=== PATIENT | male | born 1940 | race Caucasian/White ===

== ENCOUNTER 2017-03-25 01:46 | Emergency (ER) | payer MEDICARE, BC ==
[2017-03-25 02:05] VITALS: BP 114/69; PULSE 90; RESP 18; TEMP 96.9
[2017-03-25] MEDS ORDERED: valACYclovir 500 MG TAB PO STA (02:42)
--- NOTE | 2017-03-25 02:43 | ED ---
Skin/Abscess/FB HPI - General Chief complaint: Skin/Abscess/Foreign Body Stated complaint: abscess/bite Time Seen by Provider: 03/25/17 02:28 Source: patient Mode of arrival: ambulatory Limitations: no limitations - Related Data Previous Rx's Medication Instructions Recorded valACYclovir HCL [Valtrex] 1,000 mg PO TID #21 tablet 03/25/17 Allergies Allergy/AdvReac Type Severity Reaction Status Date / Time No Known Allergies Allergy Verified 03/25/17 02:06 Review of Systems ROS Statement: Those systems with pertinent positive or pertinent negative responses have been documented in the HPI. ROS Other: All systems not noted in ROS Statement are negative. Past Medical History Past Medical History: COPD, Diabetes Mellitus History of Any Multi-Drug Resistant Organisms: None Reported Past Surgical History: No Surgical Hx Reported Past Psychological History: No Psychological Hx Reported Smoking Status: Current every day smoker Past Alcohol Use History: Occasional Past Drug Use History: None Reported General Exam Limitations: no limitations Course Vital Signs 03/25/17 02:02 Temperature 96.9 F L Pulse Rate 90 Respiratory 18 Rate Blood Pressure 114/69 O2 Sat by Pulse 95 Oximetry Disposition Clinical Impression: Shingles rash Disposition: HOME SELF-CARE Condition: Good Instructions: Shingles (ED) Additional Instructions: Patient is to take antibiotic therapy. Follow-up with your primary care provider in regards to concern for further pain management. Patient advised to take Motrin Tylenol for pain. Wear loose fitting clothing. Prescriptions: valACYclovir HCL [Valtrex] 1,000 mg PO TID #21 tablet Referrals: Barrett Tierney DO [Primary Care Provider] - 1-2 days Time of Disposition: 02:42
== END 2017-03-25 02:55 | disposition home or self-care (01) ==
LOC: EC 01:46
DX: B02.9 Zoster without complications (principal); F17.200 Nicotine dependence, unspecified, uncomplicated
CPT/HCPCS: 99282

== ENCOUNTER → 2017-06-13 | Outpatient (CLI) | payer MEDICARE, BC ==
[2017-06-13 12:57] LABS: Basophils # (A) 0.1 k/uL (0-0.2); Basophils % (A) 1 %; CHCM 34.6; Eosinophils # (A) 0.2 k/uL (0-0.7); Eosinophils % (A) 2 %; HCT 48.2 % (39.0-53.0); HDW 2.43; HGB 15.9 gm/dL (13.0-17.5); Luc # (Auto) 0.06; Luc % (Auto) 1; Lymphocytes # (A) 1.3 k/uL (1.0-4.8); Lymphocytes % (A) 17 %; MCH 30.6 pg (25.0-35.0); MCHC 32.9 g/dL (31.0-37.0); Mean Platelet Volume 7.6; Monocytes # (A) 0.4 k/uL (0-1.0); Monocytes % (A) 6 %; Neutrophils # (A) 5.4 k/uL (1.3-7.7); Neutrophils % (A) 74 %; RBC 5.18 m/uL (4.30-5.90); RDW 14.8 % (11.5-15.5); WBC 7.4 k/uL (3.8-10.6)
[2017-06-13 13:14] LABS: ALT 92 U/L (21-72); AST 41 U/L (17-59); Alkaline Phosphatase 92 U/L (38-126); Anion Gap 10 mmol/L; Blood Urea Nitrogen 15 mg/dL (9-20); Calcium 9.3 mg/dL (8.4-10.2); Carbon Dioxide 27 mmol/L (22-30); Chloride 100 mmol/L (98-107); Glucose 222 mg/dL (74-99); Non-African American GFR(MDRD) >60 (>60 ml/min/1.73 sqM); Potassium 4.7 mmol/L (3.5-5.1); Sodium 137 mmol/L (137-145); Total Bilirubin 0.9 mg/dL (0.2-1.3); Total Protein 6.6 g/dL (6.3-8.2)
[2017-06-13 20:42] LABS: Hemoglobin A1C 9.1 % (4.2-6.1)
== END | disposition home or self-care (01) ==
LOC: LABWHC1 11:46
PROVIDERS: ATTEND Internal Medicine
DX: E11.9 Type 2 diabetes mellitus without complications (principal); I50.9 Heart failure, unspecified
CPT/HCPCS: 36415; 80053; 83036; 83880; 84439; 84443; 85025

== ENCOUNTER 2017-12-18 18:10 | Emergency (ER) | payer MEDICARE, BC ==
[2017-12-18 18:18] VITALS: TEMP 97.9
[2017-12-18] MEDS ORDERED: IPRATROPIUM-ALBUTEROL 3 ML NEB INHALATION STA (18:36)
--- NOTE | 2017-12-18 18:40 | ED ---
General Adult HPI - General Chief complaint: Shortness of Breath Stated complaint: Sob/cough Time Seen by Provider: 12/18/17 18:20 Source: patient, RN notes reviewed Mode of arrival: ambulatory Limitations: no limitations - History of Present Illness Initial comments: 77-year-old presents with dyspnea and cough. Patient states he is scheduled to have a pacemaker placed tomorrow morning at [facility] in [facility], he wanted to get his cough checked out prior to this procedure. He states he has congestive heart failure as well as long-time history of tobacco use. Denies fever or chills. Denies rhinorrhea or sore throat. Denies vomiting. Patient does have some left upper chest pain. No central or typical chest pain. Denies abdominal pain. Denies lower extremity swelling or calf tenderness. - Related Data Home Medications Medication Instructions Recorded Confirmed Albuterol Inhaler [Ventolin Hfa 1 - 2 puff INHALATION RT-Q6H PRN 12/18/17 Inhaler] Aspirin 81 mg PO DAILY 12/18/17 12/18/17 Atorvastatin [Lipitor] 40 mg PO HS 12/18/17 12/18/17 B Complex-Vit C-Vit E-Zinc [Z-Bec] 1 tab PO DAILY 12/18/17 12/18/17 Carvedilol [Coreg] 25 mg PO BID 12/18/17 12/18/17 Citalopram Hydrobromide [CeleXA] 10 mg PO DAILY 12/18/17 12/18/17 Famotidine [Pepcid] 20 mg PO DAILY 12/18/17 12/18/17 Fluticasone/Salmeterol [Advair 1 inhalation PO RT-BID 12/18/17 12/18/17 250-50 Diskus] Furosemide [Lasix] 20 mg PO DAILY 12/18/17 12/18/17 Losartan Potassium 50 mg PO DAILY 12/18/17 12/18/17 metFORMIN HCL [Glucophage] 1,000 mg PO BID 12/18/17 12/18/17 sitaGLIPtin [Januvia] 100 mg PO DAILY 12/18/17 12/18/17 Allergies Allergy/AdvReac Type Severity Reaction Status Date / Time No Known Allergies Allergy Verified 12/18/17 18:57 Review of Systems ROS Statement: Those systems with pertinent positive or pertinent negative responses have been documented in the HPI. ROS Other: All systems not noted in ROS Statement are negative. Past Medical History Past Medical History: COPD, Diabetes Mellitus Additional Past Medical History / Comment(s): Congestive Heart Failure History of Any Multi-Drug Resistant Organisms: None Reported Past Surgical History: No Surgical Hx Reported Past Psychological History: No Psychological Hx Reported Smoking Status: Current every day smoker Past Alcohol Use History: Occasional Past Drug Use History: None Reported General Exam Limitations: no limitations General appearance: alert, in no apparent distress Head exam: Present: atraumatic, normocephalic Eye exam: Present: normal appearance, PERRL, EOMI ENT exam: Present: normal exam, mucous membranes dry Neck exam: Present: normal inspection, tenderness, meningismus Respiratory exam: Present: rales, decreased breath sounds, prolonged expiratory Cardiovascular Exam: Present: regular rate, normal rhythm GI/Abdominal exam: Present: soft. Absent: distended, tenderness Extremities exam: Present: normal inspection, normal capillary refill. Absent: pedal edema, calf tenderness Neurological exam: Present: alert, oriented X3, CN II-XII intact. Absent: motor sensory deficit Skin exam: Present: warm, dry, intact. Absent: cyanosis, diaphoretic Course Vital Signs 12/18/17 12/18/17 12/18/17 18:16 18:33 18:50 Temperature 97.9 F Pulse Rate 79 74 76 Respiratory 18 16 Rate Blood Pressure 120/56 110/55 O2 Sat by Pulse 98 Oximetry 12/18/17 12/18/17 18:59 19:41 Temperature Pulse Rate 71 68 Respiratory 14 Rate Blood Pressure 113/59 O2 Sat by Pulse 95 Oximetry - Reevaluation(s) Reevaluation #1: 12/18/17 19:00 Records being obtained from Lanre Jimenez. Reevaluation #2: 12/18/17 20:33 I did discuss x-ray findings with the patient's next of kin, Ana. She is planning on taking the patient for his pacemaker defibrillator tomorrow morning. EKG Findings - EKG Comments: EKG Findings:: EKG shows sinus rhythm with occasional PVC, there is T-wave abnormality in the lateral precordium. Rate of 72, KS interval 190, QRS duration 98, QTC 459, no old EKG for comparison. Medical Decision Making - Medical Decision Making 69-year-old male presenting with cough and dyspnea. Patient is scheduled for pacemaker defibrillator procedure abnormal 1 hospital tomorrow morning. He is concerned he had a developing pneumonia and wanted to be checked out. Patient does have history of dilated cardiomyopathy with poor EF. No records available for review. I did confirm with the patient's next of kin that he is scheduled for this procedure tomorrow morning. Laboratory studies reveal normal white blood cell count, stable hemoglobin, normal electrolytes and troponin is 0.015, BNP is elevated at 4600, chest x-ray is negative for focal pneumonia, there is clearing of previous primary congestion, no overt failure. EKG shows some ischemic changes with T-wave abnormality in the lateral precordium. No ST segment elevation. Patient has no central chest pain. There is no old EKG for comparison. I did offer both admission to this hospital and transferred to [facility], patient declines both. He would prefer to be discharged knowing does not have a pneumonia and will maintain his appointment tomorrow morning. - Lab Data Result diagrams: 12/18/17 18:50 12/18/17 18:50 Lab Results 12/18/17 12/18/17 12/18/17 Range/Units 18:50 18:50 18:50 WBC 6.0 (3.8-10.6) k/uL RBC 4.44 (4.30-5.90) m/uL Hgb 13.4 (13.0-17.5) gm/dL Hct 40.9 (39.0-53.0) % MCV 92.2 (80.0-100.0) fL MCH 30.2 (25.0-35.0) pg MCHC 32.8 (31.0-37.0) g/dL RDW 12.6 (11.5-15.5) % Plt Count 215 (150-450) k/uL Neutrophils % 59 % Lymphocytes % 25 % Monocytes % 7 % Eosinophils % 6 % Basophils % 1 % Neutrophils # 3.6 (1.3-7.7) k/uL Lymphocytes # 1.5 (1.0-4.8) k/uL Monocytes # 0.4 (0-1.0) k/uL Eosinophils # 0.4 (0-0.7) k/uL Basophils # 0.0 (0-0.2) k/uL PT (9.0-12.0) sec INR (<1.2) APTT (22.0-30.0) sec Sodium 142 (137-145) mmol/L Potassium 4.2 (3.5-5.1) mmol/L Chloride 101 (98-107) mmol/L Carbon Dioxide 28 (22-30) mmol/L Anion Gap 13 mmol/L BUN 19 (9-20) mg/dL Creatinine 1.04 (0.66-1.25) mg/dL Est GFR (CKD-EPI)AfAm 80 (>60 ml/min/1.73 sqM) Est GFR (CKD-EPI)NonAf 69 (>60 ml/min/1.73 sqM) Glucose 140 H (74-99) mg/dL Calcium 9.1 (8.4-10.2) mg/dL Magnesium 2.0 (1.6-2.3) mg/dL Total Bilirubin 0.4 (0.2-1.3) mg/dL AST 17 (17-59) U/L ALT 29 (21-72) U/L Alkaline Phosphatase 63 (38-126) U/L Total Creatine Kinase 72 (55-170) U/L CK-MB (CK-2) 2.0 (0.0-2.4) ng/mL CK-MB (CK-2) Rel Index 2.8 Troponin I 0.015 (0.000-0.034) ng/mL NT-Pro-B Natriuret Pep pg/mL Total Protein 6.7 (6.3-8.2) g/dL Albumin 4.1 (3.5-5.0) g/dL 12/18/17 12/18/17 Range/Units 18:50 18:50 WBC (3.8-10.6) k/uL RBC (4.30-5.90) m/uL Hgb (13.0-17.5) gm/dL Hct (39.0-53.0) % MCV (80.0-100.0) fL MCH (25.0-35.0) pg MCHC (31.0-37.0) g/dL RDW (11.5-15.5) % Plt Count (150-450) k/uL Neutrophils % % Lymphocytes % % Monocytes % % Eosinophils % % Basophils % % Neutrophils # (1.3-7.7) k/uL Lymphocytes # (1.0-4.8) k/uL Monocytes # (0-1.0) k/uL Eosinophils # (0-0.7) k/uL Basophils # (0-0.2) k/uL PT 10.3 (9.0-12.0) sec INR 1.1 (<1.2) APTT 24.8 (22.0-30.0) sec Sodium (137-145) mmol/L Potassium (3.5-5.1) mmol/L Chloride (98-107) mmol/L Carbon Dioxide (22-30) mmol/L Anion Gap mmol/L BUN (9-20) mg/dL Creatinine (0.66-1.25) mg/dL Est GFR (CKD-EPI)AfAm (>60 ml/min/1.73 sqM) Est GFR (CKD-EPI)NonAf (>60 ml/min/1.73 sqM) Glucose (74-99) mg/dL Calcium (8.4-10.2) mg/dL Magnesium (1.6-2.3) mg/dL Total Bilirubin (0.2-1.3) mg/dL AST (17-59) U/L ALT (21-72) U/L Alkaline Phosphatase (38-126) U/L Total Creatine Kinase (55-170) U/L CK-MB (CK-2) (0.0-2.4) ng/mL CK-MB (CK-2) Rel Index Troponin I (0.000-0.034) ng/mL NT-Pro-B Natriuret Pep 4600 pg/mL Total Protein (6.3-8.2) g/dL Albumin (3.5-5.0) g/dL Disposition Clinical Impression: Congestive heart failure Disposition: HOME SELF-CARE Condition: Fair Instructions: Heart Failure (ED), Chronic Bronchitis (ED) Referrals: Kvng Escoto MD [Primary Care Provider] - 1-2 days Time of Disposition: 20:35
[2017-12-18 19:04] LABS: Basophils % (A) 1 %; Eosinophils # (A) 0.4 k/uL (0-0.7); Eosinophils % (A) 6 %; HCT 40.9 % (39.0-53.0); HGB 13.4 gm/dL (13.0-17.5); Lymphocytes # (A) 1.5 k/uL (1.0-4.8); Lymphocytes % (A) 25 %; MCH 30.2 pg (25.0-35.0); MCHC 32.8 g/dL (31.0-37.0); MCV 92.2 fL (80.0-100.0); Mean Platelet Volume 7.5; Monocytes # (A) 0.4 k/uL (0-1.0); Monocytes % (A) 7 %; Neutrophils # (A) 3.6 k/uL (1.3-7.7); Neutrophils % (A) 59 %; Platelet Count 215 k/uL (150-450); RBC 4.44 m/uL (4.30-5.90); RDW 12.6 % (11.5-15.5)
[2017-12-18 19:10] LABS: INR 1.1 (<1.2); Partial Thromboplastin Time 24.8 sec (22.0-30.0); Prothrombin Time 10.3 sec (9.0-12.0)
[2017-12-18 19:19] LABS: Albumin 4.1 g/dL (3.5-5.0); Calcium 9.1 mg/dL (8.4-10.2); Potassium 4.2 mmol/L (3.5-5.1); Total Bilirubin 0.4 mg/dL (0.2-1.3); Total Protein 6.7 g/dL (6.3-8.2)
[2017-12-18 19:34] LABS: Troponin I 0.015 ng/mL (0.000-0.034)
--- NOTE | 2017-12-18 19:42 | XR ---
EXAMINATION TYPE: XR chest 2V DATE OF EXAM: 12/18/2017 COMPARISON: 06/13/2017 HISTORY: Chest pain TECHNIQUE: Frontal and lateral views of the chest are obtained. FINDINGS: There is some coarsening of interstitial pulmonary markings. There is no heart failure. He art size is normal. There are chest leads. IMPRESSION: Pulmonary mild fibrotic changes. No heart failure. There is clearing of pulmonary conges tion and pleural fluid compared to old exam.
[2017-12-18 21:33] VITALS: BP 137/89; PULSE 64; RESP 19
== END 2017-12-18 21:33 | disposition home or self-care (01) ==
LOC: EC 18:10
DX: I50.9 Heart failure, unspecified (principal); J44.9 Chronic obstructive pulmonary disease, unspecified; E11.9 Type 2 diabetes mellitus without complications; F17.200 Nicotine dependence, unspecified, uncomplicated; Z79.51 Long term (current) use of inhaled steroids; Z79.82 Long term (current) use of aspirin; Z79.899 Other long term (current) drug therapy
CPT/HCPCS: 36415; 71046; 80053; 82550; 82553; 83735; 83880; 84484; 85025; 85610; 85730; 87040; 93005; 94640; 99285

== ENCOUNTER → 2018-03-03 | Outpatient (CLI) | payer MEDICARE, BC ==
[2018-03-03 10:07] LABS: ALT 43 U/L (21-72); AST 20 U/L (17-59); Albumin 4.2 g/dL (3.5-5.0); Alkaline Phosphatase 57 U/L (38-126); Anion Gap 13 mmol/L; Blood Urea Nitrogen 20 mg/dL (9-20); Carbon Dioxide 26 mmol/L (22-30); Chloride 105 mmol/L (98-107); Glucose 166 mg/dL (74-99); Potassium 4.4 mmol/L (3.5-5.1); Sodium 144 mmol/L (137-145); Total Bilirubin 0.4 mg/dL (0.2-1.3); Total Protein 6.5 g/dL (6.3-8.2)
[2018-03-03 19:26] LABS: Hemoglobin A1C 7.3 % (4.0-6.0)
== END | disposition home or self-care (01) ==
LOC: LABWHC1 09:25
PROVIDERS: ATTEND Internal Medicine
DX: E11.9 Type 2 diabetes mellitus without complications (principal)
CPT/HCPCS: 36415; 80053; 83036

== ENCOUNTER → 2018-05-09 | Outpatient (CLI) | payer MEDICARE, BC ==
--- NOTE | 2018-05-09 14:51 | XR ---
EXAMINATION TYPE: XR chest 2V DATE OF EXAM: 05/09/2018 COMPARISON: 01/13/2018 TECHNIQUE: PA and lateral views submitted. HISTORY: Shortness of breath FINDINGS: Cardiac device noted in the heart size is stable. Hyperinflation suggests COPD. No pneumothorax or ov ert failure. No focal pneumonia. Hypertrophic and degenerative change the spine noted. Nodular densit y overlying the lateral margin of the right lower lung field. IMPRESSION: 1. COPD 2. Stable appearing nodular density overlying the right lower lobe. Recommend CT chest.
== END | disposition home or self-care (01) ==
LOC: RADXRMAIN 14:31
PROVIDERS: ATTEND Internal Medicine
DX: J44.9 Chronic obstructive pulmonary disease, unspecified (principal); R91.1 Solitary pulmonary nodule
CPT/HCPCS: 71046

== ENCOUNTER 2020-05-30 14:49 | Emergency (ER) | payer MEDICARE ==
[2020-05-30 15:05] VITALS: TEMP 99
[2020-05-30 16:28] LABS: Appearance,Urine Clear (Clear); Bilirubin,Urine Negative (Negative); Blood,Urine Negative (Negative); Color,Urine Light Yellow; Glucose,Urine (UA) 3+ (Negative); Ketones,Urine Negative (Negative); Leukocyte Esterase,Urine Negative (Negative); Nitrite,Urine Negative (Negative); Protein,Urine Negative (Negative); Specific Gravity,Urine 1.009 (1.001-1.035); Urobilinogen,Urine <2.0 mg/dL (<2.0)
[2020-05-30 16:41] VITALS: RESP 16
--- NOTE | 2020-05-30 17:39 | ED ---
General Adult HPI - General Chief complaint: Urogenital Stated complaint: Urogenital Time Seen by Provider: 05/30/20 15:06 Source: patient, RN notes reviewed, old records reviewed Mode of arrival: ambulatory Limitations: no limitations - History of Present Illness Initial comments: 79-year-old male patient past medical history of benign prostate hypertrophy presents to ED for evaluation of acute urinary retention. Patient was that he last had a good urination yesterday during the day. Patient was that he is having lots of fever fullness and discomfort. Reports that he has a sensation that he needs to urinate but he cannot. Denies any other complaints. Systemic: Pt denies fatigue, fever/chills, rash. Pt denies weakness, night sweats, weight loss. Neuro: Pt denies headache, visual disturbances, syncope or pre-syncope. HEENT: Pt denies ocular discharge or irritation, otalgia, rhinorrhea, pharyngitis or notable lymphadenopathy. Cardiopulmonary: Pt denies chest pain, SOB, heart palpitations, dyspnea on exertion. Abdominal/GI: Pt denies abdominal pain, n/v/d. : Pt denies dysuria. Denies new onset urinary or bowel incontinence. MSK: Pt denies myalgia, loss of strength or function in extremities. Neuro: Pt denies new onset weakness, paresthesias. - Related Data Home Medications Medication Instructions Recorded Confirmed Albuterol Inhaler (Mhu) [Ventolin 1 - 2 puff INHALATION RT-Q6H PRN 12/18/17 12/18/17 Hfa Inhaler] Aspirin 81 mg PO DAILY 12/18/17 12/18/17 Atorvastatin [Lipitor] 40 mg PO HS 12/18/17 12/18/17 B Complex-Vit C-Vit E-Zinc [Z-Bec] 1 tab PO DAILY 12/18/17 12/18/17 Carvedilol [Coreg] 25 mg PO BID 12/18/17 12/18/17 Citalopram Hydrobromide [CeleXA] 10 mg PO DAILY 12/18/17 12/18/17 Famotidine [Pepcid] 20 mg PO DAILY 12/18/17 12/18/17 Fluticasone/Salmeterol [Advair 1 inhalation PO RT-BID 12/18/17 12/18/17 250-50 Diskus] Furosemide [Lasix] 20 mg PO DAILY 12/18/17 12/18/17 Losartan Potassium 50 mg PO DAILY 12/18/17 12/18/17 metFORMIN HCL [Glucophage] 1,000 mg PO BID 12/18/17 12/18/17 sitaGLIPtin [Januvia] 100 mg PO DAILY 12/18/17 12/18/17 Allergies Allergy/AdvReac Type Severity Reaction Status Date / Time No Known Allergies Allergy Verified 05/30/20 15:05 Review of Systems ROS Statement: Those systems with pertinent positive or pertinent negative responses have been documented in the HPI. ROS Other: All systems not noted in ROS Statement are negative. Past Medical History Past Medical History: COPD, Diabetes Mellitus Additional Past Medical History / Comment(s): Congestive Heart Failure History of Any Multi-Drug Resistant Organisms: None Reported Past Surgical History: No Surgical Hx Reported Past Psychological History: No Psychological Hx Reported Smoking Status: Current every day smoker Past Alcohol Use History: Occasional Past Drug Use History: None Reported General Exam - General Exam Comments Initial Comments: Constitutional: NAD, AOX3, Pt has pleasant affect. HEENT: NC/AT, trachea midline, neck supple, no lymphadenopathy. External ears appear normal, without discharge. Mucous membranes moist. Eyes PERRLA, EOM intact. There is no scleral icterus. No pallor noted. Cardiopulmonary: RRR, no murmurs, rubs or gallops, no JVD noted. Lungs CTAB in anterior and posterior serna. No peripheral edema. Abdominal exam: Abdomen soft and non-distended. Abdomen non-tender to palpation in all 4 quadrants. Bowel sounds active in LLQ. No hepatosplenomegaly. No ecchymosis Neuro: CN II-XII grossly intact. No nuchal rigidity. No raccon eyes, no johns sign, no hemotympanum. No cervical spinal tenderness. MSK: Sensation intact in upper and lower extremities. Full active ROM in upper and lower extremities. Limitations: no limitations Course Vital Signs 05/30/20 05/30/20 15:00 16:40 Temperature 99.0 F Pulse Rate 101 H 89 Respiratory 18 16 Rate Blood Pressure 180/80 135/78 O2 Sat by Pulse 94 L 100 Oximetry Medical Decision Making - Medical Decision Making 79-year-old male patient presented to ED for evaluation of urinary retention. Patient has a history of prostate hypertrophy. Denies any recent falls or trauma. Full catheter is placed patient had over 2 L of drainage. Feeling much improved. Discharged outpatient urology follow-up and return precautions. Urinalysis displayed any signs of infection. Case discussed with Dr. Frank. - Lab Data Lab Results 05/30/20 Range/Units 16:18 Urine Color Light Yellow Urine Appearance Clear (Clear) Urine pH 5.0 (5.0-8.0) Ur Specific [place] 1.009 (1.001-1.035) Urine Protein Negative (Negative) Urine Glucose (UA) 3+ H (Negative) Urine Ketones Negative (Negative) Urine Blood Negative (Negative) Urine Nitrite Negative (Negative) Urine Bilirubin Negative (Negative) Urine Urobilinogen <2.0 (<2.0) mg/dL Ur Leukocyte Esterase Negative (Negative) Disposition Clinical Impression: Urinary retention Disposition: HOME SELF-CARE Condition: Stable Instructions (If sedation given, give patient instructions): Urinary Retention in Men (ED), Enlarged Prostate (BPH) (ED), De [place] Santos Catheter Placement and Care (ED) Additional Instructions: Follow-up with urologist tomorrow. Return to ER if any worsening symptoms. Is patient prescribed a controlled substance at d/c from ED?: No Referrals: None,Stated [Primary Care Provider] - 1-2 days Otto Wright MD [STAFF PHYSICIAN] - 1-2 days
[2020-05-30 18:05] VITALS: BP 160/70; PULSE 88
== END 2020-05-30 17:45 | disposition home or self-care (01) ==
LOC: EC 14:49
DX: N40.1 Benign prostatic hyperplasia with lower urinary tract symptoms (principal); R33.8 Other retention of urine; F17.200 Nicotine dependence, unspecified, uncomplicated; J44.9 Chronic obstructive pulmonary disease, unspecified; E11.9 Type 2 diabetes mellitus without complications; I50.9 Heart failure, unspecified; Z79.51 Long term (current) use of inhaled steroids; Z79.84 Long term (current) use of oral hypoglycemic drugs; Z79.82 Long term (current) use of aspirin; Z79.899 Other long term (current) drug therapy
CPT/HCPCS: 51702; 81003; 99284

== ENCOUNTER 2020-05-31 01:08 | Emergency (ER) | payer MEDICARE ==
[2020-05-31 01:21] VITALS: RESP 18
[2020-05-31] MEDS ORDERED: TAMSULOSIN 0.4 MG CAP.ER.24H PO STA (01:35)
--- NOTE | 2020-05-31 01:37 | ED ---
General Adult HPI - General Chief complaint: Urogenital Stated complaint: Catheter issues Time Seen by Provider: 05/31/20 01:24 Source: patient Mode of arrival: ambulatory Limitations: no limitations - History of Present Illness Initial comments: 79-year-old male patient presents to the emergency department today for evaluation of blood in his urine. The patient was seen and evaluated on 05/30 around 4 PM for urinary retention. He did have a [place] catheter placed and did have some mild hematuria at that time but was discharged with good flow. Patiben t states that the blood in the urine has continued and he is also experiencing a burning sensation at the catheter insertion site so he represents for further evaluation. States the catheter is still flowing. Patient does not take any blood thinning medications. His initial urinalysis did not show any sign of infection. He denies abdominal pain, fever, or chills. Patient does have a history of BPH generally exacerbated by alcohol consumption. States that he did have several beers 2 days ago which she believes is a contributing factor to his current condition. Patient denies any recent rash, fever, chills, cough, shortness of breath, chest pain, abdominal pain, nausea, vomiting, diarrhea, constipation, back pain, numbness, tingling, dizziness, weakness, hematuria, dysuria, urinary urgency, urinary frequency, headache, visual changes, or any other complaints. - Related Data Home Medications Medication Instructions Recorded Confirmed Albuterol Inhaler (Mhu) [Ventolin 1 - 2 puff INHALATION RT-Q6H PRN 12/18/17 12/18/17 Hfa Inhaler] Aspirin 81 mg PO DAILY 12/18/17 12/18/17 Atorvastatin [Lipitor] 40 mg PO HS 12/18/17 12/18/17 B Complex-Vit C-Vit E-Zinc [Z-Bec] 1 tab PO DAILY 12/18/17 12/18/17 Carvedilol [Coreg] 25 mg PO BID 12/18/17 12/18/17 Citalopram Hydrobromide [CeleXA] 10 mg PO DAILY 12/18/17 12/18/17 Famotidine [Pepcid] 20 mg PO DAILY 12/18/17 12/18/17 Fluticasone/Salmeterol [Advair 1 inhalation PO RT-BID 03/28/18 03/28/18 250-50 Diskus] Furosemide [Lasix] 20 mg PO DAILY 12/18/17 12/18/17 Losartan Potassium 50 mg PO DAILY 12/18/17 12/18/17 metFORMIN HCL [Glucophage] 1,000 mg PO BID 12/18/17 12/18/17 sitaGLIPtin [Januvia] 100 mg PO DAILY 12/18/17 12/18/17 Previous Rx's Medication Instructions Recorded Tamsulosin HCl [Flomax] 0.4 mg PO DAILY #7 cap 05/31/20 Allergies Allergy/AdvReac Type Severity Reaction Status Date / Time No Known Allergies Allergy Verified 05/31/20 01:22 Review of Systems ROS Statement: Those systems with pertinent positive or pertinent negative responses have been documented in the HPI. ROS Other: All systems not noted in ROS Statement are negative. Past Medical History Past Medical History: COPD, Diabetes Mellitus Additional Past Medical History / Comment(s): Congestive Heart Failure History of Any Multi-Drug Resistant Organisms: None Reported Past Surgical History: No Surgical Hx Reported Past Psychological History: No Psychological Hx Reported Smoking Status: Current every day smoker Past Alcohol Use History: Occasional Past Drug Use History: None Reported General Exam Limitations: no limitations General appearance: alert, in no apparent distress, other (This is a well- developed, well-nourished elderly male patient in no acute distress. Vital signs upon presentation are temperature 97.9F, pulse 51, respirations 18, blood pressure 146/76, pulse ox 95% on room air.) ENT exam: Present: normal exam, normal oropharynx, mucous membranes moist Respiratory exam: Present: normal lung sounds bilaterally. Absent: respiratory distress, wheezes, rales, rhonchi, stridor Cardiovascular Exam: Present: regular rate, normal rhythm, normal heart sounds. Absent: systolic murmur, diastolic murmur, rubs, gallop, clicks exam: Present: other (Patient has a De [place] Santos catheter placed. No bleeding from the insertion site. There is pink urine in the bag. ) Neurological exam: Present: alert, oriented X3, CN II-XII intact Psychiatric exam: Present: normal affect, normal mood Skin exam: Present: warm, dry, intact, normal color. Absent: rash Course Vital Signs 05/31/20 05/31/20 01:19 02:53 Temperature 97.9 F 97.8 F Pulse Rate 51 L 57 L Respiratory 18 18 Rate Blood Pressure 146/76 148/76 O2 Sat by Pulse 95 96 Oximetry Medical Decision Making - Medical Decision Making 79-year-old male patient presented to the emergency department today for evaluation of hematuria and a burning sensation in his De [place] Santos catheter insertion site. Patient had had the catheter placed earlier in the day for urinary retention and had 2 L drained. Patient is requesting to have the [place] Santos catheter removed. States he feels that his prostate is no longer swollen and he would like to attempt urinating on his own. His initial urinalysis showed no evidence for infection. We will discontinue the catheter per his request. We will start flomax. He is given urogel lidocaine while here for discomfort. He is instructed that he must return to have De [place] Santos catheter replaced if he has not urinated after 6 hours. We did discuss signs or symptoms of infection. He is instructed to follow up with his urologist for further evaluation. Return parameters were discussed in detail. He verbalizes understanding and agrees with this plan. Disposition Clinical Impression: Hematuria Disposition: HOME SELF-CARE Condition: Good Instructions (If sedation given, give patient instructions): Urinary Retention in Men (ED), Hematuria (ED) Additional Instructions: Increase fluids. Take medication as directed. Return or see a urologist if you have not urinated in 6 hours. Follow up with urologist for further evaluation as soon as possible. Follow-up with your primary care physician for recheck in 1- 2 days. Return to the emergency department immediately for any new, worsening, or concerning symptoms. Prescriptions: Tamsulosin HCl [Flomax] 0.4 mg PO DAILY #7 cap Is patient prescribed a controlled substance at d/c from ED?: No Referrals: Otto Wright MD [STAFF PHYSICIAN] - 1-2 days Time of Disposition: 01:37
[2020-05-31] MEDS ORDERED: LIDOCAINE URO-JET JELLY 2% 5 ML KIT URETHRAL ONE (02:42)
[2020-05-31 02:54] VITALS: BP 148/76; PULSE 57; TEMP 97.8
== END 2020-05-31 02:53 | disposition home or self-care (01) ==
LOC: EC 01:08
DX: R31.9 Hematuria, unspecified (principal); J44.9 Chronic obstructive pulmonary disease, unspecified; E11.9 Type 2 diabetes mellitus without complications; I50.9 Heart failure, unspecified; F17.200 Nicotine dependence, unspecified, uncomplicated; Z79.82 Long term (current) use of aspirin; Z79.02 Long term (current) use of antithrombotics/antiplatelets; Z79.84 Long term (current) use of oral hypoglycemic drugs; Z79.51 Long term (current) use of inhaled steroids; Z79.899 Other long term (current) drug therapy
CPT/HCPCS: 99283

== ENCOUNTER → 2021-08-25 | Outpatient (CLI) | payer MEDICARE ==
--- NOTE | 2021-08-25 12:08 | CT ---
EXAMINATION TYPE: CT brain wo con DATE OF EXAM: 08/25/2021 COMPARISON: None INDICATION: Weakness and history of lung cancer DLP: 1253.3 mGycm, Automated exposure control for dose reduction was used. CONTRAST: None CT of the brain is performed utilizing 3 mm thick sections through the posterior fossa and 3 mm thick sections through the remaining calvarium. Study is performed within 24 hours of arrival to the hosp ital. No abnormal hyperdensity is present to suggest an acute intracranial hemorrhage. No mass lesion is evident. No obvious changes to suggest metastatic disease. Small metastases may no t be visualized on this exam. No acute infarcts are evident. Ventricles and sulci are prominent for the patient age. There is mild mucosal thickening within mid left ethmoid air cells. Remaining paranasal sinuses and m astoid air cells are clear IMPRESSIONS: 1. Atrophy. 2. No obvious changes to suggest metastatic disease.
== END | disposition home or self-care (01) ==
LOC: RADCTMAIN 11:05
PROVIDERS: ATTEND Internal Medicine Hematology & Oncology
DX: C34.90 Malignant neoplasm of unspecified part of unspecified bronchus or lung (principal); G31.9 Degenerative disease of nervous system, unspecified
CPT/HCPCS: 70450

== ENCOUNTER 2021-11-10 15:08 | Emergency (ER) | payer MEDICARE ==
[2021-11-10 15:35] VITALS: RESP 20; TEMP 97.9
[2021-11-10] MEDS ORDERED: SODIUM CHLORIDE 0.9% 500 ML 500 ML IV STA (16:51)
[2021-11-10 16:59] LABS: Basophils % (A) 1 %; Eosinophils # (A) 0.2 k/uL (0-0.7); Eosinophils % (A) 2 %; HCT 31.7 % (39.0-53.0); HGB 10.3 gm/dL (13.0-17.5); Lymphocytes # (A) 0.8 k/uL (1.0-4.8); Lymphocytes % (A) 11 %; MCH 27.3 pg (25.0-35.0); MCHC 32.5 g/dL (31.0-37.0); MCV 83.9 fL (80.0-100.0); Mean Platelet Volume 6.9; Monocytes # (A) 0.4 k/uL (0-1.0); Monocytes % (A) 6 %; Neutrophils # (A) 5.5 k/uL (1.3-7.7); Neutrophils % (A) 78 %; Platelet Count 391 k/uL (150-450); RBC 3.78 m/uL (4.30-5.90); RDW 15.1 % (11.5-15.5)
[2021-11-10 17:12] LABS: ALT 9 U/L (4-49); AST 17 U/L (17-59); African American GFR (CKD) >90 (>60 ml/min/1.73 sqM); Albumin 3.3 g/dL (3.5-5.0); Alkaline Phosphatase 94 U/L (38-126); Anion Gap 8 mmol/L; Blood Urea Nitrogen 19 mg/dL (9-20); Calcium 9.2 mg/dL (8.4-10.2); Carbon Dioxide 28 mmol/L (22-30); Chloride 93 mmol/L (98-107); Glucose 281 mg/dL (74-99); Lipase 196 U/L (23-300); Non-African American GFR(CKD) 82 (>60 ml/min/1.73 sqM); Potassium 4.6 mmol/L (3.5-5.1); Sodium 129 mmol/L (137-145); Total Bilirubin 0.4 mg/dL (0.2-1.3); Total Protein 6.6 g/dL (6.3-8.2)
--- NOTE | 2021-11-10 18:01 | ED ---
Recheck HPI - General Chief Complaint: Recheck/Abnormal Lab/Rx Stated Complaint: Irregular labs Time Seen by Provider: 11/10/21 16:28 Source: patient Mode of arrival: ambulatory Limitations: no limitations - History of Present Illness Initial Comments: 81-year-old male patient presents to the emergency department for evaluation after being sent by Florentin for abnormal labs. He was instructed to come in due to high amylase and lipase levels. Patient states he is having some mild abdominal discomfort today. He is currently receiving immunotherapy for lung cancer. Has had some nausea with eating. Denies any other symptoms. He does wear oxygen. Denies fever or chills. Denies constipation or diarrhea. Denies any difficulty with urination. Patient denies any recent rash, cough, back pain, numbness, tingling, dizziness, weakness, hematuria, dysuria, urinary urgency, urinary frequency, headache, visual changes, or any other complaints. - Related Data Home Medications Medication Instructions Recorded Confirmed Aspirin 81 mg PO DAILY 12/18/17 04/16/21 Atorvastatin [Lipitor] 40 mg PO HS 12/18/17 04/16/21 Carvedilol [Coreg] 25 mg PO BID 12/18/17 04/16/21 Famotidine [Pepcid] 20 mg PO DAILY 12/18/17 04/16/21 Fluticasone/Salmeterol [Advair 1 puff INHALATION RT-BID 12/18/17 04/16/21 250-50 Diskus] Furosemide [Lasix] 20 mg PO DAILY 12/18/17 04/16/21 Albuterol Inhaler [Ventolin Hfa 2 puff INHALATION RT-QID PRN 04/16/21 04/16/21 Inhaler] Nitroglycerin Sl Tabs [Nitrostat] 0.4 mg SUBLINGUAL Q5M PRN 04/16/21 04/16/21 Potassium Chloride ER [K-Dur 10] 10 meq PO BID 04/16/21 04/16/21 Repaglinide 1 mg PO AC-TID 04/16/21 04/16/21 metFORMIN HCL [Glucophage] 1,000 mg PO BID 04/16/21 04/16/21 Previous Rx's Medication Instructions Recorded Tamsulosin HCl [Flomax] 0.4 mg PO DAILY #7 cap 05/31/20 Amoxicillin/Potassium Clav 1 tab PO Q12HR 7 Days #14 tab 04/20/21 [Augmentin 500-125 Tablet] Citalopram Hydrobromide [CeleXA] 10 mg PO DAILY #30 tab 04/20/21 Losartan [Cozaar] 50 mg PO DAILY #30 tab 04/20/21 predniSONE 10 mg PO DIRECTED #9 tab 04/20/21 Metoclopramide [Reglan] 10 mg PO Q8H PRN #30 tab 11/10/21 Allergies Allergy/AdvReac Type Severity Reaction Status Date / Time COVID-19 (SARS-CoV-2) Allergy Unknown Verified 11/10/21 15:29 vaccine, mj Influenza Virus Vaccines Allergy Unknown Verified 11/10/21 15:29 Review of Systems ROS Statement: Those systems with pertinent positive or pertinent negative responses have been documented in the HPI. ROS Other: All systems not noted in ROS Statement are negative. Past Medical History Past Medical History: Cancer, COPD, Diabetes Mellitus, Hyperlipidemia, Hypertension, Prostate Disorder Additional Past Medical History / Comment(s): Congestive Heart Failure, hypertension, hyperlipidemia, BPH, COPD, diabetes mellitus, lung cancer History of Any Multi-Drug Resistant Organisms: None Reported Past Surgical History: No Surgical Hx Reported Past Psychological History: No Psychological Hx Reported Smoking Status: Former smoker Past Alcohol Use History: Occasional Past Drug Use History: None Reported General Exam Limitations: no limitations General appearance: alert, in no apparent distress, other (This is a well developed, well nourished adult male in no acute distress. ) ENT exam: Present: normal exam, normal oropharynx, mucous membranes moist Respiratory exam: Present: normal lung sounds bilaterally. Absent: respiratory distress, wheezes, rales, rhonchi, stridor Cardiovascular Exam: Present: regular rate, normal rhythm, normal heart sounds. Absent: systolic murmur, diastolic murmur, rubs, gallop, clicks GI/Abdominal exam: Present: soft, tenderness (midepigastric ), normal bowel sounds. Absent: distended, guarding, rebound, rigid Neurological exam: Present: alert, oriented X3, CN II-XII intact Psychiatric exam: Present: normal affect, normal mood Skin exam: Present: warm, dry, intact, normal color. Absent: rash Course Vital Signs 11/10/21 15:30 Temperature 97.9 F Pulse Rate 64 Respiratory 20 Rate Blood Pressure 127/54 O2 Sat by Pulse 95 Oximetry Medical Decision Making - Medical Decision Making 81-year-old male patient presenting for abnormal labs. Physical examination did reveal mild midepigastric tenderness. Today hemoglobin is 10.3, lipase is 196. Patient does report some intermittent nausea especially with eating. He is currently being treated for lung cancer. We will give prescription for Reglan discharged to follow-up with his doctor for further evaluation as soon as possible. Return parameters were discussed in detail. He verbalizes understanding and agrees with this plan. My attending is Dr. Pires. - Lab Data Result diagrams: 11/10/21 16:10 11/10/21 16:10 Lab Results 11/10/21 11/10/21 Range/Units 16:10 16:10 WBC 7.0 (3.8-10.6) k/uL RBC 3.78 L (4.30-5.90) m/uL Hgb 10.3 L (13.0-17.5) gm/dL Hct 31.7 L (39.0-53.0) % MCV 83.9 (80.0-100.0) fL MCH 27.3 (25.0-35.0) pg MCHC 32.5 (31.0-37.0) g/dL RDW 15.1 (11.5-15.5) % Plt Count 391 (150-450) k/uL MPV 6.9 Neutrophils % 78 % Lymphocytes % 11 % Monocytes % 6 % Eosinophils % 2 % Basophils % 1 % Neutrophils # 5.5 (1.3-7.7) k/uL Lymphocytes # 0.8 L (1.0-4.8) k/uL Monocytes # 0.4 (0-1.0) k/uL Eosinophils # 0.2 (0-0.7) k/uL Basophils # 0.0 (0-0.2) k/uL Sodium 129 L (137-145) mmol/L Potassium 4.6 (3.5-5.1) mmol/L Chloride 93 L (98-107) mmol/L Carbon Dioxide 28 (22-30) mmol/L Anion Gap 8 mmol/L BUN 19 (9-20) mg/dL Creatinine 0.83 (0.66-1.25) mg/dL Est GFR (CKD-EPI)AfAm >90 (>60 ml/min/1.73 sqM) Est GFR (CKD-EPI)NonAf 82 (>60 ml/min/1.73 sqM) Glucose 281 H (74-99) mg/dL Calcium 9.2 (8.4-10.2) mg/dL Total Bilirubin 0.4 (0.2-1.3) mg/dL AST 17 (17-59) U/L ALT 9 (4-49) U/L Alkaline Phosphatase 94 (38-126) U/L Total Protein 6.6 (6.3-8.2) g/dL Albumin 3.3 L (3.5-5.0) g/dL Lipase 196 (23-300) U/L Disposition Clinical Impression: Nausea, Anemia Disposition: HOME SELF-CARE Condition: Good Instructions (If sedation given, give patient instructions): Acute Nausea and Vomiting (ED), Anemia (ED) Additional Instructions: Follow up with your primary care physician for recheck in 1-2 days. Return for any new, worsening, or concerning symptoms. Prescriptions: Metoclopramide [Reglan] 10 mg PO Q8H PRN #30 tab PRN Reason: Vomiting Is patient prescribed a controlled substance at d/c from ED?: No Referrals: None,Stated [Primary Care Provider] - 1-2 days Time of Disposition: 18:01
[2021-11-10 18:59] VITALS: BP 132/67; PULSE 88
== END 2021-11-10 18:59 | disposition home or self-care (01) ==
LOC: EC 15:08
DX: R11.0 Nausea (principal); D64.9 Anemia, unspecified; J44.9 Chronic obstructive pulmonary disease, unspecified; E11.9 Type 2 diabetes mellitus without complications; E78.5 Hyperlipidemia, unspecified; I10 Essential (primary) hypertension; Z79.82 Long term (current) use of aspirin; Z79.84 Long term (current) use of oral hypoglycemic drugs; Z88.7 Allergy status to serum and vaccine; Z87.891 Personal history of nicotine dependence
CPT/HCPCS: 36415; 80053; 83690; 85025; 96360; 99284

== ENCOUNTER 2022-07-18 01:17 | Inpatient (IN) | payer MEDICARE ==
--- NOTE | 2022-07-18 02:12 | XR ---
EXAMINATION TYPE: XR chest 2V DATE OF EXAM: 07/18/2022 COMPARISON: 04/19/2021 HISTORY: Short of breath TECHNIQUE: FINDINGS: There is some airspace consolidation in the superior segment right lower lobe extending pos teriorly. There is a mild patchy infiltrate in the left lower lobe. Heart size is normal. No heart fa ilure. There is left axillary pacemaker. There is slight blunting right costophrenic angle. IMPRESSION: Compared to old exam there is not a significant change in the chronic infiltrate in the r ight posterior mid lung field. There is some new infiltrate left lower lobe and new small right pleur al effusion compared to old exam.
[2022-07-18 03:02] LABS: Partial Thromboplastin Time 25.5 sec (22.0-30.0); Prothrombin Time 10.5 sec (9.0-12.0)
[2022-07-18 03:04] LABS: ALT 22 U/L (4-49); AST 32 U/L (17-59); African American GFR (CKD) >90 (>60 ml/min/1.73 sqM); Albumin 3.9 g/dL (3.5-5.0); Alkaline Phosphatase 118 U/L (38-126); Anion Gap 11 mmol/L; Blood Urea Nitrogen 15 mg/dL (9-20); Calcium 8.6 mg/dL (8.4-10.2); Carbon Dioxide 27 mmol/L (22-30); Chloride 93 mmol/L (98-107); Glucose 223 mg/dL (74-99); Non-African American GFR(CKD) 82 (>60 ml/min/1.73 sqM); Potassium 4.6 mmol/L (3.5-5.1); Sodium 131 mmol/L (137-145); Total Bilirubin 0.5 mg/dL (0.2-1.3); Total Protein 7.2 g/dL (6.3-8.2)
[2022-07-18 03:05] LABS: Basophils % (A) 1 %; Eosinophils # (A) 0.2 k/uL (0-0.7); Eosinophils % (A) 3 %; HCT 34.3 % (39.0-53.0); Lymphocytes # (A) 0.7 k/uL (1.0-4.8); Lymphocytes % (A) 12 %; MCH 29.6 pg (25.0-35.0); MCHC 34.9 g/dL (31.0-37.0); MCV 84.7 fL (80.0-100.0); Mean Platelet Volume 7.9; Monocytes # (A) 0.3 k/uL (0-1.0); Monocytes % (A) 6 %; Neutrophils # (A) 4.5 k/uL (1.3-7.7); Neutrophils % (A) 77 %; Platelet Count 203 k/uL (150-450); RBC 4.05 m/uL (4.30-5.90); RDW 13.4 % (11.5-15.5); WBC 5.9 k/uL (3.8-10.6)
[2022-07-18] MEDS ORDERED: IPRATROPIUM-ALBUTEROL 3 ML NEB INHALATION STA (03:09)
[2022-07-18] MEDS ORDERED: AZITHROMYCIN 500 MG in SODIUM CHLORIDE 0.9% 250 ML IVPB STA (03:10)
[2022-07-18] MEDS ORDERED: ACETAMINOPHEN TAB 500 MG TAB PO STA (03:10)
[2022-07-18] MEDS ORDERED: PNEUMONIA PROTOCOL UTILIZED 1 EACH MISC PO PRN (03:10)
--- NOTE | 2022-07-18 03:43 | ED ---
SOB HPI - General Chief Complaint: Shortness of Breath Stated Complaint: SOB Time Seen by Provider: 07/18/22 01:35 Source: EMS Mode of arrival: EMS Limitations: no limitations - History of Present Illness Initial Comments: 81-year-old male with past medical history of lung cancer, heart failure who presents to the emergency room with shortness of breath. Reports that he normally wears 2 L of oxygen. He recently had increase his oxygen up to 4 L as he has had increased worker breathing. Admits to a very thick productive cough. No fevers. No chest pain. Denies any lower extremity swelling. Has been taking his Lasix as directed. No recent antibiotic use. He follows with Dr. Interiano from oncology. Denies seeing a medical office technology instructor. Has been using his nebulizer without improvement in his symptoms. No other alleviating, precipitating or modifying factors MD Complaint: shortness of breath - Related Data Home Medications Medication Instructions Recorded Confirmed Furosemide [Lasix] 20 mg PO DAILY 12/18/17 07/18/22 carvediloL [Coreg] 25 mg PO BID 12/18/17 07/18/22 Potassium Chloride ER [K-Dur 10] 10 meq PO DAILY 04/16/21 07/18/22 Insulin Aspart [NovoLOG Flexpen] 6 units SQ PC-TID 07/18/22 07/18/22 Insulin Glargine,Hum.rec.anlog 20 units SQ HS 07/18/22 07/18/22 [Lantus Solostar Pen] Prednisolone Acetate/Pf 1 drop BOTH EYES QID 07/18/22 07/18/22 [Prednisolone Acet 1% Eye Drop] Previous Rx's Medication Instructions Recorded Tamsulosin HCl [Flomax] 0.4 mg PO DAILY #7 cap 05/31/20 Losartan [Cozaar] 50 mg PO DAILY #30 tab 04/20/21 Acetaminophen Tab [Tylenol] 650 mg PO Q4HR PRN tab 07/21/22 Albuterol Inhaler [Ventolin Hfa 2 puff INHALATION RT-QID #1 each 07/21/22 Inhaler] Ascorbic Acid [Vitamin C] 1,000 mg PO DAILY #60 tab 07/21/22 Budesonide-Formot 160-4.5 Mcg 2 puff INHALATION RT-BID #1 each 07/21/22 [Symbicort 160-4.5 Mcg Inhaler] Cholecalciferol [Vitamin D3 (125 125 mcg PO DAILY #30 tab 07/21/22 Mcg = 5000 Iu)] Zinc Sulfate [Orazinc] 220 mg PO DAILY #30 cap 07/21/22 dexAMETHasone [Decadron] 6 mg PO DAILY #6 tablet 07/21/22 Allergies Allergy/AdvReac Type Severity Reaction Status Date / Time Influenza Virus Vaccines Allergy Unknown Verified 07/18/22 09:53 Review of Systems ROS Statement: Those systems with pertinent positive or pertinent negative responses have been documented in the HPI. ROS Other: All systems not noted in ROS Statement are negative. Past Medical History Past Medical History: Cancer, COPD, Diabetes Mellitus, Hyperlipidemia, Hypertension, Prostate Disorder Additional Past Medical History / Comment(s): Congestive Heart Failure, hypertension, hyperlipidemia, BPH, COPD, diabetes mellitus, lung cancer History of Any Multi-Drug Resistant Organisms: None Reported Past Surgical History: No Surgical Hx Reported Past Psychological History: No Psychological Hx Reported Smoking Status: Former smoker Past Alcohol Use History: Occasional Past Drug Use History: None Reported - Past Family History Mother Family Medical History: Hyperlipidemia General Exam Limitations: no limitations General appearance: alert, in no apparent distress Head exam: Present: atraumatic, normocephalic, normal inspection Eye exam: Present: normal appearance, PERRL, EOMI. Absent: scleral icterus, conjunctival injection, periorbital swelling ENT exam: Present: normal exam, mucous membranes moist Neck exam: Present: normal inspection. Absent: tenderness, meningismus, lymphadenopathy Respiratory exam: Present: respiratory distress, wheezes, decreased breath sounds, other (tachynpnia). Absent: rales, rhonchi, stridor Cardiovascular Exam: Present: regular rate, normal rhythm, normal heart sounds. Absent: systolic murmur, diastolic murmur, rubs, gallop, clicks GI/Abdominal exam: Present: soft, normal bowel sounds. Absent: distended, tenderness, guarding, rebound, rigid Extremities exam: Present: normal inspection, full ROM, normal capillary refill. Absent: tenderness, pedal edema, joint swelling, calf tenderness Back exam: Present: normal inspection Neurological exam: Present: alert, oriented X3, CN II-XII intact Psychiatric exam: Present: normal affect, normal mood Skin exam: Present: warm, dry, intact, normal color. Absent: rash Course Vital Signs 07/18/22 07/18/22 07/18/22 01:30 05:00 06:51 Temperature 97.9 F Pulse Rate 76 88 84 Pulse Rate [ Pulse Oximetery ] Respiratory 22 17 17 Rate Blood Pressure 176/101 155/74 149/77 Blood Pressure [Left Arm] O2 Sat by Pulse 96 97 97 Oximetry 07/18/22 07/18/22 07/18/22 07:58 09:03 12:23 Temperature Pulse Rate 70 89 Pulse Rate [ Pulse Oximetery ] Respiratory 18 20 Rate Blood Pressure 123/62 138/62 Blood Pressure [Left Arm] O2 Sat by Pulse 97 95 95 Oximetry 07/18/22 07/18/22 17:17 18:29 Temperature 97.6 F Pulse Rate 78 Pulse Rate [ 89 Pulse Oximetery ] Respiratory 16 18 Rate Blood Pressure 123/73 Blood Pressure 140/68 [Left Arm] O2 Sat by Pulse 98 94 L Oximetry Medical Decision Making - Medical Decision Making Upon arrival patient was placed into room 6. History and physical exam is performed. IV access is established laboratory studies are conducted. Patient swabbed for Covid which is positive. Patient does have a fever on the emergency department. Tylenol administered. Due to his history of congestive heart failure with pleural effusions fluids are held. Patient given Decadron and antibiotics. Sputum and blood cultures obtained. Patient will be admitted to [facility]. Spoke with Dr. Wild who was agreedable to admission - Lab Data Result diagrams: 07/20/22 08:14 07/20/22 08:14 Lab Results 07/18/22 07/18/22 07/18/22 Range/Units 02:23 02:23 02:23 WBC 5.9 (3.8-10.6) k/uL RBC 4.05 L (4.30-5.90) m/uL Hgb 12.0 L (13.0-17.5) gm/dL Hct 34.3 L (39.0-53.0) % MCV 84.7 (80.0-100.0) fL MCH 29.6 (25.0-35.0) pg MCHC 34.9 (31.0-37.0) g/dL RDW 13.4 (11.5-15.5) % Plt Count 203 (150-450) k/uL MPV 7.9 Neutrophils % 77 % Lymphocytes % 12 % Monocytes % 6 % Eosinophils % 3 % Basophils % 1 % Neutrophils # 4.5 (1.3-7.7) k/uL Lymphocytes # 0.7 L (1.0-4.8) k/uL Monocytes # 0.3 (0-1.0) k/uL Eosinophils # 0.2 (0-0.7) k/uL Basophils # 0.0 (0-0.2) k/uL PT 10.5 (9.0-12.0) sec INR 1.0 (<1.2) APTT 25.5 (22.0-30.0) sec Sodium 131 L (137-145) mmol/L Potassium 4.6 (3.5-5.1) mmol/L Chloride 93 L (98-107) mmol/L Carbon Dioxide 27 (22-30) mmol/L Anion Gap 11 mmol/L BUN 15 (9-20) mg/dL Creatinine 0.84 (0.66-1.25) mg/dL Est GFR (CKD-EPI)AfAm >90 (>60 ml/min/1.73 sqM) Est GFR (CKD-EPI)NonAf 82 (>60 ml/min/1.73 sqM) Glucose 223 H (74-99) mg/dL Calcium 8.6 (8.4-10.2) mg/dL Total Bilirubin 0.5 (0.2-1.3) mg/dL AST 32 (17-59) U/L ALT 22 (4-49) U/L Alkaline Phosphatase 118 (38-126) U/L Troponin I (0.000-0.034) ng/mL NT-Pro-B Natriuret Pep pg/mL Total Protein 7.2 (6.3-8.2) g/dL Albumin 3.9 (3.5-5.0) g/dL Procalcitonin (0.02-0.09) ng/mL Coronavirus (PCR) (Not Detectd) Influenza Type A RNA (Not Detectd) Influenza Type B (PCR) (Not Detectd) 07/18/22 07/18/22 07/18/22 Range/Units 02:23 02:23 02:26 WBC (3.8-10.6) k/uL RBC (4.30-5.90) m/uL Hgb (13.0-17.5) gm/dL Hct (39.0-53.0) % MCV (80.0-100.0) fL MCH (25.0-35.0) pg MCHC (31.0-37.0) g/dL RDW (11.5-15.5) % Plt Count (150-450) k/uL MPV Neutrophils % % Lymphocytes % % Monocytes % % Eosinophils % % Basophils % % Neutrophils # (1.3-7.7) k/uL Lymphocytes # (1.0-4.8) k/uL Monocytes # (0-1.0) k/uL Eosinophils # (0-0.7) k/uL Basophils # (0-0.2) k/uL PT (9.0-12.0) sec INR (<1.2) APTT (22.0-30.0) sec Sodium (137-145) mmol/L Potassium (3.5-5.1) mmol/L Chloride (98-107) mmol/L Carbon Dioxide (22-30) mmol/L Anion Gap mmol/L BUN (9-20) mg/dL Creatinine (0.66-1.25) mg/dL Est GFR (CKD-EPI)AfAm (>60 ml/min/1.73 sqM) Est GFR (CKD-EPI)NonAf (>60 ml/min/1.73 sqM) Glucose (74-99) mg/dL Calcium (8.4-10.2) mg/dL Total Bilirubin (0.2-1.3) mg/dL AST (17-59) U/L ALT (4-49) U/L Alkaline Phosphatase (38-126) U/L Troponin I 0.013 (0.000-0.034) ng/mL NT-Pro-B Natriuret Pep 2640 pg/mL Total Protein (6.3-8.2) g/dL Albumin (3.5-5.0) g/dL Procalcitonin (0.02-0.09) ng/mL Coronavirus (PCR) (Not Detectd) Influenza Type A RNA Not Detected (Not Detectd) Influenza Type B (PCR) Not Detected (Not Detectd) 07/18/22 07/18/22 Range/Units 02:26 02:56 WBC (3.8-10.6) k/uL RBC (4.30-5.90) m/uL Hgb (13.0-17.5) gm/dL Hct (39.0-53.0) % MCV (80.0-100.0) fL MCH (25.0-35.0) pg MCHC (31.0-37.0) g/dL RDW (11.5-15.5) % Plt Count (150-450) k/uL MPV Neutrophils % % Lymphocytes % % Monocytes % % Eosinophils % % Basophils % % Neutrophils # (1.3-7.7) k/uL Lymphocytes # (1.0-4.8) k/uL Monocytes # (0-1.0) k/uL Eosinophils # (0-0.7) k/uL Basophils # (0-0.2) k/uL PT (9.0-12.0) sec INR (<1.2) APTT (22.0-30.0) sec Sodium (137-145) mmol/L Potassium (3.5-5.1) mmol/L Chloride (98-107) mmol/L Carbon Dioxide (22-30) mmol/L Anion Gap mmol/L BUN (9-20) mg/dL Creatinine (0.66-1.25) mg/dL Est GFR (CKD-EPI)AfAm (>60 ml/min/1.73 sqM) Est GFR (CKD-EPI)NonAf (>60 ml/min/1.73 sqM) Glucose (74-99) mg/dL Calcium (8.4-10.2) mg/dL Total Bilirubin (0.2-1.3) mg/dL AST (17-59) U/L ALT (4-49) U/L Alkaline Phosphatase (38-126) U/L Troponin I (0.000-0.034) ng/mL NT-Pro-B Natriuret Pep pg/mL Total Protein (6.3-8.2) g/dL Albumin (3.5-5.0) g/dL Procalcitonin 0.17 H (0.02-0.09) ng/mL Coronavirus (PCR) Detected A (Not Detectd) Influenza Type A RNA (Not Detectd) Influenza Type B (PCR) (Not Detectd) - EKG Data EKG Comments: EKG demonstrates sinus tachycardia with a rate of 108. AL interval 139. QRS 100. QTC of 401. There are some PACs. No ST segment elevation. Baseline artifact Disposition Clinical Impression: Community acquired pneumonia, Acute respiratory insufficiency, COVID-19, Lung cancer Disposition: ADMITTED IP TO THIS HOSP Condition: Stable Is patient prescribed a controlled substance at d/c from ED?: No Time of Disposition: 03:48 Decision to Admit Reason: Admit from EC Decision Date: 07/18/22 Decision Time: 03:48
[2022-07-18] MEDS ORDERED: DEXAMETHASONE SOD PHOSPHATE 10 MG/ML 1 ML VIAL IVP STA (03:51)
--- NOTE | 2022-07-18 04:49 | P.HPIM ---
History of Present Illness H&P Date: 07/18/22 The patient is a 7-year-old male with an extensive PMH including lung cancer (unknown stage, currently in treatment with Dr. Interiano), systolic CHF EF 35- 40%, COPD, hypertension, hyperlipidemia, and type II DM who presents to the emergency room with complaints of gradually worsening shortness of breath and cough. The patient reports that although he has been suffering with COPD for most of his life, that his symptoms recently worsened 3-4 days ago. He reports cough productive of greenish brown phlegm, increased in severity, along with subjective fever and chills. Reports that his exercise tolerance is severely diminished and he now gets winded when ambulating in his house. Chest x-ray in the emergency room was consistent with pneumonia with laboratory evaluation remarkable for coronavirus PCR positive. Review of systems: Pertinent positives and negatives as discussed in HPI, a complete review of systems was performed and all other systems are negative. Physical examination: General: non toxic, no distress, appears at stated age, normal weight Derm: no unusual rashes/lesions, warm Head: atraumatic, normocephalic, symmetric Eyes: EOMI, no lid lag, anicteric sclera, pupils equal round reactive to light ENT: Nose and ears atraumatic Neck: No cervical lymphadenopathy, trachea midline, supple Mouth: no lip lesion, mucus membranes moist Cardiovascular: S1S2 reg, no murmur, positive dorsalis pedis pulse bilateral, no edema Lungs: Diffuse rhonchi, no accessory muscle use Abdominal: soft, nontender to palpation, no guarding Ext: muscle strength 5 out of 5 in all 4 extremities grossly, no gross muscle atrophy, no contractures, Neuro: CN II-XI grossly intact, no gross focal neuro deficits Psych: Alert, oriented, appropriate affect Assessment/plan Acute hypoxic respiratory failure secondary to COVID-19 pneumonia -Continue with Decadron -Supplemental oxygen -Zinc, vitamin C, vitamin D, melatonin -Pulmonary consult -Obtain pro-calcitonin -Continue azithromycin and ceftriaxone Chronic conditions: Hypertension, HLD, type II DM, CHF -Continue with all meds DVT prophylaxis -Lovenox The patient is admitted with an anticipated greater than 2 midnight stay for evaluation of COVID CODE STATUS: Full Code Discussed with: Patient Anticipated discharge date: 3-[address]: Home Past Medical History Past Medical History: Cancer, COPD, Diabetes Mellitus, Hyperlipidemia, Hypertension, Prostate Disorder Additional Past Medical History / Comment(s): Congestive Heart Failure, hypertension, hyperlipidemia, BPH, COPD, diabetes mellitus, lung cancer History of Any Multi-Drug Resistant Organisms: None Reported Past Surgical History: No Surgical Hx Reported Past Psychological History: No Psychological Hx Reported Smoking Status: Former smoker Past Alcohol Use History: Occasional Past Drug Use History: None Reported - Past Family History Mother Family Medical History: Hyperlipidemia Medications and Allergies Home Medications Medication Instructions Recorded Confirmed Type Aspirin 81 mg PO DAILY 12/18/17 04/16/21 History Atorvastatin [Lipitor] 40 mg PO HS 12/18/17 04/16/21 History Famotidine [Pepcid] 20 mg PO DAILY 12/18/17 04/16/21 History Fluticasone Propion/Salmeterol 1 puff INHALATION RT-BID 12/18/17 04/16/21 History [Advair 250-50 Diskus] Furosemide [Lasix] 20 mg PO DAILY 12/18/17 04/16/21 History carvediloL [Coreg] 25 mg PO BID 12/18/17 04/16/21 History Tamsulosin HCl [Flomax] 0.4 mg PO DAILY #7 cap 05/31/20 04/16/21 Rx Albuterol Inhaler [Ventolin Hfa 2 puff INHALATION RT-QID PRN 04/16/21 04/16/21 History Inhaler] Nitroglycerin Sl Tabs [Nitrostat] 0.4 mg SUBLINGUAL Q5M PRN 04/16/21 04/16/21 History Potassium Chloride ER [K-Dur 10] 10 meq PO BID 04/16/21 04/16/21 History Repaglinide 1 mg PO AC-TID 04/16/21 04/16/21 History metFORMIN HCL [Glucophage] 1,000 mg PO BID 04/16/21 04/16/21 History Amoxicillin/Potassium Clav 1 tab PO Q12HR 7 Days #14 tab 04/20/21 Rx [Augmentin 500-125 Tablet] Citalopram Hydrobromide [CeleXA] 10 mg PO DAILY #30 tab 04/20/21 Rx Losartan [Cozaar] 50 mg PO DAILY #30 tab 04/20/21 Rx predniSONE 10 mg PO DIRECTED #9 tab 04/20/21 Rx Metoclopramide [Reglan] 10 mg PO Q8H PRN #30 tab 11/10/21 Rx Allergies Allergy/AdvReac Type Severity Reaction Status Date / Time COVID-19 (SARS-CoV-2) Allergy Unknown Verified 07/18/22 01:30 vaccine, mj Influenza Virus Vaccines Allergy Unknown Verified 07/18/22 01:30 Physical Exam Vitals: Vital Signs Temp Pulse Resp BP Pulse Ox 07/18/22 01:30 97.9 F 76 22 176/101 96 Intake and Output 07/17/22 07/17/22 07/18/22 14:59 22:59 06:59 Other: Weight 83.915 kg Results CBC & Chem 7: 07/18/22 02:23 07/18/22 02:23 Labs: Abnormal Lab Results - Last 24 Hours (Table) 07/18/22 07/18/22 07/18/22 Range/Units 02:23 02:23 02:26 RBC 4.05 L (4.30-5.90) m/uL Hgb 12.0 L (13.0-17.5) gm/dL Hct 34.3 L (39.0-53.0) % Lymphocytes # 0.7 L (1.0-4.8) k/uL Sodium 131 L (137-145) mmol/L Chloride 93 L (98-107) mmol/L Glucose 223 H (74-99) mg/dL Coronavirus (PCR) Detected A (Not Detectd)
[2022-07-18] MEDS ORDERED: MELATONIN 5 MG TABLET PO PRN (04:50)
[2022-07-18] MEDS ORDERED: PANTOPRAZOLE 40 MG/10 ML VIAL IVP STA (04:54)
[2022-07-18] MEDS ORDERED: FAMOTIDINE 20 MG/2 ML VIAL IV STA (04:54)
[2022-07-18 07:57] LABS: Glucose,Whole Blood 205 mg/dL (70-110)
[2022-07-18] MEDS ORDERED: ALBUTEROL NEBULIZED 2.5 MG/3 ML INHALATION SCH (08:00)
[2022-07-18] MEDS: ASCORBIC ACID 500 MG TAB PO SCH (08:29)
[2022-07-18] MEDS: INSULIN ASPART (NovoLOG) 100 UNIT/ML VIAL SQ SCH ×6 (08:30→21:20)
[2022-07-18] MEDS: ZINC SULFATE 220 MG CAP PO SCH (08:30)
[2022-07-18] MEDS: ENOXAPARIN 40 MG/0.4 ML SYRINGE SQ SCH (08:30)
[2022-07-18] MEDS: dexAMETHasone 2 MG TAB PO SCH (08:30)
[2022-07-18] MEDS: CHOLECALCIFEROL 125 MCG (5000 IU) TABLET PO SCH (08:30)
[2022-07-18] MEDS: ALBUTEROL HFA INHALER INHALATION SCH ×4 (09:03→19:42)
[2022-07-18 12:04] LABS: Glucose,Whole Blood 342 mg/dL (70-110)
[2022-07-18] MEDS: prednisoLONE ACETATE 1% OPHTH DROPS 5 ML BTL BOTH EYES SCH ×3 (13:36→21:21)
--- NOTE | 2022-07-18 15:41 | P.CNPUL ---
History of Present Illness Consult date: 07/18/22 Requesting physician: Anusha Wild Reason for consult: dyspnea, cough, hypoxemia, pneumonia, abnormal CXR/CT Chief complaint: Shortness of breath. History of present illness: Pulmonary consult dated 07/18/2022. 81-year-old male who was seen in the emergency department, on July 18, complaining of shortness of breath. The patient apparently wears oxygen at home at 2 L, but had to increase it up to 4 L, because of increasing shortness of breath. He also admits to cough, and thick yellow phlegm. No fever or chills. No chest pain or chest discomfort. He also denies any lower extremity swelling or edema. The patient does see a medical oncologist, for his lung cancer, but apparently does not see any pulmonary physicians. He was using his nebulizer machine at home, without improvement. Currently, he is on 5 L nasal cannula. He did test positive for coronavirus. He's not a particularly good historian. The patient has had one coronavirus vaccination. He seen today in room 6, in the emergency department. His medical problem list includes COPD, diabetes, hyperlipidemia, hypertension, congestive heart failure, lung cancer, and BPH. He is a former smoker. The patient was seen by my partner back in March 2021. The patient has very severe COPD, with an FEV1 percent is 35. At that time, the patient was found to have a significant lesion, and the right upper lobe, extending into the hilum. A bronchoscopy was recommended. White count 5.9, hemoglobin 12, hematocrit 34.3, and platelet count 203,000. Sodium 131, potassium 4.6, chloride 93, CO2 27, BUN 15, creatinine 0.84. N-terminal proBNP was 2640. Pro-calcitonin level is 0.17. Testing for coronavirus was positive. Chest x-ray shows airspace consolidation in the superior segment right lower lobe, extending posteriorly. There is also mild patchy infiltrate in the left lower lobe. No evidence of heart failure. There is a pacemaker present. Review of Systems REVIEW OF SYSTEMS: CONSTITUTIONAL: [Negative.] NEUROLOGIC: [ Negative.] HEENT: [ Negative.] CARDIAC: [Negative.] PULMONARY: Shortness of breath, cough, and phlegm production. GI: [Negative.] : [Negative.] RHEUMATOLOGIC: [ Negative.] IMMUNOLOGIC: [ Negative.] ENDOCRINE: [Negative. ] DERMATOLOGIC: [Negative.] Past Medical History Past Medical History: Cancer, COPD, Diabetes Mellitus, Hyperlipidemia, Hypertension, Prostate Disorder Additional Past Medical History / Comment(s): Congestive Heart Failure, hypertension, hyperlipidemia, BPH, COPD, diabetes mellitus, lung cancer History of Any Multi-Drug Resistant Organisms: None Reported Past Surgical History: No Surgical Hx Reported Past Psychological History: No Psychological Hx Reported Smoking Status: Former smoker Past Alcohol Use History: Occasional Past Drug Use History: None Reported - Past Family History Mother Family Medical History: Hyperlipidemia Medications and Allergies Home Medications Medication Instructions Recorded Confirmed Type Furosemide [Lasix] 20 mg PO DAILY 12/18/17 07/18/22 History carvediloL [Coreg] 25 mg PO BID 12/18/17 07/18/22 History Tamsulosin HCl [Flomax] 0.4 mg PO DAILY #7 cap 05/31/20 07/18/22 Rx Potassium Chloride ER [K-Dur 10] 10 meq PO DAILY 04/16/21 07/18/22 History Losartan [Cozaar] 50 mg PO DAILY #30 tab 04/20/21 07/18/22 Rx Insulin Aspart [NovoLOG Flexpen] 6 units SQ PC-TID 07/18/22 07/18/22 History Insulin Glargine,Hum.rec.anlog 20 units SQ HS 07/18/22 07/18/22 History [Lantus Solostar Pen] Prednisolone Acetate/Pf 1 drop BOTH EYES QID 07/18/22 07/18/22 History [Prednisolone Acet 1% Eye Drop] predniSONE 5 mg PO DIRECTED 07/18/22 07/18/22 History Allergies Allergy/AdvReac Type Severity Reaction Status Date / Time COVID-19 (SARS-CoV-2) Allergy Unknown Verified 07/18/22 09:53 vaccine, mj Influenza Virus Vaccines Allergy Unknown Verified 07/18/22 09:53 Physical Exam Osteopathic Statement: *. No significant issues noted on an osteopathic structural exam other than those noted in the History and Physical/Consult. Vitals: Vital Signs Temp Pulse Resp BP Pulse Ox 07/18/22 12:23 89 20 138/62 95 07/18/22 09:03 95 07/18/22 07:58 70 18 123/62 97 07/18/22 06:51 84 17 149/77 97 07/18/22 05:00 88 17 155/74 97 07/18/22 01:30 97.9 F 76 22 176/101 96 Intake and Output 07/18/22 07/18/22 07/18/22 06:59 14:59 22:59 Other: Weight 83.915 kg No acute distress, oriented 3. HEENT examination is grossly unremarkable. Neck supple. Full range of motion. No adenopathy thyromegaly or neck vein distention. Cardiovascular examination reveals regular rhythm rate. S1-S2 normal. No S3 or S4. No discernible murmur noted. Heart sounds are distant. Heart rate 89 bpm. Lungs reveal coarse bilateral rhonchi. Minimal basilar crackles. No wheezes. Breath sounds equal bilaterally but diminished throughout. Saturation is 95%. Abdomen obese, with bowel sounds. No masses or tenderness. Extremities are intact. No cyanosis or clubbing. Trace edema appreciated. Skin is without rash or lesion. Neurologic examination is brief but nonfocal. Results - Laboratory Findings CBC and BMP: 07/18/22 02:23 07/18/22 02:23 PT/INR, D-dimer PT 10.5 sec (9.0-12.0) 07/18/22 02:23 INR 1.0 (<1.2) 07/18/22 02:23 Abnormal lab findings: Abnormal Labs 07/18/22 07/18/22 07/18/22 02:23 02:23 02:26 RBC 4.05 L Hgb 12.0 L Hct 34.3 L Lymphocytes # 0.7 L Sodium 131 L Chloride 93 L Glucose 223 H POC Glucose (mg/dL) Procalcitonin Coronavirus (PCR) Detected A 07/18/22 07/18/22 07/18/22 02:56 07:54 12:03 RBC Hgb Hct Lymphocytes # Sodium Chloride Glucose POC Glucose (mg/dL) 205 H 342 H Procalcitonin 0.17 H Coronavirus (PCR) - Diagnostic Findings Chest x-ray: image reviewed Assessment and Plan Assessment: Acute hypoxemic respiratory failure, multifactorial, in part related to mild CHF, pleural effusion, possible coronavirus associated pneumonia, COPD exacerb ation, and lung cancer. Vague history of lung cancer, not sure biopsy was actually performed. History of congestive heart failure. History of diabetes mellitus. Severe COPD (FEV1 35%) from previous heavy tobacco use. History of hyperlipidemia. History of hypertension. History of BPH. Plan: Plan dated 07/18/2022. The patient was placed on Rocephin and azithromycin. We'll make sure that he is getting appropriate breathing treatments. In addition, he is on Decadron. We will add some Symbicort. Additional recommendations and suggestions are fort hcoming. Prognosis is guarded. The patient's surgery on Lasix 20 mg a day. He should get vitamin C, vitamin D3, and zinc. We will follow along make recommendations along the way. Time with Patient: Greater than 30
[2022-07-18 17:11] LABS: Glucose,Whole Blood 278 mg/dL (70-110)
[2022-07-18] MEDS: carvediloL 12.5 MG TAB PO SCH (17:38)
[2022-07-18] MEDS: SYMBICORT 160-4.5 MCG INHALER INHALATION SCH (19:42)
[2022-07-18 20:46] LABS: Glucose,Whole Blood 375 mg/dL (70-110)
[2022-07-18] MEDS: INSULIN DETEMIR (LEVEMIR) 100 UNIT/ML SYR SQ SCH (21:20)
[2022-07-19 01:22] LABS: Glucose,Whole Blood 344 mg/dL (70-110)
[2022-07-19] MEDS: INSULIN ASPART (NovoLOG) 100 UNIT/ML VIAL SQ SCH ×8 (01:33→20:38)
[2022-07-19 04:31] LABS: Glucose,Whole Blood 278 mg/dL (70-110)
[2022-07-19] MEDS: AZITHROMYCIN 500 MG TAB PO SCH (05:21)
[2022-07-19] MEDS: dexAMETHasone 2 MG TAB PO SCH (07:27)
[2022-07-19] MEDS: ENOXAPARIN 40 MG/0.4 ML SYRINGE SQ SCH (07:27)
[2022-07-19] MEDS: ASCORBIC ACID 500 MG TAB PO SCH (07:28)
[2022-07-19] MEDS: ZINC SULFATE 220 MG CAP PO SCH (07:28)
[2022-07-19] MEDS: prednisoLONE ACETATE 1% OPHTH DROPS 5 ML BTL BOTH EYES SCH ×4 (07:28→20:37)
[2022-07-19] MEDS: FUROSEMIDE 20 MG TAB PO SCH (07:28)
[2022-07-19] MEDS: TAMSULOSIN 0.4 MG CAP.ER.24H PO SCH (07:28)
[2022-07-19] MEDS: CHOLECALCIFEROL 125 MCG (5000 IU) TABLET PO SCH (07:29)
[2022-07-19] MEDS: LOSARTAN 50 MG TAB PO SCH (07:32)
[2022-07-19] MEDS: carvediloL 12.5 MG TAB PO SCH ×2 (07:32→17:51)
[2022-07-19] MEDS: ALBUTEROL HFA INHALER INHALATION SCH ×4 (08:34→21:56)
[2022-07-19] MEDS: SYMBICORT 160-4.5 MCG INHALER INHALATION SCH ×2 (08:34→21:57)
--- NOTE | 2022-07-19 09:30 | XR ---
EXAMINATION TYPE: XR chest 1V portable DATE OF EXAM: 07/19/2022 COMPARISON: Chest x-ray 07/18/2022, chest CT 04/17/2021 HISTORY: Pneumonia TECHNIQUE: Single frontal view of the chest is obtained. FINDINGS: Pleural-parenchymal changes are stable. Heart is likely enlarged although patient is rotat ed. Pacemaker is stable. No evident pneumothorax or sizable pleural effusion. Probable scarring again noted in the right midlung, there is underlying emphysema. Patient's previously identified lung nodu les not seen. IMPRESSION: Correlate for pneumonia. Difficult to exclude underlying mass, consider follow-up chest CT.
[2022-07-19 11:59] LABS: Glucose,Whole Blood 186 mg/dL (70-110)
--- NOTE | 2022-07-19 15:02 | P.PN ---
Subjective Progress Note Date: 07/19/22 The patient is a 81-year-old male with an extensive PMH including lung cancer (unknown stage, currently in treatment with Dr. Interiano), systolic CHF EF 35- 40%, COPD, hypertension, hyperlipidemia, and type II DM who presents to the emergency room with complaints of gradually worsening shortness of breath and cough. Chest x-ray in the emergency room was consistent with pneumonia with laboratory evaluation remarkable for coronavirus PCR positive. Patient was started on Rocephin and azithromycin for concerns of mucoid pneumonia. He was started on Decadron. Pro-calcitonin was elevated at 0.17. He was given supplemental O2 to maintain O2 saturation greater than 92%. Patient was seen and examined this morning. No acute events overnight. Currently on 4 L nasal cannula. He is on 2L NC at home. He reports improvement in his breathing since admission. He denies any cough. Denies any chest pain or palpitations. No nausea or vomiting. No fever or chills. Concerned about the ability to take care of himself at home given his recent diagnoses of COVID- 19. General: non toxic, no distress, appears at stated age Derm: warm, dry Head: atraumatic, normocephalic, symmetric Eyes: EOMI, no lid lag, anicteric sclera Mouth: no lip lesion, mucus membranes moist Cardiovascular: S1S2 reg, no murmur Lungs: Decreased breath sounds bilateral, no rhonchi, no rales , no accessory muscle use Abdominal: soft, nontender to palpation, no guarding, no appreciable organomegaly Ext: no gross muscle atrophy, no edema, no contractures Neuro: no focal neuro deficits Psych: Alert, oriented, appropriate affect #Acute on chronic hypoxic respiratory failure #COVID-19 pneumonia #Positive blood culture #Diabetes mellitus with hyperglycemia #Normocytic anemia #Hypochloremic hyponatremia Continue Rocephin and azithromycin. Continue Decadron. Continue zinc supplement. Albuterol inhaler as needed for shortness of breath and wheezing. Continue Symbicort. Telemetry monitoring. Pulmonology on board. Blood culture grew S. epidermidis. Likely contaminant. On antibiotics as above. No further workup. Continue home dose of Levemir and NovoLog. Patient started on medium dose sliding scale. Accu-Cheks before meals at bedtime along with hypoglycemic precautions. No signs of active bleeding. Continue to monitor. Likely related to dehydration and use of Lasix. Patient encouraged hydration by mouth. Continue to monitor. DVT prophylaxis: Lovenox Discussed with: Patient Anticipated discharge: 1-[address]: Home A total of 25 minutes was spent on the care of this complex patient more than 50% of the time was spent in counseling and care coordination. Objective - Vital Signs Vital signs: Vital Signs Temp 97.6 F 07/19/22 10:32 Pulse 60 07/19/22 10:32 Resp 17 07/19/22 10:32 BP 113/47 07/19/22 10:32 Pulse Ox 94 L 07/19/22 10:32 FiO2 Intake & Output 07/18/22 07/19/22 07/19/22 18:59 06:59 18:59 Intake Total 50 50 Balance 50 50 Weight 83.915 kg Intake: Intake, IV Titration 50 50 Amount cefTRIAXone 1 gm In 50 50 Sodium Chloride 0.9% 50 ml @ 100 mls/hr IVPB Q24HR [facility] Rx#:[id number] Other: # Voids 2 - Labs CBC & Chem 7: 07/18/22 02:23 07/18/22 02:23 Labs: Abnormal Lab Results - Last 24 Hours (Table) 07/18/22 07/18/22 07/18/22 Range/Units 15:04 17:09 20:45 POC Glucose (mg/dL) 278 H 375 H (70-110) mg/dL Plasma Lactic Acid Sergio 2.8 H* (0.7-2.0) mmol/L Procalcitonin (0.02-0.09) ng/mL 07/19/22 07/19/22 07/19/22 Range/Units 01:20 04:28 06:28 POC Glucose (mg/dL) 344 H 278 H (70-110) mg/dL Plasma Lactic Acid Sergio (0.7-2.0) mmol/L Procalcitonin 0.17 H (0.02-0.09) ng/mL 07/19/22 Range/Units 11:58 POC Glucose (mg/dL) 186 H (70-110) mg/dL Plasma Lactic Acid Sergio (0.7-2.0) mmol/L Procalcitonin (0.02-0.09) ng/mL Microbiology - Last 24 Hours (Table) 07/18/22 03:07 Gram Stain - Preliminary Sputum Sputum Culture - Preliminary 07/18/22 04:05 Blood Culture Gram Stain - Preliminary Blood Blood Culture - Preliminary Staphylococcus epidermidis 07/18/22 03:55 Blood Culture - Preliminary Blood No Growth after 24 hours 07/18/22 04:05 Blood Culture - Final Blood
--- NOTE | 2022-07-19 15:46 | P.PN ---
Subjective Progress Note Date: 07/19/22 Principal diagnosis: Respiratory distress. Pulmonary consult dated 07/18/2022. 81-year-old male who was seen in the emergency department, on July 18, complaining of shortness of breath. The patient apparently wears oxygen at home at 2 L, but had to increase it up to 4 L, because of increasing shortness of breath. He also admits to cough, and thick yellow phlegm. No fever or chills. No chest pain or chest discomfort. He also denies any lower extremity swelling or edema. The patient does see a medical oncologist, for his lung cancer, but apparently does not see any pulmonary physicians. He was using his nebulizer machine at home, without improvement. Currently, he is on 5 L nasal cannula. He did test positive for coronavirus. He's not a particularly good historian. The patient has had one coronavirus vaccination. He seen today in room 6, in the emergency department. His medical problem list includes COPD, diabetes, hyperlipidemia, hypertension, congestive heart failure, lung cancer, and BPH. He is a former smoker. The patient was seen by my partner back in March 2021. The patient has very severe COPD, with an FEV1 percent is 35. At that time, the patient was found to have a significant lesion, and the right upper lobe, extending into the hilum. A bronchoscopy was recommended. White count 5.9, hemoglobin 12, hematocrit 34.3, and platelet count 203,000. Sodium 131, potassium 4.6, chloride 93, CO2 27, BUN 15, creatinine 0.84. N-terminal proBNP was 2640. Pro-calcitonin level is 0.17. Testing for coronavirus was positive. Chest x-ray shows airspace consolidation in the superior segment right lower lobe, extending posteriorly. There is also mild patchy infiltrate in the left lower lobe. No evidence of heart failure. There is a pacemaker present. Progress note dated 07/19/2022. The patient is seen in room 473. He is resting comfortably. He was initially seen in the emergency department. Currently, the patient is on 4 L of oxygen. His saturations are 94%. He's not receiving any IV fluids. The patient is not manifesting any signs or symptoms of rona respiratory distress. There is no audible wheezing, use of accessory muscles, or conversational dyspnea. The patient does have a history of multiple medical problems including COPD, diabetes, hyperlipidemia, hypertension, congestive heart failure, lung cancer, a nd BPH. He is a former smoker. No new lab data today other than a glucose of 186, and a pro-calcitonin level 0.17. Chest x-ray on admission and follow-up chest x-ray today are reviewed. Objective - Vital Signs Vital signs: Vital Signs Temp 97.6 F 07/19/22 10:32 Pulse 60 07/19/22 10:32 Resp 17 07/19/22 10:32 BP 113/47 07/19/22 10:32 Pulse Ox 94 L 07/19/22 10:32 FiO2 Intake & Output 07/18/22 07/19/22 07/19/22 18:59 06:59 18:59 Intake Total 50 50 Balance 50 50 Weight 83.915 kg Intake: Intake, IV Titration 50 50 Amount cefTRIAXone 1 gm In 50 50 Sodium Chloride 0.9% 50 ml @ 100 mls/hr IVPB Q24HR [facility] Rx#:[id number] Other: # Voids 2 - Exam No acute distress, oriented 3. Currently, the patient's on 4 L of oxygen. HEENT examination is grossly unremarkable. Neck supple. Full range of motion. No adenopathy thyromegaly or neck vein distention. Cardiovascular examination reveals regular rhythm rate. S1-S2 normal. No S3 or S4. No discernible murmur noted. Heart sounds are distant. Heart rate 60 bpm. Lungs reveal coarse bilateral rhonchi. Minimal basilar crackles. No wheezes. Breath sounds equal bilaterally but diminished throughout. Saturation on 4 L is 94 %. Abdomen obese, with bowel sounds. No masses or tenderness. Extremities are intact. No cyanosis or clubbing. Trace edema appreciated. Skin is without rash or lesion. Neurologic examination is brief but nonfocal. - Labs CBC & Chem 7: 07/18/22 02:23 07/18/22 02:23 Labs: Abnormal Lab Results - Last 24 Hours (Table) 07/18/22 07/18/22 07/18/22 Range/Units 15:04 17:09 20:45 POC Glucose (mg/dL) 278 H 375 H (70-110) mg/dL Plasma Lactic Acid Sergio 2.8 H* (0.7-2.0) mmol/L Procalcitonin (0.02-0.09) ng/mL 07/19/22 07/19/22 07/19/22 Range/Units 01:20 04:28 06:28 POC Glucose (mg/dL) 344 H 278 H (70-110) mg/dL Plasma Lactic Acid Sergio (0.7-2.0) mmol/L Procalcitonin 0.17 H (0.02-0.09) ng/mL 07/19/22 Range/Units 11:58 POC Glucose (mg/dL) 186 H (70-110) mg/dL Plasma Lactic Acid Sergio (0.7-2.0) mmol/L Procalcitonin (0.02-0.09) ng/mL Microbiology - Last 24 Hours (Table) 07/18/22 03:07 Gram Stain - Preliminary Sputum Sputum Culture - Preliminary 07/18/22 04:05 Blood Culture Gram Stain - Preliminary Blood Blood Culture - Preliminary Staphylococcus epidermidis 07/18/22 03:55 Blood Culture - Preliminary Blood No Growth after 24 hours 07/18/22 04:05 Blood Culture - Final Blood Assessment and Plan Assessment: Acute hypoxemic respiratory failure, multifactorial, in part related to mild CHF, pleural effusion, possible coronavirus associated pneumonia, COPD exacerbation, and lung cancer. Vague history of lung cancer, not sure biopsy was actually performed. History of congestive heart failure. History of diabetes mellitus. Severe COPD (FEV1 35%) from previous heavy tobacco use. History of hyperlipidemia. History of hypertension. History of BPH. Plan: Plan dated 07/18/2022. The patient was placed on Rocephin and azithromycin. We'll make sure that he is getting appropriate breathing treatments. In addition, he is on Decadron. We will add some Symbicort. Additional recommendations and suggestions are forthcoming. Prognosis is guarded. The patient's surgery on Lasix 20 mg a day. He should get vitamin C, vitamin D3, and zinc. We will follow along make recommendations along the way. Plan dated 07/19/2022. The patient is reevaluated today in room 473. He remains on 4 L of oxygen. Saturations are 94%. There is no conversational dyspnea, or use of accessory muscles. Labs, x-rays, and medications are reviewed. The patient is on vitamin C, vitamin D3, and zinc. The patient is also getting Rocephin, and azithromycin. The patient continues on Decadron, as well as an albuterol inhaler. The patient is also getting Symbicort 160/4.5, 2 puffs twice a day. We will continue to follow and make recommendations along the way. Time with Patient: Less than 30
[2022-07-19 17:12] LABS: Glucose,Whole Blood 275 mg/dL (70-110)
[2022-07-19 20:31] LABS: Glucose,Whole Blood 305 mg/dL (70-110)
[2022-07-19] MEDS: INSULIN DETEMIR (LEVEMIR) 100 UNIT/ML SYR SQ SCH (20:38)
[2022-07-20 06:05] LABS: Glucose,Whole Blood 161 mg/dL (70-110)
[2022-07-20] MEDS: carvediloL 12.5 MG TAB PO SCH ×2 (06:33→17:45)
[2022-07-20] MEDS: INSULIN ASPART (NovoLOG) 100 UNIT/ML VIAL SQ SCH ×7 (06:33→20:59)
[2022-07-20] MEDS: AZITHROMYCIN 500 MG TAB PO SCH (07:00)
[2022-07-20] MEDS: ALBUTEROL HFA INHALER INHALATION SCH ×4 (08:47→19:51)
[2022-07-20] MEDS: SYMBICORT 160-4.5 MCG INHALER INHALATION SCH ×2 (08:47→19:51)
[2022-07-20] MEDS: LOSARTAN 50 MG TAB PO SCH (09:09)
[2022-07-20] MEDS: FUROSEMIDE 20 MG TAB PO SCH (09:09)
[2022-07-20] MEDS: dexAMETHasone 2 MG TAB PO SCH (09:09)
[2022-07-20] MEDS: ENOXAPARIN 40 MG/0.4 ML SYRINGE SQ SCH (09:09)
[2022-07-20] MEDS: ZINC SULFATE 220 MG CAP PO SCH (09:09)
[2022-07-20] MEDS: CHOLECALCIFEROL 125 MCG (5000 IU) TABLET PO SCH (09:09)
[2022-07-20] MEDS: TAMSULOSIN 0.4 MG CAP.ER.24H PO SCH (09:09)
[2022-07-20] MEDS: ASCORBIC ACID 500 MG TAB PO SCH (09:09)
[2022-07-20] MEDS: prednisoLONE ACETATE 1% OPHTH DROPS 5 ML BTL BOTH EYES SCH ×4 (09:14→21:03)
[2022-07-20 09:21] LABS: Glucose,Whole Blood 225 mg/dL (70-110)
[2022-07-20] MEDS: ACETAMINOPHEN TAB 325 MG TAB PO PRN ×2 (09:34→22:02)
[2022-07-20 10:45] LABS: HCT 33.6 % (39.6-50.0); HGB 10.8 g/dL (13.0-17.0); MCH 27.1 pg (27.0-32.0); MCHC 32.1 g/dL (32.0-37.0); MCV 84.4 fL (80.0-97.0); Mean Platelet Volume 9.6 fL (9.5-12.2); NRBC Per 100 WBC 0 /100 WBCS (0.0-0.0); Platelet Count 274 X 10*3/uL (140-440); RBC 3.98 X 10*6/uL (4.40-5.60); RDW 13.7 % (11.5-14.5); WBC 13.24 X 10*3/uL (4.50-10.00)
[2022-07-20 10:47] LABS: African American GFR (CKD) 81.4 (60.0-200.0); Anion Gap 10.3 mmol/L (10.00-18.00); BUN/Creat Ratio 18.39 Ratio (12.00-20.00); Blood Urea Nitrogen 18.3 mg/dL (9.0-27.0); Calcium 8.8 mg/dL (8.7-10.3); Carbon Dioxide 27.1 mmol/L (20.0-27.5); Non-African American GFR(CKD) 70.2 (60.0-200.0); Potassium 4.1 mmol/L (3.5-5.5)
[2022-07-20 11:37] LABS: Glucose,Whole Blood 195 mg/dL (70-110)
--- NOTE | 2022-07-20 14:29 | P.PN ---
Subjective Progress Note Date: 07/20/22 The patient is a 81-year-old male with an extensive PMH including lung cancer (unknown stage, currently in treatment with Dr. Interiano), systolic CHF EF 35- 40%, COPD, hypertension, hyperlipidemia, and type II DM who presents to the emergency room with complaints of gradually worsening shortness of breath and cough. Chest x-ray in the emergency room was consistent with pneumonia with laboratory evaluation remarkable for coronavirus PCR positive. Patient was started on Rocephin and azithromycin for concerns of mucoid pneumonia. He was started on Decadron. Pro-calcitonin was elevated at 0.17. He was given supplemental O2 to maintain O2 saturation greater than 92%. Patient was seen and examined this morning. No acute events overnight. Currently on 4 L nasal cannula. He is on 2L NC at home. He reports improvement in his breathing since admission. Concerned about the ability to take care of himself at home given his recent diagnoses of COVID-19. Patient reports burning sensation in both of his eyes that make it difficult to see, attributes this to Keytruda. General: non toxic, no distress, appears at stated age Derm: warm, dry Head: atraumatic, normocephalic, symmetric Eyes: EOMI, no lid lag, anicteric sclera Mouth: no lip lesion, mucus membranes moist Cardiovascular: S1S2 reg, no murmur Lungs: Decreased breath sounds bilateral, no rhonchi, no rales , no accessory muscle use Abdominal: soft, nontender to palpation, no guarding, no appreciable organomegaly Ext: no gross muscle atrophy, no edema, no contractures Neuro: no focal neuro deficits Psych: Alert, oriented, appropriate affect #Acute on chronic hypoxic respiratory failure #COVID-19 pneumonia #Positive blood culture #Diabetes mellitus with hyperglycemia #Normocytic anemia #Hypochloremic hyponatremia Continue Rocephin and azithromycin. Continue Decadron. Continue zinc supplement. Albuterol inhaler as needed for shortness of breath and wheezing. Continue Symbicort. Telemetry monitoring. Pulmonology on board. Blood culture grew S. epidermidis. Likely contaminant. On antibiotics as above. No further workup. Continue home dose of Levemir and NovoLog. Patient started on medium dose sliding scale. Accu-Cheks before meals at bedtime along with hypoglycemic precautions. No signs of active bleeding. Continue to monitor. Likely related to dehydration and use of Lasix. Patient encouraged hydration by mouth. Continue to monitor. DVT prophylaxis: Lovenox Discussed with: Patient Anticipated discharge: 1-[address]: Home A total of 25 minutes was spent on the care of this complex patient more than 50% of the time was spent in counseling and care coordination. PT and OT consulted. Discussed with case management, patient would like to go to [facility] if possible. He is pending clinical improvement. Anticipate DC in 1-2 days. Objective - Vital Signs Vital signs: Vital Signs Temp 97.1 F L 07/20/22 10:00 Pulse 70 07/20/22 10:00 Resp 17 07/20/22 10:00 BP 127/65 07/20/22 10:00 Pulse Ox 94 L 07/20/22 10:00 FiO2 Intake & Output 07/19/22 07/20/22 07/20/22 18:59 06:59 18:59 Intake Total 50 Balance 50 Intake: Intake, IV Titration 50 Amount cefTRIAXone 1 gm In 50 Sodium Chloride 0.9% 50 ml @ 100 mls/hr IVPB Q24HR [facility] Rx#:[id number] Other: # Voids 4 - Labs CBC & Chem 7: 07/20/22 08:14 07/20/22 08:14 Labs: Abnormal Lab Results - Last 24 Hours (Table) 07/19/22 07/19/22 07/20/22 Range/Units 17:10 20:29 06:02 WBC (4.50-10.00) X 10*3/uL RBC (4.40-5.60) X 10*6/uL Hgb (13.0-17.0) g/dL Hct (39.6-50.0) % Sodium (135-145) mmol/L Chloride (96-109) mmol/L Glucose (70-110) mg/dL POC Glucose (mg/dL) 275 H 305 H 161 H (70-110) mg/dL 07/20/22 07/20/22 07/20/22 Range/Units 08:14 08:14 09:12 WBC 13.24 H (4.50-10.00) X 10*3/uL RBC 3.98 L (4.40-5.60) X 10*6/uL Hgb 10.8 L (13.0-17.0) g/dL Hct 33.6 L (39.6-50.0) % Sodium 133 L (135-145) mmol/L Chloride 95 L (96-109) mmol/L Glucose 140 H (70-110) mg/dL POC Glucose (mg/dL) 225 H (70-110) mg/dL 07/20/22 Range/Units 11:30 WBC (4.50-10.00) X 10*3/uL RBC (4.40-5.60) X 10*6/uL Hgb (13.0-17.0) g/dL Hct (39.6-50.0) % Sodium (135-145) mmol/L Chloride (96-109) mmol/L Glucose (70-110) mg/dL POC Glucose (mg/dL) 195 H (70-110) mg/dL Microbiology - Last 24 Hours (Table) 07/18/22 03:07 Gram Stain - Final Sputum Sputum Culture - Final 07/18/22 03:55 Blood Culture - Preliminary Blood No Growth after 48 hours 07/19/22 00:25 Blood Culture - Preliminary Blood No Growth after 24 hours
--- NOTE | 2022-07-20 14:45 | P.PN ---
Subjective Progress Note Date: 07/20/22 81-year-old male who was seen in the emergency department, on July 18, complaining of shortness of breath. The patient apparently wears oxygen at home at 2 L, but had to increase it up to 4 L, because of increasing shortness of breath. He also admits to cough, and thick yellow phlegm. No fever or chills. No chest pain or chest discomfort. He also denies any lower extremity swelling or edema. The patient does see a medical oncologist, for his lung cancer, but apparently does not see any pulmonary physicians. He was using his nebulizer machine at home, without improvement. Currently, he is on 5 L nasal cannula. He did test positive for coronavirus. He's not a particularly good historian. The patient has had one coronavirus vaccination. He seen today in room 6, in the emergency department. His medical problem list includes COPD, diabetes, hyperlipidemia, hypertension, congestive heart failure, lung cancer, and BPH. He is a former smoker. The patient was seen by my partner back in March 2021. The patient has very severe COPD, with an FEV1 percent is 35. At that time, the patient was found to have a significant lesion, and the right upper lobe, extending into the hilum. A bronchoscopy was recommended. White count 5.9, hemoglobin 12, hematocrit 34.3, and platelet count 203,000. Sodium 131, potassium 4.6, chloride 93, CO2 27, BUN 15, creatinine 0.84. N-terminal proBNP was 2640. Pro-calcitonin level is 0.17. Testing for coronavirus was positive. Chest x-ray shows airspace consolidation in the superior segment right lower lobe, extending posteriorly. There is also mild patchy infiltrate in the left lower lobe. No evidence of heart failure. There is a pacemaker present. Progress note dated 07/19/2022. The patient is seen in room 473. He is resting comfortably. He was initially seen in the emergency department. Currently, the patient is on 4 L of oxygen. His saturations are 94%. He's not receiving any IV fluids. The patient is not manifesting any signs or symptoms of rona respiratory distress. There is no audible wheezing, use of accessory muscles, or conversational dyspnea. The patient does have a history of multiple medical problems including COPD, diabetes, hyperlipidemia, hypertension, congestive heart failure, lung cancer, and BPH. He is a former smoker. No new lab data today other than a glucose of 186, and a pro-calcitonin level 0.17. Chest x-ray on admission and follow-up chest x-ray today are reviewed. The patient is seen today 07/20/2022 in follow-up on the regular medical floor. He is currently sitting up in a chair at the bedside. Awake and alert in no acute distress. He is maintaining good O2 saturations in the 90s on 3 L/m per nasal cannula. Afebrile. Hemodynamically stable. One blood culture positive f or Staphylococcus epidermidis. Follow-up blood culture reveals no growth. White count 13.2. Hemoglobin 10.8. Sodium 133. Potassium 4.1. BUN 18. Creatinine 1.0. Glucose 140. He is continued on Symbicort, albuterol, Decadron. Lovenox for DVT prophylaxis. Vitamin supplements. Antibiotics in the form of ceftriaxone. Pro-calcitonin 0.17. Objective - Vital Signs Vital signs: Vital Signs Temp 97.1 F L 07/20/22 10:00 Pulse 70 07/20/22 10:00 Resp 17 07/20/22 10:00 BP 127/65 07/20/22 10:00 Pulse Ox 94 L 07/20/22 10:00 FiO2 Intake & Output 07/19/22 07/20/22 07/20/22 18:59 06:59 18:59 Intake Total 50 Balance 50 Intake: Intake, IV Titration 50 Amount cefTRIAXone 1 gm In 50 Sodium Chloride 0.9% 50 ml @ 100 mls/hr IVPB Q24HR [facility] Rx#:[id number] Other: # Voids 4 - Exam GENERAL EXAM: Alert, 81-year-old male patient, up in a chair at the bedside, on 3 L nasal cannula, comfortable in no apparent distress. HEAD: Normocephalic. EYES: Normal reaction of pupils, equal size. NOSE: Clear with pink turbinates. THROAT: No erythema or exudates. NECK: No masses, no JVD. CHEST: No chest wall deformity. LUNGS: Equal air entry with faint basilar crackles. CVS: S1 and S2 normal with no audible murmur, regular rhythm. ABDOMEN: No hepatosplenomegaly, normal bowel sounds, no guarding or rigidity. SPINE: No scoliosis or deformity SKIN: No rashes CENTRAL NERVOUS SYSTEM: No focal deficits, tone is normal in all 4 extremities. EXTREMITIES: There is trace peripheral edema. No clubbing, no cyanosis. Peripheral pulses are intact. - Labs CBC & Chem 7: 07/20/22 08:14 07/20/22 08:14 Labs: Abnormal Lab Results - Last 24 Hours (Table) 07/19/22 07/19/22 07/20/22 Range/Units 17:10 20:29 06:02 WBC (4.50-10.00) X 10*3/uL RBC (4.40-5.60) X 10*6/uL Hgb (13.0-17.0) g/dL Hct (39.6-50.0) % Sodium (135-145) mmol/L Chloride (96-109) mmol/L Glucose (70-110) mg/dL POC Glucose (mg/dL) 275 H 305 H 161 H (70-110) mg/dL 07/20/22 07/20/22 07/20/22 Range/Units 08:14 08:14 09:12 WBC 13.24 H (4.50-10.00) X 10*3/uL RBC 3.98 L (4.40-5.60) X 10*6/uL Hgb 10.8 L (13.0-17.0) g/dL Hct 33.6 L (39.6-50.0) % Sodium 133 L (135-145) mmol/L Chloride 95 L (96-109) mmol/L Glucose 140 H (70-110) mg/dL POC Glucose (mg/dL) 225 H (70-110) mg/dL 07/20/22 Range/Units 11:30 WBC (4.50-10.00) X 10*3/uL RBC (4.40-5.60) X 10*6/uL Hgb (13.0-17.0) g/dL Hct (39.6-50.0) % Sodium (135-145) mmol/L Chloride (96-109) mmol/L Glucose (70-110) mg/dL POC Glucose (mg/dL) 195 H (70-110) mg/dL Microbiology - Last 24 Hours (Table) 07/18/22 03:07 Gram Stain - Final Sputum Sputum Culture - Final 07/18/22 03:55 Blood Culture - Preliminary Blood No Growth after 48 hours 07/19/22 00:25 Blood Culture - Preliminary Blood No Growth after 24 hours Assessment and Plan Assessment: Acute hypoxemic respiratory failure, multifactorial, in part related to mild CHF, pleural effusion, possible coronavirus associated pneumonia, COPD exacerbation, and lung cancer. Vague history of lung cancer, not sure biopsy was actually performed. History of congestive heart failure. History of diabetes mellitus. Severe COPD (FEV1 35%) from previous heavy tobacco use. History of hyperlipidemia. History of hypertension. History of BPH. Plan: The patient was seen and evaluated Medications and labs reviewed Cleared for discharge from the pulmonary standpoint Complete ten-day course of Decadron Continue vitamin supplements Follow-up in the office in 1 week I have personally seen and examined the patient, performed the documentation and the assessment and plan as written. Number of minutes spent on the visit: 10.
[2022-07-20 16:53] LABS: Glucose,Whole Blood 235 mg/dL (70-110)
[2022-07-20 20:13] LABS: Glucose,Whole Blood 345 mg/dL (70-110)
[2022-07-20] MEDS: INSULIN DETEMIR (LEVEMIR) 100 UNIT/ML SYR SQ SCH (21:00)
[2022-07-21 06:27] LABS: Glucose,Whole Blood 149 mg/dL (70-110)
[2022-07-21] MEDS: INSULIN ASPART (NovoLOG) 100 UNIT/ML VIAL SQ SCH ×4 (06:27→12:53)
[2022-07-21] MEDS: ALBUTEROL HFA INHALER INHALATION SCH ×2 (08:08→11:34)
[2022-07-21] MEDS: SYMBICORT 160-4.5 MCG INHALER INHALATION SCH (08:08)
[2022-07-21] MEDS: dexAMETHasone 2 MG TAB PO SCH (08:18)
[2022-07-21] MEDS: ENOXAPARIN 40 MG/0.4 ML SYRINGE SQ SCH (08:18)
[2022-07-21] MEDS: ASCORBIC ACID 500 MG TAB PO SCH (08:19)
[2022-07-21] MEDS: carvediloL 12.5 MG TAB PO SCH (08:19)
[2022-07-21] MEDS: CHOLECALCIFEROL 125 MCG (5000 IU) TABLET PO SCH (08:19)
[2022-07-21] MEDS: FUROSEMIDE 20 MG TAB PO SCH (08:19)
[2022-07-21] MEDS: ZINC SULFATE 220 MG CAP PO SCH (08:19)
[2022-07-21] MEDS: TAMSULOSIN 0.4 MG CAP.ER.24H PO SCH (08:19)
[2022-07-21] MEDS: LOSARTAN 50 MG TAB PO SCH (08:19)
[2022-07-21] MEDS: prednisoLONE ACETATE 1% OPHTH DROPS 5 ML BTL BOTH EYES SCH ×2 (08:20→12:51)
--- NOTE | 2022-07-21 10:22 | P.DS ---
Providers Date of admission: 07/18/22 03:48 Expected date of discharge: 07/21/22 Attending physician: Anusha Wild MD Consults: 07/18/22 03:48 Consult Physician Routine Consulting Provider: Luis Antonio Rausch Consult Reason/Comments: acute/chronic resp insuff, covid-19 Do you want consulting provider notified?: Yes 07/18/22 04:50 Consult Physician Urgent Consulting Provider: Luis Antonio Rausch Consult Reason/Comments: COVID Do you want consulting provider notified?: Yes Primary care physician: Stated None Hospital Course: The patient is a 81-year-old male with an extensive PMH including lung cancer (unknown stage, currently in treatment with Dr. Interiano), systolic CHF EF 35- 40%, COPD, hypertension, hyperlipidemia, and type II DM who presents to the emergency room with complaints of gradually worsening shortness of breath and cough. Chest x-ray in the emergency room was consistent with pneumonia with laboratory evaluation remarkable for coronavirus PCR positive. Patient was started on Rocephin and azithromycin for concerns of mucoid pneumonia. He was started on Decadron. Pro-calcitonin was elevated at 0.17. He was given supplemental O2 to maintain O2 saturation greater than 92%. He completed a course of antibiotics during his hospitalization. He was able to be weaned down to 2 L nasal cannula which he also used at home. Pulmonology followed the patient during his hospitalization. Initially, patient wanted to go to [facility] for rehab. Today he changes his mind and would like to go home. Patient was seen and examined. No acute events overnight. Patient reports considerable improvement in his breathing since admission. States that he is at baseline. His vision has also improved. He denies any chest pain, shortness breath or palpitations. No nausea or vomiting. No fever or chills. He'll be discharged home on albuterol inhaler, Symbicort inhaler, echo drawn for 6 more days, zinc/ascorbic acid/vitamin D3. He is advised to follow-up with his PCP within 1-2 days of discharge. He is advised to follow-up with oncology within 1 week of discharge with regard to his vague history of lung cancer. He is advised to follow-up with pulmonology within 1 week of discharge. He is advised to restart his home medications. Patient verbalized understanding of the plan. Pertinent studies include chest x-ray. General: non toxic, no distress, appears at stated age Derm: warm, dry Head: atraumatic, normocephalic, symmetric Eyes: EOMI, no lid lag, anicteric sclera Mouth: no lip lesion, mucus membranes moist Cardiovascular: S1S2 reg, no murmur Lungs: Decreased breath sounds bilateral, no rhonchi, no rales , no accessory muscle use Abdominal: soft, nontender to palpation, no guarding, no appreciable organomegaly Ext: no gross muscle atrophy, no edema, no contractures Neuro: no focal neuro deficits Psych: Alert, oriented, appropriate affect Discharge diagnosis: #Acute on chronic hypoxic respiratory failure #COVID-19 pneumonia #Positive blood culture #Diabetes mellitus with hyperglycemia #Normocytic anemia #Hypochloremic hyponatremia This complex discharge took about 35 minutes to complete. Patient Condition at Discharge: Stable Plan - Discharge Summary Discharge Rx Participant: No New Discharge Prescriptions: New Budesonide-Formot 160-4.5 Mcg [Symbicort 160-4.5 Mcg Inhaler] 2 puff INHALATION RT-BID #1 each Acetaminophen Tab [Tylenol] 650 mg PO Q4HR PRN tab PRN Reason: Fever And/ Or Pain Albuterol Inhaler [Ventolin Hfa Inhaler] 2 puff INHALATION RT-QID #1 each dexAMETHasone [Decadron] 6 mg PO DAILY #6 tablet Zinc Sulfate [Orazinc] 220 mg PO DAILY #30 cap Ascorbic Acid [Vitamin C] 1,000 mg PO DAILY #60 tab Cholecalciferol [Vitamin D3 (125 Mcg = 5000 Iu)] 125 mcg PO DAILY #30 tab Continue Furosemide [Lasix] 20 mg PO DAILY carvediloL [Coreg] 25 mg PO BID Tamsulosin HCl [Flomax] 0.4 mg PO DAILY #7 cap Potassium Chloride ER [K-Dur 10] 10 meq PO DAILY Prednisolone Acetate/Pf [Prednisolone Acet 1% Eye Drop] 1 drop BOTH EYES QID Losartan [Cozaar] 50 mg PO DAILY #30 tab Insulin Aspart [NovoLOG Flexpen] 6 units SQ PC-TID Insulin Glargine,Hum.rec.anlog [Lantus Solostar Pen] 20 units SQ HS Discontinued predniSONE 5 mg PO DIRECTED Discharge Medication List Furosemide [Lasix] 20 mg PO DAILY 12/18/17 [History] carvediloL [Coreg] 25 mg PO BID 12/18/17 [History] Tamsulosin HCl [Flomax] 0.4 mg PO DAILY #7 cap 05/31/20 [Rx] Potassium Chloride ER [K-Dur 10] 10 meq PO DAILY 04/16/21 [History] Losartan [Cozaar] 50 mg PO DAILY #30 tab 04/20/21 [Rx] Insulin Aspart [NovoLOG Flexpen] 6 units SQ PC-TID 07/18/22 [History] Insulin Glargine,Hum.rec.anlog [Lantus Solostar Pen] 20 units SQ HS 07/18/22 [History] Prednisolone Acetate/Pf [Prednisolone Acet 1% Eye Drop] 1 drop BOTH EYES QID 07/18/22 [History] Acetaminophen Tab [Tylenol] 650 mg PO Q4HR PRN tab 07/21/22 [Rx] Albuterol Inhaler [Ventolin Hfa Inhaler] 2 puff INHALATION RT-QID #1 each 07/21/22 [Rx] Ascorbic Acid [Vitamin C] 1,000 mg PO DAILY #60 tab 07/21/22 [Rx] Budesonide-Formot 160-4.5 Mcg [Symbicort 160-4.5 Mcg Inhaler] 2 puff INHALATION RT-BID #1 each 07/21/22 [Rx] Cholecalciferol [Vitamin D3 (125 Mcg = 5000 Iu)] 125 mcg PO DAILY #30 tab 07/21/22 [Rx] Zinc Sulfate [Orazinc] 220 mg PO DAILY #30 cap 07/21/22 [Rx] dexAMETHasone [Decadron] 6 mg PO DAILY #6 tablet 07/21/22 [Rx] Follow up Appointment(s)/Referral(s): Emily La, [NON-STAFF] - As Needed Luis Antonio Rausch DO [Doctor of Osteopathic Medicine] - 1 Week None,Stated [Primary Care Provider] - 1-2 days Chaitanya Interiano MD [STAFF PHYSICIAN] - 1 Week Activity/Diet/Wound Care/Special Instructions: Diet: Diabetic FU PCP within 1-2 days of DC. FU with Pulmonology within 1 week of DC. FU with Oncology within 1 week of DC. Take all medications as advised. Come back to the ED for worsening CP, SOB, palpitations or lightheadedness. Discharge Disposition: HOME SELF-CARE
[2022-07-21 11:53] VITALS: BP 132/67; PULSE 67; RESP 17; TEMP 97.6
--- NOTE | 2022-07-21 13:26 | P.PN ---
Subjective Progress Note Date: 07/21/22 81-year-old male who was seen in the emergency department, on July 18, complaining of shortness of breath. The patient apparently wears oxygen at home at 2 L, but had to increase it up to 4 L, because of increasing shortness of breath. He also admits to cough, and thick yellow phlegm. No fever or chills. No chest pain or chest discomfort. He also denies any lower extremity swelling or edema. The patient does see a medical oncologist, for his lung cancer, but apparently does not see any pulmonary physicians. He was using his nebulizer machine at home, without improvement. Currently, he is on 5 L nasal cannula. He did test positive for coronavirus. He's not a particularly good historian. The patient has had one coronavirus vaccination. He seen today in room 6, in the emergency department. His medical problem list includes COPD, diabetes, hyperlipidemia, hypertension, congestive heart failure, lung cancer, and BPH. He is a former smoker. The patient was seen by my partner back in March 2021. The patient has very severe COPD, with an FEV1 percent is 35. At that time, the patient was found to have a significant lesion, and the right upper lobe, extending into the hilum. A bronchoscopy was recommended. White count 5.9, hemoglobin 12, hematocrit 34.3, and platelet count 203,000. Sodium 131, potassium 4.6, chloride 93, CO2 27, BUN 15, creatinine 0.84. N-terminal proBNP was 2640. Pro-calcitonin level is 0.17. Testing for coronavirus was positive. Chest x-ray shows airspace consolidation in the superior segment right lower lobe, extending posteriorly. There is also mild patchy infiltrate in the left lower lobe. No evidence of heart failure. There is a pacemaker present. Progress note dated 07/19/2022. The patient is seen in room 473. He is resting comfortably. He was initially seen in the emergency department. Currently, the patient is on 4 L of oxygen. His saturations are 94%. He's not receiving any IV fluids. The patient is not manifesting any signs or symptoms of rona respiratory distress. There is no audible wheezing, use of accessory muscles, or conversational dyspnea. The patient does have a history of multiple medical problems including COPD, diabetes, hyperlipidemia, hypertension, congestive heart failure, lung cancer, and BPH. He is a former smoker. No new lab data today other than a glucose of 186, and a pro-calcitonin level 0.17. Chest x-ray on admission and follow-up chest x-ray today are reviewed. The patient is seen today 07/20/2022 in follow-up on the regular medical floor. He is currently sitting up in a chair at the bedside. Awake and alert in no acute distress. He is maintaining good O2 saturations in the 90s on 3 L/m per nasal cannula. Afebrile. Hemodynamically stable. One blood culture positive f or Staphylococcus epidermidis. Follow-up blood culture reveals no growth. White count 13.2. Hemoglobin 10.8. Sodium 133. Potassium 4.1. BUN 18. Creatinine 1.0. Glucose 140. He is continued on Symbicort, albuterol, Decadron. Lovenox for DVT prophylaxis. Vitamin supplements. Antibiotics in the form of ceftriaxone. Pro-calcitonin 0.17. The patient is seen today 07/21/2022 in follow-up on the regular medical floor. He is up ambulating in his room. Awake and alert in no acute distress. He is maintaining O2 saturations in the upper 90s on 2 L/m per nasal cannula. Afebrile. Hemodynamically stable. Follow-up blood culture revealed no growth. Blood glucose 149. He is continued on Symbicort, albuterol, Decadron, Lovenox, vitamin supplements. Antibiotics in the form of ceftriaxone. Objective - Vital Signs Vital signs: Vital Signs Temp 97.6 F 07/21/22 10:00 Pulse 67 07/21/22 10:00 Resp 17 07/21/22 10:00 BP 132/67 07/21/22 10:00 Pulse Ox 97 07/21/22 10:00 FiO2 Intake & Output 07/20/22 07/21/22 07/21/22 18:59 06:59 18:59 Other: # Voids 4 4 # Bowel Movements 1 - Exam GENERAL EXAM: Alert, 81-year-old male patient, up ambulating in his room, on 2 L nasal cannula, comfortable in no apparent distress. HEAD: Normocephalic. EYES: Normal reaction of pupils, equal size. NOSE: Clear with pink turbinates. THROAT: No erythema or exudates. NECK: No masses, no JVD. CHEST: No chest wall deformity. LUNGS: Equal air entry with faint basilar crackles. CVS: S1 and S2 normal with no audible murmur, regular rhythm. ABDOMEN: No hepatosplenomegaly, normal bowel sounds, no guarding or rigidity. SPINE: No scoliosis or deformity SKIN: No rashes CENTRAL NERVOUS SYSTEM: No focal deficits, tone is normal in all 4 extremities. EXTREMITIES: There is trace peripheral edema. No clubbing, no cyanosis. Peripheral pulses are intact. - Labs CBC & Chem 7: 07/20/22 08:14 07/20/22 08:14 Labs: Abnormal Lab Results - Last 24 Hours (Table) 07/20/22 07/20/22 07/21/22 Range/Units 16:49 20:12 06:25 POC Glucose (mg/dL) 235 H 345 H 149 H (70-110) mg/dL Microbiology - Last 24 Hours (Table) 07/18/22 03:55 Blood Culture - Preliminary Blood No Growth after 72 hours 07/19/22 00:25 Blood Culture - Preliminary Blood No Growth after 48 hours 07/18/22 03:07 Gram Stain - Final Sputum Sputum Culture - Final Assessment and Plan Assessment: Acute hypoxemic respiratory failure, multifactorial, in part related to mild CHF, pleural effusion, possible coronavirus associated pneumonia, COPD exacerbation, and lung cancer. Vague history of lung cancer, not sure biopsy was actually performed. History of congestive heart failure. History of diabetes mellitus. Severe COPD (FEV1 35%) from previous heavy tobacco use. History of hyperlipidemia. History of hypertension. History of BPH. Plan: The patient was seen and evaluated Cleared for discharge from the pulmonary standpoint Complete ten-day course of Decadron Continue vitamin supplements Follow-up in the office in 1 week I have personally seen and examined the patient, performed the documentation and the assessment and plan as written. Number of minutes spent on the visit: 10.
[2022-07-23 08:58] LABS: Glucose,Whole Blood 221 mg/dL (70-110)
== END 2022-07-21 14:40 | disposition home or self-care (01) | DRG 177 ==
LOC: EC 01:17 → 4SSUR 03:48
PROVIDERS: ADMIT Internal Medicine; ATTEND Internal Medicine
DX: U07.1 COVID-19 (principal); J12.82 Pneumonia due to coronavirus disease 2019; J96.21 Acute and chronic respiratory failure with hypoxia; J44.0 Chronic obstructive pulmonary disease with (acute) lower respiratory infection; J44.1 Chronic obstructive pulmonary disease with (acute) exacerbation; C34.11 Malignant neoplasm of upper lobe, right bronchus or lung; E87.1 Hypo-osmolality and hyponatremia; I50.20 Unspecified systolic (congestive) heart failure; N40.0 Benign prostatic hyperplasia without lower urinary tract symptoms; Z87.891 Personal history of nicotine dependence; D64.9 Anemia, unspecified; E11.65 Type 2 diabetes mellitus with hyperglycemia; E78.5 Hyperlipidemia, unspecified; E86.0 Dehydration; E87.8 Other disorders of electrolyte and fluid balance, not elsewhere classified; I11.0 Hypertensive heart disease with heart failure; Z99.81 Dependence on supplemental oxygen; Z28.311 Partially vaccinated for COVID-19; Z88.7 Allergy status to serum and vaccine; Z79.4 Long term (current) use of insulin; Z79.52 Long term (current) use of systemic steroids; Z79.899 Other long term (current) drug therapy
CPT/HCPCS: 36415; 71045; 71046; 80048; 80053; 83605; 83880; 84145; 84484; 85025; 85027; 85610; 85730; 87040; 87070; 87205; 87502; 87635; 93005; 94640

== ENCOUNTER 2023-08-22 16:45 | Emergency (ER) | payer MEDICARE ==
[2023-08-22 17:02] LABS: Glucose,Whole Blood 140 mg/dL (70-110)
[2023-08-22 17:11] VITALS: RESP 18; TEMP 98.1
--- NOTE | 2023-08-22 18:06 | ED ---
General Adult HPI - General Source: patient, EMS, RN notes reviewed, old records reviewed Mode of arrival: EMS <Luis Antonio Frank - Last Filed: 08/22/23 20:30> - General Source: patient, RN notes reviewed, old records reviewed <Manoj Pires - Last Filed: 08/23/23 04:15> - General Chief complaint: Recheck/Abnormal Lab/Rx Stated complaint: Abd Pain Time Seen by Provider: 08/22/23 17:44 - History of Present Illness Initial comments: 82-year-old male presents for evaluation of hypoglycemia. Patient is a diabetic. He states he has not been eating well because of abdominal discomfort and increased gas. He denies significant vomiting. Denies chest pain or dyspnea. He was apparently found by paramedics hypoglycemic en route required IV dextrose. (Luis Antonio Frank) - Related Data Home Medications Medication Instructions Recorded Confirmed Furosemide [Lasix] 20 mg PO DAILY 12/18/17 08/22/23 Potassium Chloride ER [K-Dur 10] 10 meq PO DAILY 04/16/21 08/22/23 Insulin Aspart [NovoLOG Flexpen] 1 - 20 units SQ TID-W/MEALS 07/18/22 08/22/23 Albuterol Inhaler [Ventolin Hfa 2 puff INHALATION RT-QID PRN 08/22/23 08/22/23 Inhaler] Calcium Carbonate [Calcium] 1,200 mg PO DAILY 08/22/23 08/22/23 Carboxymethylcellulose Sodium 1 drop BOTH EYES QID PRN 08/22/23 08/22/23 [Refresh Tears] Multivitamins, Thera [Multivitamin 1 tab PO DAILY 08/22/23 08/22/23 (formulary)] Previous Rx's Medication Instructions Recorded Tamsulosin HCl [Flomax] 0.4 mg PO DAILY #7 cap 05/31/20 Dicyclomine [Bentyl] 10 mg PO TID PRN 7 Days #21 capsule 08/22/23 Ondansetron Odt [Zofran Odt] 4 mg PO Q8HR PRN 3 Days #9 tab 08/22/23 Pantoprazole [Protonix] 40 mg PO DAILY 7 Days #7 tab 08/22/23 Allergies Allergy/AdvReac Type Severity Reaction Status Date / Time Influenza Virus Vaccines Allergy Unknown Verified 08/22/23 21:13 Review of Systems ROS Other: All systems not noted in ROS Statement are negative. <Luis Antonio Frank - Last Filed: 08/22/23 20:30> ROS Other: All systems not noted in ROS Statement are negative. <Manoj Pires - Last Filed: 08/23/23 04:15> ROS Statement: Those systems with pertinent positive or pertinent negative responses have been documented in the HPI. Past Medical History Past Medical History: Cancer, COPD, Diabetes Mellitus, Hyperlipidemia, Hypertension, Prostate Disorder Additional Past Medical History / Comment(s): Congestive Heart Failure, hypertension, hyperlipidemia, BPH, COPD, diabetes mellitus, lung cancer History of Any Multi-Drug Resistant Organisms: None Reported Past Surgical History: No Surgical Hx Reported Past Anesthesia/Blood Transfusion Reactions: No Reported Reaction Type of Cardiac Device: AICD Device Placement Date:: 2016 Past Psychological History: No Psychological Hx Reported Smoking Status: Former smoker Past Alcohol Use History: Occasional Past Drug Use History: None Reported - Past Family History Mother Family Medical History: Hyperlipidemia <Luis Antonio Frank - Last Filed: 08/22/23 20:30> General Exam General appearance: alert, in no apparent distress Head exam: Present: atraumatic, normocephalic Eye exam: Present: normal appearance, PERRL ENT exam: Present: normal exam Neck exam: Present: normal inspection Respiratory exam: Present: normal lung sounds bilaterally. Absent: respiratory distress, wheezes Cardiovascular Exam: Present: regular rate, normal rhythm GI/Abdominal exam: Present: soft. Absent: distended, tenderness, guarding, rebound Neurological exam: Present: alert, oriented X3 Psychiatric exam: Present: normal affect, normal mood Skin exam: Present: warm, dry, intact <Luis Antonio Frank - Last Filed: 08/22/23 20:30> Course Vital Signs 08/22/23 08/22/23 08/23/23 16:51 22:05 00:40 Temperature 98.1 F 98.1 F Pulse Rate 89 69 65 Respiratory 18 18 18 Rate Blood Pressure 107/54 113/50 117/74 O2 Sat by Pulse 97 94 L 95 Oximetry Medical Decision Making - Lab Data Result diagrams: 08/22/23 18:36 08/22/23 18:36 <Luis Antonio Frank - Last Filed: 08/22/23 20:30> - Lab Data Result diagrams: 08/22/23 18:36 08/22/23 18:36 <PranayManoj - Last Filed: 08/23/23 04:15> - Medical Decision Making Was pt. sent in by a medical professional or institution (, [facility], OUTSIDE INDUSTRIAL SALES REPRESENTATIVE, urgent care, hospital, or halfway...) When possible be specific @ -[No] Did you speak to anyone other than the patient for history (EMS, parent, family, police, friend...)? What history was obtained from this source @ -[No] Did you review nursing and triage notes (agree or disagree)? Why? @ -[I reviewed and agree with nursing and triage notes] Were old charts reviewed (outside hosp., previous admission, EMS record, old EKG, old radiological studies, urgent care reports/EKG's, halfway records)? Report findings @ -[No old charts were reviewed] Differential Diagnosis (chest pain, altered mental status, abdominal pain women, abdominal pain men, vaginal bleeding, weakness, fever, dyspnea, syncope, heada marimar, dizziness, GI bleed, back pain, seizure, CVA, palpatations, mental health, musculoskeletal)? @ -Differential Abdominal Pain Men: Appendicitis, cholecystitis, diverticulosis, ischemic bowel, pancreatitis, hepatitis, UTI, gastroenteritis, AAA, incarcerated hernia, bowel obstruction, constipation, inflammatory bowel, hepatitis, peptic ulcer disease, splenic infarction, perforated viscus, testicular torsion, this is not meant to be an all-inclusive list EKG interpreted by me (3pts min.). @ -[As above] X-rays interpreted by me (1pt min.). @ -[None done] CT interpreted by me (1pt min.). @ -[None done] U/S interpreted by me (1pt. min.). @ -[None done] What testing was considered but not performed or refused? (CT, X-rays, U/S, labs)? Why? @ -[None] What meds were considered but not given or refused? Why? @ -[None] Did you discuss the management of the patient with other professionals (professionals i.e. , [facility], OUTSIDE INDUSTRIAL SALES REPRESENTATIVE, lab, RT, psych nurse, social service agency director, pantry goods worker, teacher, community cultural development officer, case management director)? Give summary @ -[No] Was smoking cessation discussed for >3mins.? @ -[No] Was critical care preformed (if so, how long)? @ -[No] Were there social determinants of health that impacted care today? How? (Homel essness, low income, unemployed, alcoholism, drug addiction, transportation, low edu. Level, literacy, decrease access to med. care, skilled nursing, rehab)? @ -[No] Was there de-escalation of care discussed even if they declined (Discuss DNR or withdrawal of care, Hospice)? DNR status @ -[No] What co-morbidities impacted this encounter? (DM, HTN, Smoking, COPD, CAD, Cancer, CVA, ARF, Chemo, Hep., AIDS, mental health diagnosis, sleep apnea, morbid obesity)? @Diabetic Was patient admitted / discharged? Hospital course, mention meds given and route, prescriptions, significant lab abnormalities, going to OR and other pertinent info. @82-year-old male presenting for evaluation of hypoglycemia and generalized abdominal pain. Patient's workup is pending, care is signed out at shift change to Dr. Pires awaiting results and reevaluation. (Luis Antonio Frank) Patient signed out to me pending results of workup. Patient presented with hypoglycemia which has since resolved and has not required any additional glucose administration. He is insulin-dependent. Is also complaining of a two- week history of abdominal discomfort that is generalized and what he describes as gaseous. Symptoms are relatively unchanged but he decided to come the emerg ency department for further evaluation. His PCP is working it up outpatient. Abdominal ultrasound today revealed renal cyst but was otherwise unremarkable. Abdominal laboratory studies ordered today in the department revealed no obvious abnormality that is significant. CT abdomen and pelvis is interpreted by myself reveals prostate cancer which is normal for the patient as well as the renal cysts but no other obvious findings. KUB is interpreted by myself is unremarkable. No Obvious findings. On reevaluation, patient still mildly uncomfortable. We discussed his workup. No obvious surgical intervention or emergent intervention found at this time. He will be discharged home with further workup by his PCP. He will be discharged home with Protonix, Bentyl, ODT Zofran. He was in agreement this plan. I recommended he obtain a colonoscopy which he has never had before. I will provide the patient with a prescription for Protonix, ODT Zofran, Bentyl. I instructed the patient to follow up with their PCP in the next 1-3 days. I provided contact information for follow up with gastroenterology. I explained that the patient should return to the emergency department if they experience any worsening symptoms. Strict return precautions were discussed with the patient. The patient expressed understanding of these instructions. I answered all questions that the patient had. The patient was discharged home in fair condition with their prescriptions and follow up information. Diagnosis/symptom? @ -Abdominal pain of unknown etiology Acute, or Chronic, or Acute on Chronic? @ -Acute Uncomplicated (without systemic symptoms) or Complicated (systemic symptoms)? @ -Complicated Side effects of treatment? @ -none Exacerbation, Progression, or Severe Exacerbation] @ -no Poses a threat to life or bodily function? @ -Unlikely (Manoj Pires) - Lab Data Lab Results 08/22/23 08/22/23 08/22/23 Range/Units 16:59 18:36 18:36 WBC 7.5 (3.8-10.6) k/uL RBC 4.31 (4.30-5.90) m/uL Hgb 12.0 L (13.0-17.5) gm/dL Hct 36.2 L (39.0-53.0) % MCV 83.9 (80.0-100.0) fL MCH 27.8 (25.0-35.0) pg MCHC 33.2 (31.0-37.0) g/dL RDW 14.5 (11.5-15.5) % Plt Count 306 (150-450) k/uL MPV 7.9 Neutrophils % 70 % Lymphocytes % 15 % Monocytes % 7 % Eosinophils % 5 % Basophils % 0 % Neutrophils # 5.2 (1.3-7.7) k/uL Lymphocytes # 1.1 (1.0-4.8) k/uL Monocytes # 0.5 (0-1.0) k/uL Eosinophils # 0.3 (0-0.7) k/uL Basophils # 0.0 (0-0.2) k/uL Sodium 134 L (137-145) mmol/L Potassium 4.2 (3.5-5.1) mmol/L Chloride 94 L (98-107) mmol/L Carbon Dioxide 31 H (22-30) mmol/L Anion Gap 9 mmol/L BUN 22 H (9-20) mg/dL Creatinine 1.11 (0.66-1.25) mg/dL Est GFR (CKD-EPI)AfAm 71 (>60 ml/min/1.73 sqM) Est GFR (CKD-EPI)NonAf 61 (>60 ml/min/1.73 sqM) Glucose 99 (74-99) mg/dL POC Glucose (mg/dL) 140 H (70-110) mg/dL POC Glu Safety And Security Manager ID Cici Escoto Plasma Lactic Acid Sergio (0.7-2.0) mmol/L Calcium 9.0 (8.4-10.2) mg/dL Magnesium 2.2 (1.6-2.3) mg/dL Total Bilirubin 0.5 (0.2-1.3) mg/dL AST 19 (17-59) U/L ALT 13 (4-49) U/L Alkaline Phosphatase 83 (38-126) U/L Total Protein 6.8 (6.3-8.2) g/dL Albumin 3.7 (3.5-5.0) g/dL Urine Color Urine Appearance (Clear) Urine pH (5.0-8.0) Ur Specific [place] (1.001-1.035) Urine Protein (Negative) Urine Glucose (UA) (Negative) Urine Ketones (Negative) Urine Blood (Negative) Urine Nitrite (Negative) Urine Bilirubin (Negative) Urine Urobilinogen (<2.0) mg/dL Ur Leukocyte Esterase (Negative) 08/22/23 08/22/23 08/22/23 Range/Units 18:36 19:28 20:37 WBC (3.8-10.6) k/uL RBC (4.30-5.90) m/uL Hgb (13.0-17.5) gm/dL Hct (39.0-53.0) % MCV (80.0-100.0) fL MCH (25.0-35.0) pg MCHC (31.0-37.0) g/dL RDW (11.5-15.5) % Plt Count (150-450) k/uL MPV Neutrophils % % Lymphocytes % % Monocytes % % Eosinophils % % Basophils % % Neutrophils # (1.3-7.7) k/uL Lymphocytes # (1.0-4.8) k/uL Monocytes # (0-1.0) k/uL Eosinophils # (0-0.7) k/uL Basophils # (0-0.2) k/uL Sodium (137-145) mmol/L Potassium (3.5-5.1) mmol/L Chloride (98-107) mmol/L Carbon Dioxide (22-30) mmol/L Anion Gap mmol/L BUN (9-20) mg/dL Creatinine (0.66-1.25) mg/dL Est GFR (CKD-EPI)AfAm (>60 ml/min/1.73 sqM) Est GFR (CKD-EPI)NonAf (>60 ml/min/1.73 sqM) Glucose (74-99) mg/dL POC Glucose (mg/dL) 133 H (70-110) mg/dL POC Glu Safety And Security Manager ID Cici Escoto Plasma Lactic Acid Sergio 1.3 (0.7-2.0) mmol/L Calcium (8.4-10.2) mg/dL Magnesium (1.6-2.3) mg/dL Total Bilirubin (0.2-1.3) mg/dL AST (17-59) U/L ALT (4-49) U/L Alkaline Phosphatase (38-126) U/L Total Protein (6.3-8.2) g/dL Albumin (3.5-5.0) g/dL Urine Color Yellow Urine Appearance Clear (Clear) Urine pH 8.0 (5.0-8.0) Ur Specific [place] 1.020 (1.001-1.035) Urine Protein Trace H (Negative) Urine Glucose (UA) 4+ H (Negative) Urine Ketones Trace H (Negative) Urine Blood Negative (Negative) Urine Nitrite Negative (Negative) Urine Bilirubin Negative (Negative) Urine Urobilinogen <2.0 (<2.0) mg/dL Ur Leukocyte Esterase Negative (Negative) Disposition <Luis Antonio Frank - Last Filed: 08/22/23 20:30> Is patient prescribed a controlled substance at d/c from ED?: No Time of Disposition: 23:36 <Manoj Pires - Last Filed: 08/23/23 04:15> Clinical Impression: Abdominal pain of unknown etiology Disposition: HOME SELF-CARE Condition: Fair Instructions (If sedation given, give patient instructions): Abdominal Pain (ED) Prescriptions: Dicyclomine [Bentyl] 10 mg PO TID PRN 7 Days #21 capsule PRN Reason: Pain Pantoprazole [Protonix] 40 mg PO DAILY 7 Days #7 tab Ondansetron Odt [Zofran Odt] 4 mg PO Q8HR PRN 3 Days #9 tab PRN Reason: Nausea Referrals: Linus Hernandez DO [Primary Care Provider] - 1-2 days Madeleine Tovar MD [STAFF PHYSICIAN] - 1-2 days
--- NOTE | 2023-08-22 18:16 | XR ---
EXAMINATION TYPE: XR KUB DATE OF EXAM: 08/22/2023 6:08 PM CLINICAL HISTORY: abd pain TECHNIQUE: Single supine KUB image of the abdomen is obtained. COMPARISON: None. FINDINGS: Scattered gas is seen in non-distended small bowel loops. Gas and fecal material is seen in non-distended colon. Colonic stool volume appears within normal lanier its. There is no visceromegaly or abnormal calcification appreciated. The lung bases are clear and the osseous structures are intact. Limitation of the study: Supine radiography cannot exclude pneumoperitoneum. IMPRESSION: No acute radiographic process.
[2023-08-22 18:48] LABS: Basophils % (A) 0 %; Eosinophils # (A) 0.3 k/uL (0-0.7); Eosinophils % (A) 5 %; HCT 36.2 % (39.0-53.0); Lymphocytes # (A) 1.1 k/uL (1.0-4.8); Lymphocytes % (A) 15 %; MCH 27.8 pg (25.0-35.0); MCHC 33.2 g/dL (31.0-37.0); MCV 83.9 fL (80.0-100.0); Mean Platelet Volume 7.9; Monocytes # (A) 0.5 k/uL (0-1.0); Monocytes % (A) 7 %; Neutrophils # (A) 5.2 k/uL (1.3-7.7); Neutrophils % (A) 70 %; Platelet Count 306 k/uL (150-450); RBC 4.31 m/uL (4.30-5.90); RDW 14.5 % (11.5-15.5); WBC 7.5 k/uL (3.8-10.6)
[2023-08-22 18:57] LABS: ALT 13 U/L (4-49); AST 19 U/L (17-59); African American GFR (CKD) 71 (>60 ml/min/1.73 sqM); Albumin 3.7 g/dL (3.5-5.0); Alkaline Phosphatase 83 U/L (38-126); Anion Gap 9 mmol/L; Blood Urea Nitrogen 22 mg/dL (9-20); Carbon Dioxide 31 mmol/L (22-30); Chloride 94 mmol/L (98-107); Glucose 99 mg/dL (74-99); Magnesium 2.2 mg/dL (1.6-2.3); Non-African American GFR(CKD) 61 (>60 ml/min/1.73 sqM); Potassium 4.2 mmol/L (3.5-5.1); Sodium 134 mmol/L (137-145); Total Bilirubin 0.5 mg/dL (0.2-1.3); Total Protein 6.8 g/dL (6.3-8.2)
[2023-08-22 19:30] LABS: Glucose,Whole Blood 133 mg/dL (70-110)
[2023-08-22] MEDS ORDERED: ACETAMINOPHEN TAB 500 MG TAB PO STA (19:43)
[2023-08-22 20:52] LABS: Appearance,Urine Clear (Clear); Bilirubin,Urine Negative (Negative); Blood,Urine Negative (Negative); Color,Urine Yellow; Glucose,Urine (UA) 4+ (Negative); Ketones,Urine Trace (Negative); Leukocyte Esterase,Urine Negative (Negative); Nitrite,Urine Negative (Negative); Protein,Urine Trace (Negative); Urobilinogen,Urine <2.0 mg/dL (<2.0)
--- NOTE | 2023-08-22 22:50 | CT ---
EXAMINATION TYPE: CT abdomen pelvis w con DATE OF EXAM: 08/22/2023 COMPARISON: None HISTORY: ED patient; comes in today due to low blood sugar. Pt states he is unable to eat because he has terrible gas pains. CT DLP: 1426.8 mGycm, Automated Exposure Control for Dose Reduction was Utilized. CONTRAST: CT scan of the abdomen and pelvis is performed with oral and with IV Contrast, patient inje cted with 100 ml mL of Isovue 300. FINDINGS: LUNG BASES: No significant abnormality is appreciated. Prominent left and right coronary calcificati ons noted. LIVER/GB: No significant abnormality is appreciated. PANCREAS: No significant abnormality is seen. SPLEEN: No significant abnormality is seen. ADRENALS: No significant abnormality is seen. KIDNEYS: Multifocal numerous renal cysts, the largest cysts being within the right lower pole. The mo st caudal right lower pole exophytic cyst measures 5.7 cm and shows prominent calcifications at its p arameter. There are no comparison CT or MR examinations on PACS. If outside CT or MRI exist for [facility] t comparison and addendum can be made to this report. BOWEL: No significant abnormality is seen. PROSTATE/SEMINAL VESICLES: Prostate is markedly enlarged measuring approximately 7.5 x 7.5 x 6.0 cm. There is suspicious prominent adenopathy in the right common femoral, right obturator, and right exte rnal iliac positions. LYMPH NODES: No greater than 1cm abdominal or pelvic lymph nodes are appreciated. OSSEOUS STRUCTURES: No aggressive focal lesion. VASCULATURE: Infrarenal abdominal aortic aneurysm measuring 3.9 cm. IMPRESSION: No bowel obstruction. Incidental marked prostatomegaly with prominent right hemipelvic adenopathy; suspicious for prostate carcinoma. Incidental right renal lower pole complex renal cystic mass.
[2023-08-23 00:41] VITALS: BP 117/74; PULSE 65
== END 2023-08-23 00:40 | disposition home or self-care (01) ==
LOC: EC 16:45
DX: R10.9 Unspecified abdominal pain (principal); E11.649 Type 2 diabetes mellitus with hypoglycemia without coma; I11.0 Hypertensive heart disease with heart failure; J44.9 Chronic obstructive pulmonary disease, unspecified; I50.9 Heart failure, unspecified; Z79.4 Long term (current) use of insulin; Z79.899 Other long term (current) drug therapy; Z87.891 Personal history of nicotine dependence; Z88.7 Allergy status to serum and vaccine
CPT/HCPCS: 36415; 80053; 83605; 83735; 85025; 81003; 74018; 74177; 99285; Q9967

== ENCOUNTER → 2023-08-22 | Outpatient (CLI) | payer MEDICARE ==
--- NOTE | 2023-08-22 08:29 | US ---
EXAMINATION TYPE: US abdomen complete DATE OF EXAM: 08/22/2023 COMPARISON: NONE CLINICAL INDICATION: Male, 82 years old with history of R10.9 UNSPECIFIED ABDOMINAL PAIN, nausea, and bloating post pranidol x 2 weeks, K81.9; Hx DM TECHNIQUE: Multiple sonographic images of the abdomen are obtained. FINDINGS: EXAM MEASUREMENTS: Liver Length: 12.4 cm Gallbladder Wall: 0.1 cm CBD: 0.5 cm Spleen: 11.4 cm Right Kidney: 13.1 x 5.8 x 5.8 cm multiple cysts, largest = 7.4 x 5.0 x 4.9 cm Left Kidney: 12.3 x 7.1 x 6.3 cm multiple cysts, largest = 4.1 x 3.4 x 3.6 cm FLYING INSTRUCTOR NOTES: Patient not able to lay supine due to being on O2 - difficulty breathing Pancreas: wnl Liver: wnl Gallbladder: ? 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 The intrahepatic portion of the IVC and proximal abdominal aorta are within normal limits, ecstatic and dilated distally. There is evidence of cholelithiasis. Common bile sommer t is dilated. The visualized portions of the pancreas are homogenous. The spleen is unremarkable. Kidneys are symmetric and free of hydronephrosis. Renal cysts seen bilaterally. IMPRESSION: 1. Multiple renal cysts noted. 2. Gallbladder polyp versus stone.
== END | disposition home or self-care (01) ==
LOC: RADUSWWP 06:52
PROVIDERS: ATTEND Family Medicine
DX: K81.9 Cholecystitis, unspecified (principal); N28.1 Cyst of kidney, acquired
CPT/HCPCS: 76700

== ENCOUNTER 2023-10-01 09:50 | Inpatient (IN) | payer MEDICARE ==
--- NOTE | 2023-10-01 10:07 | ED ---
General Adult HPI - General Chief complaint: Altered Mental Status Stated complaint: Altered Mental Status Time Seen by Provider: 10/01/23 09:55 Source: EMS Mode of arrival: EMS Limitations: no limitations - History of Present Illness Initial comments: Dictation was produced using [employer] dictation software. please excuse any grammatical, word or spelling errors. Chief Complaint: 83-year-old male presents emergency department for chest pain and altered mental status History of Present Illness: Patient is a 83-year-old male he is a poor historian. He is out in by EMS. EMS provides entirety of history of present illness. He is currently resident at [facility]. According tomorrow with staff he had complained of some chest pain today. Given 2 nitroglycerin with allegedly no reported symptoms change. EMS did report that he did complaint of chest pain that was reproducible with palpation. Patient denies any chest pain at the bedside currently. Patient however has been confused for the last week. He has no known history of dementia. EMS states that [facility] explains he was been having hallucinations for the last 7 days. The ROS documented in this emergency department record has been reviewed and confirmed by me. Those systems with pertinent positive or negative responses have been documented in the HPI. All other systems are other negative and/or noncontributory. - Related Data Home Medications Medication Instructions Recorded Confirmed Acetaminophen Tab [Tylenol] 650 mg PO Q6H PRN 10/01/23 10/01/23 Albuterol Nebulized [Ventolin 2.5 mg INHALATION RT-Q6H PRN 10/01/23 10/01/23 Nebulized] Atorvastatin Calcium [Lipitor] 40 mg PO HS@209910/01/23 10/01/23 Budesonide [Pulmicort] 0.5 mg INHALATION RT-BID@0800,209910/01/23 10/01/23 Calcium Carbonate [Tums] 500 mg PO TID PRN 10/01/23 10/01/23 Mauuclub-Mefiuuofuhro-Ifz 400 1 drop BOTH EYES QID PRN 10/01/23 10/01/23 Ophthalmic Solution 0.2-0.2-1% HYDROcodone/APAP 5-325MG [Flora 1 tab PO Q6H PRN 10/01/23 10/01/23 5-325] INSULIN LISPRO (HumaLOG) [humaLOG] See Protocol SQ ACHS 10/01/23 10/01/23 Insulin Glargine [Lantus Vial] 25 unit SQ HS@2100 10/01/23 10/01/23 Losartan [Cozaar] 50 mg PO DAILY@0800 10/01/23 10/01/23 Magnesium Hydroxide [Milk of 7,200 mg PO Q48H PRN 10/01/23 10/01/23 Magnesia Concentrate] Na Phos,M-B/Na Phos,Di-Ba [Fleet 133 ml RECTAL DAILY PRN 10/01/23 10/01/23 Adult] Nitroglycerin Sl Tabs [Nitrostat] 0.4 mg SUBLINGUAL Q5M PRN 10/01/23 10/01/23 Pantoprazole [Protonix] 40 mg PO DAILY@0600 10/01/23 10/01/23 Sennosides-Docusate Sodium 1 tab PO BID@0800,1700 10/01/23 10/01/23 [Senokot-S] Tamsulosin HCl [Flomax] 0.4 mg PO DAILY@0800 10/01/23 10/01/23 bisacodyL [Dulcolax] 10 mg RECTAL DAILY PRN 10/01/23 10/01/23 carvediloL [Coreg] 12.5 mg PO BID@0800,1700 10/01/23 10/01/23 sitaGLIPtin [Januvia] 100 mg PO DAILY@0800 10/01/23 10/01/23 Previous Rx's Medication Instructions Recorded Dicyclomine [Bentyl] 10 mg PO TID PRN 7 Days #21 capsule 08/22/23 Allergies Allergy/AdvReac Type Severity Reaction Status Date / Time Influenza Virus Vaccines Allergy Unknown Verified 10/01/23 11:34 Review of Systems ROS Statement: Those systems with pertinent positive or pertinent negative responses have been documented in the HPI. ROS Other: All systems not noted in ROS Statement are negative. Past Medical History Past Medical History: Cancer, COPD, Diabetes Mellitus, Hyperlipidemia, Hypertension, Prostate Disorder Additional Past Medical History / Comment(s): Congestive Heart Failure, hypertension, hyperlipidemia, BPH, COPD, diabetes mellitus, lung cancer History of Any Multi-Drug Resistant Organisms: None Reported Past Surgical History: No Surgical Hx Reported Past Anesthesia/Blood Transfusion Reactions: No Reported Reaction Type of Cardiac Device: AICD Device Placement Date:: 2016 Past Psychological History: No Psychological Hx Reported Smoking Status: Former smoker Past Alcohol Use History: Occasional Past Drug Use History: None Reported - Past Family History Mother Family Medical History: Hyperlipidemia General Exam - General Exam Comments Initial Comments: PHYSICAL EXAM: General Impression: Alert and oriented x2/4, not in acute distress HEENT: Normocephalic atraumatic, extra-ocular movements intact, pupils equal and reactive to light bilaterally, Gen. mucous membranes. Cardiovascular: Heart regular rate and rhythm Chest: Able to complete full sentences, no retractions, no tachypnea Abdomen: abdomen soft, non-tender, non-distended, no organomegaly Musculoskeletal: Pulses present and equal in all extremities, no peripheral edema Motor: no focal deficits noted Neurological: CN II-XII grossly intact, no focal motor or sensory deficits noted Skin: Intact with no visualized rashes Psych: Confused, hallucinating Limitations: no limitations Course Vital Signs 10/01/23 10/01/23 09:56 12:07 Temperature 99.5 F Pulse Rate 82 83 Respiratory 16 18 Rate Blood Pressure 102/57 124/64 O2 Sat by Pulse 98 95 Oximetry - Reevaluation(s) Reevaluation #1: 10/01/23 14:[address] and possible NPH was reviewed with neurologist. Neurology is agreeable with patient being admitted to our hospital for altered mental status workup. EKG Findings - EKG Comments: EKG Findings:: My EKG interpretation: Ventricular rate 79, sinus rhythm,. 09/23/1992, QRS 154, QTC 459) block. No RI prolongation, no QTC prolongation, no ST or T-wave changes noted. EKG compared to 09/17/2022 showing no changes. Overall, this EKG is unremarkable Medical Decision Making - Medical Decision Making Was pt. sent in by a medical professional or institution (, PA, LEGAL OFFICE ADMINISTRATOR, urgent ca re, hospital, or long term...) When possible be specific @ -No Did you speak to anyone other than the patient for history (EMS, parent, family, police, friend...)? What history was obtained from this source @ -No Did you review nursing and triage notes (agree or disagree)? Why? @ -I reviewed and agree with nursing and triage notes Were old charts reviewed (outside hosp., previous admission, EMS record, old EKG, old radiological studies, urgent care reports/EKG's, long term records)? Report findings @ -No old charts were reviewed Differential Diagnosis (chest pain, altered mental status, abdominal pain women, abdominal pain men, vaginal bleeding, musculoskeletal, weakness, fever, dyspnea, syncope, headache, dizziness, GI bleed, back pain, seizure, CVA, palpatations, mental health)? @ -Differential Chest Pain: Stable Angina, Unstable Angina, STEMI, NSTEMI Aortic Dissection, Pneumothorax, Musculoskeletal, Esophageal Spasm GERD, Cholecystitis, Pancreatitis, Zoster, this is not meant to be an all-inclusive list. Differential Altered Mental Status: Hypoglycemia, DKA, hypercapnia, ETOH, overdose, CO poisoning, trauma, myxedema coma, HTN encephalopathy, infection, encephalitis, psychosis, intercranial hemorrhage, hepatic encephalopathy, meningitis, CVA, this is not meant to be an all-inclusive list EKG interpreted by me (3pts min.). @ -As above X-rays interpreted by me (1pt min.). @ -no Acute processes seen on chest x-ray CT interpreted by me (1pt min.). @ -Computed tomography scan of the brain shows possible NPH U/S interpreted by me (1pt. min.). @ -None done What testing was considered but not performed or refused? (CT, X-rays, U/S, labs)? Why? @ -None What meds were considered but not given or refused? Why? @ -None Did you discuss the management of the patient with other professionals (professionals i.e. , PA, LEGAL OFFICE ADMINISTRATOR, lab, RT, psych nurse, social media intern, jig grinder set up operator, teacher, medical information officer, upper caser)? Give summary @ -see above Was smoking cessation discussed for >3mins.? @ -No Was critical care preformed (if so, how long)? @ -No Were there social determinants of health that impacted care today? How? (Homelessness, low income, unemployed, alcoholism, drug addiction, transportation, low edu. Level, literacy, decrease access to med. care, [facility], rehab)? @ -No Was there de-escalation of care discussed even if they declined (Discuss DNR or withdrawal of care, Hospice)? DNR status @ -No What co-morbidities impacted this encounter? (DM, HTN, Smoking, COPD, CAD, Cancer, CVA, ARF, Chemo, Hep., AIDS, mental health diagnosis, sleep apnea, morbid obesity)? @ -None Was patient admitted / discharged? Hospital course, mention meds given and route, prescriptions, significant lab abnormalities, going to OR and other pertinent info. @ -83 Year-old male presents emergency department for chest pain and altered mental status. Vital signs upon arrival are within acceptable limits. EKG is unremarkable. Laboratory evaluation obtained. CBC, coag panel metabolic panel within acceptable limits. Abdominal as negative. Urinalysis and viral testing negative. Chest x-ray nonacute. CT shows questionable normal pressure hydrocephalus. Case discussed with neurology states that patient is okay to be admitted to our facility despite no neurosurgery. Patient admitted to [facility]. Undiagnosed new problem with uncertain prognosis? @ -No Drug Therapy requiring intensive monitoring for toxicity (Heparin, Nitro, Insulin, Cardizem)? @ -No Were any procedures done? @ -No Diagnosis/symptom? Acute, or Chronic, or Acute on Chronic? Uncomplicated (without systemic symptoms) or Complicated (systemic symptoms)? @ -1. Chest pain, 2. Mental status Side effects of treatment? @ -No Exacerbation, Progression, or Severe Exacerbation? @ -No Poses a threat to life or bodily function? How? (Chest pain, [place], [place], pneumonia, PE, COPD, DKA, ARF, appy, cholecystitis, CVA, Diverticulitis, Homicidal, Suicidal, threat to staff... and all critical care pts) @ -yes - Lab Data Result diagrams: 10/01/23 10:22 10/01/23 10:22 Lab Results 10/01/23 10/01/23 10/01/23 Range/Units 10:22 10:22 10:22 WBC 8.9 (3.8-10.6) k/uL RBC 3.75 L (4.30-5.90) m/uL Hgb 10.5 L (13.0-17.5) gm/dL Hct 31.0 L (39.0-53.0) % MCV 82.6 (80.0-100.0) fL MCH 27.9 (25.0-35.0) pg MCHC 33.8 (31.0-37.0) g/dL RDW 14.3 (11.5-15.5) % Plt Count 313 (150-450) k/uL MPV 7.4 Neutrophils % 78 % Lymphocytes % 11 % Monocytes % 6 % Eosinophils % 3 % Basophils % 0 % Neutrophils # 6.9 (1.3-7.7) k/uL Lymphocytes # 1.0 (1.0-4.8) k/uL Monocytes # 0.5 (0-1.0) k/uL Eosinophils # 0.3 (0-0.7) k/uL Basophils # 0.0 (0-0.2) k/uL PT 11.3 (10.0-12.5) sec INR 1.0 (<1.2) APTT 31.8 H (22.0-30.0) sec Sodium (137-145) mmol/L Potassium (3.5-5.1) mmol/L Chloride (98-107) mmol/L Carbon Dioxide (22-30) mmol/L Anion Gap mmol/L BUN (9-20) mg/dL Creatinine (0.66-1.25) mg/dL Est GFR (CKD-EPI)AfAm (>60 ml/min/1.73 sqM) Est GFR (CKD-EPI)NonAf (>60 ml/min/1.73 sqM) Glucose (74-99) mg/dL Plasma Lactic Acid Sergio (0.7-2.0) mmol/L Calcium (8.4-10.2) mg/dL Magnesium (1.6-2.3) mg/dL Total Bilirubin (0.2-1.3) mg/dL AST (17-59) U/L ALT (4-49) U/L Alkaline Phosphatase (38-126) U/L Ammonia (<30) umol/L Troponin I (0.000-0.034) ng/mL Total Protein (6.3-8.2) g/dL Albumin (3.5-5.0) g/dL Urine Color Yellow Urine Appearance Clear (Clear) Urine pH 5.5 (5.0-8.0) Ur Specific [place] 1.012 (1.001-1.035) Urine Protein Negative (Negative) Urine Glucose (UA) Negative (Negative) Urine Ketones Negative (Negative) Urine Blood Negative (Negative) Urine Nitrite Negative (Negative) Urine Bilirubin Negative (Negative) Urine Urobilinogen <2.0 (<2.0) mg/dL Ur Leukocyte Esterase Negative (Negative) Influenza Type A (PCR) (Not Detectd) Influenza Type B (PCR) (Not Detectd) RSV (PCR) (Not Detectd) SARS-CoV-2 (PCR) (Not Detectd) 10/01/23 10/01/23 10/01/23 Range/Units 10:22 10:22 10:22 WBC (3.8-10.6) k/uL RBC (4.30-5.90) m/uL Hgb (13.0-17.5) gm/dL Hct (39.0-53.0) % MCV (80.0-100.0) fL MCH (25.0-35.0) pg MCHC (31.0-37.0) g/dL RDW (11.5-15.5) % Plt Count (150-450) k/uL MPV Neutrophils % % Lymphocytes % % Monocytes % % Eosinophils % % Basophils % % Neutrophils # (1.3-7.7) k/uL Lymphocytes # (1.0-4.8) k/uL Monocytes # (0-1.0) k/uL Eosinophils # (0-0.7) k/uL Basophils # (0-0.2) k/uL PT (10.0-12.5) sec INR (<1.2) APTT (22.0-30.0) sec Sodium 130 L (137-145) mmol/L Potassium 5.6 H (3.5-5.1) mmol/L Chloride 91 L (98-107) mmol/L Carbon Dioxide 25 (22-30) mmol/L Anion Gap 14 mmol/L BUN 24 H (9-20) mg/dL Creatinine 1.39 H (0.66-1.25) mg/dL Est GFR (CKD-EPI)AfAm 54 (>60 ml/min/1.73 sqM) Est GFR (CKD-EPI)NonAf 46 (>60 ml/min/1.73 sqM) Glucose 143 H (74-99) mg/dL Plasma Lactic Acid Sergio 1.0 (0.7-2.0) mmol/L Calcium 9.6 (8.4-10.2) mg/dL Magnesium 1.9 (1.6-2.3) mg/dL Total Bilirubin 0.8 (0.2-1.3) mg/dL AST 23 (17-59) U/L ALT 11 (4-49) U/L Alkaline Phosphatase 93 (38-126) U/L Ammonia <9 (<30) umol/L Troponin I <0.012 (0.000-0.034) ng/mL Total Protein 7.4 (6.3-8.2) g/dL Albumin 3.9 (3.5-5.0) g/dL Urine Color Urine Appearance (Clear) Urine pH (5.0-8.0) Ur Specific [place] (1.001-1.035) Urine Protein (Negative) Urine Glucose (UA) (Negative) Urine Ketones (Negative) Urine Blood (Negative) Urine Nitrite (Negative) Urine Bilirubin (Negative) Urine Urobilinogen (<2.0) mg/dL Ur Leukocyte Esterase (Negative) Influenza Type A (PCR) (Not Detectd) Influenza Type B (PCR) (Not Detectd) RSV (PCR) (Not Detectd) SARS-CoV-2 (PCR) (Not Detectd) 10/01/23 Range/Units 10:22 WBC (3.8-10.6) k/uL RBC (4.30-5.90) m/uL Hgb (13.0-17.5) gm/dL Hct (39.0-53.0) % MCV (80.0-100.0) fL MCH (25.0-35.0) pg MCHC (31.0-37.0) g/dL RDW (11.5-15.5) % Plt Count (150-450) k/uL MPV Neutrophils % % Lymphocytes % % Monocytes % % Eosinophils % % Basophils % % Neutrophils # (1.3-7.7) k/uL Lymphocytes # (1.0-4.8) k/uL Monocytes # (0-1.0) k/uL Eosinophils # (0-0.7) k/uL Basophils # (0-0.2) k/uL PT (10.0-12.5) sec INR (<1.2) APTT (22.0-30.0) sec Sodium (137-145) mmol/L Potassium (3.5-5.1) mmol/L Chloride (98-107) mmol/L Carbon Dioxide (22-30) mmol/L Anion Gap mmol/L BUN (9-20) mg/dL Creatinine (0.66-1.25) mg/dL Est GFR (CKD-EPI)AfAm (>60 ml/min/1.73 sqM) Est GFR (CKD-EPI)NonAf (>60 ml/min/1.73 sqM) Glucose (74-99) mg/dL Plasma Lactic Acid Sergio (0.7-2.0) mmol/L Calcium (8.4-10.2) mg/dL Magnesium (1.6-2.3) mg/dL Total Bilirubin (0.2-1.3) mg/dL AST (17-59) U/L ALT (4-49) U/L Alkaline Phosphatase (38-126) U/L Ammonia (<30) umol/L Troponin I (0.000-0.034) ng/mL Total Protein (6.3-8.2) g/dL Albumin (3.5-5.0) g/dL Urine Color Urine Appearance (Clear) Urine pH (5.0-8.0) Ur Specific [place] (1.001-1.035) Urine Protein (Negative) Urine Glucose (UA) (Negative) Urine Ketones (Negative) Urine Blood (Negative) Urine Nitrite (Negative) Urine Bilirubin (Negative) Urine Urobilinogen (<2.0) mg/dL Ur Leukocyte Esterase (Negative) Influenza Type A (PCR) Not Detected (Not Detectd) Influenza Type B (PCR) Not Detected (Not Detectd) RSV (PCR) Not Detected (Not Detectd) SARS-CoV-2 (PCR) Not Detected (Not Detectd) Disposition Clinical Impression: Chest pain, AMS (altered mental status) Disposition: ADMITTED IP TO THIS [facility] Condition: Fair Referrals: Parag Gee MD [Primary Care Provider] - 1-2 days Decision Time: 14:43
[2023-10-01 10:45] LABS: Basophils % (A) 0 %; Eosinophils # (A) 0.3 k/uL (0-0.7); Eosinophils % (A) 3 %; HGB 10.5 gm/dL (13.0-17.5); Lymphocytes % (A) 11 %; MCH 27.9 pg (25.0-35.0); MCHC 33.8 g/dL (31.0-37.0); MCV 82.6 fL (80.0-100.0); Mean Platelet Volume 7.4; Monocytes # (A) 0.5 k/uL (0-1.0); Monocytes % (A) 6 %; Neutrophils # (A) 6.9 k/uL (1.3-7.7); Neutrophils % (A) 78 %; Platelet Count 313 k/uL (150-450); RBC 3.75 m/uL (4.30-5.90); RDW 14.3 % (11.5-15.5); WBC 8.9 k/uL (3.8-10.6)
[2023-10-01 10:55] LABS: Partial Thromboplastin Time 31.8 sec (22.0-30.0); Prothrombin Time 11.3 sec (10.0-12.5)
[2023-10-01 11:02] LABS: ALT 11 U/L (4-49); AST 23 U/L (17-59); African American GFR (CKD) 54 (>60 ml/min/1.73 sqM); Albumin 3.9 g/dL (3.5-5.0); Alkaline Phosphatase 93 U/L (38-126); Anion Gap 14 mmol/L; Blood Urea Nitrogen 24 mg/dL (9-20); Calcium 9.6 mg/dL (8.4-10.2); Carbon Dioxide 25 mmol/L (22-30); Chloride 91 mmol/L (98-107); Glucose 143 mg/dL (74-99); Magnesium 1.9 mg/dL (1.6-2.3); Non-African American GFR(CKD) 46 (>60 ml/min/1.73 sqM); Potassium 5.6 mmol/L (3.5-5.1); Sodium 130 mmol/L (137-145); Total Bilirubin 0.8 mg/dL (0.2-1.3); Total Protein 7.4 g/dL (6.3-8.2)
--- NOTE | 2023-10-01 11:07 | XR ---
EXAMINATION TYPE: XR chest 2V DATE OF EXAM: 10/01/2023 10:42 AM CLINICAL INDICATION:Male, 83 years old with history of ams; [facility] COMPARISON: Portable chest 07/19/[address] chest 04/17/2021 TECHNIQUE: XR chest 2V. Frontal PA and lateral views of the chest. FINDINGS: Lines/Tubes: EKG leads and other extrinsic densities overlie the chest. No indwelling lines are seen. Heart/mediastinum: Heart size upper normal. Tortuous aorta suggested, the appearance likely exaggerat ed by patient rotation.Single-lead cardiac conduction device overlying the left hemithorax with lead projecting over the right ventricle. Pulmonary vascularity: Not increased, Lungs/Pleura: Similar appearance of COPD changes, with bandlike and linear opacities presumably scarr ing and architectural distortion in the right mid to upper lung zone. There had at one time been a ma sslike paramediastinal density which is no longer appreciated, and other pulmonary nodules seen on pr ior CT are not clearly depicted; CT may be considered for better evaluation of these findings as clin ically indicated. No acute consolidation, sizable effusion, or pneumothorax. Musculoskeletal: No acute osseous abnormality demonstrated in the limits of the exam. Moderate degen erative changes of the spine and shoulders. Other findings: None. IMPRESSION: 1. No acute cardiopulmonary abnormality. 2. COPD changes with presumed scarring in the right mid to upper lung.
[2023-10-01 12:05] LABS: Appearance,Urine Clear (Clear); Bilirubin,Urine Negative (Negative); Blood,Urine Negative (Negative); Color,Urine Yellow; Glucose,Urine (UA) Negative (Negative); Ketones,Urine Negative (Negative); Leukocyte Esterase,Urine Negative (Negative); Nitrite,Urine Negative (Negative); PH, Urine 5.5 (5.0-8.0); Protein,Urine Negative (Negative); Specific Gravity,Urine 1.012 (1.001-1.035); Urobilinogen,Urine <2.0 mg/dL (<2.0)
--- NOTE | 2023-10-01 12:19 | CT ---
EXAMINATION TYPE: CT brain wo con CT DLP: 1199 mGycm, Automated exposure control for dose reduction was used. DATE OF EXAM: 10/01/2023 11:34 AM COMPARISON: CT head 08/25/2021. CLINICAL INDICATION:Male, 83 years old with history of ams, AMS and dementia TECHNIQUE: Brain: Axial CT images of the brain were obtained with coronal and sagittal reformats created and rev iewed. Contrast used: None. Oral contrast used: None. FINDINGS: Extra-axial spaces: No abnormal extra-axial fluid collections. Ventricular system: Appear dilated out of proportion to the degree of atrophy/sulcal prominence, this can be seen with superimposed NPH. Cerebral parenchyma: No increased attenuation to suggest acute intraparenchymal hemorrhage. The gra y-white matter interface appears maintained. Mild generalized brain atrophy. White matter unremarka ble by CT. Cerebellum: No acute abnormality. Mass effect: No evidence of mass effect or midline shift. Intracranial vasculature: Atherosclerotic calcifications of the larger arteries near the skull base. Soft tissues: Normal. Visualized orbits: Orbital contents appear grossly intact. Radiodensities along the globes likely s equela of previous ophthalmologic surgery. Calvarium/osseous structures: No evidence of calvarial fracture. Paranasal sinuses and mastoid air cells: Clear. Mild S-shaped nasal septal deviation. MRI is more sensitive for detecting acute processes such as infarct, and may be considered if clinica lly warranted. IMPRESSION: 1. No acute intracranial CT abnormality. 2. Dilated ventricles may be partially related to atrophy-related brain volume loss, but correlate c linically for superimposed NPH.
[2023-10-01] MEDS ORDERED: ASPIRIN 81 MG PO STA (14:38)
[2023-10-01] MEDS ORDERED: NITROGLYCERIN SL TABS 0.4 MG TAB SUBLINGUAL PRN (14:38)
[2023-10-01] MEDS ORDERED: CALCIUM CARBONATE 500 MG CHEWABLE PO PRN (15:16)
[2023-10-01] MEDS ORDERED: NA PHOS,M-B/NA PHOS,DI-BA 133 ML ENEMA RECTAL PRN (15:16)
[2023-10-01] MEDS ORDERED: bisacodyL 10 MG SUPP RECTAL PRN (15:16)
[2023-10-01] MEDS ORDERED: MAG HYDROX/AL HYDROX/SIMETH 30 ML CUP PO PRN (15:16)
[2023-10-01] MEDS ORDERED: IPRATROPIUM-ALBUTEROL 3 ML NEB INHALATION PRN (15:23)
[2023-10-01] MEDS ORDERED: MAGNESIUM HYDROXIDE 2,400 MG/30 ML CUP PO PRN (15:29)
[2023-10-01] MEDS: IPRATROPIUM-ALBUTEROL 3 ML NEB INHALATION SCH ×2 (16:37→20:10)
--- NOTE | 2023-10-01 16:43 | CT ---
EXAMINATION TYPE: CT chest wo con CT DLP: 455.5 mGycm, Automated exposure control for dose reduction was used. DATE OF EXAM: 10/01/2023 4:31 PM COMPARISON: 04/17/2021 CLINICAL INDICATION:Male, 83 years old with history of rt pneumonia; Pneumonia. TECHNIQUE: Multiple axial images were obtained through the chest. Sagittal and coronal reformats were created for review. Contrast used: mL of (None if empty) Oral contrast used: (None if empty) FINDINGS: LUNGS/ PLEURA: Moderate emphysema changes in the right lung apex. Right upper lung pulmonary nodule m easuring 19 x 17 mm series series 201 image 59 this was previously 14 x 11 mm on 04/17/2021. Consolida tion changes in the right lower lung apex to the right hilar region with increased projects is compar ed to prior on 04/17/2021. Centrilobular emphysema changes. AIRWAY: Large atelectasis within the right lung superior segment. HEART: The heart is mildly enlarged for size. Moderate atherosclerosis of the arterial vasculature. MEDIASTINUM: Right epicardial fat enlarged lymph node measuring 14 mm in short axis not seen on prior ET. VASCULATURE: No aortic aneurysm. MUSCULOSKELETAL: Moderate disc degeneration changes are present throughout the thoracolumbar spine. SOFT TISSUES/LYMPH NODES: Left chest wall cardiac conduction device with leads terminating in right v entricle and atrium. LOWER NECK: No significant findings. UPPER ABDOMEN: Bilateral renal cysts and IMPRESSION: 1. Consolidation changes in the right lower lung with bronchiectasis and bronchovascular crowding. F indings could represent chronic scarring an atelectasis with superimposed infection not entirely excl uded. Findings were present back on 04/17/2021 with less bronchiectasis. 2. Enlarging right upper lobe with enlarged pulmonary nodule with a enlarged right epicardial fat ly mph node , further evaluation with PET/CT is recommended given its size. Correlate for history of mal ignancy. 3. 2. Moderate emphysema changes. Follow up recommendations for incidental pulmonary nodules, if there are any, are per [employer] or [employer]. [email or web address].org/[email or web address]?lang=us
[2023-10-01] MEDS: carvediloL 12.5 MG TAB PO SCH (16:44)
[2023-10-01] MEDS: THIAMINE 100 MG TAB PO SCH (16:44)
[2023-10-01] MEDS: SENNOSIDES-DOCUSATE SODIUM 1 EACH TAB PO SCH (16:44)
[2023-10-01 19:38] LABS: Glucose,Whole Blood 183 mg/dL (70-110)
[2023-10-01] MEDS ORDERED: SODIUM ZIRCONIUM CYCLOSILICATE 10 GM PACKET PO ONE (20:03)
[2023-10-01] MEDS: BUDESONIDE 0.5 MG/2 ML NEBU INHALATION SCH (20:10)
[2023-10-01] MEDS: QUEtiapine 25 MG TAB PO PRN (20:33)
[2023-10-01] MEDS: INSULIN ASPART (NovoLOG) 100 UNIT/ML VIAL SQ SCH (22:13)
[2023-10-01 22:14] LABS: Glucose,Whole Blood 149 mg/dL (70-110)
[2023-10-01] MEDS: HEPARIN SODIUM,PORCINE 5,000 UNIT/ML 1 ML VIAL SQ SCH (22:17)
[2023-10-01] MEDS: ATORVASTATIN 40 MG TAB PO SCH (22:17)
[2023-10-01] MEDS: INSULIN DETEMIR (LEVEMIR) 100 UNIT/ML SYR SQ SCH (22:17)
--- NOTE | 2023-10-02 02:19 | HP ---
HISTORY AND PHYSICAL CHIEF COMPLAINT: Change in mental status. HISTORY OF PRESENT ILLNESS: This is an 83-year-old gentleman with a past medical history of multiple medical problems including diabetes mellitus, COPD, was previously very functional, but currently the patient is confused. The patient had some chest pains and was given some nitroglycerin and the patient is admitted for further evaluation and treatment. CT scan of brain showed possible dementia versus NPH. Currently, the patient is unable to give a coherent history. Most of my discussion with staff, ER physician, reviewed the chart and discussion with the family at the bedside. PAST MEDICAL HISTORY: Reviewed include COPD, diabetes, hyperlipidemia, rest of the history and rest of the chart is also reviewed. HOME MEDICATIONS: Reviewed include nitroglycerin, dose and rest of medications reviewed. ALLERGIES: Influenza vaccine. FAMILY HISTORY: Hyperlipidemia. SOCIAL HISTORY: Previous history of smoking. REVIEW OF SYSTEMS: Could not be taken because of change in mental status. PHYSICAL EXAMINATION: VITAL SIGNS: Pulse 83, blood pressure 110/60, respirations 18. HEENT: Conjunctivae normal. Oral mucosa dry. NECK: No jugular venous distention. CARDIOVASCULAR: S1, S2 muffled. RESPIRATIONS: Few scattered rhonchi and crackles. ABDOMEN: Soft, nontender. LEGS: No edema, no swelling. NERVOUS SYSTEM: Higher functions as mentioned , otherwise diffusely weak. LYMPHATICS: No focal skin no rash joints no active. LABORATORY DATA: Reviewed, WBC 10.3, and creatinine is 1.39. ASSESSMENT: 1. Severe dehydration with acute renal failure present on admission, rule out NPH. 2. Change in mental status, acute metabolic encephalopathy. 3. Hyponatremia. 4. Hyperkalemia, possibly 2nd renal failure. 5. Chronic obstructive pulmonary disease. 6. Diabetes mellitus type 2. 7. Hypertension. 8. Hyperlipidemia. 9. History of CHF. 10.Multiple complex medical issues. 11.AICD. 12.Atelectasis and scarring on chest x-ray. 13.Chest pain for evaluation, rule out myocardial infarction. RECOMMENDATIONS: This 83-year-old gentleman presented with multiple complex medical issues. At this time, I recommend to continue current medications. Cautious IV hydration for the renal failure. Monitor creatinine closely. The chest x-ray showed some atelectasis. I would also recommend a CT scan of the chest and brain and continue to monitor, otherwise Cardiology and Neurology consultations. The patient has significant dilated ventricles which could be due to NPH or simply because of severe dementia, but the patient is previously functional. We will continue to monitor. Overall prognosis extremely guarded because of the above-mentioned multiple complex medical issues and further recommendations to follow. See orders for details. MMODL / IJN: [id number] / NOA
[2023-10-02 06:50] LABS: Glucose,Whole Blood 55 mg/dL (70-110)
[2023-10-02] MEDS: DEXTROSE 50% SYRINGE 50 ML IVP PRN ×3 (07:06→17:12)
[2023-10-02] MEDS ORDERED: PANTOPRAZOLE 40 MG TABLET PO SCH (07:30)
[2023-10-02] MEDS: INSULIN ASPART (NovoLOG) 100 UNIT/ML VIAL SQ SCH ×4 (07:55→20:25)
[2023-10-02] MEDS ORDERED: LOSARTAN 50 MG TAB PO SCH (08:00)
[2023-10-02] MEDS: BUDESONIDE 0.5 MG/2 ML NEBU INHALATION SCH (08:36)
[2023-10-02] MEDS: IPRATROPIUM-ALBUTEROL 3 ML NEB INHALATION SCH ×4 (08:36→19:46)
[2023-10-02 08:50] LABS: Glucose,Whole Blood 63 mg/dL (70-110)
[2023-10-02] MEDS ORDERED: ASPIRIN 325 MG TAB PO SCH (09:00)
[2023-10-02] MEDS: LINAGLIPTIN 5 MG TABLET PO SCH (09:06)
[2023-10-02] MEDS: ASPIRIN 81 MG PO SCH (09:06)
[2023-10-02] MEDS: TAMSULOSIN 0.4 MG CAP.ER.24H PO SCH (09:06)
[2023-10-02] MEDS: SENNOSIDES-DOCUSATE SODIUM 1 EACH TAB PO SCH ×2 (09:07→17:11)
[2023-10-02] MEDS: HEPARIN SODIUM,PORCINE 5,000 UNIT/ML 1 ML VIAL SQ SCH ×2 (09:07→20:33)
[2023-10-02] MEDS: THIAMINE 100 MG TAB PO SCH ×2 (09:07→17:11)
[2023-10-02] MEDS: carvediloL 12.5 MG TAB PO SCH ×2 (09:07→17:11)
[2023-10-02 10:19] LABS: Glucose,Whole Blood 122 mg/dL (70-110)
[2023-10-02 10:52] LABS: Basophils # (A) 0.04 X 10*3/uL (0.00-0.10); Basophils % (A) 0.5 %; Eosinophils # (A) 0.18 X 10*3/uL (0.04-0.35); Eosinophils % (A) 2.1 %; HCT 30.3 % (39.6-50.0); HGB 9.9 g/dL (13.0-17.0); Lymphocytes # (A) 1.11 X 10*3/uL (0.90-5.00); Lymphocytes % (A) 13.2 %; MCH 26.8 pg (27.0-32.0); MCHC 32.7 g/dL (32.0-37.0); MCV 81.9 FL (80.0-97.0); Mean Platelet Volume 9.8 FL (9.5-12.2); Monocytes # (A) 0.85 X 10*3/uL (0.20-1.00); Monocytes % (A) 10.1 %; NRBC Per 100 WBC 0 X 10*3/uL (0.00-0.01); Neutrophils % (A) 73.7 %; Platelet Count 312 X 10*3/uL (140-440); RDW 14.3 % (11.5-14.5); WBC 8.41 X 10*3/uL (4.50-10.00)
[2023-10-02 11:11] LABS: BUN/Creat Ratio 16.81 Ratio (12.00-20.00); Blood Urea Nitrogen 26.9 mg/dL (9.0-27.0); Calcium 9.8 mg/dL (8.7-10.3); Carbon Dioxide 27.1 mmol/L (21.6-31.8); Chloride 93 mmol/L (96-109); Chol/HDL Ratio 3.56 Ratio; Glucose 80 mg/dL (70-110); LDL Cholesterol,Calculated 58.8 mg/dL (0.0-131.0); Sodium 132 mmol/L (135-145); VLDL Calculation 16.74 mg/dL (5.00-40.00)
[2023-10-02 12:07] LABS: Glucose,Whole Blood 83 mg/dL (70-110)
--- NOTE | 2023-10-02 12:14 | CA ---
Transthoracic Echo Report Name: Jabier Olmos Age: 83 Gender: M : 1940 Exam Date: 10/02/2023 11:54 Exam Location: [facility] Ht (in): 70 Wt (lb): 185 Ordering Physician: Moni Ramos Attending/Referring Phys: [id number], Rachel Staff Editor Smith Robbins Procedure CPT: Indications: LVF Cardiac Hx: Technical Quality: Technically difficult study Contrast 1: Total Dose (mL): Contrast 2: Total Dose (mL): MEASUREMENTS (Male / Female) Normal Values 2D ECHO LV Diastolic Diameter PLAX 5.3 cm 4.2 - 5.9 / 3.9 - 5.3 cm LV Systolic Diameter PLAX 4.4 cm IVS Diastolic Thickness 1.0 cm 0.6 - 1.0 / 0.6 - 0.9 cm LVPW Diastolic Thickness 1.2 cm 0.6 - 1.0 / 0.6 - 0.9 cm LV Relative Wall Thickness 0.4 RV Internal Dim ED PLAX 2.6 cm LVOT Diameter 2.4 cm Aortic Root Diameter 3.7 cm LA Systolic Diameter LX 2.0 cm 3.0 - 4.0 / 2.7 - 3.8 cm DOPPLER TR Peak Velocity 119.8 cm/s TR Peak Gradient 5.7 mmHg Right Ventricular Systolic Press 10.7 mmHg FINDINGS Left Ventricle Normal LV size and wall thickness. Left ventricular ejection fraction is estimated at 25-30 %. Right Ventricle Normal right ventricular size. Catheter/pacemaker wire in the right ventricular cavity. Right Atrium Left Atrium Mitral Valve Aortic Valve Aortic valve not well visualized. AV arrears mildly calcified. Tricuspid Valve Tricuspid valve not well visualized. Trace TR. Pulmonic Valve Pulmonic valve not well visualized. No pulmonic regurgitation. Pericardium Aorta AO root mary= 3.7cm CONCLUSIONS Limited views. Study was ended prematurely secondary to patient request. Severe LV systolic dysfunction Previewed by: Dr. Vincenzo Tovar MD (Electronically Signed) Final Date: 02 October 2023 12:13
[2023-10-02] MEDS: FOLIC ACID 1 MG TAB PO SCH (12:38)
[2023-10-02] MEDS: MULTIVITAMINS, THERA 1 EACH TAB PO SCH (12:38)
--- NOTE | 2023-10-02 12:52 | P.CRDCN ---
History of Present Illness Consult date: 10/02/23 Consult reason: chest pain History of present illness: History of present illness: This is an 83 year old male patient last seen in the office in March [address] Salguero. He has a past medical history of cardiomyopathy status post ICD, coronary artery disease with chronic occlusion on one of his vessels with collaterals, diabetes, hyperlipidemia, remote history of tobacco use. We have been asked to evaluate the patient for chest pain. Patient presented to the emergency center due to change in mental status and chest pain. Patient resides at [facility] and staff noted he was complaining of chest pain yesterday. Patient was given 2 nitroglycerin with no change in symptoms. Chest pain was reproducible with palpation. Patient has had confusion and hallucinations for the past week with underlying history of dementia. Patient is seen today in the emergency center waiting for a bed on the observation unit. Patient is status post 1 dose of Lokelma EKG sinus rhythm with no acute ST-T wave changes Chest x-ray: No acute process. COPD changes. CT chest consolidation changes on the right lower lung with bronchiectasis and bronchovascular crowding. Findings could represent chronic scarring in atelectasis with superimposed infection not entirely excluded. Findings were present 03/2021. Enlarging right upper lobe pulmonary nodule with right epicardial fat lymph node. Moderate emphysema changes. CAT scan of the brain: No acute abnormality. Atrophy related brain volume loss. WBC 8.9, hemoglobin 10.5, platelet count 313. INR 1. Sodium 130, potassium 5.6, BUN 24 creatinine 1.39. Liver function tests are normal. Magnesium 1.9. Troponin negative 3. Pro-calcitonin 0.1. Urinalysis negative. Influenza A, influenza B, RSV, COVID-19 not detected. blood sugar 149. Home cardiac medications: Atorvastatin 40 mg at bedtime, Coreg 12.5 mg twice daily, losartan 50 mg daily. Echocardiogram performed 04/18/2021 revealed EF of 35-40%, moderate concentric left hypertrophy, mild mitral regurgitation, mild tricuspid regurgitation. Echocardiogram performed on 10/02/2023 revealed EF 25-30%. Review Of Systems: At the time of my exam: CONSTITUTIONAL: Denies fever or chills. CARDIOVASCULAR: Denies chest pain, Denies shortness of breath, no orthopnea, PND or palpitations. RESPIRATORY: Denies cough. GASTROINTESTINAL: Denies abdominal pain, diarrhea, constipation, nausea or vomiting. MUSCULOSKELETAL: Denies myalgias. NEUROLOGIC: Denies numbness, tingling or weakness. ENDOCRINE: Denies fatigue, weight change, polydipsia or polyurina. GENITOURINARY: Denies burning, hematuria or urgency with micturation. HEMATOLOGIC: Denies history of anemia or bleeding. Physical examination: Gen: This is an 83-year-old male in no acute distress VS: reviewed HEENT: Head is atraumatic, normocephalic. Pupils equal, round. Sclerae is anicteric. NECK: Supple. No JVD. LUNGS: Clear to auscultation. No wheezes or rhonchi. No intercostal retractions. HEART: Regular rate and rhythm. CAMILO. ABDOMEN: Soft No tenderness. EXTREMITIES: No pedal edema. No calf tenderness. NEUROLOGICAL: Patient is awake, alert and oriented to person. Assessment: Atypical chest pain, acute coronary syndrome ruled out, chest pain most likely due to musculoskeletal etiology Mental status changes Acute kidney injury History of coronary artery disease Cardiomyopathy status post ICD Hypertension Hyperlipidemia Diabetes Dementia Remote history of tobacco use Pulmonary nodule on CT Plan: Resume patient's home cardiac medicationsnote losartan has been held due to hypotension and renal failure No further cardiac workup at this time Cardiology will sign off this case and follow on an as-needed basis. Please reconsult for any new concerns. Patient may follow-up in the office in 2 weeks. Thank you kindly for this consultation. Nurse practitioner note has been reviewed, I agree with documented findings and plan of care. Patient was seen and examined. Past Medical History Past Medical History: Cancer, COPD, Diabetes Mellitus, Hyperlipidemia, Hypertension, Prostate Disorder Additional Past Medical History / Comment(s): Congestive Heart Failure, hypertension, hyperlipidemia, BPH, COPD, diabetes mellitus, lung cancer History of Any Multi-Drug Resistant Organisms: None Reported Past Surgical History: No Surgical Hx Reported Past Anesthesia/Blood Transfusion Reactions: No Reported Reaction Type of Cardiac Device: AICD Device Placement Date:: 2016 Past Psychological History: No Psychological Hx Reported Smoking Status: Former smoker Past Alcohol Use History: Occasional Past Drug Use History: None Reported - Past Family History Mother Family Medical History: Hyperlipidemia Medications and Allergies Home Medications Medication Instructions Recorded Confirmed Type Dicyclomine [Bentyl] 10 mg PO TID PRN 7 Days #21 capsule 08/22/23 10/01/23 Rx Acetaminophen Tab [Tylenol] 650 mg PO Q6H PRN 10/01/23 10/01/23 History Albuterol Nebulized [Ventolin 2.5 mg INHALATION RT-Q6H PRN 10/01/23 10/01/23 History Nebulized] Atorvastatin Calcium [Lipitor] 40 mg PO HS@209910/01/23 10/01/23 History Budesonide [Pulmicort] 0.5 mg INHALATION RT-BID@0800,209910/01/23 10/01/23 History Calcium Carbonate [Tums] 500 mg PO TID PRN 10/01/23 10/01/23 History Ilmphgsg-Acfgtciqlttt-Lgd 400 1 drop BOTH EYES QID PRN 10/01/23 10/01/23 History Ophthalmic Solution 0.2-0.2-1% HYDROcodone/APAP 5-325MG [[place] 1 tab PO Q6H PRN 10/01/23 10/01/23 History 5-325] INSULIN LISPRO (HumaLOG) [humaLOG] See Protocol SQ ACHS 10/01/23 10/01/23 History Insulin Glargine [Lantus Vial] 25 unit SQ HS@209910/01/23 10/01/23 History Losartan [Cozaar] 50 mg PO DAILY@0810/01/23 10/01/23 History Magnesium Hydroxide [Milk of 7,200 mg PO Q48H PRN 10/01/23 10/01/23 History Magnesia Concentrate] Na Phos,M-B/Na Phos,Di-Ba [Fleet 133 ml RECTAL DAILY PRN 10/01/23 10/01/23 History Adult] Nitroglycerin Sl Tabs [Nitrostat] 0.4 mg SUBLINGUAL Q5M PRN 10/01/23 10/01/23 History Pantoprazole [Protonix] 40 mg PO DAILY@0600 10/01/23 10/01/23 History Sennosides-Docusate Sodium 1 tab PO BID@0800,1700 10/01/23 10/01/23 History [Senokot-S] Tamsulosin HCl [Flomax] 0.4 mg PO DAILY@0800 10/01/23 10/01/23 History bisacodyL [Dulcolax] 10 mg RECTAL DAILY PRN 10/01/23 10/01/23 History carvediloL [Coreg] 12.5 mg PO BID@0800,1700 10/01/23 10/01/23 History sitaGLIPtin [Januvia] 100 mg PO DAILY@0800 10/01/23 10/01/23 History Allergies Allergy/AdvReac Type Severity Reaction Status Date / Time Influenza Virus Vaccines Allergy Unknown Verified 10/01/23 11:34 Physical Exam Vitals: Vital Signs Temp Pulse Resp BP Pulse Ox 10/02/23 05:00 96 23 112/65 94 L 10/02/23 01:45 104 H 23 114/91 96 10/01/23 22:18 101 H 18 98/46 95 10/01/23 20:27 76 10/01/23 20:10 72 10/01/23 20:01 88 20 117/74 94 L 10/01/23 16:50 92 18 109/84 95 10/01/23 16:45 83 18 10/01/23 16:37 98 16 98 10/01/23 12:07 83 18 124/64 95 10/01/23 09:56 99.5 F 82 16 102/57 98 Results 10/02/23 07:41 10/02/23 07:41 Cardiac Enzymes 10/01/23 10/01/23 10/01/23 Range/Units 10:22 10:22 15:10 AST 23 (17-59) U/L Troponin I <0.012 <0.012 (0.000-0.034) ng/mL 10/01/23 Range/Units 17:33 AST (17-59) U/L Troponin I <0.012 (0.000-0.034) ng/mL Coagulation 10/01/23 Range/Units 10:22 PT 11.3 (10.0-12.5) sec APTT 31.8 H (22.0-30.0) sec CBC 10/01/23 Range/Units 10:22 WBC 8.9 (3.8-10.6) k/uL RBC 3.75 L (4.30-5.90) m/uL Hgb 10.5 L (13.0-17.5) gm/dL Hct 31.0 L (39.0-53.0) % Plt Count 313 (150-450) k/uL Comprehensive Metabolic Panel 10/01/23 Range/Units 10:22 Sodium 130 L (137-145) mmol/L Potassium 5.6 H (3.5-5.1) mmol/L Chloride 91 L (98-107) mmol/L Carbon Dioxide 25 (22-30) mmol/L BUN 24 H (9-20) mg/dL Creatinine 1.39 H (0.66-1.25) mg/dL Glucose 143 H (74-99) mg/dL Calcium 9.6 (8.4-10.2) mg/dL AST 23 (17-59) U/L ALT 11 (4-49) U/L Alkaline Phosphatase 93 (38-126) U/L Total Protein 7.4 (6.3-8.2) g/dL Albumin 3.9 (3.5-5.0) g/dL Current Medications Generic Name Dose Route Start Last Admin Trade Name Freq PRN Reason Stop Dose Admin Acetaminophen 650 mg 10/01/23 15:16 Acetaminophen Tab 325 Mg Tab PO Q6H PRN Fever and/ or Pain Hydrocodone Bitart/Acetaminophen 1 each 10/01/23 15:16 Hydrocodone/Apap 5-325mg 1 Each Tab PO Q6H PRN Pain Albuterol/Ipratropium 3 ml 10/01/23 16:00 10/01/23 20:10 Ipratropium-Albuterol 3 Ml Neb INHALATION 3 ml RT-QID GRAHAM Administration Albuterol/Ipratropium 3 ml 10/01/23 15:23 Ipratropium-Albuterol 3 Ml Neb INHALATION RT-QID PRN Shortness Of Breath Or Wheezing Aspirin 325 mg 10/02/23 09:00 Aspirin 325 Mg Tab PO DAILY GRAHAM Atorvastatin Calcium 40 mg 10/01/23 21:00 10/01/23 22:17 Atorvastatin 40 Mg Tab PO 40 mg HS@2100 GRAHAM Administration Bisacodyl 10 mg 10/01/23 15:16 Bisacodyl 10 Mg Supp RECTAL DAILY PRN Constipation Budesonide 0.5 mg 10/01/23 21:00 10/01/23 20:10 Budesonide 0.5 Mg/2 Ml Nebu INHALATION 0.5 mg RT-BID@0800,2100 GRAHAM Administration Calcium Carbonate/Glycine 500 mg 10/01/23 15:16 Calcium Carbonate 500 Mg Chewable PO TID PRN Heartburn Carvedilol 12.5 mg 10/01/23 17:00 10/01/23 16:44 Carvedilol 12.5 Mg Tab PO 12.5 mg BID@0800,1700 COUNT INCLUDES THE [facility] Administration Dextrose/Water 25 ml 10/01/23 20:01 10/02/23 07:06 Dextrose 50% Syringe 50 Ml IVP 25 ml PER PROTOCOL PRN Administration Hypoglycemia Protocol Dextrose/Water 50 ml 10/01/23 20:01 Dextrose 50% Syringe 50 Ml IVP PER PROTOCOL PRN Hypoglycemia Protocol Folic Acid 1 mg 10/02/23 12:00 Folic Acid 1 Mg Tab PO DAILY@1200 COUNT INCLUDES THE [facility] Haloperidol Lactate 1 mg 10/01/23 20:04 Haloperidol Lactate 5 Mg/Ml 1 Ml Vial IM Q4HR PRN Agitation or Acute Psychosis Heparin Sodium (Porcine) 5,000 unit 10/01/23 21:00 10/01/23 22:17 Heparin Sodium,Porcine 5,000 Unit/Ml 1 Ml Vial SQ 5,000 unit Q12HR GRAHAM Administration Insulin Aspart 0 unit 10/01/23 21:00 10/01/23 22:13 Insulin Aspart (Novolog) 100 Unit/Ml Vial SQ Not Given ACHS COUNT INCLUDES THE [facility] Protocol Insulin Detemir 25 unit 10/01/23 21:00 10/01/23 22:17 Insulin Detemir (Levemir) 100 Unit/Ml Syr SQ 25 unit HS@2100 COUNT INCLUDES THE [facility] Administration Linagliptin 5 mg 10/02/23 08:00 Linagliptin 5 Mg Tablet PO DAILY@0800 COUNT INCLUDES THE [facility] Magnesium Hydroxide 2,400 mg 10/01/23 15:29 Magnesium Hydroxide 2,400 Mg/30 Ml Cup PO Q48H PRN Constipation Multivitamins 1 each 10/02/23 12:00 Multivitamins, Thera 1 Each Tab PO DAILY@1200 COUNT INCLUDES THE [facility] Nitroglycerin 0.4 mg 10/01/23 14:38 Nitroglycerin Sl Tabs 0.4 Mg Tab SUBLINGUAL Q5M PRN Chest Pain Pantoprazole Sodium 40 mg 10/02/23 07:30 Pantoprazole 40 [place] 0730 COUNT INCLUDES THE [facility] Quetiapine Fumarate 25 mg 10/01/23 20:00 10/01/23 20:33 Quetiapine 25 Mg Tab PO 25 mg HS PRN Administration Agitation Senna/Docusate Sodium 1 each 10/01/23 17:00 10/01/23 16:44 Sennosides-Docusate Sodium 1 Each Tab PO 1 each BID@0800,1700 COUNT INCLUDES THE [facility] Administration Sodium Biphosphate/Sodium Phosphate 133 ml 10/01/23 15:16 Na Phos,M-B/Na Phos,Di-Ba 133 Ml Enema RECTAL DAILY PRN Constipation Tamsulosin HCl 0.4 mg 10/02/23 08:00 Tamsulosin 0.4 Mg Cap.Er.24h PO DAILY@0800 COUNT INCLUDES THE [facility] Thiamine HCl 100 mg 10/01/23 17:30 10/01/23 16:44 Thiamine 100 Mg Tab PO 100 mg BID-W/MEALS GRAHAM Administration 10/01/23 10:22 10/01/23 10:22
--- NOTE | 2023-10-02 13:28 | P.CNNES ---
History of Present Illness Consult date: 10/02/23 Requesting physician: Alessandro Paulson Reason for Consult: AMS History of Present Illness: Patient is a 83-year-old male came to the hospital by ambulance yesterday at 9:50 AM for altered mental status. Patient not able to provide any history, as he is delirious, confused, sometimes talks completely out of context, and is noncooperative. He appears to be in whole body pain. Patient intermittently yells in pain. On asking where the pain is, patient says "my feet, my feet". As per EMS flow sheet, when they arrived, patient was alert but altered per nursing staff. Patient was noted to have complained about chest pain and has been given aspirin and was given 2 nitro sublingually prior to EMS arrival. Patient was noted to have progressive confusion over the past week. Patient was noticed to be hallucinating and unable to follow simple commands. Patient was warm to touch with dry skin. EKG shows right bundle branch block. Patient has reproducible pain of mid sternum with exacerbation during palpation. Vitals at the scene was blood pressure 138/65, pulse rate 88, respiration 24 saturation 96%. Blood test shows normal WBC hemoglobin 10.5, platelets are normal. PT/PTT normal, sodium 130 potassium 5.6, BUN 24, creatinine 1.39, hepatic panel, ammonia, troponin is negative. UA negative, influenza, RSV and marie virus PCR negative. EKG shows sinus rhythm. Chest x-ray showed no acute cardiopulmonary abnormality. COPD changes with presumed scarring in the right mid to upper lung. CT head revealed no acute intracranial abnormality. Dilated ventricles may be partially related to atrophy related brain volume loss, but correlate clinically for superimposed NPH. I personally reviewed CT head, agree with the findings. Visualized paranasal sinuses are clear. CT of the chest revealed co nsolidation changes in the right lower lung with bronchiectasis and bronchovascular crowding. Findings could represent chronic scarring, and atelectasis with superimposed infection not entirely excluded. Enlarging right upper lobe with enlarged pulmonary nodules with a enlarged right epicardial fat lymph node. Further evaluation with PET/CT is recommended. Moderate emphysematous change. Home medications include Bentyl, insulin, Coreg, Januvia, [place] 5/325 mg every 6 hours when necessary, Lipitor 40 mg, Flomax and Protonix. Patient not on any antiplatelet medication. Patient at present appears delirious. He gets agitated at times. Review of Systems Patient's whole body hurts. Patient not able to answer to the review of systems. ROS unobtainable: due to mental status Past Medical History Past Medical History: Cancer, COPD, Diabetes Mellitus, Hyperlipidemia, Hyper tension, Prostate Disorder Additional Past Medical History / Comment(s): Congestive Heart Failure, hypertension, hyperlipidemia, BPH, COPD, diabetes mellitus, lung cancer History of Any Multi-Drug Resistant Organisms: None Reported Past Surgical History: No Surgical Hx Reported Past Anesthesia/Blood Transfusion Reactions: No Reported Reaction Type of Cardiac Device: AICD Device Placement Date:: 2016 Past Psychological History: No Psychological Hx Reported Smoking Status: Former smoker Past Alcohol Use History: Occasional Past Drug Use History: None Reported - Past Family History Mother Family Medical History: Hyperlipidemia Medications and Allergies Home Medications Medication Instructions Recorded Confirmed Type Dicyclomine [Bentyl] 10 mg PO TID PRN 7 Days #21 capsule 08/22/23 10/01/23 Rx Acetaminophen Tab [Tylenol] 650 mg PO Q6H PRN 10/01/23 10/01/23 History Albuterol Nebulized [Ventolin 2.5 mg INHALATION RT-Q6H PRN 10/01/23 10/01/23 History Nebulized] Atorvastatin Calcium [Lipitor] 40 mg PO HS@209910/01/23 10/01/23 History Budesonide [Pulmicort] 0.5 mg INHALATION RT-BID@0800,209910/01/23 10/01/23 History Calcium Carbonate [Tums] 500 mg PO TID PRN 10/01/23 10/01/23 History Ddqglkfh-Epcayzsrapan-Ido 400 1 drop BOTH EYES QID PRN 10/01/23 10/01/23 History Ophthalmic Solution 0.2-0.2-1% HYDROcodone/APAP 5-325MG [[place] 1 tab PO Q6H PRN 10/01/23 10/01/23 History 5-325] INSULIN LISPRO (HumaLOG) [humaLOG] See Protocol SQ ACHS 10/01/23 10/01/23 History Insulin Glargine [Lantus Vial] 25 unit SQ HS@209910/01/23 10/01/23 History Losartan [Cozaar] 50 mg PO DAILY@0800 10/01/23 10/01/23 History Magnesium Hydroxide [Milk of 7,200 mg PO Q48H PRN 10/01/23 10/01/23 History Magnesia Concentrate] Na Phos,M-B/Na Phos,Di-Ba [Fleet 133 ml RECTAL DAILY PRN 10/01/23 10/01/23 History Adult] Nitroglycerin Sl Tabs [Nitrostat] 0.4 mg SUBLINGUAL Q5M PRN 10/01/23 10/01/23 History Pantoprazole [Protonix] 40 mg PO DAILY@0600 10/01/23 10/01/23 History Sennosides-Docusate Sodium 1 tab PO BID@0800,1700 10/01/23 10/01/23 History [Senokot-S] Tamsulosin HCl [Flomax] 0.4 mg PO DAILY@0800 10/01/23 10/01/23 History bisacodyL [Dulcolax] 10 mg RECTAL DAILY PRN 10/01/23 10/01/23 History carvediloL [Coreg] 12.5 mg PO BID@0800,1700 10/01/23 10/01/23 History sitaGLIPtin [Januvia] 100 mg PO DAILY@0800 10/01/23 10/01/23 History Allergies Allergy/AdvReac Type Severity Reaction Status Date / Time Influenza Virus Vaccines Allergy Unknown Verified 10/01/23 11:34 Physical Examination - Vital Signs Vital Signs: Vital Signs Pulse Resp BP Pulse Ox 10/02/23 08:43 96 16 10/02/23 08:37 96 18 98 10/02/23 05:00 96 23 112/65 94 L 10/02/23 01:45 104 H 23 114/91 96 10/01/23 22:18 101 H 18 98/46 95 10/01/23 20:27 76 10/01/23 20:10 72 10/01/23 20:01 88 20 117/74 94 L 10/01/23 16:50 92 18 109/84 95 10/01/23 16:45 83 18 10/01/23 16:37 98 16 98 10/01/23 12:07 83 18 124/64 95 Patient is an elderly male, who appears to be somewhat delirious, restless, hallucinating, sometimes talking to himself. Patient is alert, but keeps his eyes closed. Patient knows that he is in [place] in [place]. He states is the month is February, and the year is 55. Speech and language functions are normal. Patient sometimes speaks out of context and does not make sense. Patient can name and repeat very well. No aphasia or dysarthria. Attention, concentration is significantly impaired and fund of knowledge is also very limited. On cranial nerve examination, pupils are equal, round and reacting to light, although he complains of eyes hurting when pupils were checked. He keeps his eyes closed. Visual serna could not be tested. His gaze is conjugate. He did not cooperate with extraocular muscles testing. Face is symmetric, tongue protrudes to the midline. Palatal elevation and sensation normal, hearing appears normal and shoulder shrug normal, facial sensation did not cooperate. 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 He then stopped cooperating for the examination. He moves both lower extremity is equally. He didn't cooperate with lower extremity testing. Deep tendon reflexes are symmetric and hypoactive, and plantars are flat. Sensory to touch is equal, but he did not cooperate. Cerebellar function not able to be tested, because of lack of cooperation. However he did not appear obviously ataxic while routine movement in conversation. Tone and bulk of muscles normal. Gait deferred.. On general examination, there is no carotid bruit or murmur, S1-S2 audible. Chest is clear on consultation. Abdomen appears slightly tender to deep testing. No organomegaly, bowel sounds present. Peripheral pulses are present. No peripheral edema. Results - Laboratory Findings CBC and BMP: 10/03/23 07:50 10/03/23 07:50 Abnormal Lab Findings: Abnormal Labs 10/01/23 10/01/23 10/01/23 10:22 10:22 10:22 RBC 3.75 L Hgb 10.5 L Hct 31.0 L MCH APTT 31.8 H Sodium 130 L Potassium 5.6 H Chloride 91 L BUN 24 H Creatinine 1.39 H Glucose 143 H POC Glucose (mg/dL) Procalcitonin 10/01/23 10/01/23 10/01/23 15:10 19:32 22:12 RBC Hgb Hct MCH APTT Sodium Potassium Chloride BUN Creatinine Glucose POC Glucose (mg/dL) 183 H 149 H Procalcitonin 0.10 H 10/02/23 10/02/23 10/02/23 06:49 07:41 08:49 RBC 3.70 L Hgb 9.9 L Hct 30.3 L MCH 26.8 L APTT Sodium Potassium Chloride BUN Creatinine Glucose POC Glucose (mg/dL) 55 L 63 L Procalcitonin 10/02/23 10:17 RBC Hgb Hct MCH APTT Sodium Potassium Chloride BUN Creatinine Glucose POC Glucose (mg/dL) 122 H Procalcitonin Assessment and Plan Assessment: * Altered mental status, unclear cause. Probable delirium. Patient is hallucinating. 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 * Possible pneumonia/bronchiectasis. * Abdominal pain, rule out cholecystitis. * Hyponatremia * Hyperkalemia * Mild renal insufficiency * Anemia Plan: * MRI of the brain with and without contrast, if able to be performed, for further evolution of possible NPH. * EEG evaluate for encephalopathy, rule out any seizure activity. * B12, folate, TSH, RPR * Patient was afebrile as per vital signs. He appeared feverish. On asking the nurse to check temperature, his oral temperature was 101.4F. We will consult ID for fever, altered mental status, and temperature. Patient has possible bronchiectasis and rule out cholecystitis. * Hemoglobin A1c 10.2 on 09/20/2023, indicating poorly controlled diabetes. Recommend optimize control of diabetes to target A1c < 7.0 * Lipid panel with cholesterol 105, LDL 58, HDL 29, triglycerides 83. Continue Lipitor 40 mg daily. * DVT prophylaxis:, Patient on heparin 5000 units subcu every 12 hours * Neurology will follow. Thank you for the consult. Time with Patient: Greater than 30
[2023-10-02] MEDS: ACETAMINOPHEN TAB 325 MG TAB PO PRN (13:41)
--- NOTE | 2023-10-02 13:45 | PN ---
PROGRESS NOTE DATE OF SERVICE: 10/02/2023 SUBJECTIVE: This 83-year-old gentleman admitted with change in mental status and confusion, also had significant family history of gallbladder disease according to the son. The patient is on a strict low-fat diet. The dietary indiscretion could be one of the reasons at this time. The patient also has severe dehydration, present on admission. The patient is afebrile, but the patient is tachycardic. The white count is also normal at 8.41. LFTs also normal. Procalcitonin elevated at 0.1. The ultrasound of the abdomen is not available. PAST MEDICAL HISTORY: Reviewed. REVIEW OF SYSTEMS: Could not be taken as the patient is confused. CURRENT MEDICATIONS: Reviewed include DuoNeb, rest of medications noted. OBJECTIVE: GENERAL: The patient is confused, slightly agitated. VITAL SIGNS: Pulse 90, blood pressure 110/51, and respirations 18. CHEST: Few scattered rhonchi. ABDOMEN: Soft, nontender. NERVOUS SYSTEM: Diffusely weak. Full exam could not be performed. LABORATORY DATA: Sodium 132, rest of the labs are noted. ASSESSMENT: 1. Severe dehydration, acute renal failure present on admission. Rule out NPH. 2. Change in mental status, acute metabolic encephalopathy. 3. Possible rule out cholelithiasis and cholecystitis, possible right lung pneumonia. 4. Hyponatremia. 5. Elevated procalcitonin. 6. Hyperkalemia, possibly secondary to renal failure. 7. Chronic obstructive pulmonary disease. 8. Diabetes mellitus type 2. 9. Hypertension. 10.Hyperlipidemia. 11.History of CHF. 12.Multiple complex medical issues. 13.AICD. 14.Atelectasis scarring in the chest x-ray. 15.Chest pain for evaluation, rule out myocardial infarction. 16.Enlarging right upper lobe pulmonary nodule on the CAT scan. RECOMMENDATIONS: Recommended to continue current management, continue symptomatic treatment, otherwise at this time, I would also add empiric antibiotics, infectious surgery evaluations, and would also recommend the chest x-ray showed consolidative change in the right lung, possibility of pneumonia was also considered. I would also recommend pulmonary consultation as well to complete the workup. Overall prognosis is extremely guarded because of above-mentioned multiple complex medical issues as listed above and had a detailed discussion with the son who was an highway engineer, at the bedside and further recommendations to follow. See orders for further details. MMODL / IJN: [id number] /
[2023-10-02] MEDS: PANTOPRAZOLE 40 MG/10 ML VIAL IVP SCH ×2 (14:01→20:32)
[2023-10-02] MEDS: HALOPERIDOL LACTATE 5 MG/ML 1 ML VIAL IM PRN (14:23)
--- NOTE | 2023-10-02 15:45 | P.GSCN ---
History of Present Illness Consult date: 10/02/23 History of present illness: CHIEF COMPLAINT: Chest pain and altered mental status HISTORY OF PRESENT ILLNESS: This is an 83-year-old male who presented to the hospital with complaints of chest pain and altered mental status. He is a resident [facility]. Also history of dementia. Per nurse son had reported to her that patient has been having nausea and poor appetite after eating greasy food. Patient did have ultrasound in July 2023 that had shown possible gallstone versus a gallbladder polyp. Patient has no prior abdominal surgeries. He does have a history of lung cancer and cardiomyopathy with AICD. Patient's white count is normal but he did have a fever of 101.4 and his been mildly tachycardic. He is on antibiotics. Patient is very confused and difficult to obtain history. PAST MEDICAL HISTORY: Lung cancer, diabetes mellitus, hyperlipidemia, hypertension, BPH, COPD, cardiomyopathy status post AICD PAST SURGICAL HISTORY: See below MEDICATIONS: See below ALLERGIES: See below SOCIAL HISTORY: No illicit drug use. REVIEW OF SYSTEMS: CONSTITUTIONAL: Denies fever or chills. HEENT: Denies blurred vision, vision changes, or eye pain. Denies hemoptysis CARDIOVASCULAR: Denies chest pain or pressure. RESPIRATORY: No shortness of breath. GASTROINTESTINAL: See HPI for pertinent findings HEMATOLOGIC: Denies bleeding disorders. GENITOURINARY: Denies any blood in urine or increased urinary frequency. SKIN: Denies pruitis. Denies rash. PHYSICAL EXAM: VITAL SIGNS: Reviewed GENERAL: no acute distress. Difficult to examine ABDOMEN: Soft. Nondistended. Tenderness RUQ NEUROLOGIC: Awake very Confused LABORATORY DATA: WBC 8.41 HGB 9.9 Plt 312 Na 132 K 5.0 Cr 1.6 Lactic acid 1.0 LFTs normal ammonia less than 9 Troponins are negative Urinalysis negative influenza RSV and COVID-19 detected IMAGING: Computed tomography scan of chest reports consolidation changes of the right lower lung with bronchiectasis and bronchovascular crowding. Findings could represent chronic scarring atelectasis with superimposed infection not entirely excluded. Enlarging right upper lobe with enlarged pulmonary nodule. Emphysema Computed tomography scan of the brain reports no acute intracranial abnormality. Dilated ventricles may partially related to atrophy related to weight loss but correlate for superimposed NPH Echo EF 25-30% ASSESSMENT: 1. Nausea, poor appetite and right upper quadrant abdominal pain 2. History of gallstones versus gallbladder polyp on prior US from July 26. Altered mental status PLAN: -Patient tentatively scheduled for laparoscopic cholecystectomy tomorrow, 10/03/[address] Ruvalcaba -Low fat diet tonight -Nothing by mouth after midnight -Continue antibiotics -Continue IV fluids -Continue supportive care -Patient being evaluated by cardiology and neurology services Physician Refining Machine Operator note has been reviewed by physician. Signing provider agrees with the documented findings, assessment, and plan of care. Past Medical History Past Medical History: Cancer, COPD, Diabetes Mellitus, Hyperlipidemia, Hypertension, Prostate Disorder Additional Past Medical History / Comment(s): Congestive Heart Failure, hyper tension, hyperlipidemia, BPH, COPD, diabetes mellitus, lung cancer History of Any Multi-Drug Resistant Organisms: None Reported Past Surgical History: No Surgical Hx Reported Past Anesthesia/Blood Transfusion Reactions: No Reported Reaction Type of Cardiac Device: AICD Device Placement Date:: 2016 Past Psychological History: No Psychological Hx Reported Smoking Status: Former smoker Past Alcohol Use History: Occasional Past Drug Use History: None Reported - Past Family History Mother Family Medical History: Hyperlipidemia Medications and Allergies Home Medications Medication Instructions Recorded Confirmed Type Dicyclomine [Bentyl] 10 mg PO TID PRN 7 Days #21 capsule 08/22/23 10/01/23 Rx Acetaminophen Tab [Tylenol] 650 mg PO Q6H PRN 10/01/23 10/01/23 History Albuterol Nebulized [Ventolin 2.5 mg INHALATION RT-Q6H PRN 10/01/23 10/01/23 History Nebulized] Atorvastatin Calcium [Lipitor] 40 mg PO HS@209910/01/23 10/01/23 History Budesonide [Pulmicort] 0.5 mg INHALATION RT-BID@0800,209910/01/23 10/01/23 History Calcium Carbonate [Tums] 500 mg PO TID PRN 10/01/23 10/01/23 History Cdnrqjwh-Kvvvyuzugtwr-Gli 400 1 drop BOTH EYES QID PRN 10/01/23 10/01/23 History Ophthalmic Solution 0.2-0.2-1% HYDROcodone/APAP 5-325MG [[place] 1 tab PO Q6H PRN 10/01/23 10/01/23 History 5-325] INSULIN LISPRO (HumaLOG) [humaLOG] See Protocol SQ ACHS 10/01/23 10/01/23 History Insulin Glargine [Lantus Vial] 25 unit SQ HS@2100 10/01/23 10/01/23 History Losartan [Cozaar] 50 mg PO DAILY@0800 10/01/23 10/01/23 History Magnesium Hydroxide [Milk of 7,200 mg PO Q48H PRN 10/01/23 10/01/23 History Magnesia Concentrate] Na Phos,M-B/Na Phos,Di-Ba [Fleet 133 ml RECTAL DAILY PRN 10/01/23 10/01/23 History Adult] Nitroglycerin Sl Tabs [Nitrostat] 0.4 mg SUBLINGUAL Q5M PRN 10/01/23 10/01/23 History Pantoprazole [Protonix] 40 mg PO DAILY@0600 10/01/23 10/01/23 History Sennosides-Docusate Sodium 1 tab PO BID@0800,1700 10/01/23 10/01/23 History [Senokot-S] Tamsulosin HCl [Flomax] 0.4 mg PO DAILY@0800 10/01/23 10/01/23 History bisacodyL [Dulcolax] 10 mg RECTAL DAILY PRN 10/01/23 10/01/23 History carvediloL [Coreg] 12.5 mg PO BID@0800,1700 10/01/23 10/01/23 History sitaGLIPtin [Januvia] 100 mg PO DAILY@0800 10/01/23 10/01/23 History Allergies Allergy/AdvReac Type Severity Reaction Status Date / Time Influenza Virus Vaccines Allergy Unknown Verified 10/01/23 11:34 Surgical - Exam Vital Signs Temp Pulse Resp BP Pulse Ox 99.5 F 82 16 102/57 98 10/01/23 09:56 10/01/23 09:56 10/01/23 09:56 10/01/23 09:56 10/01/23 09:56 Results - Labs 10/02/23 07:41 10/02/23 07:41 Abnormal Lab Results - Last 24 Hours (Table) 10/01/23 10/01/23 10/01/23 Range/Units 15:10 19:32 22:12 RBC (4.40-5.60) X 10*6/uL Hgb (13.0-17.0) g/dL Hct (39.6-50.0) % MCH (27.0-32.0) pg Sodium (135-145) mmol/L Chloride (96-109) mmol/L Creatinine (0.6-1.5) mg/dL Est GFR (CKD-EPI) (>=60) POC Glucose (mg/dL) 183 H 149 H (70-110) mg/dL Hemoglobin A1c (<=6.0) % HDL Cholesterol (40.00-60.00) mg/dL Procalcitonin 0.10 H (0.02-0.09) ng/mL 10/02/23 10/02/23 10/02/23 Range/Units 06:49 07:41 07:41 RBC (4.40-5.60) X 10*6/uL Hgb (13.0-17.0) g/dL Hct (39.6-50.0) % MCH (27.0-32.0) pg Sodium 132 L (135-145) mmol/L Chloride 93 L (96-109) mmol/L Creatinine 1.6 H (0.6-1.5) mg/dL Est GFR (CKD-EPI) 42 L (>=60) POC Glucose (mg/dL) 55 L (70-110) mg/dL Hemoglobin A1c 9.4 H (<=6.0) % HDL Cholesterol 29.50 L (40.00-60.00) mg/dL Procalcitonin (0.02-0.09) ng/mL 10/02/23 10/02/23 10/02/23 Range/Units 07:41 08:49 10:17 RBC 3.70 L (4.40-5.60) X 10*6/uL Hgb 9.9 L (13.0-17.0) g/dL Hct 30.3 L (39.6-50.0) % MCH 26.8 L (27.0-32.0) pg Sodium (135-145) mmol/L Chloride (96-109) mmol/L Creatinine (0.6-1.5) mg/dL Est GFR (CKD-EPI) (>=60) POC Glucose (mg/dL) 63 L 122 H (70-110) mg/dL Hemoglobin A1c (<=6.0) % HDL Cholesterol (40.00-60.00) mg/dL Procalcitonin (0.02-0.09) ng/mL Diabetes panel 10/02/23 10/02/23 Range/Units 07:41 07:41 Sodium 132 L (135-145) mmol/L Potassium 5.0 (3.5-5.5) mmol/L Chloride 93 L (96-109) mmol/L Carbon Dioxide 27.1 (21.6-31.8) mmol/L BUN 26.9 (9.0-27.0) mg/dL Creatinine 1.6 H (0.6-1.5) mg/dL Glucose 80 (70-110) mg/dL Hemoglobin A1c 9.4 H (<=6.0) % Calcium 9.8 (8.7-10.3) mg/dL Triglycerides 83.70 (0.00-149.00) mg/dL HDL Cholesterol 29.50 L (40.00-60.00) mg/dL Calcium panel 10/02/23 Range/Units 07:41 Calcium 9.8 (8.7-10.3) mg/dL Pituitary panel 10/02/23 Range/Units 07:41 Sodium 132 L (135-145) mmol/L Potassium 5.0 (3.5-5.5) mmol/L Chloride 93 L (96-109) mmol/L Carbon Dioxide 27.1 (21.6-31.8) mmol/L BUN 26.9 (9.0-27.0) mg/dL Creatinine 1.6 H (0.6-1.5) mg/dL Glucose 80 (70-110) mg/dL Calcium 9.8 (8.7-10.3) mg/dL Adrenal panel 10/02/23 Range/Units 07:41 Sodium 132 L (135-145) mmol/L Potassium 5.0 (3.5-5.5) mmol/L Chloride 93 L (96-109) mmol/L Carbon Dioxide 27.1 (21.6-31.8) mmol/L BUN 26.9 (9.0-27.0) mg/dL Creatinine 1.6 H (0.6-1.5) mg/dL Glucose 80 (70-110) mg/dL Calcium 9.8 (8.7-10.3) mg/dL
[2023-10-02] MEDS: SODIUM CHLORIDE 0.9% 1,000 ML IV SCH (15:52)
[2023-10-02] MEDS ORDERED: AZITHROMYCIN 500 MG TAB PO SCH (16:00)
--- NOTE | 2023-10-02 16:00 | P.CNPUL ---
History of Present Illness Consult date: 10/02/23 Requesting physician: Parag Gee Reason for consult: dyspnea, COPD, abnormal CXR/CT Chief complaint: COPD exacerbation, possible pneumonia. History of present illness: Pulmonary consult dated 10/02/2023. 83-year-old male, evaluated in the emergency department, on October 01. He was brought in to the emergency department, by EMS, for apparent mental status changes. He apparently is a resident at [facility]. He apparently was complaining of some chest pain, he received 2 nitroglycerin, with no benefit. He is seen today, in the emergency department, room 20. Very poor historian. At the time of the evaluation, he was receiving an echocardiogram. He apparently has a history of COPD, and a vague history of lung cancer. I am not sure who his primary care physician is. He apparently has been acting in a strange fashion, at [facility], for the last 7 days, and apparently was having hallucinations. Laboratory data includes a white count of 8.4, hemoglobin 9.9, hematocrit 30, and a platelet count that was normal. Sodium 132, potassium 5, chlorides 93, CO2 27, anion gap normal, BUN 27, and creatinine 1.6. The patient's pro-calcitonin level is minimally elevated at 0.10. Urine is negative. Viral screen was negative. Chest x-ray showed no acute abnormality, which changes of COPD, and scarring, particularly in the right lung. Brain CT showed nothing acute. Computed tomography scan of the chest reveals some consolidation, and the right lower lung zone, consistent with possible pneumonia, or bronchiectasis. In addition, the patient has an enlarging right upper lobe nodule, which could relate to a vague history of lung cancer. Review of Systems REVIEW OF SYSTEMS: Patient is a very poor historian. Was only complaining of gas pains. CONSTITUTIONAL: [Negative.] NEUROLOGIC: [ Negative.] HEENT: [ Negative.] CARDIAC: [Negative.] PULMONARY: [Negative.] GI: [Negative.] : [Negative.] RHEUMATOLOGIC: [ Negative.] IMMUNOLOGIC: [ Negative.] ENDOCRINE: [Negative. ] DERMATOLOGIC: [Negative.] Past Medical History Past Medical History: Cancer, COPD, Diabetes Mellitus, Hyperlipidemia, Hy pertension, Prostate Disorder Additional Past Medical History / Comment(s): Congestive Heart Failure, hypertension, hyperlipidemia, BPH, COPD, diabetes mellitus, lung cancer History of Any Multi-Drug Resistant Organisms: None Reported Past Surgical History: No Surgical Hx Reported Past Anesthesia/Blood Transfusion Reactions: No Reported Reaction Type of Cardiac Device: AICD Device Placement Date:: 2016 Past Psychological History: No Psychological Hx Reported Smoking Status: Former smoker Past Alcohol Use History: Occasional Past Drug Use History: None Reported - Past Family History Mother Family Medical History: Hyperlipidemia Medications and Allergies Home Medications Medication Instructions Recorded Confirmed Type Dicyclomine [Bentyl] 10 mg PO TID PRN 7 Days #21 capsule 08/22/23 10/01/23 Rx Acetaminophen Tab [Tylenol] 650 mg PO Q6H PRN 10/01/23 10/01/23 History Albuterol Nebulized [Ventolin 2.5 mg INHALATION RT-Q6H PRN 10/01/23 10/01/23 History Nebulized] Atorvastatin Calcium [Lipitor] 40 mg PO HS@209910/01/23 10/01/23 History Budesonide [Pulmicort] 0.5 mg INHALATION RT-BID@799,209910/01/23 10/01/23 History Calcium Carbonate [Tums] 500 mg PO TID PRN 10/01/23 10/01/23 History Xbeanaji-Ylxkzqloxtdt-Jso 400 1 drop BOTH EYES QID PRN 10/01/23 10/01/23 History Ophthalmic Solution 0.2-0.2-1% HYDROcodone/APAP 5-325MG [[place] 1 tab PO Q6H PRN 10/01/23 10/01/23 History 5-325] INSULIN LISPRO (HumaLOG) [humaLOG] See Protocol SQ ACHS 10/01/23 10/01/23 History Insulin Glargine [Lantus Vial] 25 unit SQ HS@209910/01/23 10/01/23 History Losartan [Cozaar] 50 mg PO DAILY@0800 10/01/23 10/01/23 History Magnesium Hydroxide [Milk of 7,200 mg PO Q48H PRN 10/01/23 10/01/23 History Magnesia Concentrate] Na Phos,M-B/Na Phos,Di-Ba [Fleet 133 ml RECTAL DAILY PRN 10/01/23 10/01/23 History Adult] Nitroglycerin Sl Tabs [Nitrostat] 0.4 mg SUBLINGUAL Q5M PRN 10/01/23 10/01/23 History Pantoprazole [Protonix] 40 mg PO DAILY@0600 10/01/23 10/01/23 History Sennosides-Docusate Sodium 1 tab PO BID@0800,1700 10/01/23 10/01/23 History [Senokot-S] Tamsulosin HCl [Flomax] 0.4 mg PO DAILY@0800 10/01/23 10/01/23 History bisacodyL [Dulcolax] 10 mg RECTAL DAILY PRN 10/01/23 10/01/23 History carvediloL [Coreg] 12.5 mg PO BID@0800,1700 10/01/23 10/01/23 History sitaGLIPtin [Januvia] 100 mg PO DAILY@0800 10/01/23 10/01/23 History Allergies Allergy/AdvReac Type Severity Reaction Status Date / Time Influenza Virus Vaccines Allergy Unknown Verified 10/01/23 11:34 Physical Exam Osteopathic Statement: *. No significant issues noted on an osteopathic structural exam other than those noted in the History and Physical/Consult. Vitals: Vital Signs Temp Pulse Pulse Resp BP BP Pulse Ox 10/02/23 15:17 98.7 F 95 20 108/58 97 10/02/23 13:36 101.4 F H 10/02/23 11:46 107 H 18 10/02/23 11:34 109 H 18 10/02/23 09:05 98.9 F 90 18 110/51 98 10/02/23 08:43 96 16 10/02/23 08:37 96 18 98 10/02/23 05:00 96 23 112/65 94 L 10/02/23 01:45 104 H 23 114/91 96 10/01/23 22:18 101 H 18 98/46 95 10/01/23 20:27 76 10/01/23 20:10 72 10/01/23 20:01 88 20 117/74 94 L 10/01/23 16:50 92 18 109/84 95 10/01/23 16:45 83 18 10/01/23 16:37 98 16 98 Intake and Output 10/02/23 10/02/23 10/02/23 06:59 14:59 22:59 Intake Total 150 Balance 150 Intake: Oral 150 Other: Voiding Method Diaper External Catheter # Voids 1 # Bowel Movements 0 No acute distress, oriented 3. No respiratory distress, and currently on room air. 3 L saturation documented at 98%. HEENT examination is grossly unremarkable. Neck supple. Full range of motion. No adenopathy thyromegaly or neck vein distention. Cardiovascular examination reveals regular rhythm rate. S1-S2 normal. No S3 or S4. No discernible murmur noted. Heart rate 95 bpm. Lungs reveal clear breath sounds. Breath sounds are equal bilaterally. No adventitious lung sounds including wheezes rhonchi or crackles. Abdomen soft bowel sounds are heard. No masses or tenderness. Extremities are intact. No cyanosis clubbing or edema. Skin is without rash or lesion. Neurologic examination is brief but nonfocal. Results - Laboratory Findings CBC and BMP: 10/02/23 07:41 10/02/23 07:41 PT/INR, D-dimer PT 11.3 sec (10.0-12.5) 10/01/23 10:22 INR 1.0 (<1.2) 10/01/23 10:22 Abnormal lab findings: Abnormal Labs 10/01/23 10/01/23 10/01/23 10:22 10:22 10:22 RBC 3.75 L Hgb 10.5 L Hct 31.0 L MCH APTT 31.8 H Sodium 130 L Potassium 5.6 H Chloride 91 L BUN 24 H Creatinine 1.39 H Est GFR (CKD-EPI) Glucose 143 H POC Glucose (mg/dL) Hemoglobin A1c HDL Cholesterol Procalcitonin 10/01/23 10/01/23 10/01/23 15:10 19:32 22:12 RBC Hgb Hct MCH APTT Sodium Potassium Chloride BUN Creatinine Est GFR (CKD-EPI) Glucose POC Glucose (mg/dL) 183 H 149 H Hemoglobin A1c HDL Cholesterol Procalcitonin 0.10 H 10/02/23 10/02/23 10/02/23 06:49 07:41 07:41 RBC Hgb Hct MCH APTT Sodium 132 L Potassium Chloride 93 L BUN Creatinine 1.6 H Est GFR (CKD-EPI) 42 L Glucose POC Glucose (mg/dL) 55 L Hemoglobin A1c 9.4 H HDL Cholesterol 29.50 L Procalcitonin 10/02/23 10/02/23 10/02/23 07:41 08:49 10:17 RBC 3.70 L Hgb 9.9 L Hct 30.3 L MCH 26.8 L APTT Sodium Potassium Chloride BUN Creatinine Est GFR (CKD-EPI) Glucose POC Glucose (mg/dL) 63 L 122 H Hemoglobin A1c HDL Cholesterol Procalcitonin - Diagnostic Findings Chest x-ray: image reviewed CT scan - chest: image reviewed Assessment and Plan Assessment: Probable pneumonia, right lower lung zone. History of COPD, from previous heavy tobacco use. Pulmonary nodule, right lung, enlarging, may relate to underlying lung cancer. History of diabetes mellitus. History of hyperlipidemia. History of hypertension. History of congestive heart failure. History of BPH. S/P AICD placement, 2017. Prior history of tobacco use. Plan: Plan dated 10/02/2023. The patient is seen today in the emergency department, room 20. He is a very poor historian. He came into the emergency room, on October 01. Not sure exactly why he was sent into the ER, other than the fact that he apparently was complaining of pain all over, and apparently having hallucinations. The patient has a history of COPD from previous heavy tobacco use, and has a vague history of lung cancer. I saw him last in June 2022. He resides at [facility]. Currently on no supplemental oxygen, although, in the chart, it states that he's on 3 L, with saturations of 97%. He is currently having an echocardiogram. C hest x-ray suggests a possible pneumonia in the right lower lobe. Pro- calcitonin level is mildly elevated. I will review the medications, and make some recommendations. Prognosis is guarded. Time with Patient: Greater than 30
--- NOTE | 2023-10-02 16:07 | US ---
EXAMINATION TYPE: US gallbladder DATE OF EXAM: 10/02/2023 COMPARISON: CT, US CLINICAL INDICATION: Male, 83 years old with history of cholecystitis; Cholecystitis. TECHNIQUE: Multiple sonographic images of the right upper quadrant are obtained. FINDINGS: EXAM MEASUREMENTS: Liver Length: 16.3 cm Gallbladder Wall: 0.24 cm CBD: Obscured Right Kidney: 13.1 x 5.8 x 6.7 cm SKILLED NURSING FACILITY COUNSELOR NOTES: Limited due to gas and patient movement. Pancreas: Not well seen. Liver: Appears coarse in echotexture. Gallbladder: Hyperechoic material seen within: 4.9 x 2.3 x 0.9 cm. Evidence for sonographic Leyva's sign: Patient was in pain throughout entire exam. CBD: Obscured Right Kidney: Enlarged. *Complex, septated area seen mid-lower: 10.2 x 9.6 x 6.0 cm. IMPRESSION: 1. Complex cyst right kidney. Follow-up is recommended. 2. Some gravel and sludge may be within the gallbladder.
[2023-10-02 17:06] LABS: Glucose,Whole Blood 49 mg/dL (70-110)
[2023-10-02 17:43] LABS: Glucose,Whole Blood 151 mg/dL (70-110)
[2023-10-02] MEDS ORDERED: PIPERACILLIN-TAZOBACTAM 3.375 GM in SODIUM CHLORIDE 0.9% 100 ML IVPB SCH (17:45)
[2023-10-02] MEDS: BUDESONIDE 1 MG/2 ML NEBU INHALATION SCH (19:46)
[2023-10-02] MEDS: FORMOTEROL FUMARATE 20 MCG/2 ML NEBU INHALATION SCH (19:46)
[2023-10-02 20:25] LABS: Glucose,Whole Blood 142 mg/dL (70-110)
[2023-10-02] MEDS: ATORVASTATIN 40 MG TAB PO SCH (20:32)
[2023-10-02] MEDS: INSULIN DETEMIR (LEVEMIR) 100 UNIT/ML SYR SQ SCH (21:17)
[2023-10-02] MEDS: HYDROmorphone 0.5 MG/0.5 ML SYRINGE IVP PRN (21:28)
--- NOTE | 2023-10-02 22:53 | P.CONS ---
History of Present Illness - Reason for Consult Consult date: 10/02/23 AMS, hydrocephalus, fever Requesting physician: Cory Lawrence - Chief Complaint Chest pain and confusion x 1 day - History of Present Illness Patient is a 83-year-old male with a past medical history significant for diabetes mellitus hypertension hyperlipidemia COPD history of prostate disorder patient apparently was recently admitted at [facility] with sepsis secondary to gallstone patient was stabilized subsequently discharged to the [facility] rehab and the patient was supposed to undergo cholecystectomy in the outpatient setting tomorrow however the patient has been sent to [facility] ER yesterday morning for evaluation of chest pain and apparently the patient has been more confused over the last 1 week and did have some episodes of hallucination patient on presentation to the hospital did have a low-grade fever of 99.5 and he did spike a fever of 101.4 F this afternoon prompting this infectious disease consultation patient was tachycardic but not hypotensive mild hypoxia currently on 3 L nasal cannula oxygen patient did have a white count of 8.9 creatinine is mildly elevated liver exams are normal procalcitonin 0.10 urine has been negative influenza RSV COVID testing was negative patient did have a chest x-ray no acute cardiopulmonary abnormality COPD changes with presumed scarring in the right mid to lower lung patient did have a gallbladder ultrasound complex cyst right kidney some gravel and sludge may be within the gallbladder patient was started on Rocephin and Zithromax infectious disease was consulted for further management of antibiotic therapy Review of Systems Positive point and negatives has been mentioned in the HPI, complete review of systems was performed and all other systems are negative Past Medical History Past Medical History: Cancer, COPD, Diabetes Mellitus, Hyperlipidemia, Hypertension, Prostate Disorder Additional Past Medical History / Comment(s): Congestive Heart Failure, hypertension, hyperlipidemia, BPH, COPD, diabetes mellitus, lung cancer History of Any Multi-Drug Resistant Organisms: None Reported Past Surgical History: No Surgical Hx Reported Past Anesthesia/Blood Transfusion Reactions: No Reported Reaction Type of Cardiac Device: AICD Device Placement Date:: 2016 Past Psychological History: No Psychological Hx Reported Smoking Status: Former smoker Past Alcohol Use History: Occasional Past Drug Use History: None Reported - Past Family History Mother Family Medical History: Hyperlipidemia Medications and Allergies Home Medications Medication Instructions Recorded Confirmed Type Acetaminophen Tab [Tylenol] 650 mg PO Q6H PRN 10/01/23 10/01/23 History Albuterol Nebulized [Ventolin 2.5 mg INHALATION RT-Q6H PRN 10/01/23 10/01/23 History Nebulized] Atorvastatin Calcium [Lipitor] 40 mg PO HS@2100 10/01/23 10/01/23 History Budesonide [Pulmicort] 0.5 mg INHALATION RT-BID@0800,2100 10/01/23 10/01/23 History Calcium Carbonate [Tums] 500 mg PO TID PRN 10/01/23 10/01/23 History Vjksgnfa-Bnpvvvpfcjxg-Lju 400 1 drop BOTH EYES QID PRN 10/01/23 10/01/23 History Ophthalmic Solution 0.2-0.2-1% INSULIN LISPRO (HumaLOG) [humaLOG] See Protocol SQ ACHS 10/01/23 10/01/23 History Magnesium Hydroxide [Milk of 7,200 mg PO Q48H PRN 10/01/23 10/01/23 History Magnesia Concentrate] Na Phos,M-B/Na Phos,Di-Ba [Fleet 133 ml RECTAL DAILY PRN 10/01/23 10/01/23 History Adult] Nitroglycerin Sl Tabs [Nitrostat] 0.4 mg SUBLINGUAL Q5M PRN 10/01/23 10/01/23 History Pantoprazole [Protonix] 40 mg PO DAILY@0600 10/01/23 10/01/23 History Sennosides-Docusate Sodium 1 tab PO BID@0800,1700 10/01/23 10/01/23 History [Senokot-S] Tamsulosin HCl [Flomax] 0.4 mg PO DAILY@0800 10/01/23 10/01/23 History bisacodyL [Dulcolax] 10 mg RECTAL DAILY PRN 10/01/23 10/01/23 History carvediloL [Coreg] 12.5 mg PO BID@0800,1700 10/01/23 10/01/23 History sitaGLIPtin [Januvia] 100 mg PO DAILY@0800 10/01/23 10/01/23 History Amoxic-Pot Clav 600-42.9MG/5Ml 5 ml PO Q12H 5 Days #50 ml 10/07/23 Rx [Augmentin 600-42.9 mg/5 ml Liquid] Aspirin 81 mg PO DAILY tab 10/07/23 Rx Folic Acid 1 mg PO DAILY@1200 tab 10/07/23 Rx HYDROcodone/APAP 5-325MG [[place] 1 tab PO Q6H PRN #4 tab 10/07/23 Rx 5-325] Heparin Sodium,Porcine (1 ml) 5,000 unit SQ Q12HR each 10/07/23 Rx [Heparin Sodium] Insulin Detemir (Levemir) [Levemir] 15 unit SQ HS@2100 each 10/07/23 Rx Multivitamins, Thera [Multivitamin 1 each PO DAILY@1200 tab 10/07/23 Rx (formulary)] QUEtiapine [SEROquel] 25 mg PO HS PRN tab 10/07/23 Rx Thiamine [Vitamin B-1] 100 mg PO BID-W/MEALS tab 10/07/23 Rx Allergies Allergy/AdvReac Type Severity Reaction Status Date / Time Influenza Virus Vaccines Allergy Unknown Verified 10/03/23 12:15 Physical Exam Vitals: Vital Signs Temp Pulse Pulse Resp BP BP Pulse Ox 10/02/23 15:17 98.7 F 95 20 108/58 97 10/02/23 13:36 101.4 F H 10/02/23 11:46 107 H 18 10/02/23 11:34 109 H 18 10/02/23 09:05 98.9 F 90 18 110/51 98 10/02/23 08:43 96 16 10/02/23 08:37 96 18 98 10/02/23 05:00 96 23 112/65 94 L 10/02/23 01:45 104 H 23 114/91 96 10/01/23 22:18 101 H 18 98/46 95 10/01/23 20:27 76 10/01/23 20:10 72 10/01/23 20:01 88 20 117/74 94 L Intake and Output 10/02/23 10/02/23 10/02/23 06:59 14:59 22:59 Intake Total 150 Balance 150 Intake: Oral 150 Other: Voiding Method Diaper External Catheter # Voids 1 # Bowel Movements 0 GENERAL DESCRIPTION: Elderly male lying in bed, no distress. No tachypnea or accessory muscle of respiration use. HEENT: Shows Pallor , no scleral icterus. Oral mucous membrane is dry. No pharyngeal erythema or thrush NECK: Trachea central, no thyromegaly. LUNGS: Unlabored breathing. Decreased breath sound the base HEART: S1, S2, regular rate and rhythm. No loud murmur ABDOMEN: Soft, right upper quadrant tenderness , EXTREMITIES: No edema of feet. SKIN: No rash, no masses palpable. NEUROLOGICAL: The patient is lethargic but arousable, mood and affect normal. Results CBC & Chem 7: 10/07/23 06:54 10/07/23 06:54 Labs: Abnormal Lab Results - Last 24 Hours (Table) 10/01/23 10/01/23 10/01/23 Range/Units 15:10 19:32 22:12 RBC (4.40-5.60) X 10*6/uL Hgb (13.0-17.0) g/dL Hct (39.6-50.0) % MCH (27.0-32.0) pg Sodium (135-145) mmol/L Chloride (96-109) mmol/L Creatinine (0.6-1.5) mg/dL Est GFR (CKD-EPI) (>=60) POC Glucose (mg/dL) 183 H 149 H (70-110) mg/dL Hemoglobin A1c (<=6.0) % HDL Cholesterol (40.00-60.00) mg/dL Procalcitonin 0.10 H (0.02-0.09) ng/mL 10/02/23 10/02/23 10/02/23 Range/Units 06:49 07:41 07:41 RBC (4.40-5.60) X 10*6/uL Hgb (13.0-17.0) g/dL Hct (39.6-50.0) % MCH (27.0-32.0) pg Sodium 132 L (135-145) mmol/L Chloride 93 L (96-109) mmol/L Creatinine 1.6 H (0.6-1.5) mg/dL Est GFR (CKD-EPI) 42 L (>=60) POC Glucose (mg/dL) 55 L (70-110) mg/dL Hemoglobin A1c 9.4 H (<=6.0) % HDL Cholesterol 29.50 L (40.00-60.00) mg/dL Procalcitonin (0.02-0.09) ng/mL 10/02/23 10/02/23 10/02/23 Range/Units 07:41 08:49 10:17 RBC 3.70 L (4.40-5.60) X 10*6/uL Hgb 9.9 L (13.0-17.0) g/dL Hct 30.3 L (39.6-50.0) % MCH 26.8 L (27.0-32.0) pg Sodium (135-145) mmol/L Chloride (96-109) mmol/L Creatinine (0.6-1.5) mg/dL Est GFR (CKD-EPI) (>=60) POC Glucose (mg/dL) 63 L 122 H (70-110) mg/dL Hemoglobin A1c (<=6.0) % HDL Cholesterol (40.00-60.00) mg/dL Procalcitonin (0.02-0.09) ng/mL Assessment and Plan (1) Cholecystitis Status: Acute Code(s): K81.9 - CHOLECYSTITIS, UNSPECIFIED SNOMED Code(s): 05762261 (2) Sepsis Status: Acute Code(s): A41.9 - SEPSIS, UNSPECIFIED ORGANISM SNOMED Code(s): 41960749 Plan: 1patient with sepsis in this patient who did have a fever tachycardia source likely gallbladder disease in this patient who recently did have a similar presentation to the [facility] and apparently was treated for COVID-related sepsis per the son at the bedside keeping in mind being around the hospital will need to cover for more resistant gram-negative pathogen 2-we will start the patient on Zosyn 3.375 g every 8 hours 3-possible cholecystectomy in the morning per the nursing staff We will follow on clinical condition and cultures to further adjust medication if needed Thank you for this consultation we will follow the patient along with you Dictation was produced using [employer]'s dictation software. please excuse any grammatical, word or spelling errors. Time with Patient: Greater than 30
[2023-10-03] MEDS: PIPERACILLIN-TAZOBACTAM 3.375 GM in SODIUM CHLORIDE 0.9% 100 ML IVPB SCH ×3 (03:11→18:14)
[2023-10-03] MEDS: SODIUM CHLORIDE 0.9% 1,000 ML IV SCH (03:56)
--- NOTE | 2023-10-03 04:06 | EEG ---
ELECTROENCEPHALOGRAM REPORT PREAMBLE: This is an 83-year-old male with altered mental status and possible normal- pressure hydrocephalus. This study is performed to evaluate for encephalopathy, rule out any epileptiform activity. EEG FINDINGS: This is a 21-channel digital EEG recorded with video component, utilizing 10/20 international system with referential and bipolar montages. The background consists of moderately developed, and regulated, mixed frequencies of 8 to 9 hertz alpha, intermixed with moderate amplitude, mixed theta and delta slowing in bihemispheric region. Background does not seem to be clearly reactive to eye opening or closing. Different stages of sleep were not clearly seen. EKG channel showed some arrhythmia. No focal or generalized epileptiform activity was seen. IMPRESSION: This is an abnormal EEG due to background slowing of [id number] degree, intermittent. This is suggestive of generalized cerebral dysfunction as can be seen with toxic metabolic encephalopathy or medication effect. Clinical correlation is recommended. No definitive epileptiform activity was seen. MMODL / IJN: [id number] / MTDD
[2023-10-03 07:02] LABS: Glucose,Whole Blood 31 mg/dL (70-110)
[2023-10-03] MEDS: INSULIN ASPART (NovoLOG) 100 UNIT/ML VIAL SQ SCH ×4 (07:04→21:44)
[2023-10-03] MEDS: DEXTROSE 50% SYRINGE 50 ML IVP PRN ×2 (07:04→11:43)
[2023-10-03 07:10] LABS: Glucose,Whole Blood 299 mg/dL (70-110)
[2023-10-03] MEDS: FORMOTEROL FUMARATE 20 MCG/2 ML NEBU INHALATION SCH ×2 (08:01→18:31)
[2023-10-03] MEDS: BUDESONIDE 1 MG/2 ML NEBU INHALATION SCH ×2 (08:01→18:31)
[2023-10-03] MEDS: IPRATROPIUM-ALBUTEROL 3 ML NEB INHALATION SCH ×4 (08:02→18:30)
[2023-10-03 08:06] LABS: Basophils % (A) 0 %; Eosinophils # (A) 0.3 k/uL (0-0.7); Eosinophils % (A) 3 %; HCT 30.6 % (39.0-53.0); Lymphocytes % (A) 9 %; MCH 27.3 pg (25.0-35.0); MCHC 32.5 g/dL (31.0-37.0); Mean Platelet Volume 7.5; Monocytes # (A) 0.5 k/uL (0-1.0); Monocytes % (A) 5 %; Neutrophils # (A) 9.3 k/uL (1.3-7.7); Neutrophils % (A) 82 %; Platelet Count 310 k/uL (150-450); RBC 3.65 m/uL (4.30-5.90); RDW 14.3 % (11.5-15.5); WBC 11.3 k/uL (3.8-10.6)
[2023-10-03 08:11] LABS: Glucose,Whole Blood 155 mg/dL (70-110)
[2023-10-03] MEDS ORDERED: DEXTROSE 5% IN WATER 1,000 ML IV ONE (09:17)
[2023-10-03] MEDS: THIAMINE 100 MG TAB PO SCH ×2 (09:52→18:14)
[2023-10-03] MEDS: HEPARIN SODIUM,PORCINE 5,000 UNIT/ML 1 ML VIAL SQ SCH ×2 (09:52→22:31)
[2023-10-03] MEDS: SENNOSIDES-DOCUSATE SODIUM 1 EACH TAB PO SCH ×2 (09:52→18:14)
[2023-10-03] MEDS: LINAGLIPTIN 5 MG TABLET PO SCH (09:52)
[2023-10-03] MEDS: ASPIRIN 81 MG PO SCH (09:52)
[2023-10-03] MEDS: TAMSULOSIN 0.4 MG CAP.ER.24H PO SCH (09:53)
[2023-10-03] MEDS: HYDROmorphone 0.5 MG/0.5 ML SYRINGE IVP PRN (09:57)
[2023-10-03] MEDS: PANTOPRAZOLE 40 MG/10 ML VIAL IVP SCH ×2 (09:57→22:30)
[2023-10-03 09:58] LABS: Glucose,Whole Blood 86 mg/dL (70-110)
[2023-10-03] MEDS: carvediloL 12.5 MG TAB PO SCH ×2 (09:58→17:21)
[2023-10-03 11:19] LABS: ALT 24 U/L (10-49); AST 61 U/L (14-35); Albumin 3.7 g/dL (3.8-4.9); Albumin/Globulin Ratio 1.16 Ratio (1.60-3.17); Alkaline Phosphatase 87 U/L (41-126); BUN/Creat Ratio 17.38 Ratio (12.00-20.00); Blood Urea Nitrogen 27.8 mg/dL (9.0-27.0); Calcium 9.3 mg/dL (8.7-10.3); Carbon Dioxide 24.9 mmol/L (21.6-31.8); Chloride 96 mmol/L (96-109); Globulin 3.2 g/dL (1.6-3.3); Glucose 174 mg/dL (70-110); Potassium 4.5 mmol/L (3.5-5.5); Sodium 133 mmol/L (135-145); Total Bilirubin 0.6 mg/dL (0.3-1.2); Total Protein 6.9 g/dL (6.2-8.2)
[2023-10-03 11:57] LABS: Glucose,Whole Blood 68 mg/dL (70-110)
[2023-10-03 12:03] LABS: Glucose,Whole Blood 136 mg/dL (70-110)
[2023-10-03 12:09] VITALS: BMI 26.5
--- NOTE | 2023-10-03 12:09 | P.PN ---
Subjective Progress Note Date: 10/03/23 CHIEF COMPLAINT: Altered mental status HISTORY OF PRESENT ILLNESS: Patient complains of right upper quadrant abdominal pain. No nausea at this time. Patient is more awake and alert at this time. He is able answer questions. Gallbladder ultrasound did reveal some gravel and sludge may be within the gallbladder. Patient is afebrile. Vitals are currently stable. He is on 4 L nasal cannula. WBC 11.3 Hgb 9.0 platelets 310 symptoms 133 creatinine 1.6 potassium 4.5 total bilirubin 0.6 AST 61 ALT 24 alk phos 87 PHYSICAL EXAM: VITAL SIGNS: Reviewed. GENERAL: Well-developed in no acute distress. ABDOMEN: Soft. Nondistended. Right upper quadrant tenderness with palpation NEUROLOGIC: Awake and alert and responding to questions appropriately ASSESSMENT: 1. Cholecystitis with Right upper quadrant abdominal pain with nausea. Gallbladder ultrasound revealing gravel and sludge within the gallbladder PLAN: -Patient scheduled for Laparoscopic cholecystectomy today with Dr. Ruvalcaba -Patient has been cleared for surgery by medicine service and pulmonary service. Cardiology evaluated patient and have signed off the case. Physician Radiology Teacher note has been reviewed by physician. Signing provider agrees with the documented findings, assessment, and plan of care. Objective - Vital Signs Vital signs: Vital Signs Temp 98.4 F 10/03/23 08:00 Pulse 56 L 10/03/23 08:00 Resp 18 10/03/23 08:00 BP 167/81 10/03/23 08:00 Pulse Ox 97 10/03/23 10:20 FiO2 Intake & Output 10/02/23 10/03/23 10/03/23 18:59 06:59 18:59 Intake Total 150 Balance 150 Weight 83.915 kg Intake: Oral 150 Other: Voiding Method Diaper External Catheter # Voids 1 # Bowel Movements 0 - Labs CBC & Chem 7: 10/03/23 07:50 10/03/23 07:50 Labs: Abnormal Lab Results - Last 24 Hours (Table) 10/02/23 10/02/23 10/02/23 Range/Units 07:41 07:41 07:41 WBC (3.8-10.6) k/uL RBC 3.70 L (4.40-5.60) X 10*6/uL Hgb 9.9 L (13.0-17.0) g/dL Hct 30.3 L (39.6-50.0) % MCH 26.8 L (27.0-32.0) pg Neutrophils # (1.3-7.7) k/uL ESR (0-20) mm/Hr Sodium 132 L (135-145) mmol/L Chloride 93 L (96-109) mmol/L Creatinine 1.6 H (0.6-1.5) mg/dL Est GFR (CKD-EPI) 42 L (>=60) POC Glucose (mg/dL) (70-110) mg/dL Hemoglobin A1c 9.4 H (<=6.0) % C-Reactive Protein (<1.0) mg/dL HDL Cholesterol 29.50 L (40.00-60.00) mg/dL 10/02/23 10/02/23 10/02/23 Range/Units 15:52 15:52 17:04 WBC (3.8-10.6) k/uL RBC (4.40-5.60) X 10*6/uL Hgb (13.0-17.0) g/dL Hct (39.6-50.0) % MCH (27.0-32.0) pg Neutrophils # (1.3-7.7) k/uL ESR 42 H (0-20) mm/Hr Sodium (135-145) mmol/L Chloride (96-109) mmol/L Creatinine (0.6-1.5) mg/dL Est GFR (CKD-EPI) (>=60) POC Glucose (mg/dL) 49 L (70-110) mg/dL Hemoglobin A1c (<=6.0) % C-Reactive Protein 18.0 H (<1.0) mg/dL HDL Cholesterol (40.00-60.00) mg/dL 10/02/23 10/02/23 10/03/23 Range/Units 17:42 20:23 06:57 WBC (3.8-10.6) k/uL RBC (4.40-5.60) X 10*6/uL Hgb (13.0-17.0) g/dL Hct (39.6-50.0) % MCH (27.0-32.0) pg Neutrophils # (1.3-7.7) k/uL ESR (0-20) mm/Hr Sodium (135-145) mmol/L Chloride (96-109) mmol/L Creatinine (0.6-1.5) mg/dL Est GFR (CKD-EPI) (>=60) POC Glucose (mg/dL) 151 H 142 H 31 L (70-110) mg/dL Hemoglobin A1c (<=6.0) % C-Reactive Protein (<1.0) mg/dL HDL Cholesterol (40.00-60.00) mg/dL 10/03/23 10/03/23 10/03/23 Range/Units 07:09 07:50 08:06 WBC 11.3 H (3.8-10.6) k/uL RBC 3.65 L (4.40-5.60) X 10*6/uL Hgb 10.0 L (13.0-17.0) g/dL Hct 30.6 L (39.6-50.0) % MCH (27.0-32.0) pg Neutrophils # 9.3 H (1.3-7.7) k/uL ESR (0-20) mm/Hr Sodium (135-145) mmol/L Chloride (96-109) mmol/L Creatinine (0.6-1.5) mg/dL Est GFR (CKD-EPI) (>=60) POC Glucose (mg/dL) 299 H 155 H (70-110) mg/dL Hemoglobin A1c (<=6.0) % C-Reactive Protein (<1.0) mg/dL HDL Cholesterol (40.00-60.00) mg/dL Microbiology - Last 24 Hours (Table) 10/01/23 10:10 Blood Culture - Preliminary Blood 10/01/23 10:22 Blood Culture - Preliminary Blood
[2023-10-03] MEDS ORDERED: IV FLUID CONTINUATION 900 ML IV ONE (12:11)
[2023-10-03] MEDS ORDERED: LACTATED RINGERS 1,000 ML IV ONE (12:11)
[2023-10-03] MEDS ORDERED: ONDANSETRON 4 MG/2 ML VIAL ONE (12:15)
[2023-10-03] MEDS ORDERED: DEXAMETHASONE SOD PHOSPHATE 4 MG/ML 1 ML VIAL IVP ONE (12:19)
[2023-10-03] MEDS ORDERED: ONDANSETRON 4 MG/2 ML VIAL IVP ONE (12:19)
[2023-10-03] MEDS ORDERED: HEPARIN SODIUM,PORCINE 5,000 UNIT/ML 1 ML VIAL SQ ONE (12:19)
[2023-10-03] MEDS ORDERED: LIDOCAINE 1% INJ 10MG/ML (20 ML MDV) ONE (12:31)
[2023-10-03] MEDS ORDERED: NEOSTIGMINE 1 MG/ML 10 ML VIAL ONE (12:31)
[2023-10-03] MEDS ORDERED: ROCURONIUM 10 MG/ML (5 ML VIAL) IV ONE (12:31)
[2023-10-03] MEDS ORDERED: ETOMIDATE 2 MG/ML 10 ML VIAL ONE (12:31)
[2023-10-03] MEDS ORDERED: PHENYLEPHRINE-0.9% NACL SYG 1,000 MCG/10 ML SYRINGE ONE (12:31)
[2023-10-03] MEDS ORDERED: GLYCOPYRROLATE 0.2 MG/ML 2 ML VIAL ONE (12:31)
[2023-10-03] MEDS ORDERED: fentaNYL (PF) 50 MCG/ML 2 ML AMP ONE (12:31)
[2023-10-03] MEDS ORDERED: BUPIVACAINE (PF) 0.25% 30 ML VIAL SQ ONE (13:02)
--- NOTE | 2023-10-03 13:21 | P.OP ---
Date of Procedure: 10/03/23 Preoperative Diagnosis: Cholecystitis Postoperative Diagnosis: Cholecystitis Procedure(s) Performed: Laparoscopic cholecystectomy Anesthesia: JAZZMINE Surgeon: West Ruvalcaba Pathology: other (Gallbladder) Condition: stable Disposition: PACU Description of Procedure: The patient's placed on the operative table in the supine position. The patient received general endotracheal anesthesia. His abdomen was prepped with sterile fashion. An infraumbilical skin incision was made. The Veress needles positioned into the peritoneal cavity. Position of the Veress needle was confirmed with a positive drop test. The abdomen was then insufflated. After adequate insufflation a 5 mm trochars placed. Cavity. Next the laparoscope placed. Cavity. A 8 mm robotic trocar was placed in the left mid abdomen. A a 8 mm robotic trochars placed in the right lateral position and then the right mid abdomen position. The patient was then placed in reverse Trendelenburg. Patient with was docked to the robot. There were adhesions to the dome of the gallbladder. These were lysed using the hook cautery. The gallbladder fundus was then grasped with a pro-grasp grasper. And then the gallbladder was retracted cephalad. There were adhesions along the body of the gallbladder. These were lysed with sharp dissection. The fundus of the gallbladder was then grasped in the lateral traction was placed in the fundus. And then using blunt and sharp dissection the cystic duct was identified. Using firing applied the cystic duct was identified. A critical view of safety was achieved. The cystic duct was seen entering the common bile duct the common hepatic duct was seen. The cystic duct had been completely dissected and then the cystic duct was clipped and divided. The cystic artery was then identified and then clipped and divided. The gallbladder was then removed from liver bed using left cautery. The gallbladder was placed in a 5 mm Endo Catch bag. The liver bed was hemostasis. There is no bleeding seen. The abdomen was irrigated. No bleeding was seen. The patient was then undocked from the robot. The gallbladder was extracted through the umbilical port site. The umbilical port site was then closed with 0 Ethibond suture. The trochars withdrawn. Skin was closed interrupted 3-0 Monocryl suture. Dermabond dressing applied. Patient top she will was sent to recovery room in stable condition.
[2023-10-03 13:35] LABS: Glucose,Whole Blood 99 mg/dL (70-110)
--- NOTE | 2023-10-03 13:53 | P.PN ---
Subjective Progress Note Date: 10/03/23 83-year-old male, evaluated in the emergency department, on October 01. He was brought in to the emergency department, by EMS, for apparent mental status changes. He apparently is a resident at [facility]. He apparently was complaining of some chest pain, he received 2 nitroglycerin, with no b enefit. He is seen today, in the emergency department, room 20. Very poor historian. At the time of the evaluation, he was receiving an echocardiogram. He apparently has a history of COPD, and a vague history of lung cancer. I am not sure who his primary care physician is. He apparently has been acting in a strange fashion, at [facility], for the last 7 days, and apparently was having hallucinations. Laboratory data includes a white count of 8.4, hemoglobin 9.9, hematocrit 30, and a platelet count that was normal. Sodium 132, potassium 5, chlorides 93, CO2 27, anion gap normal, BUN 27, and creatinine 1.6. The patient's pro-calcitonin level is minimally elevated at 0.10. Urine is negat fel[place]. Viral screen was negative. Chest x-ray showed no acute abnormality, which changes of COPD, and scarring, particularly in the right lung. Brain CT showed nothing acute. Computed tomography scan of the chest reveals some consolidation, and the right lower lung zone, consistent with possible p neumonia, or bronchiectasis. In addition, the patient has an enlarging right upper lobe nodule, which could relate to a vague history of lung cancer. The patient is seen today 10/03/2023 in follow-up on the regular medical floor. He is currently laying flat in bed. Awake and alert in no acute distress. He is maintaining O2 saturations in the 90s on 4 L/m per nasal cannula. He's been afebrile. Hemodynamically stable. Blood cultures are pending. Blood glucose 99. Ultrasound of the gallbladder revealed some gravel and sludge. The plan is for cholecystectomy today. Count 11.3. Hemoglobin 10.0. Platelets 310. Sodium 133. Potassium 4.5. Bicarb 25. BUN 28. Creatinine 1.6. He is continued on bronchodilators, heparin for DVT prophylaxis, antibiotics in the form of Zosyn. Objective - Vital Signs Vital signs: Vital Signs Temp 97.7 F 10/03/23 13:27 Pulse 90 01/11/24 13:27 Resp 14 10/03/23 13:27 BP 117/56 10/03/23 13:27 Pulse Ox 98 10/03/23 13:27 FiO2 Intake & Output 10/02/23 10/03/23 10/03/23 18:59 06:59 18:59 Intake Total 150 350 Output Total 25 Balance 150 325 Weight 83.915 kg Intake: IV 350 Oral 150 Output: Estimated Blood Loss 25 Other: Voiding Method Diaper Diaper External Catheter External Catheter # Voids 1 # Bowel Movements 0 - Exam GENERAL EXAM: Alert, very hard of hearing 83-year-old male patient, on 4 L high flow nasal cannula, fairly comfortable in no apparent distress. HEAD: Normocephalic. EYES: Normal reaction of pupils, equal size. NOSE: Clear with pink turbinates. THROAT: No erythema or exudates. NECK: No masses, no JVD. CHEST: No chest wall deformity. LUNGS: Equal air entry with no crackles, wheeze, rhonchi or dullness. CVS: S1 and S2 normal with no audible murmur, regular rhythm. ABDOMEN: Tenderness in the right upper quadrant. No hepatosplenomegaly, normal bowel sounds, no guarding or rigidity. SPINE: No scoliosis or deformity SKIN: No rashes CENTRAL NERVOUS SYSTEM: No focal deficits, tone is normal in all 4 extremities. EXTREMITIES: There is no peripheral edema. No clubbing, no cyanosis. Peripheral pulses are intact. - Labs CBC & Chem 7: 10/03/23 07:50 10/03/23 07:50 Labs: Abnormal Lab Results - Last 24 Hours (Table) 10/02/23 10/02/23 10/02/23 Range/Units 07:41 15:52 15:52 WBC (3.8-10.6) k/uL RBC (4.30-5.90) m/uL Hgb (13.0-17.5) gm/dL Hct (39.0-53.0) % Neutrophils # (1.3-7.7) k/uL ESR 42 H (0-20) mm/Hr Sodium (135-145) mmol/L Anion Gap (4.00-12.00) mmol/L BUN (9.0-27.0) mg/dL Creatinine (0.6-1.5) mg/dL Est GFR (CKD-EPI) (>=60) Glucose (70-110) mg/dL POC Glucose (mg/dL) (70-110) mg/dL Hemoglobin A1c 9.4 H (<=6.0) % AST (14-35) U/L C-Reactive Protein 18.0 H (<1.0) mg/dL Albumin (3.8-4.9) g/dL Albumin/Globulin Ratio (1.60-3.17) Ratio 10/02/23 10/02/23 10/02/23 Range/Units 17:04 17:42 20:23 WBC (3.8-10.6) k/uL RBC (4.30-5.90) m/uL Hgb (13.0-17.5) gm/dL Hct (39.0-53.0) % Neutrophils # (1.3-7.7) k/uL ESR (0-20) mm/Hr Sodium (135-145) mmol/L Anion Gap (4.00-12.00) mmol/L BUN (9.0-27.0) mg/dL Creatinine (0.6-1.5) mg/dL Est GFR (CKD-EPI) (>=60) Glucose (70-110) mg/dL POC Glucose (mg/dL) 49 L 151 H 142 H (70-110) mg/dL Hemoglobin A1c (<=6.0) % AST (14-35) U/L C-Reactive Protein (<1.0) mg/dL Albumin (3.8-4.9) g/dL Albumin/Globulin Ratio (1.60-3.17) Ratio 10/03/23 10/03/23 10/03/23 Range/Units 06:57 07:09 07:50 WBC 11.3 H (3.8-10.6) k/uL RBC 3.65 L (4.30-5.90) m/uL Hgb 10.0 L (13.0-17.5) gm/dL Hct 30.6 L (39.0-53.0) % Neutrophils # 9.3 H (1.3-7.7) k/uL ESR (0-20) mm/Hr Sodium (135-145) mmol/L Anion Gap (4.00-12.00) mmol/L BUN (9.0-27.0) mg/dL Creatinine (0.6-1.5) mg/dL Est GFR (CKD-EPI) (>=60) Glucose (70-110) mg/dL POC Glucose (mg/dL) 31 L 299 H (70-110) mg/dL Hemoglobin A1c (<=6.0) % AST (14-35) U/L C-Reactive Protein (<1.0) mg/dL Albumin (3.8-4.9) g/dL Albumin/Globulin Ratio (1.60-3.17) Ratio 10/03/23 10/03/23 10/03/23 Range/Units 07:50 08:06 11:39 WBC (3.8-10.6) k/uL RBC (4.30-5.90) m/uL Hgb (13.0-17.5) gm/dL Hct (39.0-53.0) % Neutrophils # (1.3-7.7) k/uL ESR (0-20) mm/Hr Sodium 133 L (135-145) mmol/L Anion Gap 12.10 H (4.00-12.00) mmol/L BUN 27.8 H (9.0-27.0) mg/dL Creatinine 1.6 H (0.6-1.5) mg/dL Est GFR (CKD-EPI) 42 L (>=60) Glucose 174 H (70-110) mg/dL POC Glucose (mg/dL) 155 H 68 L (70-110) mg/dL Hemoglobin A1c (<=6.0) % AST 61 H (14-35) U/L C-Reactive Protein (<1.0) mg/dL Albumin 3.7 L (3.8-4.9) g/dL Albumin/Globulin Ratio 1.16 L (1.60-3.17) Ratio 10/03/23 Range/Units 12:01 WBC (3.8-10.6) k/uL RBC (4.30-5.90) m/uL Hgb (13.0-17.5) gm/dL Hct (39.0-53.0) % Neutrophils # (1.3-7.7) k/uL ESR (0-20) mm/Hr Sodium (135-145) mmol/L Anion Gap (4.00-12.00) mmol/L BUN (9.0-27.0) mg/dL Creatinine (0.6-1.5) mg/dL Est GFR (CKD-EPI) (>=60) Glucose (70-110) mg/dL POC Glucose (mg/dL) 136 H (70-110) mg/dL Hemoglobin A1c (<=6.0) % AST (14-35) U/L C-Reactive Protein (<1.0) mg/dL Albumin (3.8-4.9) g/dL Albumin/Globulin Ratio (1.60-3.17) Ratio Microbiology - Last 24 Hours (Table) 10/01/23 10:10 Blood Culture - Preliminary Blood 10/01/23 10:22 Blood Culture - Preliminary Blood Assessment and Plan Assessment: Right upper quadrant pain suspect secondary to cholecystitis. Ultrasound rev eals sludge and gravel within the gallbladder plan is for possible cholecystectomy today Probable pneumonia, right lower lung zone. Calcitonin 0.10. Currently on Zosyn. History of COPD, from previous heavy tobacco use. Pulmonary nodule, right lung, enlarging, may relate to underlying lung cancer. History of diabetes mellitus. History of hyperlipidemia. History of hypertension. History of congestive heart failure. History of BPH. S/P AICD placement, 2017. Prior history of tobacco use. Plan: The patient was seen and evaluated Ultrasound of the gallbladder, labs and medications reviewed Plan is for possible cholecystectomy today Titrate the FiO2 as tolerated We'll encourage increased use of the incentive spirometer Continued on bronchodilators Continued on Zosyn We will continue to follow I have personally seen and examined the patient, performed the documentation and the assessment and plan as written. Number of minutes spent on the visit: 10.
[2023-10-03 14:16] LABS: Glucose,Whole Blood 106 mg/dL (70-110)
[2023-10-03] MEDS: MULTIVITAMINS, THERA 1 EACH TAB PO SCH (15:40)
[2023-10-03] MEDS: FOLIC ACID 1 MG TAB PO SCH (15:40)
--- NOTE | 2023-10-03 15:58 | P.PN ---
Subjective Progress Note Date: 10/03/23 Principal diagnosis: Reason for follow-up is fever and sepsis/cholecystitis Patient is a 83-year-old male with a past medical history significant for diabetes mellitus hypertension hyperlipidemia COPD history of prostate disorder patient apparently was recently admitted at [facility] with sepsis secondary to gallstone patient was stabilized subsequently discharged to the [facility] rehab, patient was brought to the [facility] ER for evaluation of weakness confusion hallucination did have a low-fever concerning for sepsis. Patient is s/p laparoscopic ostectomy completed by general surgery on 10/03/2023 On today's evaluation (01/02/2024 patient is afebrile this morning, patient is breathing comfortably on 4 L nasal cannula oxygen slightly more awake but elevated good historian denies any chest pain no vomiting or diarrhea has been reported. Patient did have white count of 11.3 creatinine is 1.6 Objective - Vital Signs Vital signs: Vital Signs Temp 98.9 F 10/03/23 14:45 Pulse 86 10/03/23 15:08 Resp 22 10/03/23 14:45 BP 113/54 10/03/23 14:45 Pulse Ox 95 10/03/23 14:45 FiO2 Intake & Output 10/02/23 10/03/23 10/03/23 18:59 06:59 18:59 Intake Total 150 350 Output Total 25 Balance 150 325 Weight 83.915 kg Intake: IV 350 Oral 150 Output: Estimated Blood Loss 25 Other: Voiding Method Diaper Diaper External Catheter External Catheter # Voids 1 # Bowel Movements 0 - Exam GENERAL DESCRIPTION: An elderly male lying in bed in no distress RESPIRATORY SYSTEM: Unlabored breathing , decreased breath sounds at bases HEART: S1 S2 regular rate and rhythm , ABDOMEN: Soft , no tenderness EXTREMITIES: No edema feet - Labs CBC & Chem 7: 10/03/23 07:50 10/03/23 07:50 Labs: Abnormal Lab Results - Last 24 Hours (Table) 10/02/23 10/02/23 10/02/23 Range/Units 15:52 15:52 17:04 WBC (3.8-10.6) k/uL RBC (4.30-5.90) m/uL Hgb (13.0-17.5) gm/dL Hct (39.0-53.0) % Neutrophils # (1.3-7.7) k/uL ESR 42 H (0-20) mm/Hr Sodium (135-145) mmol/L Anion Gap (4.00-12.00) mmol/L BUN (9.0-27.0) mg/dL Creatinine (0.6-1.5) mg/dL Est GFR (CKD-EPI) (>=60) Glucose (70-110) mg/dL POC Glucose (mg/dL) 49 L (70-110) mg/dL AST (14-35) U/L C-Reactive Protein 18.0 H (<1.0) mg/dL Albumin (3.8-4.9) g/dL Albumin/Globulin Ratio (1.60-3.17) Ratio 10/02/23 10/02/23 10/03/23 Range/Units 17:42 20:23 06:57 WBC (3.8-10.6) k/uL RBC (4.30-5.90) m/uL Hgb (13.0-17.5) gm/dL Hct (39.0-53.0) % Neutrophils # (1.3-7.7) k/uL ESR (0-20) mm/Hr Sodium (135-145) mmol/L Anion Gap (4.00-12.00) mmol/L BUN (9.0-27.0) mg/dL Creatinine (0.6-1.5) mg/dL Est GFR (CKD-EPI) (>=60) Glucose (70-110) mg/dL POC Glucose (mg/dL) 151 H 142 H 31 L (70-110) mg/dL AST (14-35) U/L C-Reactive Protein (<1.0) mg/dL Albumin (3.8-4.9) g/dL Albumin/Globulin Ratio (1.60-3.17) Ratio 10/03/23 10/03/23 10/03/23 Range/Units 07:09 07:50 07:50 WBC 11.3 H (3.8-10.6) k/uL RBC 3.65 L (4.30-5.90) m/uL Hgb 10.0 L (13.0-17.5) gm/dL Hct 30.6 L (39.0-53.0) % Neutrophils # 9.3 H (1.3-7.7) k/uL ESR (0-20) mm/Hr Sodium 133 L (135-145) mmol/L Anion Gap 12.10 H (4.00-12.00) mmol/L BUN 27.8 H (9.0-27.0) mg/dL Creatinine 1.6 H (0.6-1.5) mg/dL Est GFR (CKD-EPI) 42 L (>=60) Glucose 174 H (70-110) mg/dL POC Glucose (mg/dL) 299 H (70-110) mg/dL AST 61 H (14-35) U/L C-Reactive Protein (<1.0) mg/dL Albumin 3.7 L (3.8-4.9) g/dL Albumin/Globulin Ratio 1.16 L (1.60-3.17) Ratio 10/03/23 10/03/23 10/03/23 Range/Units 08:06 11:39 12:01 WBC (3.8-10.6) k/uL RBC (4.30-5.90) m/uL Hgb (13.0-17.5) gm/dL Hct (39.0-53.0) % Neutrophils # (1.3-7.7) k/uL ESR (0-20) mm/Hr Sodium (135-145) mmol/L Anion Gap (4.00-12.00) mmol/L BUN (9.0-27.0) mg/dL Creatinine (0.6-1.5) mg/dL Est GFR (CKD-EPI) (>=60) Glucose (70-110) mg/dL POC Glucose (mg/dL) 155 H 68 L 136 H (70-110) mg/dL AST (14-35) U/L C-Reactive Protein (<1.0) mg/dL Albumin (3.8-4.9) g/dL Albumin/Globulin Ratio (1.60-3.17) Ratio Microbiology - Last 24 Hours (Table) 10/01/23 10:10 Blood Culture - Preliminary Blood 10/01/23 10:22 Blood Culture - Preliminary Blood Assessment and Plan (1) Sepsis Current Visit: Yes Status: Acute Code(s): A41.9 - SEPSIS, UNSPECIFIED ORGANISM SNOMED Code(s): 41413591 (2) Cholecystitis Current Visit: Yes Status: Acute Code(s): K81.9 - CHOLECYSTITIS, UNSPECIFIED SNOMED Code(s): 88789405 Plan: 1patient with sepsis in this patient who did have a fever tachycardia source likely gallbladder disease in this patient who recently did have a similar presentation to the [facility] and apparently was treated for COVID-related sepsis per the son at the bedside keeping in mind being around the hospital will need to cover for more resistant gram-negative pathogen 2-patient is status post cholecystectomy completed by general surgery concerning for cholecystitis 3patient to continue Zosyn 3.375 g every 8 hours while waiting for the culture to finalize Dictation was produced using [employer] dictation software. please excuse any grammatical, word or spelling errors. Time with Patient: Less than 30
[2023-10-03 17:16] LABS: Glucose,Whole Blood 126 mg/dL (70-110)
[2023-10-03 19:30] LABS: Glucose,Whole Blood 172 mg/dL (70-110)
[2023-10-03 22:12] LABS: Glucose,Whole Blood 180 mg/dL (70-110)
[2023-10-03] MEDS: ATORVASTATIN 40 MG TAB PO SCH (22:31)
[2023-10-03] MEDS: INSULIN DETEMIR (LEVEMIR) 100 UNIT/ML SYR SQ SCH (22:31)
[2023-10-04] MEDS: PIPERACILLIN-TAZOBACTAM 3.375 GM in SODIUM CHLORIDE 0.9% 100 ML IVPB SCH ×3 (02:08→17:42)
[2023-10-04 02:26] LABS: Glucose,Whole Blood 249 mg/dL (70-110)
--- NOTE | 2023-10-04 03:04 | PN ---
PROGRESS NOTE DATE OF SERVICE: 10/03/2023 SUBJECTIVE: This is an 83-year-old gentleman who was admitted with severe dehydration, also has features of cholecystitis. The patient underwent laparoscopic cholecystectomy. The patient continues to be mildly confused and multiple consultants are following the patient closely including Infectious Disease and Pulmonary as well. The patient has history of COPD and lung cancer. PAST MEDICAL HISTORY: Could not be taken. REVIEW OF SYSTEMS: Could not be taken. CURRENT MEDICATIONS: Reviewed include [place], dose and rest of medications noted. PHYSICAL EXAMINATION: VITAL SIGNS: Pulse is 85, blood pressure 130/28, respirations 26. CHEST: Few scattered rhonchi. ABDOMEN: Soft. LEGS: No edema, no swelling. LABS: At this time, WBC is 11.3, sodium 133. ASSESSMENT: 1. Acute cholelithiasis and cholecystitis, status post laparoscopic cholecystectomy, present on admission. 2. Possible right-sided pneumonia. 3. Severe dehydration, acute renal failure present on admission. 4. Possible dementia. 5. Change in mental status acute metabolic encephalopathy. 6. Hyponatremia. 7. Elevated procalcitonin. 8. Hyperkalemia secondary to renal failure. 9. Chronic obstructive pulmonary disease. 10.Diabetes mellitus, type 2. 11.Hypertension. 12.Hyperlipidemia. 13.History of CHF. 14.Multiple complex medical issues. 15.AICD. 16.Atelectasis and scarring of the chest x-ray. 17.Enlarging right upper lobe pulmonary nodule per CAT scan. 18.History of lung cancer. 19.Full code. RECOMMENDATIONS: This 83-year-old gentleman presented with multiple complex medical issues. The patient underwent cholecystectomy today. I would recommend to continue the current medication. Monitor closely. I would recommend to continue with bronchodilators and continue with empiric antibiotics. The patient on IV Zosyn. Follow closely with multiple consultants. Repeat labs will be ordered. Incentive spirometry. DVT prophylaxis. ECF rehab, ECF return once the patient is stabilized, but see orders for further details. Further recommendations to follow. MMODL / IJN: [id number] /
[2023-10-04] MEDS: ACETAMINOPHEN TAB 325 MG TAB PO PRN (03:07)
[2023-10-04 06:08] LABS: Glucose,Whole Blood 220 mg/dL (70-110)
--- NOTE | 2023-10-04 06:20 | P.PN ---
Subjective Progress Note Date: 10/03/23 Patient was seen for a follow-up. Patient has returned back from the OR after undergoing laparoscopic cholecystectomy. Patient is very groggy. He offers no new complaints. Objective - Vital Signs Vital signs: Vital Signs Temp 98.9 F 10/03/23 14:45 Pulse 86 10/03/23 15:08 Resp 22 10/03/23 14:45 BP 113/54 10/03/23 14:45 Pulse Ox 95 10/03/23 14:45 FiO2 Intake & Output 10/02/23 10/03/23 10/03/23 18:59 06:59 18:59 Intake Total 150 350 Output Total 25 Balance 150 325 Weight 83.915 kg Intake: IV 350 Oral 150 Output: Estimated Blood Loss 25 Other: Voiding Method Diaper Diaper External Catheter External Catheter # Voids 1 # Bowel Movements 0 - Exam Patient is groggy from recent surgery. Detailed testing could not be performed. He moves all 4 extremity is equally. Face is symmetric. He keeps his eyes closed. He is mumbling sometimes. - Labs CBC & Chem 7: 10/03/23 07:50 10/03/23 07:50 Labs: Abnormal Lab Results - Last 24 Hours (Table) 10/02/23 10/02/23 10/02/23 Range/Units 15:52 15:52 17:04 WBC (3.8-10.6) k/uL RBC (4.30-5.90) m/uL Hgb (13.0-17.5) gm/dL Hct (39.0-53.0) % Neutrophils # (1.3-7.7) k/uL ESR 42 H (0-20) mm/Hr Sodium (135-145) mmol/L Anion Gap (4.00-12.00) mmol/L BUN (9.0-27.0) mg/dL Creatinine (0.6-1.5) mg/dL Est GFR (CKD-EPI) (>=60) Glucose (70-110) mg/dL POC Glucose (mg/dL) 49 L (70-110) mg/dL AST (14-35) U/L C-Reactive Protein 18.0 H (<1.0) mg/dL Albumin (3.8-4.9) g/dL Albumin/Globulin Ratio (1.60-3.17) Ratio 10/02/23 10/02/23 10/03/23 Range/Units 17:42 20:23 06:57 WBC (3.8-10.6) k/uL RBC (4.30-5.90) m/uL Hgb (13.0-17.5) gm/dL Hct (39.0-53.0) % Neutrophils # (1.3-7.7) k/uL ESR (0-20) mm/Hr Sodium (135-145) mmol/L Anion Gap (4.00-12.00) mmol/L BUN (9.0-27.0) mg/dL Creatinine (0.6-1.5) mg/dL Est GFR (CKD-EPI) (>=60) Glucose (70-110) mg/dL POC Glucose (mg/dL) 151 H 142 H 31 L (70-110) mg/dL AST (14-35) U/L C-Reactive Protein (<1.0) mg/dL Albumin (3.8-4.9) g/dL Albumin/Globulin Ratio (1.60-3.17) Ratio 10/03/23 10/03/23 10/03/23 Range/Units 07:09 07:50 07:50 WBC 11.3 H (3.8-10.6) k/uL RBC 3.65 L (4.30-5.90) m/uL Hgb 10.0 L (13.0-17.5) gm/dL Hct 30.6 L (39.0-53.0) % Neutrophils # 9.3 H (1.3-7.7) k/uL ESR (0-20) mm/Hr Sodium 133 L (135-145) mmol/L Anion Gap 12.10 H (4.00-12.00) mmol/L BUN 27.8 H (9.0-27.0) mg/dL Creatinine 1.6 H (0.6-1.5) mg/dL Est GFR (CKD-EPI) 42 L (>=60) Glucose 174 H (70-110) mg/dL POC Glucose (mg/dL) 299 H (70-110) mg/dL AST 61 H (14-35) U/L C-Reactive Protein (<1.0) mg/dL Albumin 3.7 L (3.8-4.9) g/dL Albumin/Globulin Ratio 1.16 L (1.60-3.17) Ratio 10/03/23 10/03/23 10/03/23 Range/Units 08:06 11:39 12:01 WBC (3.8-10.6) k/uL RBC (4.30-5.90) m/uL Hgb (13.0-17.5) gm/dL Hct (39.0-53.0) % Neutrophils # (1.3-7.7) k/uL ESR (0-20) mm/Hr Sodium (135-145) mmol/L Anion Gap (4.00-12.00) mmol/L BUN (9.0-27.0) mg/dL Creatinine (0.6-1.5) mg/dL Est GFR (CKD-EPI) (>=60) Glucose (70-110) mg/dL POC Glucose (mg/dL) 155 H 68 L 136 H (70-110) mg/dL AST (14-35) U/L C-Reactive Protein (<1.0) mg/dL Albumin (3.8-4.9) g/dL Albumin/Globulin Ratio (1.60-3.17) Ratio Microbiology - Last 24 Hours (Table) 10/01/23 10:10 Blood Culture - Preliminary Blood 10/01/23 10:22 Blood Culture - Preliminary Blood Assessment and Plan Assessment: * Altered mental status, unclear cause. Probable delirium. Patient is hallucinating. * Probable sepsis * Abnormal CT head, with evidence of dilated ventricles, suggestive of possible normal pressure hydrocephalus. * Possible pneumonia/bronchiectasis. * Status post laparoscopic cholecystectomy * Hyponatremia * Hyperkalemia * Mild renal insufficiency * Anemia Plan: * Patient is status post laparoscopic cholecystectomy. * Patient has possible sepsis and cholecystitis, currently on Zosyn, ID input appreciated. * Await MRI of the brain with and without contrast, if able to be performed, for further evolution of possible NPH. * EEG was performed, which was abnormal due to background slowing of mild to moderate degree, intermittent, suggestive of mild encephalopathy. No epileptiform activity was seen. * B12 811, folate 12.40, TSH 4.030, RPR nonreactive, all normal * Hemoglobin A1c 10.2 on 09/20/2023, indicating poorly controlled diabetes. Recommend optimize control of diabetes to target A1c < 7.0 * Lipid panel with cholesterol 105, LDL 58, HDL 29, triglycerides 83. Continue Lipitor 40 mg daily. * DVT prophylaxis:, Patient on heparin 5000 units subcu every 12 hours
[2023-10-04] MEDS: BUDESONIDE 1 MG/2 ML NEBU INHALATION SCH (07:38)
[2023-10-04] MEDS: FORMOTEROL FUMARATE 20 MCG/2 ML NEBU INHALATION SCH (07:38)
[2023-10-04] MEDS: IPRATROPIUM-ALBUTEROL 3 ML NEB INHALATION SCH (07:38)
[2023-10-04 07:41] LABS: Glucose,Whole Blood 182 mg/dL (70-110)
[2023-10-04] MEDS: PANTOPRAZOLE 40 MG/10 ML VIAL IVP SCH ×2 (08:41→21:22)
[2023-10-04] MEDS: HEPARIN SODIUM,PORCINE 5,000 UNIT/ML 1 ML VIAL SQ SCH ×2 (08:41→21:22)
[2023-10-04] MEDS: TAMSULOSIN 0.4 MG CAP.ER.24H PO SCH (08:42)
[2023-10-04] MEDS: INSULIN ASPART (NovoLOG) 100 UNIT/ML VIAL SQ SCH ×4 (08:42→21:22)
[2023-10-04] MEDS: THIAMINE 100 MG TAB PO SCH ×2 (08:42→16:28)
[2023-10-04] MEDS: carvediloL 12.5 MG TAB PO SCH ×2 (08:42→16:28)
[2023-10-04] MEDS: ASPIRIN 81 MG PO SCH (08:42)
[2023-10-04] MEDS: SENNOSIDES-DOCUSATE SODIUM 1 EACH TAB PO SCH ×2 (08:42→16:28)
[2023-10-04] MEDS: MULTIVITAMINS, THERA 1 EACH TAB PO SCH (08:42)
[2023-10-04] MEDS: FOLIC ACID 1 MG TAB PO SCH (08:42)
[2023-10-04] MEDS: LINAGLIPTIN 5 MG TABLET PO SCH (08:43)
--- NOTE | 2023-10-04 10:11 | P.PN ---
Subjective Progress Note Date: 10/04/23 CHIEF COMPLAINT: Altered mental status HISTORY OF PRESENT ILLNESS: Patient postop day #1 status post laparoscopic cholecystectomy. Patient's pain is controlled. He is tolerating diet. Afebrile. Labs pending Patient seen and examined with Dr. Ruvalcaba PHYSICAL EXAM: VITAL SIGNS: Reviewed. GENERAL: Well-developed in no acute distress. ABDOMEN: Soft. Nondistended. NEUROLOGIC: Awake. Answering questions. Slightly confused. ASSESSMENT: 1. Cholecystitis status post laparoscopic cholecystectomy PLAN: -Patient can be discharged from surgical standpoint when medically cleared -Continue home pain medication for pain control Physician Medicare Contact Specialist note has been reviewed by physician. Signing provider agrees with the documented findings, assessment, and plan of care. Objective - Vital Signs Vital signs: Vital Signs Temp 97.6 F 10/04/23 07:13 Pulse 70 10/04/23 07:13 Resp 18 10/04/23 07:13 BP 136/55 10/04/23 07:13 Pulse Ox 92 L 10/04/23 07:39 FiO2 Intake & Output 10/03/23 10/04/23 10/04/23 18:59 06:59 18:59 Intake Total 350 Output Total 25 1342 Balance 325 -1342 Weight 83.915 kg Intake: IV 350 Output: Urine 0 600 Straight 600 Post Void Residual 742 Estimated Blood Loss 25 Other: Voiding Method Diaper Diaper External Catheter External Catheter # Voids 2 - Labs CBC & Chem 7: 10/03/23 07:50 10/03/23 07:50 Labs: Abnormal Lab Results - Last 24 Hours (Table) 10/03/23 10/03/23 10/03/23 Range/Units 07:50 11:39 12:01 Sodium 133 L (135-145) mmol/L Anion Gap 12.10 H (4.00-12.00) mmol/L BUN 27.8 H (9.0-27.0) mg/dL Creatinine 1.6 H (0.6-1.5) mg/dL Est GFR (CKD-EPI) 42 L (>=60) Glucose 174 H (70-110) mg/dL POC Glucose (mg/dL) 68 L 136 H (70-110) mg/dL AST 61 H (14-35) U/L Albumin 3.7 L (3.8-4.9) g/dL Albumin/Globulin Ratio 1.16 L (1.60-3.17) Ratio 10/03/23 10/03/23 10/03/23 Range/Units 17:14 19:27 21:52 Sodium (135-145) mmol/L Anion Gap (4.00-12.00) mmol/L BUN (9.0-27.0) mg/dL Creatinine (0.6-1.5) mg/dL Est GFR (CKD-EPI) (>=60) Glucose (70-110) mg/dL POC Glucose (mg/dL) 126 H 172 H 180 H (70-110) mg/dL AST (14-35) U/L Albumin (3.8-4.9) g/dL Albumin/Globulin Ratio (1.60-3.17) Ratio 10/04/23 10/04/23 10/04/23 Range/Units 02:17 06:03 07:39 Sodium (135-145) mmol/L Anion Gap (4.00-12.00) mmol/L BUN (9.0-27.0) mg/dL Creatinine (0.6-1.5) mg/dL Est GFR (CKD-EPI) (>=60) Glucose (70-110) mg/dL POC Glucose (mg/dL) 249 H 220 H 182 H (70-110) mg/dL AST (14-35) U/L Albumin (3.8-4.9) g/dL Albumin/Globulin Ratio (1.60-3.17) Ratio Microbiology - Last 24 Hours (Table) 10/02/23 07:35 Urine Culture - Final Urine,Voided 10/01/23 10:10 Blood Culture - Preliminary Blood 10/01/23 10:22 Blood Culture - Preliminary Blood
[2023-10-04] MEDS: ARTIFICIAL TEARS-HYPROMELLOSE DROPS 15 ML BTL BOTH EYES PRN ×2 (10:32→20:28)
[2023-10-04 11:04] LABS: Basophils # (A) 0.01 X 10*3/uL (0.00-0.10); Basophils % (A) 0.1 %; Eosinophils # (A) 0 X 10*3/uL (0.04-0.35); Eosinophils % (A) 0 %; HCT 26.4 % (39.6-50.0); HGB 8.8 g/dL (13.0-17.0); Lymphocytes # (A) 0.63 X 10*3/uL (0.90-5.00); Lymphocytes % (A) 8.3 %; MCH 27.3 pg (27.0-32.0); MCHC 33.3 g/dL (32.0-37.0); Mean Platelet Volume 9.9 FL (9.5-12.2); Monocytes # (A) 0.38 X 10*3/uL (0.20-1.00); NRBC Per 100 WBC 0 X 10*3/uL (0.00-0.01); Neutrophils # (A) 6.52 X 10*3/uL (1.80-7.70); Neutrophils % (A) 86.3 %; Platelet Count 296 X 10*3/uL (140-440); RBC 3.22 X 10*6/uL (4.40-5.60); RDW 14.5 % (11.5-14.5); WBC 7.56 X 10*3/uL (4.50-10.00)
[2023-10-04 12:04] LABS: Glucose,Whole Blood 148 mg/dL (70-110)
[2023-10-04 12:24] LABS: ALT 38 U/L (10-49); AST 82 U/L (14-35); Albumin 3.3 g/dL (3.8-4.9); Albumin/Globulin Ratio 1.06 Ratio (1.60-3.17); Alkaline Phosphatase 80 U/L (41-126); Blood Urea Nitrogen 30.6 mg/dL (9.0-27.0); Calcium 8.6 mg/dL (8.7-10.3); Chloride 96 mmol/L (96-109); Globulin 3.1 g/dL (1.6-3.3); Glucose 194 mg/dL (70-110); Sodium 132 mmol/L (135-145); Total Bilirubin 0.4 mg/dL (0.3-1.2); Total Protein 6.4 g/dL (6.2-8.2)
--- NOTE | 2023-10-04 13:38 | P.PN ---
Subjective Progress Note Date: 10/04/23 83-year-old male, evaluated in the emergency department, on October 01. He was brought in to the emergency department, by EMS, for apparent mental status changes. He apparently is a resident at [facility]. He apparently was complaining of some chest pain, he received 2 nitroglycerin, with no b enefit. He is seen today, in the emergency department, room 20. Very poor historian. At the time of the evaluation, he was receiving an echocardiogram. He apparently has a history of COPD, and a vague history of lung cancer. I am not sure who his primary care physician is. He apparently has been acting in a strange fashion, at [facility], for the last 7 days, and apparently was having hallucinations. Laboratory data includes a white count of 8.4, hemoglobin 9.9, hematocrit 30, and a platelet count that was normal. Sodium 132, potassium 5, chlorides 93, CO2 27, anion gap normal, BUN 27, and creatinine 1.6. The patient's pro-calcitonin level is minimally elevated at 0.10. Urine is negat [place]. Viral screen was negative. Chest x-ray showed no acute abnormality, which changes of COPD, and scarring, particularly in the right lung. Brain CT showed nothing acute. Computed tomography scan of the chest reveals some consolidation, and the right lower lung zone, consistent with possible p neumonia, or bronchiectasis. In addition, the patient has an enlarging right upper lobe nodule, which could relate to a vague history of lung cancer. The patient is seen today 10/03/2023 in follow-up on the regular medical floor. He is currently laying flat in bed. Awake and alert in no acute distress. He is maintaining O2 saturations in the 90s on 4 L/m per nasal cannula. He's been afebrile. Hemodynamically stable. Blood cultures are pending. Blood glucose 99. Ultrasound of the gallbladder revealed some gravel and sludge. The plan is for cholecystectomy today. Count 11.3. Hemoglobin 10.0. Platelets 310. Sodium 133. Potassium 4.5. Bicarb 25. BUN 28. Creatinine 1.6. He is continued on bronchodilators, heparin for DVT prophylaxis, antibiotics in the form of Zosyn. The patient is seen today 10/04/2023 in follow-up on the regular medical floor. He is awake and alert in no acute distress. Resting comfortably in bed. He did undergo a laparoscopic cholecystectomy yesterday. Blood culture revealing no growth. Urine culture revealed no growth. White count 7.5. Hemoglobin 8.8. Platelets 296. Sodium 132. Potassium 5.0. Bicarb 22. BUN 31. Creatinine 1.5. Glucose 194. He remains on Zosyn. He declined breathing treatments due to palpitations. He will be educated regarding the use of the incentive spirometer. Heparin for DVT prophylaxis. Tolerating a low-fat diet. Objective - Vital Signs Vital signs: Vital Signs Temp 97.4 F L 10/04/23 11:51 Pulse 82 10/04/23 11:51 Resp 16 10/04/23 11:51 BP 106/51 10/04/23 11:51 Pulse Ox 92 L 10/04/23 11:51 FiO2 Intake & Output 10/03/23 10/04/23 10/04/23 18:59 06:59 18:59 Intake Total 350 Output Total 25 1342 600 Balance 325 -1342 -600 Weight 83.915 kg Intake: IV 350 Output: Urine 0 600 600 Straight 600 Post Void Residual 742 Estimated Blood Loss 25 Other: Voiding Method Diaper Diaper Diaper External Catheter External Catheter Indwelling Catheter # Voids 2 - Exam GENERAL EXAM: Alert, 83-year-old male patient, on 4 L high flow nasal cannula, comfortable in no apparent distress. HEAD: Normocephalic. EYES: Normal reaction of pupils, equal size. NOSE: Clear with pink turbinates. THROAT: No erythema or exudates. NECK: No masses, no JVD. CHEST: No chest wall deformity. LUNGS: Equal air entry with no crackles, wheeze, rhonchi or dullness. CVS: S1 and S2 normal with no audible murmur, regular rhythm. ABDOMEN: Surgical incisions clean dry well approximated. No hepatosplenomegaly, normal bowel sounds, no guarding or rigidity. SPINE: No scoliosis or deformity SKIN: No rashes CENTRAL NERVOUS SYSTEM: No focal deficits, tone is normal in all 4 extremities. EXTREMITIES: There is no peripheral edema. No clubbing, no cyanosis. Peripheral pulses are intact. - Labs CBC & Chem 7: 10/04/23 05:43 10/04/23 05:43 Labs: Abnormal Lab Results - Last 24 Hours (Table) 10/03/23 10/03/23 10/03/23 Range/Units 17:14 19:27 21:52 RBC (4.40-5.60) X 10*6/uL Hgb (13.0-17.0) g/dL Hct (39.6-50.0) % Lymphocytes # (0.90-5.00) X 10*3/uL Eosinophils # (0.04-0.35) X 10*3/uL Sodium (135-145) mmol/L Anion Gap (4.00-12.00) mmol/L BUN (9.0-27.0) mg/dL Est GFR (CKD-EPI) (>=60) BUN/Creatinine Ratio (12.00-20.00) Ratio Glucose (70-110) mg/dL POC Glucose (mg/dL) 126 H 172 H 180 H (70-110) mg/dL Calcium (8.7-10.3) mg/dL AST (14-35) U/L Albumin (3.8-4.9) g/dL Albumin/Globulin Ratio (1.60-3.17) Ratio 10/04/23 10/04/23 10/04/23 Range/Units 02:17 05:43 05:43 RBC 3.22 L (4.40-5.60) X 10*6/uL Hgb 8.8 L (13.0-17.0) g/dL Hct 26.4 L (39.6-50.0) % Lymphocytes # 0.63 L (0.90-5.00) X 10*3/uL Eosinophils # 0 L (0.04-0.35) X 10*3/uL Sodium 132 L (135-145) mmol/L Anion Gap 14.00 H (4.00-12.00) mmol/L BUN 30.6 H (9.0-27.0) mg/dL Est GFR (CKD-EPI) 46 L (>=60) BUN/Creatinine Ratio 20.40 H (12.00-20.00) Ratio Glucose 194 H (70-110) mg/dL POC Glucose (mg/dL) 249 H (70-110) mg/dL Calcium 8.6 L (8.7-10.3) mg/dL AST 82 H (14-35) U/L Albumin 3.3 L (3.8-4.9) g/dL Albumin/Globulin Ratio 1.06 L (1.60-3.17) Ratio 10/04/23 10/04/23 10/04/23 Range/Units 06:03 07:39 11:53 RBC (4.40-5.60) X 10*6/uL Hgb (13.0-17.0) g/dL Hct (39.6-50.0) % Lymphocytes # (0.90-5.00) X 10*3/uL Eosinophils # (0.04-0.35) X 10*3/uL Sodium (135-145) mmol/L Anion Gap (4.00-12.00) mmol/L BUN (9.0-27.0) mg/dL Est GFR (CKD-EPI) (>=60) BUN/Creatinine Ratio (12.00-20.00) Ratio Glucose (70-110) mg/dL POC Glucose (mg/dL) 220 H 182 H 148 H (70-110) mg/dL Calcium (8.7-10.3) mg/dL AST (14-35) U/L Albumin (3.8-4.9) g/dL Albumin/Globulin Ratio (1.60-3.17) Ratio Microbiology - Last 24 Hours (Table) 10/02/23 07:35 Urine Culture - Final Urine,Voided 10/01/23 10:10 Blood Culture - Preliminary Blood 10/01/23 10:22 Blood Culture - Preliminary Blood Assessment and Plan Assessment: Right upper quadrant pain suspect secondary to cholecystitis. Status post laparoscopic cholecystectomy on 10/03/2023. Postoperative day #1 Probable pneumonia, right lower lung zone. Calcitonin 0.10. Currently on Zosyn. History of COPD, from previous heavy tobacco use. Pulmonary nodule, right lung, enlarging, may relate to underlying lung cancer. History of diabetes mellitus. History of hyperlipidemia. History of hypertension. History of congestive heart failure. History of BPH. S/P AICD placement, 2017. Prior history of tobacco use. Plan: The patient was seen and evaluated Labs and medications reviewed Titrate the FiO2 as tolerated Discontinue bronchodilators due to tachycardia Antibiotics per ID services Plan is to return to [facility] post discharge This patient was seen independently by the pulmonary nurse practitioner addressing pulmonary issues I have personally seen and examined the patient, performed the documentation and the assessment and plan as written. Number of minutes spent on the visit: 22.
--- NOTE | 2023-10-04 15:22 | P.PN ---
Subjective Progress Note Date: 10/04/23 Principal diagnosis: Reason for follow-up is fever and sepsis/cholecystitis Patient is a 83-year-old male with a past medical history significant for diabetes mellitus hypertension hyperlipidemia COPD history of prostate disorder patient apparently was recently admitted at [facility] with sepsis secondary to gallstone patient was stabilized subsequently discharged to the [facility] rehab, patient was brought to the [facility] ER for evaluation of weakness confusion hallucination did have a low-fever concerning for sepsis. Patient is s/p laparoscopic ostectomy completed by general surgery on 10/03/2023 On today's evaluation 10/04/2023 patient remains to be afebrile, patient is breathing comfortably on 4 L nasal cannula oxygen, the patient is more awake alert today, denies any chest pain shortness of breath or cough no nausea or vomiting no abdominal pain or diarrhea Patient did have white count is down to 7.56, creatinine is 1.5, cultures are currently pending Objective - Vital Signs Vital signs: Vital Signs Temp 97.4 F L 10/04/23 11:51 Pulse 82 10/04/23 11:51 Resp 16 10/04/23 11:51 BP 106/51 10/04/23 11:51 Pulse Ox 92 L 10/04/23 11:51 FiO2 Intake & Output 10/03/23 10/04/23 10/04/23 18:59 06:59 18:59 Intake Total 350 Output Total 25 1342 600 Balance 325 -1342 -600 Weight 83.915 kg Intake: IV 350 Output: Urine 0 600 600 Straight 600 Post Void Residual 742 Estimated Blood Loss 25 Other: Voiding Method Diaper Diaper Diaper External Catheter External Catheter Indwelling Catheter # Voids 2 - Exam GENERAL DESCRIPTION: An elderly male lying in bed in no distress RESPIRATORY SYSTEM: Unlabored breathing , decreased breath sounds at bases HEART: S1 S2 regular rate and rhythm , ABDOMEN: Soft , no tenderness EXTREMITIES: No edema feet - Labs CBC & Chem 7: 10/04/23 05:43 10/04/23 05:43 Labs: Abnormal Lab Results - Last 24 Hours (Table) 10/03/23 10/03/23 10/03/23 Range/Units 17:14 19:27 21:52 RBC (4.40-5.60) X 10*6/uL Hgb (13.0-17.0) g/dL Hct (39.6-50.0) % Lymphocytes # (0.90-5.00) X 10*3/uL Eosinophils # (0.04-0.35) X 10*3/uL Sodium (135-145) mmol/L Anion Gap (4.00-12.00) mmol/L BUN (9.0-27.0) mg/dL Est GFR (CKD-EPI) (>=60) BUN/Creatinine Ratio (12.00-20.00) Ratio Glucose (70-110) mg/dL POC Glucose (mg/dL) 126 H 172 H 180 H (70-110) mg/dL Calcium (8.7-10.3) mg/dL AST (14-35) U/L Albumin (3.8-4.9) g/dL Albumin/Globulin Ratio (1.60-3.17) Ratio 10/04/23 10/04/23 10/04/23 Range/Units 02:17 05:43 05:43 RBC 3.22 L (4.40-5.60) X 10*6/uL Hgb 8.8 L (13.0-17.0) g/dL Hct 26.4 L (39.6-50.0) % Lymphocytes # 0.63 L (0.90-5.00) X 10*3/uL Eosinophils # 0 L (0.04-0.35) X 10*3/uL Sodium 132 L (135-145) mmol/L Anion Gap 14.00 H (4.00-12.00) mmol/L BUN 30.6 H (9.0-27.0) mg/dL Est GFR (CKD-EPI) 46 L (>=60) BUN/Creatinine Ratio 20.40 H (12.00-20.00) Ratio Glucose 194 H (70-110) mg/dL POC Glucose (mg/dL) 249 H (70-110) mg/dL Calcium 8.6 L (8.7-10.3) mg/dL AST 82 H (14-35) U/L Albumin 3.3 L (3.8-4.9) g/dL Albumin/Globulin Ratio 1.06 L (1.60-3.17) Ratio 10/04/23 10/04/23 10/04/23 Range/Units 06:03 07:39 11:53 RBC (4.40-5.60) X 10*6/uL Hgb (13.0-17.0) g/dL Hct (39.6-50.0) % Lymphocytes # (0.90-5.00) X 10*3/uL Eosinophils # (0.04-0.35) X 10*3/uL Sodium (135-145) mmol/L Anion Gap (4.00-12.00) mmol/L BUN (9.0-27.0) mg/dL Est GFR (CKD-EPI) (>=60) BUN/Creatinine Ratio (12.00-20.00) Ratio Glucose (70-110) mg/dL POC Glucose (mg/dL) 220 H 182 H 148 H (70-110) mg/dL Calcium (8.7-10.3) mg/dL AST (14-35) U/L Albumin (3.8-4.9) g/dL Albumin/Globulin Ratio (1.60-3.17) Ratio Microbiology - Last 24 Hours (Table) 10/02/23 07:35 Urine Culture - Final Urine,Voided 10/01/23 10:10 Blood Culture - Preliminary Blood 10/01/23 10:22 Blood Culture - Preliminary Blood Assessment and Plan (1) Sepsis Current Visit: Yes Status: Acute Code(s): A41.9 - SEPSIS, UNSPECIFIED ORGANISM SNOMED Code(s): 53024070 (2) Cholecystitis Current Visit: Yes Status: Acute Code(s): K81.9 - CHOLECYSTITIS, UNSPECIFIED SNOMED Code(s): 90538708 Plan: 1patient with sepsis in this patient who did have a fever tachycardia source likely gallbladder disease in this patient who recently did have a similar presentation to the [facility] and apparently was treated for COVID-related sepsis per the son at the bedside keeping in mind being around the hospital will need to cover for more resistant gram-negative pathogen 2-patient is status post cholecystectomy completed by general surgery concerning for cholecystitis 3patient has shown clinical improvement in the patient white count has normalized, patient to continue Zosyn 3.375 g every 8 hours and monitor his clinical course closely Dictation was produced using [employer] dictation software. please excuse any g rammatical, word or spelling errors. Time with Patient: Less than 30
[2023-10-04 17:01] LABS: Glucose,Whole Blood 290 mg/dL (70-110)
--- NOTE | 2023-10-04 19:21 | P.PN ---
Subjective Progress Note Date: 10/04/23 Patient was seen for a follow-up. Patient has improved significantly. Patient remits to having headache which he rates 4/10. Not very bothersome. Patient says that he has been light sensitive for the last 1 month. He was seen by industrial technology teacher, and was told has to dry eyes. Symptoms started about 2-3 weeks before Deborah. Patient's diffuse pain has much improved. He appears very comfortable. Objective - Vital Signs Vital signs: Vital Signs Temp 97.4 F L 10/04/23 11:51 Pulse 82 10/04/23 11:51 Resp 16 10/04/23 11:51 BP 106/51 10/04/23 11:51 Pulse Ox 92 L 10/04/23 11:51 FiO2 Intake & Output 10/04/23 10/04/23 10/05/23 06:59 18:59 06:59 Output Total 1342 850 Balance -1342 -850 Output: Urine 600 850 Straight 600 Post Void Residual 742 Other: Voiding Method Diaper Diaper External Catheter Indwelling Catheter - Exam Patient is much more alert and awake. He keeps his eyes closed, as he states that he is light sensitive for last 1 month. He knows it is September and the year is 2023 and that he is in [facility] in [place]. He does not remember [place]. Patient's strength is normal in bilateral upper limbs. He is able to wiggle his ankles, and legs equally bilaterally. - Labs CBC & Chem 7: 10/04/23 05:43 10/04/23 05:43 Labs: Abnormal Lab Results - Last 24 Hours (Table) 10/03/23 10/03/23 10/04/23 Range/Units 19:27 21:52 02:17 RBC (4.40-5.60) X 10*6/uL Hgb (13.0-17.0) g/dL Hct (39.6-50.0) % Lymphocytes # (0.90-5.00) X 10*3/uL Eosinophils # (0.04-0.35) X 10*3/uL Sodium (135-145) mmol/L Anion Gap (4.00-12.00) mmol/L BUN (9.0-27.0) mg/dL Est GFR (CKD-EPI) (>=60) BUN/Creatinine Ratio (12.00-20.00) Ratio Glucose (70-110) mg/dL POC Glucose (mg/dL) 172 H 180 H 249 H (70-110) mg/dL Calcium (8.7-10.3) mg/dL AST (14-35) U/L Albumin (3.8-4.9) g/dL Albumin/Globulin Ratio (1.60-3.17) Ratio 10/04/23 10/04/23 10/04/23 Range/Units 05:43 05:43 06:03 RBC 3.22 L (4.40-5.60) X 10*6/uL Hgb 8.8 L (13.0-17.0) g/dL Hct 26.4 L (39.6-50.0) % Lymphocytes # 0.63 L (0.90-5.00) X 10*3/uL Eosinophils # 0 L (0.04-0.35) X 10*3/uL Sodium 132 L (135-145) mmol/L Anion Gap 14.00 H (4.00-12.00) mmol/L BUN 30.6 H (9.0-27.0) mg/dL Est GFR (CKD-EPI) 46 L (>=60) BUN/Creatinine Ratio 20.40 H (12.00-20.00) Ratio Glucose 194 H (70-110) mg/dL POC Glucose (mg/dL) 220 H (70-110) mg/dL Calcium 8.6 L (8.7-10.3) mg/dL AST 82 H (14-35) U/L Albumin 3.3 L (3.8-4.9) g/dL Albumin/Globulin Ratio 1.06 L (1.60-3.17) Ratio 10/04/23 10/04/23 10/04/23 Range/Units 07:39 11:53 17:00 RBC (4.40-5.60) X 10*6/uL Hgb (13.0-17.0) g/dL Hct (39.6-50.0) % Lymphocytes # (0.90-5.00) X 10*3/uL Eosinophils # (0.04-0.35) X 10*3/uL Sodium (135-145) mmol/L Anion Gap (4.00-12.00) mmol/L BUN (9.0-27.0) mg/dL Est GFR (CKD-EPI) (>=60) BUN/Creatinine Ratio (12.00-20.00) Ratio Glucose (70-110) mg/dL POC Glucose (mg/dL) 182 H 148 H 290 H (70-110) mg/dL Calcium (8.7-10.3) mg/dL AST (14-35) U/L Albumin (3.8-4.9) g/dL Albumin/Globulin Ratio (1.60-3.17) Ratio Microbiology - Last 24 Hours (Table) 10/01/23 10:10 Blood Culture - Preliminary Blood 10/01/23 10:22 Blood Culture - Preliminary Blood 10/02/23 07:35 Urine Culture - Final Urine,Voided Assessment and Plan Assessment: * Altered mental status, likely due to delirium, improving. * Probable sepsis * Abnormal CT head, with evidence of dilated ventricles, suggestive of possible normal pressure hydrocephalus. * Possible pneumonia/bronchiectasis. * Status post laparoscopic cholecystectomy, POD #1 * Hyponatremia * Hyperkalemia * Mild renal insufficiency * Anemia Plan: * Patient's mentation has much improved. Patient able to answer many questions appropriately. Still sometimes goes off the target. His orientation is improved. Overall pain has improved. * Patient is status post laparoscopic cholecystectomy, POD #1. * Patient has possible sepsis, currently on Zosyn, ID input appreciated. * Await MRI of the brain with and without contrast, if able to be performed, for further evolution of possible NPH. * EEG was performed, which was abnormal due to background slowing of mild to moderate degree, intermittent, suggestive of mild encephalopathy. No epileptiform activity was seen. * B12 811, folate 12.40, TSH 4.030, RPR nonreactive, all normal * Hemoglobin A1c 10.2 on 09/20/2023, indicating poorly controlled diabetes. Recommend optimize control of diabetes to target A1c < 7.0 * Lipid panel with cholesterol 105, LDL 58, HDL 29, triglycerides 83. Continue Lipitor 40 mg daily. * DVT prophylaxis:, Patient on heparin 5000 units subcu every 12 hours * Tried to call multiple family members including Peña Friedman and Gabi, to obtain collateral history and none of them were available. We'll try to contact again in a.m.
[2023-10-04] MEDS: ONDANSETRON 4 MG/2 ML VIAL IVP PRN (20:23)
[2023-10-04 20:47] LABS: Glucose,Whole Blood 196 mg/dL (70-110)
[2023-10-04] MEDS: INSULIN DETEMIR (LEVEMIR) 100 UNIT/ML SYR SQ SCH (21:22)
[2023-10-04] MEDS: ATORVASTATIN 40 MG TAB PO SCH (21:23)
--- NOTE | 2023-10-05 00:29 | PN ---
PROGRESS NOTE DATE OF SERVICE: 10/04/2023 SUBJECTIVE: This 83-year-old gentleman was admitted with multiple complex medical issues, features of cholecystitis. The patient underwent laparoscopic cholecystectomy. The patient also had multiple medical issues, multiple consultants are following the patient. The patient continues to be confused, hemoglobin 8.8. PAST MEDICAL HISTORY: Reviewed. REVIEW OF SYSTEMS: Could not be taken. MEDICATIONS: Reviewed include [place], rest of the doses and medications reviewed. PHYSICAL EXAMINATION: VITAL SIGNS: Pulse is 82, blood pressure 106/51, respirations 16. HEENT: Conjunctivae normal. NECK: No jugular venous distention. CARDIOVASCULAR: S1, S2. RESPIRATIONS: Diminished at the bases. ABDOMEN: Soft. NERVOUS SYSTEM: Nonfocal. LABORATORIES: Hemoglobin 8.8, sodium 132. ASSESSMENT: 1. Acute cholelithiasis and cholecystitis, status post laparoscopic cholecystectomy, present on admission. 2. Possible right-sided pneumonia. 3. Severe dehydration, acute renal failure present on admission. 4. Possible dementia. 5. Change in mental status, acute metabolic encephalopathy. 6. Hyponatremia. 7. Elevated procalcitonin. 8. Hyperkalemia secondary to renal failure. 9. Chronic obstructive pulmonary disease. 10.Multiple complex medical issues. 11.Full code. RECOMMENDATIONS: Recommended to continue current management, continue symptomatic treatment, otherwise monitor fluid balance closely. Continue the home medications. Closely follow with surgery. The patient is on empiric antibiotics also. Closely follow with Infectious Disease. Cultures are negative. Labs reviewed. I would also recommend a followup chest x-ray due to possibly fluid overload also. Further recommendations to follow, see orders for details. MMODL / IJN: [id number] /
[2023-10-05] MEDS: PIPERACILLIN-TAZOBACTAM 3.375 GM in SODIUM CHLORIDE 0.9% 100 ML IVPB SCH ×3 (02:21→17:54)
[2023-10-05 07:12] LABS: Glucose,Whole Blood 186 mg/dL (70-110)
[2023-10-05 07:45] LABS: Basophils % (A) 0 %; Eosinophils # (A) 0.1 k/uL (0-0.7); Eosinophils % (A) 1 %; HCT 27.5 % (39.0-53.0); HGB 9.1 gm/dL (13.0-17.5); Lymphocytes # (A) 0.9 k/uL (1.0-4.8); Lymphocytes % (A) 10 %; MCH 27.5 pg (25.0-35.0); MCHC 32.9 g/dL (31.0-37.0); MCV 83.7 fL (80.0-100.0); Mean Platelet Volume 7.8; Monocytes # (A) 0.4 k/uL (0-1.0); Monocytes % (A) 5 %; Neutrophils # (A) 6.9 k/uL (1.3-7.7); Neutrophils % (A) 82 %; Platelet Count 329 k/uL (150-450); RBC 3.29 m/uL (4.30-5.90); WBC 8.4 k/uL (3.8-10.6)
[2023-10-05] MEDS: ARTIFICIAL TEARS-HYPROMELLOSE DROPS 15 ML BTL BOTH EYES PRN (08:09)
[2023-10-05] MEDS: LINAGLIPTIN 5 MG TABLET PO SCH (08:11)
[2023-10-05] MEDS: SENNOSIDES-DOCUSATE SODIUM 1 EACH TAB PO SCH ×2 (08:11→17:25)
[2023-10-05] MEDS: carvediloL 12.5 MG TAB PO SCH ×2 (08:11→17:25)
[2023-10-05] MEDS: THIAMINE 100 MG TAB PO SCH ×2 (08:11→17:25)
[2023-10-05] MEDS: HEPARIN SODIUM,PORCINE 5,000 UNIT/ML 1 ML VIAL SQ SCH ×2 (08:11→20:27)
[2023-10-05] MEDS: PANTOPRAZOLE 40 MG/10 ML VIAL IVP SCH ×2 (08:11→20:27)
[2023-10-05] MEDS: ASPIRIN 81 MG PO SCH (08:11)
[2023-10-05] MEDS: TAMSULOSIN 0.4 MG CAP.ER.24H PO SCH (08:11)
[2023-10-05 08:15] LABS: ALT 40 U/L (4-49); AST 57 U/L (17-59); African American GFR (CKD) 68 (>60 ml/min/1.73 sqM); Albumin 3.1 g/dL (3.5-5.0); Alkaline Phosphatase 82 U/L (38-126); Anion Gap 12 mmol/L; Blood Urea Nitrogen 26 mg/dL (9-20); Calcium 8.3 mg/dL (8.4-10.2); Carbon Dioxide 25 mmol/L (22-30); Chloride 97 mmol/L (98-107); Globulin 3.2 g/dL; Glucose 169 mg/dL (74-99); Non-African American GFR(CKD) 59 (>60 ml/min/1.73 sqM); Potassium 4.5 mmol/L (3.5-5.1); Sodium 134 mmol/L (137-145); Total Bilirubin 0.4 mg/dL (0.2-1.3); Total Protein 6.3 g/dL (6.3-8.2)
--- NOTE | 2023-10-05 08:58 | P.PN ---
Subjective Progress Note Date: 10/05/23 83-year-old male, evaluated in the emergency department, on October 01. He was brought in to the emergency department, by EMS, for apparent mental status changes. He apparently is a resident at [facility]. He apparently was complaining of some chest pain, he received 2 nitroglycerin, with no b enefit. He is seen today, in the emergency department, room 20. Very poor historian. At the time of the evaluation, he was receiving an echocardiogram. He apparently has a history of COPD, and a vague history of lung cancer. I am not sure who his primary care physician is. He apparently has been acting in a strange fashion, at [facility], for the last 7 days, and apparently was having hallucinations. Laboratory data includes a white count of 8.4, hemoglobin 9.9, hematocrit 30, and a platelet count that was normal. Sodium 132, potassium 5, chlorides 93, CO2 27, anion gap normal, BUN 27, and creatinine 1.6. The patient's pro-calcitonin level is minimally elevated at 0.10. Urine is negat [place]. Viral screen was negative. Chest x-ray showed no acute abnormality, which changes of COPD, and scarring, particularly in the right lung. Brain CT showed nothing acute. Computed tomography scan of the chest reveals some consolidation, and the right lower lung zone, consistent with possible p neumonia, or bronchiectasis. In addition, the patient has an enlarging right upper lobe nodule, which could relate to a vague history of lung cancer. The patient is seen today 10/03/2023 in follow-up on the regular medical floor. He is currently laying flat in bed. Awake and alert in no acute distress. He is maintaining O2 saturations in the 90s on 4 L/m per nasal cannula. He's been afebrile. Hemodynamically stable. Blood cultures are pending. Blood glucose 99. Ultrasound of the gallbladder revealed some gravel and sludge. The plan is for cholecystectomy today. Count 11.3. Hemoglobin 10.0. Platelets 310. Sodium 133. Potassium 4.5. Bicarb 25. BUN 28. Creatinine 1.6. He is continued on bronchodilators, heparin for DVT prophylaxis, antibiotics in the form of Zosyn. The patient is seen today 10/04/2023 in follow-up on the regular medical floor. He is awake and alert in no acute distress. Resting comfortably in bed. He did undergo a laparoscopic cholecystectomy yesterday. Blood culture revealing no growth. Urine culture revealed no growth. White count 7.5. Hemoglobin 8.8. Platelets 296. Sodium 132. Potassium 5.0. Bicarb 22. BUN 31. Creatinine 1.5. Glucose 194. He remains on Zosyn. He declined breathing treatments due to palpitations. He will be educated regarding the use of the incentive spirometer. Heparin for DVT prophylaxis. Tolerating a low-fat diet. The patient is seen today 10/05/2023 in follow-up on the regular medical floor. He is resting comfortably in bed. Awake and alert in no acute distress. He denies any shortness of breath, cough or congestion. Denies any significant abdominal discomfort. Feeling quite a bit better today compared to yesterday. Blood cultures revealed no growth. Urine culture revealed no growth. White count 8.4. Hemoglobin 9.1. Platelets 329. Sodium 134. Potassium 4.5. Bicarb 25. BUN 26. Creatinine 1.14. Glucose 169. He remains on heparin for DVT prophylaxis. Tolerating a low-fat diet. Heparin for DVT prophylaxis. Antibiotics in the form of Zosyn. Objective - Vital Signs Vital signs: Vital Signs Temp 97.8 F 10/05/23 07:57 Pulse 73 10/05/23 07:57 Resp 18 10/05/23 07:57 BP 123/66 10/05/23 07:57 Pulse Ox 97 10/05/23 07:57 FiO2 Intake & Output 10/04/23 10/05/23 10/05/23 18:59 06:59 18:59 Intake Total 800 Output Total 850 800 Balance -850 0 Intake: Intake, IV Titration 200 Amount Piperacillin-Tazobactam 3 200 .375 gm In Sodium Chloride 0.9% 100 ml @ 25 mls/hr IVPB Q8H [facility] Rx#: [id number] Oral 600 Output: Urine 850 800 Other: Voiding Method Diaper Diaper Indwelling Catheter Indwelling Catheter - Exam GENERAL EXAM: Alert, pleasant 83-year-old male patient, on 3 L nasal cannula, comfortable in no apparent distress. HEAD: Normocephalic. EYES: Normal reaction of pupils, equal size. NOSE: Clear with pink turbinates. THROAT: No erythema or exudates. NECK: No masses, no JVD. CHEST: No chest wall deformity. LUNGS: Equal air entry with no crackles, wheeze, rhonchi or dullness. CVS: S1 and S2 normal with no audible murmur, regular rhythm. ABDOMEN: Surgical incisions clean dry well approximated. No hepatosplenomegaly, normal bowel sounds, no guarding or rigidity. SPINE: No scoliosis or deformity SKIN: No rashes CENTRAL NERVOUS SYSTEM: No focal deficits, tone is normal in all 4 extremities. EXTREMITIES: There is no peripheral edema. No clubbing, no cyanosis. Peripheral pulses are intact. - Labs CBC & Chem 7: 10/05/23 06:50 10/05/23 06:50 Labs: Abnormal Lab Results - Last 24 Hours (Table) 10/04/23 10/04/23 10/04/23 Range/Units 05:43 05:43 11:53 RBC 3.22 L (4.40-5.60) X 10*6/uL Hgb 8.8 L (13.0-17.0) g/dL Hct 26.4 L (39.6-50.0) % Lymphocytes # 0.63 L (0.90-5.00) X 10*3/uL Eosinophils # 0 L (0.04-0.35) X 10*3/uL Sodium 132 L (135-145) mmol/L Chloride (98-107) mmol/L Anion Gap 14.00 H (4.00-12.00) mmol/L BUN 30.6 H (9.0-27.0) mg/dL Est GFR (CKD-EPI) 46 L (>=60) BUN/Creatinine Ratio 20.40 H (12.00-20.00) Ratio Glucose 194 H (70-110) mg/dL POC Glucose (mg/dL) 148 H (70-110) mg/dL Calcium 8.6 L (8.7-10.3) mg/dL AST 82 H (14-35) U/L Albumin 3.3 L (3.8-4.9) g/dL Albumin/Globulin Ratio 1.06 L (1.60-3.17) Ratio 10/04/23 10/04/23 10/05/23 Range/Units 17:00 20:46 06:50 RBC 3.29 L (4.40-5.60) X 10*6/uL Hgb 9.1 L (13.0-17.0) g/dL Hct 27.5 L (39.6-50.0) % Lymphocytes # 0.9 L (0.90-5.00) X 10*3/uL Eosinophils # (0.04-0.35) X 10*3/uL Sodium (135-145) mmol/L Chloride (98-107) mmol/L Anion Gap (4.00-12.00) mmol/L BUN (9.0-27.0) mg/dL Est GFR (CKD-EPI) (>=60) BUN/Creatinine Ratio (12.00-20.00) Ratio Glucose (70-110) mg/dL POC Glucose (mg/dL) 290 H 196 H (70-110) mg/dL Calcium (8.7-10.3) mg/dL AST (14-35) U/L Albumin (3.8-4.9) g/dL Albumin/Globulin Ratio (1.60-3.17) Ratio 10/05/23 10/05/23 Range/Units 06:50 07:03 RBC (4.40-5.60) X 10*6/uL Hgb (13.0-17.0) g/dL Hct (39.6-50.0) % Lymphocytes # (0.90-5.00) X 10*3/uL Eosinophils # (0.04-0.35) X 10*3/uL Sodium 134 L (135-145) mmol/L Chloride 97 L (98-107) mmol/L Anion Gap (4.00-12.00) mmol/L BUN 26 H (9.0-27.0) mg/dL Est GFR (CKD-EPI) (>=60) BUN/Creatinine Ratio (12.00-20.00) Ratio Glucose 169 H (70-110) mg/dL POC Glucose (mg/dL) 186 H (70-110) mg/dL Calcium 8.3 L (8.7-10.3) mg/dL AST (14-35) U/L Albumin 3.1 L (3.8-4.9) g/dL Albumin/Globulin Ratio (1.60-3.17) Ratio Microbiology - Last 24 Hours (Table) 01/09/24 10:10 Blood Culture - Preliminary Blood 10/01/23 10:22 Blood Culture - Preliminary Blood Assessment and Plan Assessment: Right upper quadrant pain suspect secondary to cholecystitis. Status post laparoscopic cholecystectomy on 10/03/2023. Postoperative day #2 Probable pneumonia, right lower lung zone. ProCalcitonin 0.10. Currently on Zosyn. History of COPD, from previous heavy tobacco use. Pulmonary nodule, right lung, enlarging, may relate to underlying lung cancer. History of diabetes mellitus. History of hyperlipidemia. History of hypertension. History of congestive heart failure. History of BPH. S/P AICD placement, 2017. Prior history of tobacco use. Plan: The patient was seen and evaluated Labs and medications reviewed Titrate the FiO2 as tolerated Continue to work with the incentive spirometer Increased his activity as tolerated Antibiotics per ID services Plan is to return to [facility] post discharge This patient was seen independently by the pulmonary nurse practitioner addressing pulmonary issues I have personally seen and examined the patient, performed the documentation and the assessment and plan as written. Number of minutes spent on the visit: 24.
[2023-10-05] MEDS: INSULIN ASPART (NovoLOG) 100 UNIT/ML VIAL SQ SCH ×4 (09:08→20:28)
--- NOTE | 2023-10-05 09:21 | XR ---
EXAMINATION TYPE: XR chest 1V portable DATE OF EXAM: 10/05/2023 COMPARISON: 10/01/2023 INDICATION: Pneumonia TECHNIQUE: Single frontal view of the chest is obtained. FINDINGS: The heart size is normal. The pulmonary vasculature is normal. Right perihilar increased lung markings are present which strand towards the periphery. Findings have worsened over the interval. Continued follow-up is recommended. Small right pleural effusion is pres ent IMPRESSION: 1. Increasing right perihilar lung markings. Continued follow-up is recommended. 2. Small right pleural effusion
[2023-10-05] MEDS: MULTIVITAMINS, THERA 1 EACH TAB PO SCH (11:40)
[2023-10-05] MEDS: FOLIC ACID 1 MG TAB PO SCH (11:40)
[2023-10-05 12:21] LABS: Glucose,Whole Blood 217 mg/dL (70-110)
--- NOTE | 2023-10-05 12:23 | P.PN ---
Subjective Progress Note Date: 10/05/23 Principal diagnosis: Reason for follow-up is fever and sepsis/cholecystitis Patient is a 83-year-old male with a past medical history significant for diabetes mellitus hypertension hyperlipidemia COPD history of prostate disorder patient apparently was recently admitted at [facility] with sepsis secondary to gallstone patient was stabilized subsequently discharged to the [facility] rehab, patient was brought to the [facility] ER for evaluation of weakness confusion hallucination did have a low-fever concerning for sepsis. Patient is s/p laparoscopic ostectomy completed by general surgery on 10/03/2023 On today's evaluation 10/05/2023 patient continues to be afebrile, patient is breathing comfortably and down to 3 L nasal cannula oxygen, the patient denies any chest pain shortness of breath or cough no nausea or vomiting no abdominal pain or diarrhea Patient did have white count is 8.4, creatinine is 1.14, cultures are currently pending Objective - Vital Signs Vital signs: Vital Signs Temp 97.8 F 10/05/23 07:57 Pulse 73 10/05/23 07:57 Resp 16 10/05/23 08:00 BP 123/66 10/05/23 07:57 Pulse Ox 97 10/05/23 07:57 FiO2 Intake & Output 10/04/23 10/05/23 10/05/23 18:59 06:59 18:59 Intake Total 800 Output Total 850 800 Balance -850 0 Intake: Intake, IV Titration 200 Amount Piperacillin-Tazobactam 3 200 .375 gm In Sodium Chloride 0.9% 100 ml @ 25 mls/hr IVPB Q8H [facility] Rx#: [id number] Oral 600 Output: Urine 850 800 Other: Voiding Method Diaper Diaper Diaper Indwelling Catheter Indwelling Catheter Indwelling Catheter - Exam GENERAL DESCRIPTION: An elderly male lying in bed in no distress RESPIRATORY SYSTEM: Unlabored breathing , decreased breath sounds at bases HEART: S1 S2 regular rate and rhythm , ABDOMEN: Soft , no tenderness EXTREMITIES: No edema feet - Labs CBC & Chem 7: 10/05/23 06:50 10/05/23 06:50 Labs: Abnormal Lab Results - Last 24 Hours (Table) 10/04/23 10/04/23 10/04/23 Range/Units 05:43 17:00 20:46 RBC (4.30-5.90) m/uL Hgb (13.0-17.5) gm/dL Hct (39.0-53.0) % Lymphocytes # (1.0-4.8) k/uL Sodium 132 L (135-145) mmol/L Chloride (98-107) mmol/L Anion Gap 14.00 H (4.00-12.00) mmol/L BUN 30.6 H (9.0-27.0) mg/dL Est GFR (CKD-EPI) 46 L (>=60) BUN/Creatinine Ratio 20.40 H (12.00-20.00) Ratio Glucose 194 H (70-110) mg/dL POC Glucose (mg/dL) 290 H 196 H (70-110) mg/dL Calcium 8.6 L (8.7-10.3) mg/dL AST 82 H (14-35) U/L Albumin 3.3 L (3.8-4.9) g/dL Albumin/Globulin Ratio 1.06 L (1.60-3.17) Ratio 10/05/23 10/05/23 10/05/23 Range/Units 06:50 06:50 07:03 RBC 3.29 L (4.30-5.90) m/uL Hgb 9.1 L (13.0-17.5) gm/dL Hct 27.5 L (39.0-53.0) % Lymphocytes # 0.9 L (1.0-4.8) k/uL Sodium 134 L (135-145) mmol/L Chloride 97 L (98-107) mmol/L Anion Gap (4.00-12.00) mmol/L BUN 26 H (9.0-27.0) mg/dL Est GFR (CKD-EPI) (>=60) BUN/Creatinine Ratio (12.00-20.00) Ratio Glucose 169 H (70-110) mg/dL POC Glucose (mg/dL) 186 H (70-110) mg/dL Calcium 8.3 L (8.7-10.3) mg/dL AST (14-35) U/L Albumin 3.1 L (3.8-4.9) g/dL Albumin/Globulin Ratio (1.60-3.17) Ratio 10/05/23 Range/Units 12:10 RBC (4.30-5.90) m/uL Hgb (13.0-17.5) gm/dL Hct (39.0-53.0) % Lymphocytes # (1.0-4.8) k/uL Sodium (135-145) mmol/L Chloride (98-107) mmol/L Anion Gap (4.00-12.00) mmol/L BUN (9.0-27.0) mg/dL Est GFR (CKD-EPI) (>=60) BUN/Creatinine Ratio (12.00-20.00) Ratio Glucose (70-110) mg/dL POC Glucose (mg/dL) 217 H (70-110) mg/dL Calcium (8.7-10.3) mg/dL AST (14-35) U/L Albumin (3.8-4.9) g/dL Albumin/Globulin Ratio (1.60-3.17) Ratio Microbiology - Last 24 Hours (Table) 10/01/23 10:10 Blood Culture - Preliminary Blood 10/01/23 10:22 Blood Culture - Preliminary Blood Assessment and Plan (1) Sepsis Current Visit: Yes Status: Acute Code(s): A41.9 - SEPSIS, UNSPECIFIED ORGANISM SNOMED Code(s): 14717539 (2) Cholecystitis Current Visit: Yes Status: Acute Code(s): K81.9 - CHOLECYSTITIS, UNSPECIFIED SNOMED Code(s): 80096652 Plan: 1patient with sepsis in this patient who did have a fever tachycardia source likely gallbladder disease in this patient who recently did have a similar p resentation to the [facility] and apparently was treated for COVID- related sepsis per the son at the bedside keeping in mind being around the hospital will need to cover for more resistant gram-negative pathogen 2-patient is status post cholecystectomy completed by general surgery concerning for cholecystitis 3patient has shown clinical improvement and the patient white count has nor malized, 4- patient to continue Zosyn 3.375 g every 8 hours and monitor his clinical course closely Dictation was produced using Mip[employer] dictation software. please excuse any grammatical, word or spelling errors. Time with Patient: Less than 30
--- NOTE | 2023-10-05 14:36 | P.PN ---
Subjective Progress Note Date: 10/05/23 YOGIEON. No F/C. No SOB or CP. Well controlled abdominal pain. Admits to flatus, no BM. Tolerating diet. Objective - Vital Signs Vital signs: Vital Signs Temp 98.6 F 10/05/23 13:11 Pulse 74 10/05/23 13:11 Resp 18 10/05/23 13:11 BP 110/52 10/05/23 13:11 Pulse Ox 96 10/05/23 13:11 FiO2 Intake & Output 10/04/23 10/05/23 10/05/23 18:59 06:59 18:59 Intake Total 800 Output Total 850 800 Balance -850 0 Intake: Intake, IV Titration 200 Amount Piperacillin-Tazobactam 3 200 .375 gm In Sodium Chloride 0.9% 100 ml @ 25 mls/hr IVPB Q8H [facility] Rx#: [id number] Oral 600 Output: Urine 850 800 Other: Voiding Method Diaper Diaper Diaper Indwelling Catheter Indwelling Catheter Indwelling Catheter - Exam Gen: AxO, NAD Pulm: non-labored respirations Abd: soft, mildly-tender around incisions, non-distended. No guarding/rebound/rigidity Incisions; C/D/I, no erythema or fluctuence appreciated [place]; intact producing dark yellow UOP Extrem: no edema seen - Labs CBC & Chem 7: 10/05/23 06:50 10/05/23 06:50 Labs: Abnormal Lab Results - Last 24 Hours (Table) 10/04/23 10/04/23 10/05/23 Range/Units 17:00 20:46 06:50 RBC 3.29 L (4.30-5.90) m/uL Hgb 9.1 L (13.0-17.5) gm/dL Hct 27.5 L (39.0-53.0) % Lymphocytes # 0.9 L (1.0-4.8) k/uL Sodium (137-145) mmol/L Chloride (98-107) mmol/L BUN (9-20) mg/dL Glucose (74-99) mg/dL POC Glucose (mg/dL) 290 H 196 H (70-110) mg/dL Calcium (8.4-10.2) mg/dL Albumin (3.5-5.0) g/dL 0110/05/23 10/05/23 Range/Units 06:50 07:03 12:10 RBC (4.30-5.90) m/uL Hgb (13.0-17.5) gm/dL Hct (39.0-53.0) % Lymphocytes # (1.0-4.8) k/uL Sodium 134 L (137-145) mmol/L Chloride 97 L (98-107) mmol/L BUN 26 H (9-20) mg/dL Glucose 169 H (74-99) mg/dL POC Glucose (mg/dL) 186 H 217 H (70-110) mg/dL Calcium 8.3 L (8.4-10.2) mg/dL Albumin 3.1 L (3.5-5.0) g/dL Microbiology - Last 24 Hours (Table) 10/01/23 10:10 Blood Culture - Preliminary Blood 10/01/23 10:22 Blood Culture - Preliminary Blood Assessment and Plan Assessment: Patient is a 83 year old male who is s/p laparoscopic cholecystectomy Plan: -Diet as tolerated -PRN pain and nausea control -Encourage ambulation -DVT/GI PPx -Okay to [place] from surgical standpoint Darrick Scanlon MD General Surgery
[2023-10-05 17:35] LABS: Glucose,Whole Blood 157 mg/dL (70-110)
[2023-10-05 20:08] LABS: Glucose,Whole Blood 195 mg/dL (70-110)
[2023-10-05] MEDS: QUEtiapine 25 MG TAB PO PRN (20:27)
[2023-10-05] MEDS: ATORVASTATIN 40 MG TAB PO SCH (20:28)
[2023-10-05] MEDS: INSULIN DETEMIR (LEVEMIR) 100 UNIT/ML SYR SQ SCH (20:28)
--- NOTE | 2023-10-05 22:25 | PN ---
PROGRESS NOTE DATE OF SERVICE: 10/05/2023 SUBJECTIVE: This 83-year-old gentleman was admitted with multiple medical problems, had features of acute cholelithiasis and cholecystitis. The patient underwent laparoscopic cholecystectomy. Chest x-ray showed enlarging nodule in the right leg. No chest pain, no palpitations. The patient is mildly confused. OBJECTIVE: VITAL SIGNS: Pulse 73, blood pressure 123/66, respirations 18. CHEST: Few scattered rhonchi and crackles. ABDOMEN: Soft. NERVOUS SYSTEM: Nonfocal. LABS: Hemoglobin 9.1, sodium 134, glucose noted. ASSESSMENT: 1. Acute cholelithiasis and cholecystitis, status post laparoscopic cholecystectomy, present on admission. 2. Possible right-sided pneumonia versus right pulmonary nodule, enlarging. 3. Severe dehydration, acute renal failure present on admission. 4. Possible dementia. 5. Change in mental status, acute metabolic encephalopathy. 6. Hyponatremia. 7. Elevated procalcitonin. 8. Hyperkalemia secondary to renal failure. 9. Chronic obstructive pulmonary disease. 10.Multiple complex abnormalities. 11.Full code. RECOMMENDATIONS: Recommended to continue current management, continue symptomatic treatment, otherwise continue with current medications. Continue empiric antibiotics. Follow closely with multiple consultants. Repeat labs. Closely follow with surgery. Possible ECF return to [facility] on Saturday. MMODL / IJN: [id number] /
[2023-10-06] MEDS: PIPERACILLIN-TAZOBACTAM 3.375 GM in SODIUM CHLORIDE 0.9% 100 ML IVPB SCH ×3 (02:27→18:32)
[2023-10-06 07:32] LABS: Glucose,Whole Blood 43 mg/dL (70-110)
[2023-10-06 07:32] LABS: Glucose,Whole Blood 41 mg/dL (70-110)
[2023-10-06 08:01] LABS: Glucose,Whole Blood 76 mg/dL (70-110)
[2023-10-06 08:01] LABS: Glucose,Whole Blood 75 mg/dL (70-110)
[2023-10-06 08:01] LABS: Glucose,Whole Blood 60 mg/dL (70-110)
[2023-10-06 08:05] LABS: ALT 37 U/L (4-49); AST 41 U/L (17-59); African American GFR (CKD) 85 (>60 ml/min/1.73 sqM); Albumin 3.2 g/dL (3.5-5.0); Alkaline Phosphatase 80 U/L (38-126); Anion Gap 11 mmol/L; Blood Urea Nitrogen 17 mg/dL (9-20); Calcium 8.7 mg/dL (8.4-10.2); Carbon Dioxide 26 mmol/L (22-30); Chloride 100 mmol/L (98-107); Globulin 3.3 g/dL; Non-African American GFR(CKD) 74 (>60 ml/min/1.73 sqM); Potassium 4.2 mmol/L (3.5-5.1); Sodium 137 mmol/L (137-145); Total Bilirubin 0.5 mg/dL (0.2-1.3); Total Protein 6.5 g/dL (6.3-8.2)
[2023-10-06 08:17] LABS: Glucose 34 mg/dL (74-99)
[2023-10-06] MEDS: LINAGLIPTIN 5 MG TABLET PO SCH (08:47)
[2023-10-06] MEDS: INSULIN ASPART (NovoLOG) 100 UNIT/ML VIAL SQ SCH ×4 (08:47→21:03)
[2023-10-06] MEDS: HYDROmorphone 0.5 MG/0.5 ML SYRINGE IVP PRN (08:52)
--- NOTE | 2023-10-06 08:53 | P.PN ---
Subjective Progress Note Date: 10/06/23 83-year-old male, evaluated in the emergency department, on October 01. He was brought in to the emergency department, by EMS, for apparent mental status changes. He apparently is a resident at [facility]. He apparently was complaining of some chest pain, he received 2 nitroglycerin, with no b enefit. He is seen today, in the emergency department, room 20. Very poor historian. At the time of the evaluation, he was receiving an echocardiogram. He apparently has a history of COPD, and a vague history of lung cancer. I am not sure who his primary care physician is. He apparently has been acting in a strange fashion, at [facility], for the last 7 days, and apparently was having hallucinations. Laboratory data includes a white count of 8.4, hemoglobin 9.9, hematocrit 30, and a platelet count that was normal. Sodium 132, potassium 5, chlorides 93, CO2 27, anion gap normal, BUN 27, and creatinine 1.6. The patient's pro-calcitonin level is minimally elevated at 0.10. Urine is negat [place]. Viral screen was negative. Chest x-ray showed no acute abnormality, which changes of COPD, and scarring, particularly in the right lung. Brain CT showed nothing acute. Computed tomography scan of the chest reveals some consolidation, and the right lower lung zone, consistent with possible p neumonia, or bronchiectasis. In addition, the patient has an enlarging right upper lobe nodule, which could relate to a vague history of lung cancer. The patient is seen today 10/03/2023 in follow-up on the regular medical floor. He is currently laying flat in bed. Awake and alert in no acute distress. He is maintaining O2 saturations in the 90s on 4 L/m per nasal cannula. He's been afebrile. Hemodynamically stable. Blood cultures are pending. Blood glucose 99. Ultrasound of the gallbladder revealed some gravel and sludge. The plan is for cholecystectomy today. Count 11.3. Hemoglobin 10.0. Platelets 310. Sodium 133. Potassium 4.5. Bicarb 25. BUN 28. Creatinine 1.6. He is continued on bronchodilators, heparin for DVT prophylaxis, antibiotics in the form of Zosyn. The patient is seen today 10/04/2023 in follow-up on the regular medical floor. He is awake and alert in no acute distress. Resting comfortably in bed. He did undergo a laparoscopic cholecystectomy yesterday. Blood culture revealing no growth. Urine culture revealed no growth. White count 7.5. Hemoglobin 8.8. Platelets 296. Sodium 132. Potassium 5.0. Bicarb 22. BUN 31. Creatinine 1.5. Glucose 194. He remains on Zosyn. He declined breathing treatments due to palpitations. He will be educated regarding the use of the incentive spirometer. Heparin for DVT prophylaxis. Tolerating a low-fat diet. The patient is seen today 10/05/2023 in follow-up on the regular medical floor. He is resting comfortably in bed. Awake and alert in no acute distress. He denies any shortness of breath, cough or congestion. Denies any significant abdominal discomfort. Feeling quite a bit better today compared to yesterday. Blood cultures revealed no growth. Urine culture revealed no growth. White count 8.4. Hemoglobin 9.1. Platelets 329. Sodium 134. Potassium 4.5. Bicarb 25. BUN 26. Creatinine 1.14. Glucose 169. He remains on heparin for DVT prophylaxis. Tolerating a low-fat diet. Heparin for DVT prophylaxis. Antibiotics in the form of Zosyn. The patient is seen today 10/06/2023 follow-up on the regular medical floor. He is currently sitting up in bed having breakfast. He did have some periods of confusion earlier this morning. He did have a drop in blood sugar to 41. It's improved now. He is more awake and alert. He is maintaining good O2 saturations in the 90s on 3 L/m per nasal cannula. His chest x-ray reveals right perihilar increased lung markings. Small right pleural effusion. Blood cultures reveal no growth. Urine culture revealed no growth. Sodium 137. Potassium 4.2. Bicarb 26. BUN 17. Creatinine 0.95. Current glucose 76. He remains on Zosyn. Heparin for DVT prophylaxis. Needs increased encouragement regarding the use of the incentive spirometer. Objective - Vital Signs Vital signs: Vital Signs Temp 98 F 10/06/23 08:00 Pulse 71 10/06/23 08:00 Resp 17 10/06/23 08:00 BP 105/59 10/06/23 08:00 Pulse Ox 93 L 10/06/23 08:00 FiO2 Intake & Output 10/05/23 10/06/23 10/06/23 18:59 06:59 18:59 Intake Total 940 800 Output Total 1100 Balance 940 -300 Intake: Intake, IV Titration 200 200 Amount Piperacillin-Tazobactam 3 200 200 .375 gm In Sodium Chloride 0.9% 100 ml @ 25 mls/hr IVPB Q8H [facility] Rx#: [id number] Oral 740 600 Output: Urine 1100 Other: Voiding Method Diaper Diaper Indwelling Catheter Indwelling Catheter - Exam GENERAL EXAM: Alert, confused at times, low blood sugar, 83-year-old male patient, on 3 L nasal cannula, in no apparent distress. HEAD: Normocephalic. EYES: Normal reaction of pupils, equal size. NOSE: Clear with pink turbinates. THROAT: No erythema or exudates. NECK: No masses, no JVD. CHEST: No chest wall deformity. LUNGS: Equal air entry with no crackles, wheeze, rhonchi or dullness. CVS: S1 and S2 normal with no audible murmur, regular rhythm. ABDOMEN: Surgical incisions clean dry well approximated. No hepatosplenomegaly, normal bowel sounds, no guarding or rigidity. SPINE: No scoliosis or deformity SKIN: No rashes CENTRAL NERVOUS SYSTEM: No focal deficits, tone is normal in all 4 extremities. EXTREMITIES: There is no peripheral edema. No clubbing, no cyanosis. Perip heral pulses are intact. - Labs CBC & Chem 7: 10/05/23 06:50 10/06/23 06:36 Labs: Abnormal Lab Results - Last 24 Hours (Table) 10/05/23 10/05/23 10/05/23 Range/Units 12:10 17:23 20:00 Glucose (74-99) mg/dL POC Glucose (mg/dL) 217 H 157 H 195 H (70-110) mg/dL Albumin (3.5-5.0) g/dL 10/06/23 10/06/23 10/06/23 Range/Units 06:36 07:21 07:22 Glucose 34 L* (74-99) mg/dL POC Glucose (mg/dL) 43 L 41 L (70-110) mg/dL Albumin 3.2 L (3.5-5.0) g/dL 10/06/23 Range/Units 07:39 Glucose (74-99) mg/dL POC Glucose (mg/dL) 60 L (70-110) mg/dL Albumin (3.5-5.0) g/dL Assessment and Plan Assessment: Right upper quadrant pain suspect secondary to cholecystitis. Status post laparoscopic cholecystectomy on 10/03/2023. Postoperative day #3 Probable pneumonia, right lower lung zone. ProCalcitonin 0.10. Currently on Zosyn. History of COPD, from previous heavy tobacco use. Pulmonary nodule, right lung, enlarging, may relate to underlying lung cancer. History of diabetes mellitus. History of hyperlipidemia. History of hypertension. History of congestive heart failure. History of BPH. S/P AICD placement, 2017. Prior history of tobacco use. Plan: The patient was seen and evaluated Labs and medications reviewed Levemir needs to be adjusted. Continue Zosyn Titrate the FiO2 as tolerated Continue to work with the incentive spirometer This patient was seen independently by the pulmonary nurse practitioner addressing pulmonary issues I have personally seen and examined the patient, performed the documentation and the assessment and plan as written. Number of minutes spent on the visit: 23.
[2023-10-06] MEDS: PANTOPRAZOLE 40 MG/10 ML VIAL IVP SCH ×2 (08:54→21:08)
[2023-10-06] MEDS: SENNOSIDES-DOCUSATE SODIUM 1 EACH TAB PO SCH ×2 (08:54→17:00)
[2023-10-06] MEDS: THIAMINE 100 MG TAB PO SCH ×2 (08:54→17:00)
[2023-10-06] MEDS: TAMSULOSIN 0.4 MG CAP.ER.24H PO SCH (08:54)
[2023-10-06] MEDS: MULTIVITAMINS, THERA 1 EACH TAB PO SCH (08:54)
[2023-10-06] MEDS: carvediloL 12.5 MG TAB PO SCH ×2 (08:54→17:00)
[2023-10-06] MEDS: HEPARIN SODIUM,PORCINE 5,000 UNIT/ML 1 ML VIAL SQ SCH ×2 (08:54→21:09)
[2023-10-06] MEDS: ASPIRIN 81 MG PO SCH (08:54)
[2023-10-06 10:07] LABS: Basophils # (A) 0.04 X 10*3/uL (0.00-0.10); Basophils % (A) 0.5 %; Eosinophils # (A) 0.33 X 10*3/uL (0.04-0.35); Eosinophils % (A) 3.8 %; HCT 28.4 % (39.6-50.0); HGB 8.9 g/dL (13.0-17.0); Lymphocytes # (A) 1.27 X 10*3/uL (0.90-5.00); Lymphocytes % (A) 14.4 %; MCH 26.1 pg (27.0-32.0); MCHC 31.3 g/dL (32.0-37.0); MCV 83.3 FL (80.0-97.0); Mean Platelet Volume 9.4 FL (9.5-12.2); Monocytes # (A) 0.62 X 10*3/uL (0.20-1.00); Monocytes % (A) 7.1 %; NRBC Per 100 WBC 0 X 10*3/uL (0.00-0.01); Neutrophils # (A) 6.51 X 10*3/uL (1.80-7.70); Platelet Count 351 X 10*3/uL (140-440); RBC 3.41 X 10*6/uL (4.40-5.60); RDW 14.2 % (11.5-14.5); WBC 8.79 X 10*3/uL (4.50-10.00)
--- NOTE | 2023-10-06 10:37 | P.PN ---
Subjective Progress Note Date: 10/05/23 Patient was seen for a follow-up. Patient states that he is "doing great". Patient denies headache. He is slightly hard of hearing. Patient states that he lives by himself. He does have a 4 wheeled walker with seat and has been using it for the last 4 years. Patient states that he could not walk far, would get tired quickly, and used to walk slow, therefore his walker helps, and he can walk faster, and can sit anytime when he wants to. Patient states he has 3 sons and 2 daughters. Patient denies headache, but he has significant light sensitivity/photosensitivity and dry eyes, and his eyes hurt. He believes occurred after he was given Keytruda. Patient states that photosensitivity and dry eyes is the side effect of Keytruda. Patient states that he was diagnosed with lung cancer, and states Keytruda is an investigational medication. Patient states "I don't think I have canceled". Patient does have a pacemaker, defibrillator. Patient has bad left leg and it hurts periodically. Objective - Vital Signs Vital signs: Vital Signs Temp 97.8 F 10/05/23 07:57 Pulse 73 10/05/23 07:57 Resp 16 10/05/23 08:00 BP 123/66 10/05/23 07:57 Pulse Ox 97 10/05/23 07:57 FiO2 Intake & Output 10/04/23 10/05/23 10/05/23 18:59 06:59 18:59 Intake Total 800 Output Total 850 800 Balance -850 0 Intake: Intake, IV Titration 200 Amount Piperacillin-Tazobactam 3 200 .375 gm In Sodium Chloride 0.9% 100 ml @ 25 mls/hr IVPB Q8H [facility] Rx#: [id number] Oral 600 Output: Urine 850 800 Other: Voiding Method Diaper Diaper Diaper Indwelling Catheter Indwelling Catheter Indwelling Catheter - Exam Patient is much more alert and awake. He keeps his eyes closed, as he states that he is light sensitive for last 1 month. He knows it is September and the year is 2023 and that he is in the [facility], in [place] in [place]. Patient is slightly hard of hearing. He can name and repeat very well. No aphasia or dysarthria. Patient's strength is normal in bilateral upper limbs. He is able to wiggle his ankles, and legs equally bilaterally. His left leg hurts periodically. - Labs CBC & Chem 7: 10/06/23 06:36 10/06/23 06:36 Labs: Abnormal Lab Results - Last 24 Hours (Table) 10/04/23 10/04/23 10/04/23 Range/Units 05:43 17:00 20:46 RBC (4.30-5.90) m/uL Hgb (13.0-17.5) gm/dL Hct (39.0-53.0) % Lymphocytes # (1.0-4.8) k/uL Sodium 132 L (135-145) mmol/L Chloride (98-107) mmol/L Anion Gap 14.00 H (4.00-12.00) mmol/L BUN 30.6 H (9.0-27.0) mg/dL Est GFR (CKD-EPI) 46 L (>=60) BUN/Creatinine Ratio 20.40 H (12.00-20.00) Ratio Glucose 194 H (70-110) mg/dL POC Glucose (mg/dL) 290 H 196 H (70-110) mg/dL Calcium 8.6 L (8.7-10.3) mg/dL AST 82 H (14-35) U/L Albumin 3.3 L (3.8-4.9) g/dL Albumin/Globulin Ratio 1.06 L (1.60-3.17) Ratio 10/05/23 10/05/23 10/05/23 Range/Units 06:50 06:50 07:03 RBC 3.29 L (4.30-5.90) m/uL Hgb 9.1 L (13.0-17.5) gm/dL Hct 27.5 L (39.0-53.0) % Lymphocytes # 0.9 L (1.0-4.8) k/uL Sodium 134 L (135-145) mmol/L Chloride 97 L (98-107) mmol/L Anion Gap (4.00-12.00) mmol/L BUN 26 H (9.0-27.0) mg/dL Est GFR (CKD-EPI) (>=60) BUN/Creatinine Ratio (12.00-20.00) Ratio Glucose 169 H (70-110) mg/dL POC Glucose (mg/dL) 186 H (70-110) mg/dL Calcium 8.3 L (8.7-10.3) mg/dL AST (14-35) U/L Albumin 3.1 L (3.8-4.9) g/dL Albumin/Globulin Ratio (1.60-3.17) Ratio Microbiology - Last 24 Hours (Table) 10/01/23 10:10 Blood Culture - Preliminary Blood 10/01/23 10:22 Blood Culture - Preliminary Blood Assessment and Plan Assessment: * Altered mental status, likely due to delirium, independently improving. 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 * Possible pneumonia/bronchiectasis. * Status post laparoscopic cholecystectomy, POD #1 * Hyponatremia * Hyperkalemia * Mild renal insufficiency * Anemia * History of possible lung cancer. * Light sensitivity and dry eyes, which patient believes from side effect of Keytruda. * Presence of pacemaker defibrillator. Plan: * Patient's mentation has much improved. Patient able to provide history much more clearly. He feels much better, and the pain has improved. He is very pleased with the results of cholecystectomy. * Patient is status post laparoscopic cholecystectomy, POD #2. * Patient has possible sepsis, currently on Zosyn, ID input appreciated. * EEG was performed, which was abnormal due to background slowing of mild to moderate degree, intermittent, suggestive of mild encephalopathy. No epileptiform activity was seen. * B12 811, folate 12.40, TSH 4.030, RPR nonreactive, all normal * Hemoglobin A1c 10.2 on 09/20/2023, indicating poorly controlled diabetes. Recommend optimize control of diabetes to target A1c < 7.0 * Lipid panel with cholesterol 105, LDL 58, HDL 29, triglycerides 83. Continue Lipitor 40 mg daily. * DVT prophylaxis:, Patient on heparin 5000 units subcu every 12 hours * Computed tomography scan of the head revealed possibility of normal pressure hydrocephalus. Patient cannot have MRI of the brain because of presence of pacemaker. I informed patient about the symptoms of NPH including memory disturbance, shuffling gait, and bladder issues. He was also informed about the possible workup and treatment for NPH. Discussed about lumbar puncture, but he declined. He wants to think about it, and wants to get better with current illness, which I seem to agree. * Neurology will follow clinically.
[2023-10-06 12:36] LABS: Glucose,Whole Blood 103 mg/dL (70-110)
[2023-10-06] MEDS: FOLIC ACID 1 MG TAB PO SCH (12:51)
[2023-10-06] MEDS: HALOPERIDOL LACTATE 5 MG/ML 1 ML VIAL IM PRN (13:27)
--- NOTE | 2023-10-06 14:35 | P.PN ---
Subjective Progress Note Date: 10/06/23 He is resting comfortably. Lunch still at bedside not completely eaten. Asked regarding abdominal pain, "None of your business." LABS: Hypoglycemia, BSG 34. PLAN: 1. Stable for discharge from surgical standpoint. Objective - Vital Signs Vital signs: Vital Signs Temp 98.7 F 10/06/23 13:20 Pulse 83 10/06/23 13:20 Resp 17 10/06/23 13:20 BP 129/69 10/06/23 13:20 Pulse Ox 92 L 10/06/23 13:20 FiO2 Intake & Output 10/05/23 10/06/23 10/06/23 18:59 06:59 18:59 Intake Total 940 800 Output Total 1100 Balance 940 -300 Intake: Intake, IV Titration 200 200 Amount Piperacillin-Tazobactam 3 200 200 .375 gm In Sodium Chloride 0.9% 100 ml @ 25 mls/hr IVPB Q8H [facility] Rx#: [id number] Oral 740 600 Output: Urine 1100 Other: Voiding Method Diaper Diaper Diaper Indwelling Catheter Indwelling Catheter Indwelling Catheter - Labs CBC & Chem 7: 10/06/23 06:36 10/06/23 06:36 Labs: Abnormal Lab Results - Last 24 Hours (Table) 10/05/23 10/05/23 10/06/23 Range/Units 17:23 20:00 06:36 RBC 3.41 L (4.40-5.60) X 10*6/uL Hgb 8.9 L (13.0-17.0) g/dL Hct 28.4 L (39.6-50.0) % MCH 26.1 L (27.0-32.0) pg MCHC 31.3 L (32.0-37.0) g/dL MPV 9.4 L (9.5-12.2) FL Glucose (74-99) mg/dL POC Glucose (mg/dL) 157 H 195 H (70-110) mg/dL Albumin (3.5-5.0) g/dL 10/06/23 10/06/23 10/06/23 Range/Units 06:36 07:21 07:22 RBC (4.40-5.60) X 10*6/uL Hgb (13.0-17.0) g/dL Hct (39.6-50.0) % MCH (27.0-32.0) pg MCHC (32.0-37.0) g/dL MPV (9.5-12.2) FL Glucose 34 L* (74-99) mg/dL POC Glucose (mg/dL) 43 L 41 L (70-110) mg/dL Albumin 3.2 L (3.5-5.0) g/dL 10/06/23 Range/Units 07:39 RBC (4.40-5.60) X 10*6/uL Hgb (13.0-17.0) g/dL Hct (39.6-50.0) % MCH (27.0-32.0) pg MCHC (32.0-37.0) g/dL MPV (9.5-12.2) FL Glucose (74-99) mg/dL POC Glucose (mg/dL) 60 L (70-110) mg/dL Albumin (3.5-5.0) g/dL
[2023-10-06 17:13] LABS: Glucose,Whole Blood 96 mg/dL (70-110)
[2023-10-06 19:27] LABS: Glucose,Whole Blood 128 mg/dL (70-110)
[2023-10-06] MEDS: INSULIN DETEMIR (LEVEMIR) 100 UNIT/ML SYR SQ SCH (21:03)
[2023-10-06] MEDS: ATORVASTATIN 40 MG TAB PO SCH (21:09)
[2023-10-07 01:48] LABS: Glucose,Whole Blood 191 mg/dL (70-110)
[2023-10-07] MEDS: ONDANSETRON 4 MG/2 ML VIAL IVP PRN (02:04)
[2023-10-07] MEDS: PIPERACILLIN-TAZOBACTAM 3.375 GM in SODIUM CHLORIDE 0.9% 100 ML IVPB SCH ×3 (02:06→17:59)
[2023-10-07] MEDS: HYDROcodone/APAP 5-325MG 1 EACH TAB PO PRN (02:09)
--- NOTE | 2023-10-07 03:22 | PN ---
PROGRESS NOTE DATE OF SERVICE: 10/06/2023 SUBJECTIVE: This is an 83-year-old gentleman who was admitted with acute cholelithiasis and cholecystitis, also had significant confusion. Blood sugar was found to be extremely low. The p.o. intake is apparently erratic. The chest x-ray done yesterday which was reviewed personally by me showed evidence of right-sided pneumonia versus enlarging pulmonary nodule. PAST MEDICAL HISTORY: Reviewed. REVIEW OF SYSTEMS: Could not be taken. CURRENT MEDICATIONS: Reviewed include Foley, rest of the medications noted. PHYSICAL EXAMINATION: VITAL SIGNS: Pulse is 82, blood pressure 110/60, and respirations 17. HEENT: Conjunctivae normal. NECK: No jugular venous distention. CARDIOVASCULAR: S1, S2 muffled. RESPIRATIONS: Few scattered rhonchi. ABDOMEN: Soft. NERVOUS SYSTEM: Nonfocal. LABORATORY DATA: Hemoglobin 8.9, glucose 34, improving at this time with 5% dextrose. ASSESSMENT: 1. Acute cholelithiasis and cholecystitis, status post laparoscopic cholecystectomy, present on admission. 2. Possible right-sided pneumonia versus right pulmonary nodule, enlarging. 3. Severe dehydration with acute renal failure on admission. 4. Severe hypoglycemia. 5. Possible dementia. 6. Change in mental status, acute metabolic encephalopathy, multifactorial. 7. Hyponatremia. 8. Elevated procalcitonin. 9. Hyperkalemia, secondary to renal failure. 10.Chronic obstructive pulmonary disease. 11.Multiple complex medical issues. 12.Full code. RECOMMENDATIONS: Recommended to continue current management, continue symptomatic treatment, otherwise I would stop the linagliptin and I will reduce the dose of Lantus 50 units subcu q.h.s., hold if the Accu-Cheks are less than 120. Otherwise, dextrose drip and 50% dextrose. Monitor hypoglycemia closely. The patient is on broad-spectrum IV antibiotics. The cultures are negative so far, however, the prognosis is extremely guard because of multiple complex medical issues. Further recommendations to follow. See orders for details. MMODL / IJN: [id number] /
[2023-10-07 07:21] LABS: Glucose,Whole Blood 217 mg/dL (70-110)
--- NOTE | 2023-10-07 07:59 | P.PN ---
Subjective Progress Note Date: 10/06/23 Principal diagnosis: Reason for follow-up is fever and sepsis/cholecystitis Patient is a 83-year-old male with a past medical history significant for diabetes mellitus hypertension hyperlipidemia COPD history of prostate disorder patient apparently was recently admitted at [facility] with sepsis secondary to gallstone patient was stabilized subsequently discharged to the [facility] rehab, patient was brought to the [facility] ER for evaluation of weakness confusion hallucination did have a low-fever concerning for sepsis. Patient is s/p laparoscopic ostectomy completed by general surgery on 10/03/2023 On today's evaluation 10/06/2023 patient remains to be afebrile, patient is breathing comfortably on 3 L nasal cannula oxygen patient noticed to have a low blood sugar this morning and subsequently did have some mental status change and agitation patient was able to provide any history Patient did have white count is 8.79, creatinine is 0.95, cultures are currently pending Objective - Vital Signs Vital signs: Vital Signs Temp 98.7 F 10/06/23 13:20 Pulse 83 10/06/23 13:20 Resp 17 10/06/23 13:20 BP 129/69 10/06/23 13:20 Pulse Ox 92 L 10/06/23 13:20 FiO2 Intake & Output 10/05/23 10/06/23 10/06/23 18:59 06:59 18:59 Intake Total 940 800 Output Total 1100 Balance 940 -300 Intake: Intake, IV Titration 200 200 Amount Piperacillin-Tazobactam 3 200 200 .375 gm In Sodium Chloride 0.9% 100 ml @ 25 mls/hr IVPB Q8H [facility] Rx#: [id number] Oral 740 600 Output: Urine 1100 Other: Voiding Method Diaper Diaper Diaper Indwelling Catheter Indwelling Catheter Indwelling Catheter - Exam GENERAL DESCRIPTION: An elderly male lying in bed in no distress RESPIRATORY SYSTEM: Unlabored breathing , decreased breath sounds at bases HEART: S1 S2 regular rate and rhythm , ABDOMEN: Soft , no tenderness EXTREMITIES: No edema feet - Labs CBC & Chem 7: 10/06/23 06:36 10/06/23 06:36 Labs: Abnormal Lab Results - Last 24 Hours (Table) 10/05/23 10/05/23 10/06/23 Range/Units 17:23 20:00 06:36 RBC 3.41 L (4.40-5.60) X 10*6/uL Hgb 8.9 L (13.0-17.0) g/dL Hct 28.4 L (39.6-50.0) % MCH 26.1 L (27.0-32.0) pg MCHC 31.3 L (32.0-37.0) g/dL MPV 9.4 L (9.5-12.2) FL Glucose (74-99) mg/dL POC Glucose (mg/dL) 157 H 195 H (70-110) mg/dL Albumin (3.5-5.0) g/dL 10/06/23 10/06/23 10/06/23 Range/Units 06:36 07:21 07:22 RBC (4.40-5.60) X 10*6/uL Hgb (13.0-17.0) g/dL Hct (39.6-50.0) % MCH (27.0-32.0) pg MCHC (32.0-37.0) g/dL MPV (9.5-12.2) FL Glucose 34 L* (74-99) mg/dL POC Glucose (mg/dL) 43 L 41 L (70-110) mg/dL Albumin 3.2 L (3.5-5.0) g/dL 10/06/23 Range/Units 07:39 RBC (4.40-5.60) X 10*6/uL Hgb (13.0-17.0) g/dL Hct (39.6-50.0) % MCH (27.0-32.0) pg MCHC (32.0-37.0) g/dL MPV (9.5-12.2) FL Glucose (74-99) mg/dL POC Glucose (mg/dL) 60 L (70-110) mg/dL Albumin (3.5-5.0) g/dL Microbiology - Last 24 Hours (Table) 10/01/23 10:10 Blood Culture - Final Blood 10/01/23 10:22 Blood Culture - Final Blood Assessment and Plan (1) Sepsis Current Visit: Yes Status: Acute Code(s): A41.9 - SEPSIS, UNSPECIFIED ORGANISM SNOMED Code(s): 25288678 (2) Cholecystitis Current Visit: Yes Status: Acute Code(s): K81.9 - CHOLECYSTITIS, UNSPECIFIED SNOMED Code(s): 41874539 Plan: 1patient with sepsis in this patient who did have a fever tachycardia source likely gallbladder disease in this patient who recently did have a similar presentation to the [facility] and apparently was treated for COVID-related sepsis per the son at the bedside keeping in mind being around the hospital will need to cover for more resistant gram-negative pathogen 2-patient is status post cholecystectomy completed by general surgery concerning for cholecystitis 3patient is afebrile and the patient white count has normalized, 4- patient to continue Zosyn 3.375 g every 8 hours while waiting for condition to stabilize and culture to finalize Dictation was produced using [employer] dictation software. please excuse any grammatical, word or spelling errors. Time with Patient: Less than 30
[2023-10-07] MEDS: SENNOSIDES-DOCUSATE SODIUM 1 EACH TAB PO SCH ×2 (09:02→16:11)
[2023-10-07] MEDS: HEPARIN SODIUM,PORCINE 5,000 UNIT/ML 1 ML VIAL SQ SCH ×2 (09:03→21:09)
[2023-10-07] MEDS: PANTOPRAZOLE 40 MG/10 ML VIAL IVP SCH ×2 (09:03→21:09)
[2023-10-07] MEDS: carvediloL 12.5 MG TAB PO SCH ×2 (09:03→17:59)
[2023-10-07] MEDS: ASPIRIN 81 MG PO SCH (09:03)
[2023-10-07] MEDS: THIAMINE 100 MG TAB PO SCH ×2 (09:03→17:59)
[2023-10-07] MEDS: TAMSULOSIN 0.4 MG CAP.ER.24H PO SCH (09:03)
[2023-10-07] MEDS: INSULIN ASPART (NovoLOG) 100 UNIT/ML VIAL SQ SCH ×4 (09:03→21:02)
[2023-10-07] MEDS: ARTIFICIAL TEARS-HYPROMELLOSE DROPS 15 ML BTL BOTH EYES PRN (09:04)
[2023-10-07 11:11] LABS: Basophils # (A) 0.04 X 10*3/uL (0.00-0.10); Basophils % (A) 0.4 %; Eosinophils # (A) 0.58 X 10*3/uL (0.04-0.35); Eosinophils % (A) 5.8 %; HCT 28.8 % (39.6-50.0); Lymphocytes # (A) 1.24 X 10*3/uL (0.90-5.00); Lymphocytes % (A) 12.3 %; MCH 26.3 pg (27.0-32.0); MCHC 31.3 g/dL (32.0-37.0); MCV 84.2 FL (80.0-97.0); Mean Platelet Volume 9.5 FL (9.5-12.2); Monocytes # (A) 0.74 X 10*3/uL (0.20-1.00); Monocytes % (A) 7.4 %; NRBC Per 100 WBC 0 X 10*3/uL (0.00-0.01); Neutrophils # (A) 7.43 X 10*3/uL (1.80-7.70); Neutrophils % (A) 73.8 %; Platelet Count 390 X 10*3/uL (140-440); RBC 3.42 X 10*6/uL (4.40-5.60); RDW 14.3 % (11.5-14.5); WBC 10.06 X 10*3/uL (4.50-10.00)
[2023-10-07 11:36] LABS: Glucose,Whole Blood 186 mg/dL (70-110)
[2023-10-07 11:37] LABS: ALT 23 U/L (10-49); AST 22 U/L (14-35); Albumin 3.2 g/dL (3.8-4.9); Albumin/Globulin Ratio 1.14 Ratio (1.60-3.17); Alkaline Phosphatase 74 U/L (41-126); BUN/Creat Ratio 11.92 Ratio (12.00-20.00); Blood Urea Nitrogen 14.3 mg/dL (9.0-27.0); Calcium 8.8 mg/dL (8.7-10.3); Carbon Dioxide 26.1 mmol/L (21.6-31.8); Chloride 98 mmol/L (96-109); Globulin 2.8 g/dL (1.6-3.3); Glucose 222 mg/dL (70-110); Potassium 4.8 mmol/L (3.5-5.5); Sodium 133 mmol/L (135-145); Total Bilirubin 0.3 mg/dL (0.3-1.2)
[2023-10-07] MEDS: MULTIVITAMINS, THERA 1 EACH TAB PO SCH (12:00)
[2023-10-07] MEDS: FOLIC ACID 1 MG TAB PO SCH (12:00)
--- NOTE | 2023-10-07 13:21 | P.PN ---
Subjective Progress Note Date: 10/07/23 CHIEF COMPLAINT: Altered mental status HISTORY OF PRESENT ILLNESS: Patient postop day #4 status post laparoscopic cholecystectomy. Patient's pain is controlled. He is tolerating diet. He did have a bowel movement. Afebrile. WBC 10.06 Hgb 9.0 platelets 390 PHYSICAL EXAM: VITAL SIGNS: Reviewed. GENERAL: Well-developed in no acute distress. ABDOMEN: Soft. Nondistended. Incision sites clean dry and intact NEUROLOGIC: Awake. Answering questions. Slightly confused. ASSESSMENT: 1. Cholecystitis status post laparoscopic cholecystectomy PLAN: -Patient can be discharged from surgical standpoint when medically cleared -Continue home pain medication for pain control Physician Electrical Mechanical Technician note has been reviewed by physician. Signing provider agrees with the documented findings, assessment, and plan of care. Objective - Vital Signs Vital signs: Vital Signs Temp 97.7 F 10/07/23 11:35 Pulse 85 10/07/23 11:35 Resp 18 10/07/23 11:35 BP 120/68 10/07/23 11:35 Pulse Ox 94 L 10/07/23 11:35 FiO2 Intake & Output 10/06/23 10/07/23 10/07/23 18:59 06:59 18:59 Intake Total 470 700 Output Total 600 400 300 Balance -130 300 -300 Intake: Intake, IV Titration 100 Amount Piperacillin-Tazobactam 3 100 .375 gm In Sodium Chloride 0.9% 100 ml @ 25 mls/hr IVPB Q8H [facility] Rx#: [id number] Oral 470 600 Output: Urine 600 400 300 Straight 600 Other: Voiding Method Diaper Diaper Diaper Indwelling Catheter Indwelling Catheter - Labs CBC & Chem 7: 10/07/23 06:54 10/07/23 06:54 Labs: Abnormal Lab Results - Last 24 Hours (Table) 10/06/23 10/07/23 10/07/23 Range/Units 19:25 01:46 06:54 WBC 10.06 H (4.50-10.00) X 10*3/uL RBC 3.42 L (4.40-5.60) X 10*6/uL Hgb 9.0 L (13.0-17.0) g/dL Hct 28.8 L (39.6-50.0) % MCH 26.3 L (27.0-32.0) pg MCHC 31.3 L (32.0-37.0) g/dL Eosinophils # 0.58 H (0.04-0.35) X 10*3/uL Sodium (135-145) mmol/L BUN/Creatinine Ratio (12.00-20.00) Ratio Glucose (70-110) mg/dL POC Glucose (mg/dL) 128 H 191 H (70-110) mg/dL Total Protein (6.2-8.2) g/dL Albumin (3.8-4.9) g/dL Albumin/Globulin Ratio (1.60-3.17) Ratio 10/07/23 10/07/23 10/07/23 Range/Units 06:54 07:20 11:34 WBC (4.50-10.00) X 10*3/uL RBC (4.40-5.60) X 10*6/uL Hgb (13.0-17.0) g/dL Hct (39.6-50.0) % MCH (27.0-32.0) pg MCHC (32.0-37.0) g/dL Eosinophils # (0.04-0.35) X 10*3/uL Sodium 133 L (135-145) mmol/L BUN/Creatinine Ratio 11.92 L (12.00-20.00) Ratio Glucose 222 H (70-110) mg/dL POC Glucose (mg/dL) 217 H 186 H (70-110) mg/dL Total Protein 6.0 L (6.2-8.2) g/dL Albumin 3.2 L (3.8-4.9) g/dL Albumin/Globulin Ratio 1.14 L (1.60-3.17) Ratio Microbiology - Last 24 Hours (Table) 10/01/23 10:10 Blood Culture - Final Blood 10/01/23 10:22 Blood Culture - Final Blood
--- NOTE | 2023-10-07 13:43 | P.PN ---
Subjective Progress Note Date: 10/07/23 On today's evaluation of 10/07/2023, the patient is being seen for a follow-up. Patient is doing extremely well. No specific complaints. No nausea. No vomiting. No significant abdominal pain. The patient is post cholecystectomy the surgery was done on 10/03/2023 and the patient is currently postop day #4. Tolerating diet. Is currently on IV Zosyn. COPD stable. The right lower lobe pulmonary nodule that was noted and the CAT scan of the chest cavity workup on outpatient basis. Other comorbidities including diabetes mellitus, hypertension hyperlipidemia and previous history of CHF and the patient has an AICD in place. In terms of labs, the WBC was a 10.6 with a hemoglobin of 9, sodium is at 133, BUN is at 14 with a creatinine of 1.2. LFTs are normal. Surgical wound is dry clean and intact. Patient was transitioned to room air oxygen. Using incentive spirometer. He is afebrile. Objective - Vital Signs Vital signs: Vital Signs Temp 98.1 F 10/07/23 07:18 Pulse 91 10/07/23 07:18 Resp 18 10/07/23 07:18 BP 112/65 10/07/23 07:18 Pulse Ox 96 10/07/23 07:18 FiO2 Intake & Output 10/06/23 10/07/23 10/07/23 18:59 06:59 18:59 Intake Total 470 700 Output Total 600 400 300 Balance -130 300 -300 Intake: Intake, IV Titration 100 Amount Piperacillin-Tazobactam 3 100 .375 gm In Sodium Chloride 0.9% 100 ml @ 25 mls/hr IVPB Q8H [facility] Rx#: [id number] Oral 470 600 Output: Urine 600 400 300 Straight 600 Other: Voiding Method Diaper Diaper Indwelling Catheter Indwelling Catheter - Exam GENERAL EXAM: Alert, confused at times, low blood sugar, 83-year-old male patient, on room air oxygen. HEAD: Normocephalic. EYES: Normal reaction of pupils, equal size. NOSE: Clear with pink turbinates. THROAT: No erythema or exudates. NECK: No masses, no JVD. CHEST: No chest wall deformity. LUNGS: Equal air entry with no crackles, wheeze, rhonchi or dullness. CVS: S1 and S2 normal with no audible murmur, regular rhythm. ABDOMEN: Surgical incisions clean dry well approximated. No hepatosplenomegaly, normal bowel sounds, no guarding or rigidity. SPINE: No scoliosis or deformity SKIN: No rashes CENTRAL NERVOUS SYSTEM: No focal deficits, tone is normal in all 4 extremities. EXTREMITIES: There is no peripheral edema. No clubbing, no cyanosis. Peripheral pulses are intact. - Labs CBC & Chem 7: 10/07/23 06:54 10/07/23 06:54 Labs: Abnormal Lab Results - Last 24 Hours (Table) 10/06/23 10/07/23 10/07/23 Range/Units 19:25 01:46 06:54 WBC 10.06 H (4.50-10.00) X 10*3/uL RBC 3.42 L (4.40-5.60) X 10*6/uL Hgb 9.0 L (13.0-17.0) g/dL Hct 28.8 L (39.6-50.0) % MCH 26.3 L (27.0-32.0) pg MCHC 31.3 L (32.0-37.0) g/dL Eosinophils # 0.58 H (0.04-0.35) X 10*3/uL Sodium (135-145) mmol/L BUN/Creatinine Ratio (12.00-20.00) Ratio Glucose (70-110) mg/dL POC Glucose (mg/dL) 128 H 191 H (70-110) mg/dL Total Protein (6.2-8.2) g/dL Albumin (3.8-4.9) g/dL Albumin/Globulin Ratio (1.60-3.17) Ratio 10/07/23 10/07/23 10/07/23 Range/Units 06:54 07:20 11:34 WBC (4.50-10.00) X 10*3/uL RBC (4.40-5.60) X 10*6/uL Hgb (13.0-17.0) g/dL Hct (39.6-50.0) % MCH (27.0-32.0) pg MCHC (32.0-37.0) g/dL Eosinophils # (0.04-0.35) X 10*3/uL Sodium 133 L (135-145) mmol/L BUN/Creatinine Ratio 11.92 L (12.00-20.00) Ratio Glucose 222 H (70-110) mg/dL POC Glucose (mg/dL) 217 H 186 H (70-110) mg/dL Total Protein 6.0 L (6.2-8.2) g/dL Albumin 3.2 L (3.8-4.9) g/dL Albumin/Globulin Ratio 1.14 L (1.60-3.17) Ratio Microbiology - Last 24 Hours (Table) 10/01/23 10:10 Blood Culture - Final Blood 10/01/23 10:22 Blood Culture - Final Blood Assessment and Plan Plan: Right upper quadrant pain suspect secondary to cholecystitis. Status post laparoscopic cholecystectomy on 10/03/2023. Postoperative day # or Probable pneumonia, right lower lung zone. ProCalcitonin 0.10. Currently on Zosyn. History of COPD, from previous heavy tobacco use. Pulmonary nodule, right lung, enlarging, may relate to underlying lung cancer. History of diabetes mellitus. History of hyperlipidemia. History of hypertension. History of congestive heart failure. History of BPH. S/P AICD placement, 2017. Prior history of tobacco use. Plan: Advance diet as tolerated Respiratory status is stable and the patient is currently on room air oxygen Continue IV Zosyn isto oral antibiotics Continue using incentive spirometer pulmonary nodules can be worked up on outpatient basis The blood sugars under better control and the patient is taken Levemir insulin 15 units at bedtime and NovoLog to scale coverage We'll continue to follow
--- NOTE | 2023-10-07 13:48 | P.DS ---
Providers Date of admission: 10/01/23 14:50 Expected date of discharge: 10/07/23 Attending physician: Kaley Lucio Consults: 10/01/23 14:36 Consult Physician Routine Consulting Provider: Cory Lawrence Consult Reason/Comments: ams Do you want consulting provider notified?: Already Contacted 10/01/23 14:37 Consult Physician Routine Consulting Provider: Raymond Gill Consult Reason/Comments: chest pain Do you want consulting provider notified?: Yes 10/02/23 13:03 Consult Physician Routine Consulting Provider: West Ruvalcaba Consult Reason/Comments: cholelithiasis Do you want consulting provider notified?: Yes 10/02/23 13:04 Consult Physician Routine Consulting Provider: Luis Antonio Rausch Consult Reason/Comments: lung nodule Do you want consulting provider notified?: Yes 10/02/23 13:33 Consult Physician Routine Consulting Provider: Kishore Sutton Consult Reason/Comments: AMS, Hydrocephalus fever 101.4 Do you want consulting provider notified?: Yes Primary care physician: Parag Gee [facility] Course: Final diagnosis Acute cholelithiasis and cholecystitis, status post laparoscopic cholecystectomy, present on admission Possible right-sided pneumonia versus right pulmonary nodule, enlarging, pro- calcitonin was low Severe dehydration with acute renal failure on admission, improving Severe hypoglycemia with history of diabetes mellitus, uncontrolled with hyper and hypoglycemia, insulin-dependent Possible dementia Change in mental status with acute metabolic encephalopathy, multifactorial, improved hyponatremia from poor oral intake Hyperkalemia secondary to renal failure, improving Chronic obstructive pulmonary disease GI prophylaxis DVT prophylaxis Full code Discharge disposition Patient is being discharged in a stable condition with guarded prognosis to [facility]. Patient will follow-up with Dr. Gee in the outpatient setting upon discharge. Patient is to continue with oral Augmentin twice daily for the next 5 days and close outpatient follow-up with general surgery and cardiology outpatient as scheduled. Total time taken is greater than 35 minutes. Hospital course This is a 83-year-old male who was recently admitted with some confusion and abnormal blood sugars and decreased appetite with pain with eating being closely monitored by multiple medical consultations. Patient was found to have acute cholelithiasis and cholecystitis status post cholecystectomy. Patient has been cleared by general surgery recommended outpatient follow-up. Patient also with uncontrolled blood sugars and insulin-dependent would recommend adjusting the medications and monitoring closely with Accu-Cheks before meals and at bedtime and 2 AM as needed as patient has been having hyper and hypoglycemic events during hospitalization. Patient also evaluated by infectious disease along with pulmonary with concerns of possible pneumonia maintained on Zosyn and will continue oral Augmentin for the next 5 days to complete the course. Patient continues breathing inhalational treatments as well. Patient seen and evaluated by cardiology with adjustments to medications recommend an outpatient follow-up. Patient has been cleared by consultations for discharge to [facility] today. Please refer to other consultation notes for further HPI. Currently no reports of chest pain, shortness of breath, or palpitations. Patient is afebrile. No reports of nausea or vomiting and patient is tolerating diet. Patient will be discharged to [facility] today. Guarded prognosis. Physical exam: Gen: This is a 83-year-old male who is awake, alert and oriented 2-3, baseline, well-developed, well-nourished, elderly-appearing HEENT: Head is atraumatic, normocephalic. Pupils equal, round. Sclerae is anicteric. NECK: Supple. No JVD. No lymphadenopathy. No thyromegaly. LUNGS: Diminished breath sounds bilaterally otherwise Clear to auscultation. No wheezes or rhonchi. No intercostal retractions. HEART: Regular rate and rhythm. No murmur. ABDOMEN: Soft. Obese Bowel sounds are present. No masses. No tenderness. EXTREMITIES: No pedal edema. No calf tenderness. NEUROLOGICAL: Patient is awake, alert and oriented x2-3. Cranial nerves 2 through 12 are grossly intact. Diffusely weak Please refer to medication reconciliation sheet for a list of medications. The impression and plan of care has been dictated by Ericka Graham, Nurse Practitioner as directed. Dr. Naveed MD I have performed a history and examination and MDM of this patient, discussed the same with the dictator, and agree with the dictator's assessment and plan as written ,documented as a scribe. Based on total visit time, I have performed more than 50% of the visit. Patient Condition at Discharge: Fair Plan - Discharge Summary Discharge Rx Participant: No New Discharge Prescriptions: New Amoxic-Pot Clav 600-42.9MG/5Ml [Augmentin 600-42.9 mg/5 ml Liquid] 5 ml PO Q12H 5 Days #50 ml Folic Acid 1 mg PO DAILY@1200 tab Heparin Sodium,Porcine (1 ml) [Heparin Sodium] 5,000 unit SQ Q12HR each Insulin Detemir (Levemir) [Levemir] 15 unit SQ HS@2100 each Aspirin 81 mg PO DAILY tab Multivitamins, Thera [Multivitamin (formulary)] 1 each PO DAILY@1200 tab QUEtiapine [SEROquel] 25 mg PO HS PRN tab PRN Reason: Agitation Thiamine [Vitamin B-1] 100 mg PO BID-W/MEALS tab Continue Magnesium Hydroxide [Milk of Magnesia Concentrate] 7,200 mg PO Q48H PRN PRN Reason: Constipation Albuterol Nebulized [Ventolin Nebulized] 2.5 mg INHALATION RT-Q6H PRN PRN Reason: Shortness Of Breath INSULIN LISPRO (HumaLOG) [humaLOG] See Protocol SQ ACHS Acetaminophen Tab [Tylenol] 650 mg PO Q6H PRN PRN Reason: Fever And/ Or Pain carvediloL [Coreg] 12.5 mg PO BID@0800,1700 sitaGLIPtin [Januvia] 100 mg PO DAILY@0800 Pantoprazole [Protonix] 40 mg PO DAILY@0600 Tamsulosin HCl [Flomax] 0.4 mg PO DAILY@0800 HYDROcodone/APAP 5-325MG [[place] 5-325] 1 tab PO Q6H PRN #4 tab PRN Reason: Pain Nitroglycerin Sl Tabs [Nitrostat] 0.4 mg SUBLINGUAL Q5M PRN PRN Reason: Chest Pain Rxgaygbt-Utmsagtnvhmb-Avu 400 Ophthalmic Solution 0.2-0.2-1% 1 drop BOTH EYES QID PRN PRN Reason: Dry Eye(S) bisacodyL [Dulcolax] 10 mg RECTAL DAILY PRN PRN Reason: Constipation Na Phos,M-B/Na Phos,Di-Ba [Fleet Adult] 133 ml RECTAL DAILY PRN PRN Reason: Constipation Calcium Carbonate [Tums] 500 mg PO TID PRN PRN Reason: Heartburn Sennosides-Docusate Sodium [Senokot-S] 1 tab PO BID@0800,1700 Budesonide [Pulmicort] 0.5 mg INHALATION RT-BID@0800,2100 Atorvastatin Calcium [Lipitor] 40 mg PO HS@2100 Discontinued Dicyclomine [Bentyl] 10 mg PO TID PRN 7 Days #21 capsule PRN Reason: Pain Insulin Glargine [Lantus Vial] 25 unit SQ HS@2099 Losartan [Cozaar] 50 mg PO DAILY@0800 Discharge Medication List Acetaminophen Tab [Tylenol] 650 mg PO Q6H PRN 10/01/23 [History] Albuterol Nebulized [Ventolin Nebulized] 2.5 mg INHALATION RT-Q6H PRN 10/01/23 [History] Atorvastatin Calcium [Lipitor] 40 mg PO HS@209910/01/23 [History] Budesonide [Pulmicort] 0.5 mg INHALATION RT-BID@799,209910/01/23 [History] Calcium Carbonate [Tums] 500 mg PO TID PRN 10/01/23 [History] Cvhdydge-Ogbegvfkslho-Njk 400 Ophthalmic Solution 0.2-0.2-1% 1 drop BOTH EYES QID PRN 10/01/23 [History] INSULIN LISPRO (HumaLOG) [humaLOG] See Protocol SQ ACHS 10/01/23 [History] Magnesium Hydroxide [Milk of Magnesia Concentrate] 7,200 mg PO Q48H PRN 10/01/23 [History] Na Phos,M-B/Na Phos,Di-Ba [Fleet Adult] 133 ml RECTAL DAILY PRN 10/01/23 [History] Nitroglycerin Sl Tabs [Nitrostat] 0.4 mg SUBLINGUAL Q5M PRN 10/01/23 [History] Pantoprazole [Protonix] 40 mg PO DAILY@0600 10/01/23 [History] Sennosides-Docusate Sodium [Senokot-S] 1 tab PO BID@0800,1700 10/01/23 [History] Tamsulosin HCl [Flomax] 0.4 mg PO DAILY@0810/01/23 [History] bisacodyL [Dulcolax] 10 mg RECTAL DAILY PRN 10/01/23 [History] carvediloL [Coreg] 12.5 mg PO BID@0800,1700 10/01/23 [History] sitaGLIPtin [Januvia] 100 mg PO DAILY@0800 10/01/23 [History] Amoxic-Pot Clav 600-42.9MG/5Ml [Augmentin 600-42.9 mg/5 ml Liquid] 5 ml PO Q12H 5 Days #50 ml 10/07/23 [Rx] Aspirin 81 mg PO DAILY tab 10/07/23 [Rx] Folic Acid 1 mg PO DAILY@1200 tab 10/07/23 [Rx] HYDROcodone/APAP 5-325MG [[place] 5-325] 1 tab PO Q6H PRN #4 tab 10/07/23 [Rx] Heparin Sodium,Porcine (1 ml) [Heparin Sodium] 5,000 unit SQ Q12HR each 10/07/23 [Rx] Insulin Detemir (Levemir) [Levemir] 15 unit SQ HS@2100 each 10/07/23 [Rx] Multivitamins, Thera [Multivitamin (formulary)] 1 each PO DAILY@1200 tab 10/07/23 [Rx] QUEtiapine [SEROquel] 25 mg PO HS PRN tab 10/07/23 [Rx] Thiamine [Vitamin B-1] 100 mg PO BID-W/MEALS tab 10/07/23 [Rx] Follow up Appointment(s)/Referral(s): Cliff Salguero MD [STAFF PHYSICIAN] - 1 Week Parag Gee MD [Primary Care Provider] - 1-2 days West Ruvalcaba MD [STAFF PHYSICIAN] - 1 Week Ambulatory/Diagnostic Orders: Complete Blood Count w/diff [LAB.AMB] Time Frame: 3 Days, Location: [facility] Selecte d Activity/Diet/Wound Care/Special Instructions: Patient is returning to [employer] Activity as tolerated Continue heart healthy diabetic diet Continue monitoring blood sugars before meals and at bedtime and every morning as needed as patient had high and low blood sugar readings during hospitalization Continue antibiotics for a five-day course to complete the course Follow-up Gen. surgery outpatient next line follow-up cardiology outpatient Repeat CBC, BMP, magnesium in 2-3 days Discharge Disposition: TRANSFER TO SNF/ECF
[2023-10-07] MEDS: ACETAMINOPHEN TAB 325 MG TAB PO PRN ×2 (14:31→23:02)
--- NOTE | 2023-10-07 16:16 | CDI ---
Documentation Clarification Form Date: 10/07/2023 03:44:16 PM From: Desiree Chau RN, CCDS Phone: [phone] Admit Date: 10/01/2023 02:50:00 PM Patient Name: Jabier Olmos Visit Number: [id number] Discharge Date: ATTENTION: The Clinical Documentation Specialists (CDI) and [facility] Coding Staff appreciate your assistance in clarifying documentation. Please respond to the clarification below the line at the bottom and electronically sign. The CDI & [facility] Coding staff will review the response and follow-up if needed. Please note: Queries are made part of the Legal Health Record. If you have any questions, please contact the author of this message via ITS. Dr. Kaley Lucio The patient has sepsis documented in the ID consult and subsequent progress notes. Based on this information and the findings below, is there an additional diagnosis that is clinically appropriate for this patient? History/Risk Factors: Cancer, COPD, Diabetes Mellitus, Hyperlipidemia, Hypertension, Prostate Disorder Clinical Indicators: 83-year-old male with chest pain confusion. CT Chest Consolidation changes in the right lower lung with bronchiectasis and bronchovascular crowding. CT Brain: Dilated ventricles may be partially related to atrophy-related to brain volume loss, but correlate clinically for superimposed NHP. 10/01 WBC 8.9 Lactic acid: 1.0 10/01 Blood cultures: No Growth after 5 days 10/01 VS: 102/57 82 16 99.598% ID Consult: 10/02: 83-year-old male with sepsis in this patient who did have a fever tachycardia source likely gallbladder disease in this patient who recently did have a similar presentation to the [facility]. 10/02 Pulmonary consult: Possible pneumonia, right lower lung zone. Treatment: Zosyn 3.375 MG IVPB Q8 HRS 10/02-10/07 10/03 Laparoscopic Cholecystectomy Tylenol 650 MG PO Q6 PRN Is there an additional diagnosis that is clinically appropriate for this patient? [ x ] Sepsis, present on admission [ ] Sepsis ruled out [ ] Other, please specify [ ] Unable to determine SIRS Criteria: 2 or more of the following may indicate SIRS Temperature < 96.8F (36C) or > 101.0F (38.3C) Heart Rate > 90 bpm Respiratory Rate > 20 breaths/min or PaCO2 < 32 mmHg White Blood Cell Count > 12,000 or < 4,000 cells/mm3 or > 10% bands (Template Last Reviewed: September 2022) MTDD
[2023-10-07 16:50] LABS: Glucose,Whole Blood 201 mg/dL (70-110)
[2023-10-07 20:16] LABS: Glucose,Whole Blood 95 mg/dL (70-110)
--- NOTE | 2023-10-07 20:20 | P.PN ---
Subjective Progress Note Date: 10/07/23 Patient was seen for a follow-up. Patient states that he is not feeling very good. His back is killing. He has pain across the lower back, "the way I am laying". Patient appears slightly agitated today. He was able to put eyedrops and now he can open his eyes very well. He does not appear as light sensitive. Patient denies headache. He is slightly hard of hearing. Patient states that he lives by himself. He does have a 4 wheeled walker with seat and has been using it for the last 4 years. Patient states that he could not walk far, would get tired quickly, and used to walk slow, therefore his walker helps, and he can walk faster, and can sit anytime when he wants to. Patient states he has 3 sons and 2 daughters. Patient denies headache, but he has significant light sensitivity/photo sensitivity and dry eyes, and his eyes hurt. He believes occurred after he was given Keytruda. Patient states that photosensitivity and dry eyes is the side effect of Keytruda. Patient states that he was diagnosed with lung cancer, and states Keytruda is an investigational medication. Patient states "I don't think I have cancer". Patient does have a pacemaker, defibrillator. Patient has bad left leg and it hurts periodically. Objective - Vital Signs Vital signs: Vital Signs Temp 98.7 F 10/07/23 19:24 Pulse 86 10/07/23 19:24 Resp 16 10/07/23 19:24 BP 115/64 10/07/23 19:24 Pulse Ox 90 L 10/07/23 19:24 FiO2 Intake & Output 10/07/23 10/07/23 10/08/23 06:59 18:59 06:59 Intake Total 700 Output Total 400 300 Balance 300 -300 Weight 83.915 kg Intake: Intake, IV Titration 100 Amount Piperacillin-Tazobactam 3 100 .375 gm In Sodium Chloride 0.9% 100 ml @ 25 mls/hr IVPB Q8H [facility] Rx#: [id number] Oral 600 Output: Urine 400 300 Other: Voiding Method Diaper Diaper Indwelling Catheter - Exam Patient is much more alert and awake. He was able to keep his eyes open as he is just put eyedrops. His conjunctivae slightly injected. Pupils are small, but equal, round and reacting. Visual serna are full on confrontation with no neglect. he knowsit is September and the year is 2023 and that he is in the [facility], in [place] in [place]. Patient is slightly hard of hearing. He can name and repeat very well. No aphasia or dysarthria. Patient's strength is normal in bilateral upper limbs. He is able to wiggle his ankles, and legs equally bilaterally. His left leg hurts periodically. - Labs CBC & Chem 7: 10/07/23 06:54 10/07/23 06:54 Labs: Abnormal Lab Results - Last 24 Hours (Table) 10/07/23 10/07/23 10/07/23 Range/Units 01:46 06:54 06:54 WBC 10.06 H (4.50-10.00) X 10*3/uL RBC 3.42 L (4.40-5.60) X 10*6/uL Hgb 9.0 L (13.0-17.0) g/dL Hct 28.8 L (39.6-50.0) % MCH 26.3 L (27.0-32.0) pg MCHC 31.3 L (32.0-37.0) g/dL Eosinophils # 0.58 H (0.04-0.35) X 10*3/uL Sodium 133 L (135-145) mmol/L BUN/Creatinine Ratio 11.92 L (12.00-20.00) Ratio Glucose 222 H (70-110) mg/dL POC Glucose (mg/dL) 191 H (70-110) mg/dL Total Protein 6.0 L (6.2-8.2) g/dL Albumin 3.2 L (3.8-4.9) g/dL Albumin/Globulin Ratio 1.14 L (1.60-3.17) Ratio 10/07/23 10/07/23 10/07/23 Range/Units 07:20 11:34 16:49 WBC (4.50-10.00) X 10*3/uL RBC (4.40-5.60) X 10*6/uL Hgb (13.0-17.0) g/dL Hct (39.6-50.0) % MCH (27.0-32.0) pg MCHC (32.0-37.0) g/dL Eosinophils # (0.04-0.35) X 10*3/uL Sodium (135-145) mmol/L BUN/Creatinine Ratio (12.00-20.00) Ratio Glucose (70-110) mg/dL POC Glucose (mg/dL) 217 H 186 H 201 H (70-110) mg/dL Total Protein (6.2-8.2) g/dL Albumin (3.8-4.9) g/dL Albumin/Globulin Ratio (1.60-3.17) Ratio Microbiology - Last 24 Hours (Table) 10/01/23 10:10 Blood Culture - Final Blood 10/01/23 10:22 Blood Culture - Final Blood Assessment and Plan Assessment: * Altered mental status, likely due to delirium, significantly improved. 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 * Possible pneumonia/bronchiectasis. * Status post laparoscopic cholecystectomy * Hyponatremia, with sodium 133 * Hyperkalemia, resolved. * Mild renal insufficiency * Anemia * History of possible lung cancer. * Light sensitivity and dry eyes, which patient believes from side effect of Keytruda. * Presence of pacemaker defibrillator. Plan: * Patient's mentation has much improved. Patient able to provide history much more clearly. He feels much better, and the pain has improved. He is very pleased with the results of cholecystectomy. * Patient is status post laparoscopic cholecystectomy * Patient has possible sepsis, currently on Zosyn, ID input appreciated. * EEG was performed, which was abnormal due to background slowing of mild to moderate degree, intermittent, suggestive of mild encephalopathy. No epileptiform activity was seen. * B12 811, folate 12.40, TSH 4.030, RPR nonreactive, all normal * Hemoglobin A1c 10.2 on 09/20/2023, indicating poorly controlled diabetes. Recommend optimize control of diabetes to target A1c < 7.0 * Lipid panel with cholesterol 105, LDL 58, HDL 29, triglycerides 83. Continue Lipitor 40 mg daily. * DVT prophylaxis:, Patient on heparin 5000 units subcu every 12 hours * Computed tomography scan of the head revealed possibility of normal pressure hydrocephalus. Patient cannot have MRI of the brain because of presence of pacemaker. I informed patient about the symptoms of NPH including memory disturbance, shuffling gait, and bladder issues. He was also informed about the possible workup and treatment for NPH. Discussed about lumbar puncture, but he declined. He wants to think about it. Patient was informed that if he has issues with balance, memory problems, and control of urine, that he should follow-up with neurosurgeon as an outpatient. * Neurologically, no other workup indicated. Dr. Yordan Rausch starting neurology service from the morning for any neurological concerns.
[2023-10-07] MEDS: ATORVASTATIN 40 MG TAB PO SCH (21:06)
[2023-10-07] MEDS: INSULIN DETEMIR (LEVEMIR) 100 UNIT/ML SYR SQ SCH (21:09)
[2023-10-07] MEDS ORDERED: ZINC OXIDE PASTE (Z-GUARD) 1 APPLIC TOPICAL PRN (22:04)
[2023-10-08] MEDS: HYDROcodone/APAP 5-325MG 1 EACH TAB PO PRN (01:02)
[2023-10-08 01:29] VITALS: RESP 18
[2023-10-08] MEDS: PIPERACILLIN-TAZOBACTAM 3.375 GM in SODIUM CHLORIDE 0.9% 100 ML IVPB SCH ×2 (03:15→12:07)
[2023-10-08 07:22] LABS: Glucose,Whole Blood 113 mg/dL (70-110)
[2023-10-08] MEDS: INSULIN ASPART (NovoLOG) 100 UNIT/ML VIAL SQ SCH ×3 (07:44→17:37)
[2023-10-08] MEDS: THIAMINE 100 MG TAB PO SCH ×2 (08:24→17:37)
[2023-10-08] MEDS: HEPARIN SODIUM,PORCINE 5,000 UNIT/ML 1 ML VIAL SQ SCH (08:24)
[2023-10-08] MEDS: ACETAMINOPHEN TAB 325 MG TAB PO PRN ×2 (08:24→13:34)
[2023-10-08] MEDS: ASPIRIN 81 MG PO SCH (08:24)
[2023-10-08] MEDS: PANTOPRAZOLE 40 MG/10 ML VIAL IVP SCH (08:25)
[2023-10-08] MEDS: TAMSULOSIN 0.4 MG CAP.ER.24H PO SCH (08:25)
[2023-10-08] MEDS: carvediloL 12.5 MG TAB PO SCH ×2 (08:25→17:37)
[2023-10-08] MEDS: SENNOSIDES-DOCUSATE SODIUM 1 EACH TAB PO SCH ×2 (08:25→17:22)
[2023-10-08 11:38] LABS: Glucose,Whole Blood 139 mg/dL (70-110)
[2023-10-08] MEDS: FOLIC ACID 1 MG TAB PO SCH (12:08)
[2023-10-08] MEDS: MULTIVITAMINS, THERA 1 EACH TAB PO SCH (12:08)
[2023-10-08 12:15] VITALS: PULSE 78; TEMP 97.4
--- NOTE | 2023-10-08 13:13 | P.PN ---
Subjective Progress Note Date: 10/07/23 Principal diagnosis: Reason for follow-up is fever and sepsis/cholecystitis Patient is a 83-year-old male with a past medical history significant for diabetes mellitus hypertension hyperlipidemia COPD history of prostate disorder patient apparently was recently admitted at [facility] with sepsis secondary to gallstone patient was stabilized subsequently discharged to the [facility] rehab, patient was brought to the [facility] ER for evaluation of weakness confusion hallucination did have a low-fever concerning for sepsis. Patient is s/p laparoscopic ostectomy completed by general surgery on 10/03/2023 On today's evaluation 10/07/2023, the patient continues to be afebrile patient is breathing comfortably on room air without need for supplemental oxygen the patient denies chest pain did have occasional cough no sputum production patient denies abdominal pain no nausea no vomiting and no diarrhea has been reported Patient did have white count is 10.06, creatinine is 1.2, cultures are so far negative Objective - Vital Signs Vital signs: Vital Signs Temp 97.7 F 10/07/23 11:35 Pulse 85 10/07/23 11:35 Resp 18 10/07/23 11:35 BP 120/68 10/07/23 11:35 Pulse Ox 94 L 10/07/23 11:35 FiO2 Intake & Output 10/06/23 10/07/23 10/07/23 18:59 06:59 18:59 Intake Total 470 700 Output Total 600 400 300 Balance -130 300 -300 Weight 83.915 kg Intake: Intake, IV Titration 100 Amount Piperacillin-Tazobactam 3 100 .375 gm In Sodium Chloride 0.9% 100 ml @ 25 mls/hr IVPB Q8H [facility] Rx#: [id number] Oral 470 600 Output: Urine 600 400 300 Straight 600 Other: Voiding Method Diaper Diaper Diaper Indwelling Catheter Indwelling Catheter - Exam GENERAL DESCRIPTION: An elderly male lying in bed in no distress RESPIRATORY SYSTEM: Unlabored breathing , decreased breath sounds at bases HEART: S1 S2 regular rate and rhythm , ABDOMEN: Soft , no tenderness EXTREMITIES: No edema feet - Labs CBC & Chem 7: 10/07/23 06:54 10/07/23 06:54 Labs: Abnormal Lab Results - Last 24 Hours (Table) 10/06/23 10/07/23 10/07/23 Range/Units 19:25 01:46 06:54 WBC 10.06 H (4.50-10.00) X 10*3/uL RBC 3.42 L (4.40-5.60) X 10*6/uL Hgb 9.0 L (13.0-17.0) g/dL Hct 28.8 L (39.6-50.0) % MCH 26.3 L (27.0-32.0) pg MCHC 31.3 L (32.0-37.0) g/dL Eosinophils # 0.58 H (0.04-0.35) X 10*3/uL Sodium (135-145) mmol/L BUN/Creatinine Ratio (12.00-20.00) Ratio Glucose (70-110) mg/dL POC Glucose (mg/dL) 128 H 191 H (70-110) mg/dL Total Protein (6.2-8.2) g/dL Albumin (3.8-4.9) g/dL Albumin/Globulin Ratio (1.60-3.17) Ratio 10/07/23 10/07/23 10/07/23 Range/Units 06:54 07:20 11:34 WBC (4.50-10.00) X 10*3/uL RBC (4.40-5.60) X 10*6/uL Hgb (13.0-17.0) g/dL Hct (39.6-50.0) % MCH (27.0-32.0) pg MCHC (32.0-37.0) g/dL Eosinophils # (0.04-0.35) X 10*3/uL Sodium 133 L (135-145) mmol/L BUN/Creatinine Ratio 11.92 L (12.00-20.00) Ratio Glucose 222 H (70-110) mg/dL POC Glucose (mg/dL) 217 H 186 H (70-110) mg/dL Total Protein 6.0 L (6.2-8.2) g/dL Albumin 3.2 L (3.8-4.9) g/dL Albumin/Globulin Ratio 1.14 L (1.60-3.17) Ratio Microbiology - Last 24 Hours (Table) 10/01/23 10:10 Blood Culture - Final Blood 10/01/23 10:22 Blood Culture - Final Blood Assessment and Plan (1) Sepsis Current Visit: Yes Status: Acute Code(s): A41.9 - SEPSIS, UNSPECIFIED ORGANISM SNOMED Code(s): 47216677 (2) Cholecystitis Current Visit: Yes Status: Acute Code(s): K81.9 - CHOLECYSTITIS, UNSPECIFIED SNOMED Code(s): 97162668 Plan: 1patient with sepsis in this patient who did have a fever tachycardia source likely gallbladder disease in this patient who recently did have a similar presentation to the [facility] and apparently was treated for COVID-related sepsis per the son at the bedside keeping in mind being around the hospital will need to cover for more resistant gram-negative pathogen 2-patient is status post cholecystectomy completed by general surgery concerning for cholecystitis 3patient is afebrile and the patient white count has normalized, 4- patient to continue Zosyn 3.375 g every 8 hours with a plan for therapy with a short course of oral antibiotics Dictation was produced using [employer] dictation software. please excuse any gra mmatical, word or spelling errors. Time with Patient: Less than 30
--- NOTE | 2023-10-08 13:14 | P.PN ---
Subjective Progress Note Date: 10/08/23 Principal diagnosis: Reason for follow-up is fever and sepsis/cholecystitis Patient is a 83-year-old male with a past medical history significant for diabetes mellitus hypertension hyperlipidemia COPD history of prostate disorder patient apparently was recently admitted at [facility] with sepsis secondary to gallstone patient was stabilized subsequently discharged to the [facility] rehab, patient was brought to the [facility] ER for evaluation of weakness confusion hallucination did have a low-fever concerning for sepsis. Patient is s/p laparoscopic ostectomy completed by general surgery on 10/03/2023 On today's evaluation 10/08/2023, the patient remains to be afebrile, the patient is breathing comfortably on room air and the patient denies any shortness of breath, the patient denies chest pain or any cough , patient denies any nausea/vomiting abdominal pain or diarrhea, feeling better Patient did have white count is 10.06, creatinine is 1.2 as of yesterday, cultures are so far negative Objective - Vital Signs Vital signs: Vital Signs Temp 97.4 F L 10/08/23 11:36 Pulse 78 10/08/23 11:36 Resp 18 10/08/23 11:36 BP 117/57 10/08/23 11:36 Pulse Ox 96 10/08/23 11:36 FiO2 Intake & Output 10/07/23 10/08/23 10/08/23 18:59 06:59 18:59 Intake Total 700 Output Total 300 500 Balance -300 200 Weight 83.915 kg Intake: Intake, IV Titration 100 Amount Piperacillin-Tazobactam 3 100 .375 gm In Sodium Chloride 0.9% 100 ml @ 25 mls/hr IVPB Q8H [facility] Rx#: [id number] Oral 600 Output: Urine 300 500 Other: Voiding Method Diaper Diaper Diaper Indwelling Catheter Indwelling Catheter # Bowel Movements 1 - Exam GENERAL DESCRIPTION: An elderly male lying in bed in no distress RESPIRATORY SYSTEM: Unlabored breathing , decreased breath sounds at bases HEART: S1 S2 regular rate and rhythm , ABDOMEN: Soft , no tenderness EXTREMITIES: No edema feet - Labs CBC & Chem 7: 10/07/23 06:54 10/07/23 06:54 Labs: Abnormal Lab Results - Last 24 Hours (Table) 10/07/23 10/08/23 10/08/23 Range/Units 16:49 07:21 11:37 POC Glucose (mg/dL) 201 H 113 H 139 H (70-110) mg/dL Assessment and Plan (1) Sepsis Current Visit: Yes Status: Acute Code(s): A41.9 - SEPSIS, UNSPECIFIED ORGANISM SNOMED Code(s): 91724668 (2) Cholecystitis Current Visit: Yes Status: Acute Code(s): K81.9 - CHOLECYSTITIS, UNSPECIFIED SNOMED Code(s): 33245568 Plan: 1patient with sepsis in this patient who did have a fever tachycardia source likely gallbladder disease in this patient who recently did have a similar presentation to the [facility] and apparently was treated for COVID-related sepsis per the son at the bedside keeping in mind being around the hospital will need to cover for more resistant gram-negative pathogen 2-patient is status post cholecystectomy completed by general surgery concerning for cholecystitis 3patient is afebrile and the patient white count has normalized, 4- patient has shown clinical improvement, to continue Zosyn 3.375 g every 8 hours while inpatient with a plan for therapy with a short course of oral Augmentin Dictation was produced using [employer] dictation software. please excuse any grammatical, word or spelling errors. Time with Patient: Less than 30
--- NOTE | 2023-10-08 13:38 | P.PN ---
Subjective Progress Note Date: 10/08/23 On today's evaluation of 10/07/2023, the patient is being seen for a follow-up. Patient is doing extremely well. No specific complaints. No nausea. No vomiting. No significant abdominal pain. The patient is post cholecystectomy the surgery was done on 10/03/2023 and the patient is currently postop day #4. Tolerating diet. Is currently on IV Zosyn. COPD stable. The right lower lobe pulmonary nodule that was noted and the CAT scan of the chest cavity workup on outpatient basis. Other comorbidities including diabetes mellitus, hypertension hyperlipidemia and previous history of CHF and the patient has an AICD in place. In terms of labs, the WBC was a 10.6 with a hemoglobin of 9, sodium is at 133, BUN is at 14 with a creatinine of 1.2. LFTs are normal. Surgical wound is dry clean and intact. Patient was transitioned to room air oxygen. Using incentive spirometer. He is afebrile. On today's evaluation of 09/28/2023 on seeing the patient for a follow-up. The patient is doing well in his condition is stable. He is post cholecystectomy. His postoperative day #5. He is gradually increasing his oral intake. No significant shortness of breath. He is not using the incentive spirometer on a regular basis and was advised to do so. He was taken off the oxygen and the patient is currently on room air oxygen with a pulse ox of 93%. His blood work shows that the physical 4.3, hemoglobin 11.9 and a platelet count of 275. The patient is still taken DuoNeb updrafts [id number], he is on Lasix 40 mg on a daily basis. He is on Aurora for pain control. He is also on long-term and cognition utilizing Xarelto. He is afebrile. No other significant events overnight. Objective - Vital Signs Vital signs: Vital Signs Temp 97.8 F 10/08/23 07:15 Pulse 84 10/08/23 07:15 Resp 18 10/08/23 07:15 BP 115/56 10/08/23 07:15 Pulse Ox 90 L 10/08/23 07:15 FiO2 Intake & Output 10/07/23 10/08/23 10/08/23 18:59 06:59 18:59 Intake Total 700 Output Total 300 500 Balance -300 200 Weight 83.915 kg Intake: Intake, IV Titration 100 Amount Piperacillin-Tazobactam 3 100 .375 gm In Sodium Chloride 0.9% 100 ml @ 25 mls/hr IVPB Q8H [facility] Rx#: [id number] Oral 600 Output: Urine 300 500 Other: Voiding Method Diaper Diaper Diaper Indwelling Catheter Indwelling Catheter # Bowel Movements 1 - Exam GENERAL EXAM: Alert, confused at times, low blood sugar, 83-year-old male patient, on room air oxygen. HEAD: Normocephalic. EYES: Normal reaction of pupils, equal size. NOSE: Clear with pink turbinates. THROAT: No erythema or exudates. NECK: No masses, no JVD. CHEST: No chest wall deformity. LUNGS: Equal air entry with no crackles, wheeze, rhonchi or dullness. CVS: S1 and S2 normal with no audible murmur, regular rhythm. ABDOMEN: Surgical incisions clean dry well approximated. No hepatosplenomegaly, normal bowel sounds, no guarding or rigidity. SPINE: No scoliosis or deformity SKIN: No rashes CENTRAL NERVOUS SYSTEM: No focal deficits, tone is normal in all 4 extremities. EXTREMITIES: There is no peripheral edema. No clubbing, no cyanosis. P eripheral pulses are intact. - Labs CBC & Chem 7: 10/07/23 06:54 10/07/23 06:54 Labs: Abnormal Lab Results - Last 24 Hours (Table) 10/07/23 10/07/23 10/07/23 Range/Units 06:54 11:34 16:49 Sodium 133 L (135-145) mmol/L BUN/Creatinine Ratio 11.92 L (12.00-20.00) Ratio Glucose 222 H (70-110) mg/dL POC Glucose (mg/dL) 186 H 201 H (70-110) mg/dL Total Protein 6.0 L (6.2-8.2) g/dL Albumin 3.2 L (3.8-4.9) g/dL Albumin/Globulin Ratio 1.14 L (1.60-3.17) Ratio 10/08/23 Range/Units 07:21 Sodium (135-145) mmol/L BUN/Creatinine Ratio (12.00-20.00) Ratio Glucose (70-110) mg/dL POC Glucose (mg/dL) 113 H (70-110) mg/dL Total Protein (6.2-8.2) g/dL Albumin (3.8-4.9) g/dL Albumin/Globulin Ratio (1.60-3.17) Ratio Assessment and Plan Plan: Right upper quadrant pain suspect secondary to cholecystitis. Status post laparoscopic cholecystectomy on 10/03/2023. Postoperative day # 5 Probable pneumonia, right lower lung zone. ProCalcitonin 0.10. The patient completed a course of IV Zosyn History of COPD, from previous heavy tobacco use. Overall respiratory status is stable and the patient is instructed to utilize the incentive spirometer Pulmonary nodule, right lung, enlarging, may relate to underlying lung cancer. History of diabetes mellitus. History of hyperlipidemia. History of hypertension. History of congestive heart failure. History of BPH. S/P AICD placement, 2016. Prior history of tobacco use. Plan: Advance diet as tolerated, oral intake is quite diminished still. Respiratory status is stable and the patient is currently on room air oxygen Completed the course of antibiotics Continue using incentive spirometer pulmonary nodules can be worked up on outpatient basis The blood sugars under better control and the patient is taken Levemir insulin 15 units at bedtime and NovoLog to scale coverage Continue anticoagulation utilizing Xarelto Continue Lasix 40 mg by mouth daily Physical therapy We'll continue to follow
--- NOTE | 2023-10-08 13:57 | P.PN ---
Subjective Progress Note Date: 10/08/23 CHIEF COMPLAINT: Altered mental status HISTORY OF PRESENT ILLNESS: Patient postop day #5 status post laparoscopic cholecystectomy. Patient's pain is controlled. He is tolerating diet. He did have a bowel movement. Afebrile. Patient is awaiting insurance authorization for ECF placement PHYSICAL EXAM: VITAL SIGNS: Reviewed. GENERAL: Well-developed in no acute distress. ABDOMEN: Soft. Nondistended. Incision sites clean dry and intact ASSESSMENT: 1. Cholecystitis status post laparoscopic cholecystectomy PLAN: -Patient can be discharged from surgical standpoint when medically cleared -Continue home pain medication for pain control Physician Bread Packer note has been reviewed by physician. Signing provider agrees with the documented findings, assessment, and plan of care. Objective - Vital Signs Vital signs: Vital Signs Temp 97.4 F L 10/08/23 11:36 Pulse 78 10/08/23 11:36 Resp 18 10/08/23 11:36 BP 117/57 10/08/23 11:36 Pulse Ox 96 10/08/23 11:36 FiO2 Intake & Output 10/07/23 10/08/23 10/08/23 18:59 06:59 18:59 Intake Total 700 Output Total 300 500 Balance -300 200 Weight 83.915 kg Intake: Intake, IV Titration 100 Amount Piperacillin-Tazobactam 3 100 .375 gm In Sodium Chloride 0.9% 100 ml @ 25 mls/hr IVPB Q8H [facility] Rx#: [id number] Oral 600 Output: Urine 300 500 Other: Voiding Method Diaper Diaper Diaper Indwelling Catheter Indwelling Catheter # Bowel Movements 1 - Labs CBC & Chem 7: 10/07/23 06:54 10/07/23 06:54 Labs: Abnormal Lab Results - Last 24 Hours (Table) 10/07/23 10/08/23 10/08/23 Range/Units 16:49 07:21 11:37 POC Glucose (mg/dL) 201 H 113 H 139 H (70-110) mg/dL
[2023-10-08 17:11] LABS: Glucose,Whole Blood 274 mg/dL (70-110)
[2023-10-08 17:56] VITALS: BP 120/75
== END 2023-10-08 18:35 | DRG 853 ==
LOC: EC 09:50 → 6NMEDSUR 14:49 → OBSVTOIN 14:50 → 6NMEDSUR 20:35 → 5NMEDONC 10-02 20:27 → 6NMEDSUR 10-03 02:46 → 5NMEDONC 10-03 02:46
PROVIDERS: ADMIT Hospitalist; ATTEND Hospitalist
PROC: 0FT44ZZ Resection of Gallbladder, Percutaneous Endoscopic Approach (ICD-10-PCS; principal; 2023-10-03 15:10)
DX: A41.9 Sepsis, unspecified organism (principal); G93.41 Metabolic encephalopathy; J18.9 Pneumonia, unspecified organism; K80.00 Calculus of gallbladder with acute cholecystitis without obstruction; N17.9 Acute kidney failure, unspecified; G91.2 (Idiopathic) normal pressure hydrocephalus; E87.1 Hypo-osmolality and hyponatremia; F03.C2 Unspecified dementia, severe, with psychotic disturbance; I42.9 Cardiomyopathy, unspecified; J47.0 Bronchiectasis with acute lower respiratory infection; J98.11 Atelectasis; J44.0 Chronic obstructive pulmonary disease with (acute) lower respiratory infection; J44.1 Chronic obstructive pulmonary disease with (acute) exacerbation; E11.649 Type 2 diabetes mellitus with hypoglycemia without coma; I11.0 Hypertensive heart disease with heart failure; I50.9 Heart failure, unspecified; J43.9 Emphysema, unspecified; E11.65 Type 2 diabetes mellitus with hyperglycemia; I25.10 Atherosclerotic heart disease of native coronary artery without angina pectoris; I25.84 Coronary atherosclerosis due to calcified coronary lesion; D64.9 Anemia, unspecified; I45.10 Unspecified right bundle-branch block; E87.5 Hyperkalemia; E86.0 Dehydration; E78.5 Hyperlipidemia, unspecified; N40.0 Benign prostatic hyperplasia without lower urinary tract symptoms; H91.90 Unspecified hearing loss, unspecified ear; R91.1 Solitary pulmonary nodule; Z79.51 Long term (current) use of inhaled steroids; Z79.4 Long term (current) use of insulin; Z79.84 Long term (current) use of oral hypoglycemic drugs; Z79.899 Other long term (current) drug therapy; Z87.891 Personal history of nicotine dependence; Z95.810 Presence of automatic (implantable) cardiac defibrillator; Z86.16 Personal history of COVID-19; Z85.118 Personal history of other malignant neoplasm of bronchus and lung; Z88.7 Allergy status to serum and vaccine
CPT/HCPCS: 36415; 70450; 71045; 71046; 71250; 76705; 80048; 80053; 80061; 81003; 82140; 82607; 82746; 83036; 83605; 83735; 84145; 84484; 85025; 85610; 85652; 85730; 86140; 86780; 87040; 87086; 87636; 88304; 93005; 93308; 94640; 94760; 95816; 96361; 96365; 96366; 96367; 96368; 96372; 96375; 96376; 99285